=== PATIENT | male | born 1975 | race Caucasian/White ===

== ENCOUNTER → 2016-04-07 | Outpatient (CLI) | payer OTHER ==
[~2016-04-07] MED LIST: ABIL5TAB5 PO; ADDE20CA PO; ATOM40CA PO; BACITAB3 PO; CLIN1AER TOP; FLON1SPR; GABA300C3 PO; HYDR25T PO; LAMI25TA PO; MINI1CAP PO; SING10TA32 PO; TIZA4CAP3 PO; TRAZ150T14 PO; XANA0.5T PO; ZANTTAB PO; ZYRT10CA PO
[2016-04-07 13:47] LABS: BASO # 0.2 K/mm3 (0.0-0.2); BASO % 1.6 % (0.0-1.0); EOS # 0.2 K/mm3 (0.0-0.50); EOS % 1.8 % (0.0-3.0); LARGE UNSTAINED CELL # 0.2 K/mm3 (0.0-0.4); LARGE UNSTAINED CELL % 1.7 % (0.0-4.0); LYMPH # 3.7 K/mm3 (1.5-4.5); LYMPH % 31.4 % (24.0-44.0); MEAN CORPUSCULAR HEMOGLOBIN 31.8 pg (27.0-33.0); MEAN CORPUSCULAR VOLUME 93.5 fl (80.0-96.0); MONO # 0.6 K/mm3 (0.0-0.8); MONO % 5.2 % (0.0-5.0); NEUTROPHILS # 6.5 K/mm3 (1.8-7.7); NEUTROPHILS % 58.3 % (36.0-66.0); PLATELET COUNT, AUTOMATED 246 k/mm3 (150-450); RED CELL DISTRIBUTION WIDTH 13.8 % (11.5-14.5); WHITE BLOOD COUNT 11.1 K/mm3 (4.0-10.0)
[2016-04-07 14:15] LABS: URIC ACID 5.8 MG/DL (3.5-7.2)
[2016-04-07 14:37] LABS: ERYTHROCYTE SEDIMENTATION RATE 8 mm/hr (0-15)
== END ==
LOC: M LAB 12:18
PROVIDERS: ATTEND Physician Assistant
DX: M25.562 Pain in left knee (principal)

== ENCOUNTER 2016-07-06 16:46 | Emergency (ER) | payer OTHER ==
[~2016-07-06] VITALS: Ht 190.5 cm; Wt 122.9 kg
[~2016-07-06 16:46] MED LIST changes: +GABA-282 PO; -GABA300C3 PO
[2016-07-06 16:55] VITALS: BP 132/89
[2016-07-06] MEDS ORDERED: ADDE5TAB5 PO (17:12)
[2016-07-06] MEDS ORDERED: LAMI1TAB8 PO (17:12)
[2016-07-06] MEDS ORDERED: BUPR75TA5 PO (17:12)
[2016-07-06] MEDS ORDERED: XANA0.5T PO (17:12)
[2016-07-06] MEDS ORDERED: PRAZ1CAP PO (17:12)
[2016-07-06] MEDS ORDERED: RANI150C PO (17:12)
[2016-07-06] MEDS ORDERED: AMBI10TA PO (17:12)
[2016-07-06] MEDS ORDERED: LORazepam 2 MG/ML VIAL (J2060) IV STA (17:27)
[2016-07-06 17:51] LABS: BASO % 0.8 % (0.0-1.0); EOS # 0.1 K/mm3 (0.0-0.50); EOS % 1.8 % (0.0-3.0); LARGE UNSTAINED CELL # 0.2 K/mm3 (0.0-0.4); LARGE UNSTAINED CELL % 2.2 % (0.0-4.0); LYMPH % 43.6 % (24.0-44.0); MEAN CORPUSCULAR HGB CONC 35.7 g/dl (32.0-36.5); MEAN CORPUSCULAR VOLUME 92.6 fl (80.0-96.0); MONO # 0.4 K/mm3 (0.0-0.8); MONO % 6.3 % (0.0-5.0); NEUTROPHILS # 3.1 K/mm3 (1.8-7.7); NEUTROPHILS % 45.3 % (36.0-66.0); PLATELET COUNT, AUTOMATED 234 k/mm3 (150-450); RED CELL DISTRIBUTION WIDTH 12.3 % (11.5-14.5); WHITE BLOOD COUNT 6.8 K/mm3 (4.0-10.0)
[2016-07-06 18:04] LABS: ALBUMIN 3.7 GM/DL (3.2-5.2); ALBUMIN/GLOBULIN RATIO 1.03 (1.00-1.93); ALKALINE PHOSPHATASE 84 U/L (45-117); ALT/SGPT 35 U/L (12-78); ANION GAP 5 MEQ/L (8-16); AST/SGOT 16 U/L (15-37); BILIRUBIN,DIRECT 0.1 MG/DL (0.0-0.2); BILIRUBIN,TOTAL 0.7 MG/DL (0.2-1.0); BLOOD UREA NITROGEN 12 MG/DL (7-18); CALCIUM LEVEL 8.6 MG/DL (8.5-10.1); CARBON DIOXIDE LEVEL 27 MEQ/L (21-32); CHLORIDE LEVEL 104 MEQ/L (98-107); CREATININE FOR GFR 1.03 MG/DL (0.70-1.30); GLOMERULAR FILTRATION RATE > 60.0 (>60); GLUCOSE, FASTING 96 MG/DL (70-105); POTASSIUM SERUM 3.8 MEQ/L (3.5-5.1); SODIUM LEVEL 136 MEQ/L (136-145); TOTAL PROTEIN 7.3 GM/DL (6.4-8.2)
--- NOTE | 2016-07-06 18:29 | REP ---
Chest x-ray: Two views: History: Chest pain. Findings: There is linear density at the left base consistent with plate-like atelectasis or fibrosis. Lung hoff are otherwise clear. Pleural angles are sharp. Heart size is normal. EKG monitoring electrodes overlie the chest. Impression: Linear density left base consistent with plate-like atelectasis or linear scarring. Otherwise no acute disease. Signed by Abhay Reid MD 07/06/2016 07:56 P
--- NOTE | 2016-07-07 20:20 | ECGEPIP ---
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
--- NOTE | 2016-07-08 11:00 | ECGEPIP ---
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
== END 2016-07-06 18:50 | disposition home or self-care (01) ==
LOC: M ED 17:42
DX: F41.9 Anxiety disorder, unspecified (principal); R07.89 Other chest pain; K21.9 Gastro-esophageal reflux disease without esophagitis; J98.4 Other disorders of lung; Z79.899 Other long term (current) drug therapy; Z88.6 Allergy status to analgesic agent

== ENCOUNTER → 2016-07-12 | Outpatient (REF) | payer OTHER ==
[~2016-07-12] MED LIST changes: +ADDE5TAB5 PO; +AMBI10TA PO; +BUPR75TA5 PO; +LAMI1TAB8 PO; +PRAZ1CAP PO; +RANI150C PO
[2016-07-12 18:40] LABS: PROLACTIN 6.8 NG/ML (2.1-17.7)
[2016-07-12 18:41] LABS: FOLATE 5.3 NG/ML
== END ==
LOC: M LABDRAW1 15:34
PROVIDERS: ATTEND Family Medicine
DX: N52.9 Male erectile dysfunction, unspecified (principal)

== ENCOUNTER → 2016-09-02 | Outpatient (CLI) | payer OTHER ==
--- NOTE | 2016-09-03 09:35 | REP ---
Sinus series: Four views. History: Sinus pressure. Findings: The maxillary and frontal sinuses appear to be clear. Ethmoid and sphenoid aeration is normal. Mastoid aeration is normal and symmetric. Bony sinus margins are intact. Impression: Negative paranasal sinus views. Signed by Abhay Reid MD 09/03/2016 11:31 A
== END ==
LOC: M LRY 18:14
PROVIDERS: ATTEND Nurse Practitioner Family
DX: J34.89 Other specified disorders of nose and nasal sinuses (principal)

== ENCOUNTER 2017-08-08 07:03 | Outpatient (RCR) | payer BC | END 2017-08-16 | LOC: M PT 07:03 | DX: Z47.89 Encounter for other orthopedic aftercare (principal); S46.011A Strain of muscle(s) and tendon(s) of the rotator cuff of right shoulder, initial encounter | CPT/HCPCS: 97010 ==

== ENCOUNTER 2017-08-17 07:16 | Outpatient (RCR) | payer BC | END 2017-09-15 | LOC: M PT 08-22 07:30 | DX: Z51.89 Encounter for other specified aftercare (principal); S46.011A Strain of muscle(s) and tendon(s) of the rotator cuff of right shoulder, initial encounter | CPT/HCPCS: 97010 ==

== ENCOUNTER → 2017-09-26 | Outpatient (CLI) | payer BC | LOC: M RAD 06:40 | DX: S46.011D Strain of muscle(s) and tendon(s) of the rotator cuff of right shoulder, subsequent encounter (principal); M75.31 Calcific tendinitis of right shoulder; X58.XXXD Exposure to other specified factors, subsequent encounter; Y92.9 Unspecified place or not applicable | CPT/HCPCS: 73221 ==

== ENCOUNTER → 2017-10-18 | Outpatient (CLI) | payer BC | LOC: M LRY 11:17 | DX: K52.9 Noninfective gastroenteritis and colitis, unspecified (principal) | CPT/HCPCS: 81002 ==

== ENCOUNTER → 2017-10-18 | Outpatient (REF) | payer BC | LOC: M SFHCLERA 11:18 | DX: R19.7 Diarrhea, unspecified (principal) | CPT/HCPCS: 87507 ==

== ENCOUNTER → 2018-04-02 | Outpatient (REF) ==
[~2018-04-02] MED LIST changes: +ABIL1TAB11 PO; -ABIL5TAB5 PO; +ADDE1TAB14 PO; -ADDE20CA PO; +ADDE20CA3 PO; -ADDE5TAB5 PO; +BACITAB PO; -BACITAB3 PO; -GABA-282 PO; +GABA-843 PO; +HYDR-3363 PO; -HYDR25T PO; +TIZA4CAP PO; -TIZA4CAP3 PO; -TRAZ150T14 PO; +TRAZ1TAB14 PO
== END ==
LOC: M LAB 09:33
PROVIDERS: ATTEND Nurse Practitioner Adult Health
DX: Z00.00 Encounter for general adult medical examination without abnormal findings (principal)

== ENCOUNTER 2018-07-15 12:36 | Day surgery (SDC) | payer BC ==
[~2018-07-15] VITALS: Ht 170.2 cm; Wt 102.1 kg
[~2018-07-15 12:36] MED LIST changes: +MAPA500C PO; +NS 1,000 ML IV ONE; +OMEP40CA2 PO
[2018-07-15] MEDS ORDERED: PROPOFOL 500 MG/50 ML VIAL As Ordered ONE (14:03)
[2018-07-15] MEDS ORDERED: LIDOCAINE 2% INJ 100 MG/5 ML SDV (FOR ANES.) As Ordered ONE ×2 (14:15→14:53)
[2018-07-15] MEDS ORDERED: PROPOFOL 200 MG/20 ML VIAL As Ordered ONE ×2 (15:52→16:21)
[2018-07-15] MEDS ORDERED: fentaNYL 100 MCG/2 ML INJECTION (J3010) As Ordered ONE (15:56)
[2018-07-15] MEDS ORDERED: PHENYLephrine HCL 500 MCG/5 ML (100MCG/ML) SYRINGE (J2370) As Ordered ONE (16:09)
--- NOTE | 2018-07-15 16:32 | ROOR ---
Patient Name: Donovan Cheema Procedure Date: 07/15/2018 3:52 PM Date of : 1975 Age: 43 Room: [facility] Gender: Male Note Status: Finalized Procedure: Upper GI endoscopy Indications: Epigastric abdominal pain, Heartburn Providers: Hermilo Galdamez MD Referring MD: Mike KENYON MD Requesting Provider: Medicines: Monitored Anesthesia Care Complications: No immediate complications. Procedure: Pre-Anesthesia Assessment: - Prior to the procedure, a History and Physical was performed, and patient medications and allergies were reviewed. The patient is competent. The risks and benefits of the procedure and the sedation options and risks were discussed with the patient. All questions were answered and informed consent was obtained. Patient identification and proposed procedure were verified by the physician, the nurse and the anesthesiologist in the procedure room. Mental Status Examination: alert and oriented. Airway Examination: normal oropharyngeal airway and neck mobility. Respiratory Examination: clear to auscultation. CV Examination: normal. Prophylactic Antibiotics: The patient does not require prophylactic antibiotics. Prior Anticoagulants: The patient has taken no previous anticoagulant or antiplatelet agents. ASA Grade Assessment: II - A patient with mild systemic disease. After reviewing the risks and benefits, the patient was deemed in satisfactory condition to undergo the procedure. The anesthesia plan was to use monitored anesthesia care (MAC). Immediately prior to administration of medications, the patient was re-assessed for adequacy to receive sedatives. The heart rate, respiratory rate, oxygen saturations, blood pressure, adequacy of pulmonary ventilation, and response to care were monitored throughout the procedure. The physical status of the patient was re-assessed after the procedure. The Endoscope was introduced through the mouth, and advanced to the second part of duodenum. The upper GI endoscopy was accomplished without difficulty. The patient tolerated the procedure well. Findings: LA Grade A (one or more mucosal breaks less than 5 mm, not extending between tops of 2 mucosal folds) esophagitis with no bleeding was found in the distal esophagus. Biopsies were taken with a cold forceps for histology. Verification of patient identification for the specimen was done by the physician and nurse using the patient's name, date and medical record number. Estimated blood loss was minimal. The Z-line was irregular and was found 41 cm from the incisors. Patchy moderate inflammation characterized by erosions, erythema and granularity was found in the gastric body and in the gastric antrum. Biopsies were taken with a cold forceps for Helicobacter pylori testing. The duodenal bulb, second portion of the duodenum and third portion of the duodenum were normal. Biopsies for histology were taken with a cold forceps for evaluation of celiac disease. Impression: - LA Grade A reflux esophagitis. Biopsied. - Z-line irregular, 41 cm from the incisors. - Gastritis. Biopsied. - Normal duodenal bulb, second portion of the duodenum and third portion of the duodenum. Biopsied. Recommendation: - Patient has a contact number available for emergencies. The signs and symptoms of potential delayed complications were discussed with the patient. Return to normal activities tomorrow. Written discharge instructions were provided to the patient. - Resume previous diet. - Continue present medications. - Follow an antireflux regimen. 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 - Await pathology results. - Return to GI clinic in [facility] (address [address], [address], [place] [address]) in 4 -- 6 weeks. Please call GI clinic @ [phone] for apppointment date and time. - Return to primary care physician. Hermilo Galdamez MD Hermilo Galdamez MD 07/15/2018 4:32:30 PM Electronically signed by Hermilo Galdamez MD Number of Addenda: 0 Note Initiated On: 07/15/2018 3:52 PM Estimated Blood Loss: Estimated blood loss was minimal.
--- NOTE | 2018-07-15 16:38 | ROOR ---
Patient Name: Donovan Cheema Procedure Date: 07/15/2018 3:53 PM Date of : 1975 Age: 43 Room: [facility] Gender: Male Note Status: Finalized Procedure: Colonoscopy Indications: Chronic diarrhea Providers: Hermilo Galdamez MD Referring MD: Mike KENYON MD Requesting Provider: Medicines: Monitored Anesthesia Care Complications: No immediate complications. Procedure: Pre-Anesthesia Assessment: - Prior to the procedure, a History and Physical was performed, and patient medications and allergies were reviewed. The patient is competent. The risks and benefits of the procedure and the sedation options and risks were discussed with the patient. All questions were answered and informed consent was obtained. Patient identification and proposed procedure were verified by the physician, the nurse and the anesthesiologist in the procedure room. Mental Status Examination: alert and oriented. Airway Examination: normal oropharyngeal airway and neck mobility. Respiratory Examination: clear to auscultation. CV Examination: normal. Prophylactic Antibiotics: The patient does not require prophylactic antibiotics. Prior Anticoagulants: The patient has taken no previous anticoagulant or antiplatelet agents. ASA Grade Assessment: II - A patient with mild systemic disease. After reviewing the risks and benefits, the patient was deemed in satisfactory condition to undergo the procedure. The anesthesia plan was to use monitored anesthesia care (MAC). Immediately prior to administration of medications, the patient was re-assessed for adequacy to receive sedatives. The heart rate, respiratory rate, oxygen saturations, blood pressure, adequacy of pulmonary ventilation, and response to care were monitored throughout the procedure. The physical status of the patient was re-assessed after the procedure. The Colonoscope was introduced through the anus and advanced to the terminal ileum, with identification of the appendiceal orifice and IC valve. The colonoscopy was performed without difficulty. The patient tolerated the procedure well. The quality of the bowel preparation was good. The terminal ileum, ileocecal valve, appendiceal orifice, and rectum were photographed. Scope insertion time was 3 minutes. Scope withdrawal time was 9 minutes. The total duration of the procedure was 15 minutes. Findings: The perianal and digital rectal examinations were normal. The terminal ileum appeared normal. Two sessile polyps were found in the cecum. The polyps were 3 to 4 mm in size. These polyps were removed with a cold biopsy forceps. Resection and retrieval were complete. Verification of patient identification for the specimen was done by the physician and nurse using the patient's name, date and medical record number. Estimated blood loss was minimal. Six sessile polyps were found in the transverse colon. The polyps were 8 to 15 mm in size. These polyps were removed with a hot snare. Resection and retrieval were complete. Normal mucosa was found in the entire colon. Biopsies for histology were taken with a cold forceps from the right colon, left colon and rectosigmoid colon for evaluation of microscopic colitis. Non-bleeding external and internal hemorrhoids were found during retroflexion. The hemorrhoids were medium-sized. Impression: - The examined portion of the ileum was normal. - Two 3 to 4 mm polyps in the cecum, removed with a cold biopsy forceps. Resected and retrieved. - Six 8 to 15 mm polyps in the transverse colon, removed with a hot snare. Resected and retrieved. - Normal mucosa in the entire examined colon. Biopsied. - Non-bleeding external and internal hemorrhoids. Recommendation: - Patient has a contact number available for emergencies. The signs and symptoms of potential delayed complications were discussed with the patient. Return to normal activities tomorrow. Written discharge instructions were provided to the patient. - Resume previous diet. - Continue present medications. - Await pathology results. - Repeat colonoscopy in 1 year for surveillance based on pathology results and for surveillance of multiple polyps. - Return to GI clinic in [facility] (address [address], [address], [place], [address]) in 4 -- 6 weeks. Please call GI clinic @ [phone] for apppointment date and time. - Return to primary care physician. Hermilo Galdamez MD Hermilo Galdamez MD 07/15/2018 4:38:01 PM Electronically signed by Hermilo Galdamez MD Number of Addenda: 0 Note Initiated On: 07/15/2018 3:53 PM Estimated Blood Loss: Estimated blood loss was minimal.
[2018-07-15 16:55] VITALS: BP 129/78
== END 2018-07-15 17:11 | disposition home or self-care (01) ==
LOC: M OPP 12:36
PROVIDERS: ATTEND Internal Medicine Gastroenterology
DX: D12.2 Benign neoplasm of ascending colon (principal); D12.3 Benign neoplasm of transverse colon; K52.9 Noninfective gastroenteritis and colitis, unspecified; K64.8 Other hemorrhoids; R19.7 Diarrhea, unspecified; K21.0 Gastro-esophageal reflux disease with esophagitis; K22.8 Other specified diseases of esophagus; K29.70 Gastritis, unspecified, without bleeding; R10.13 Epigastric pain; R12 Heartburn
CPT/HCPCS: 43239; 45380; 45385; 88305; J2370; J3010

== ENCOUNTER → 2018-07-31 | Outpatient (CLI) | payer BC ==
[~2018-07-31] MED LIST changes: -NS 1,000 ML IV ONE
[2018-07-31 11:08] LABS: BASO # 0.1 10^3/uL (0.0-0.2); BASO % 0.4 % (0.0-1.0); EOS # 0.1 10^3/uL (0.0-0.50); EOS % 0.7 % (0.0-3.0); HEMATOCRIT 44.6 % (42.0-52.0); HEMOGLOBIN 15.2 g/dl (13.5-17.5); LYMPH # 3.8 10^3/uL (1.5-4.5); LYMPH % 32.4 % (24.0-44.0); MEAN CORPUSCULAR HEMOGLOBIN 30.8 pg (27.0-33.0); MEAN CORPUSCULAR HGB CONC 34.1 g/dl (32.0-36.5); MEAN CORPUSCULAR VOLUME 90.5 fl (80.0-96.0); MONO # 0.7 10^3/uL (0.0-0.8); MONO % 5.8 % (0.0-5.0); NEUTROPHILS # 7.1 10^3/uL (1.8-7.7); NEUTROPHILS % 60.3 % (36.0-66.0); PLATELET COUNT, AUTOMATED 249 10^3/uL (150-450); RED BLOOD COUNT 4.93 10^6/uL (4.30-6.10); WHITE BLOOD COUNT 11.7 10^3/uL (4.0-10.0)
[2018-07-31 12:30] LABS: ALBUMIN 3.7 GM/DL (3.2-5.2); ALT/SGPT 27 U/L (12-78); AMYLASE 30 U/L (25-115); BILIRUBIN,DIRECT 0.2 MG/DL (0.0-0.2); BILIRUBIN,TOTAL 0.9 MG/DL (0.2-1.0); BLOOD UREA NITROGEN 12 MG/DL (7-18); CREATININE FOR GFR 0.72 MG/DL (0.70-1.30); GLOMERULAR FILTRATION RATE > 60.0 (>60); LIPASE 48 U/L (73-393); TOTAL PROTEIN 7.2 GM/DL (6.4-8.2)
== END ==
LOC: M LAB 10:18
PROVIDERS: ATTEND Internal Medicine Gastroenterology
DX: R63.4 Abnormal weight loss (principal)

== ENCOUNTER → 2018-08-13 | Outpatient (CLI) | payer BC ==
[~2018-08-13] MED LIST changes: +GASTROGRAFIN SOLUTION 30ML (Q9963) As Ordered ONE; +ISOVUE-370 76% 100ML VIAL (Q9967) As Ordered ONE
--- NOTE | 2018-08-13 18:26 | REP ---
Clinical: Abnormal weight loss. Technique: Axial contrast enhanced images from the lung bases to the pubic symphysis using oral (per protocol) and 100 ml Isovue 370 intravenous contrast material with delayed images of the abdomen as well as coronal and sagittal re-formations. Comparison: None. Findings: Lung bases are clear. Visualized heart and pericardium normal. Liver, spleen, pancreas, bilateral adrenal glands and kidneys are normal. Cholelithiasis noted without acute cholecystitis. The enteric system is without obstruction or acute inflammatory process. Normal terminal ileum and appendix identified in the right lower quadrant. Pelvis demonstrates normal bladder and age appropriate prostate/seminal vesicles. No pelvic fluid. No ascites. No free air. No adenopathy. Abdominal aorta and vasculature without aneurysm or dissection. Musculoskeletal structures without focal osseous abnormality. Impression: 1. Cholelithiasis. 2. No acute abdominopelvic pathology appreciated. Electronically Signed by Tacos Isaacs MD 08/13/2018 06:18 P
== END ==
LOC: M RAD 16:04
PROVIDERS: ATTEND Internal Medicine Gastroenterology
DX: R63.4 Abnormal weight loss (principal); R19.7 Diarrhea, unspecified; K80.00 Calculus of gallbladder with acute cholecystitis without obstruction
CPT/HCPCS: 74177; Q9963; Q9967

== ENCOUNTER → 2018-08-27 | Outpatient (REF) | payer BC ==
[~2018-08-27] MED LIST changes: -GASTROGRAFIN SOLUTION 30ML (Q9963) As Ordered ONE; -ISOVUE-370 76% 100ML VIAL (Q9967) As Ordered ONE
== END ==
LOC: M LAB REF 09:03
PROVIDERS: ATTEND Internal Medicine Gastroenterology
DX: R63.4 Abnormal weight loss (principal); R19.7 Diarrhea, unspecified; R10.13 Epigastric pain

== ENCOUNTER → 2018-10-07 | Outpatient (REF) | payer BC ==
[~2018-10-07] MED LIST changes: +ZANT150T40 PO; -ZANTTAB PO
== END ==
LOC: M SFHCLERA 11:09
PROVIDERS: ATTEND Family Medicine
DX: R22.31 Localized swelling, mass and lump, right upper limb (principal)

== ENCOUNTER → 2018-10-13 | Outpatient (CLI) | payer BC ==
[~2018-10-13] MED LIST changes: +ALBU83IN INH; +DOXY-350 PO; +ZYRTTAB8 PO
[2018-10-13 14:38] LABS: BASO # 0.1 10^3/uL (0.0-0.2); BASO % 0.4 % (0.0-1.0); EOS # 0.2 10^3/uL (0.0-0.50); EOS % 1.4 % (0.0-3.0); HEMATOCRIT 44.8 % (42.0-52.0); HEMOGLOBIN 15.5 g/dl (13.5-17.5); LYMPH % 28.5 % (24.0-44.0); MEAN CORPUSCULAR HGB CONC 34.6 g/dl (32.0-36.5); MEAN CORPUSCULAR VOLUME 92.6 fl (80.0-96.0); MONO # 0.8 10^3/uL (0.0-0.8); MONO % 5.5 % (0.0-5.0); NEUTROPHILS # 8.9 10^3/uL (1.8-7.7); NEUTROPHILS % 63.7 % (36.0-66.0); PLATELET COUNT, AUTOMATED 231 10^3/uL (150-450); RED BLOOD COUNT 4.84 10^6/uL (4.30-6.10)
--- NOTE | 2018-10-14 07:53 | REP ---
PA and lateral chest: Comparison is 07/06/2016. The lung hoff are clear. Cardiac size is normal. There is soft tissue fullness in the left hilus as an interval change. The right hilus is unremarkable. The mediastinum is unchanged. Bony thorax is unremarkable. Impression: Soft tissue fullness in the left hilus as an interval change. Electronically Signed by Mike Warner MD 10/13/2018 02:39 P
== END ==
LOC: M LAB 14:05
PROVIDERS: ATTEND Family Medicine
DX: R22.31 Localized swelling, mass and lump, right upper limb (principal)

== ENCOUNTER 2018-10-29 07:32 | Day surgery (SDC) | payer BC ==
[~2018-10-29] VITALS: Ht 190.5 cm; Wt 106.2 kg
[~2018-10-29 07:32] MED LIST changes: +LR 1,000 ML IV ONE; -OMEP40CA2 PO; +OMEP40CA97 PO
[2018-10-29] MEDS ORDERED: propofoL 200 MG/20 ML VIAL As Ordered ONE (07:40)
[2018-10-29] MEDS ORDERED: LIDOCAINE 2% INJ 100 MG/5 ML SDV (FOR ANES.) As Ordered ONE (07:40)
[2018-10-29] MEDS ORDERED: dexameTHASONE 4 MG/ML 1ML VIAL (J1100) As Ordered ONE (07:40)
[2018-10-29] MEDS ORDERED: ONDANSETRON 4MG/2ML VIAL (J2405) As Ordered ONE (07:40)
[2018-10-29] MEDS ORDERED: ACETAMINOPHEN 1000MG 100ML IV BTL (OFIRMEV) (J0131 PER 10MG) As Ordered ONE (07:40)
[2018-10-29] MEDS ORDERED: ROCURONIUM BROMIDE 50 MG/5 ML VIAL As Ordered ONE ×2 (07:40→10:36)
[2018-10-29] MEDS ORDERED: BUPIVACAINE HCL 0.25% 30 ML VIAL As Ordered ONE (09:20)
[2018-10-29] MEDS ORDERED: fentaNYL 250 MCG/5 ML INJECTION (J3010) As Ordered ONE (10:02)
[2018-10-29] MEDS ORDERED: MIDAZOLAM INJ 2 MG/2 ML VIAL (J2250) As Ordered ONE (10:02)
[2018-10-29] MEDS ORDERED: NORC1TAB7 PO (10:10)
[2018-10-29] MEDS ORDERED: SUCCINYLCHOLINE 100 MG/5 ML SYRINGE (J0330) As Ordered ONE (10:16)
[2018-10-29] MEDS ORDERED: HYDROmorphone HCL 2 MG/ML 1ML VIAL (J1170) As Ordered ONE (11:40)
[2018-10-29] MEDS ORDERED: KETOROLAC 60 MG/2 ML VIAL (J1885) As Ordered ONE (11:43)
[2018-10-29] MEDS ORDERED: fentaNYL 100 MCG/2 ML INJECTION (J3010) As Ordered ONE (11:49)
[2018-10-29] MEDS: fentaNYL 100 MCG/2 ML INJECTION (J3010) IV PRN ×4 (11:55→12:10)
[2018-10-29] MEDS ORDERED: HYDROMORPHONE HCL 0.5 MG/ 0.5 ML SYRINGE (J1170 PER 1) As Ordered ONE (12:13)
[2018-10-29] MEDS ORDERED: ONDANSETRON 4MG/2ML VIAL (J2405) IV PRN (12:15)
[2018-10-29] MEDS ORDERED: LR 1,000 ML IV SCH (12:15)
[2018-10-29] MEDS ORDERED: HYDROMORPHONE HCL 0.5 MG/ 0.5 ML SYRINGE (J1170 PER 1) IV PRN (12:30)
[2018-10-29] MEDS ORDERED: ACETAMINOPHEN 500 MG TAB PO PRN (13:16)
[2018-10-29] MEDS ORDERED: NORCO, ANEXSIA 5/325MG TABLET (HYDROcodone/ACETAMINOPHEN) PO PRN (13:16)
[2018-10-29 13:25] VITALS: BP 133/86
--- NOTE | 2018-11-01 08:59 | RO ---
DATE OF PROCEDURE: 10/29/2018 PREOPERATIVE DIAGNOSIS: Gallstones. POSTOPERATIVE DIAGNOSIS: Gallstones. PROCEDURE PERFORMED: Robotic-assisted laparoscopic cholecystectomy. SURGEON: Dr. Davis DRY WALL FINISHER: YAMILE Flores ANESTHESIA: General. INDICATIONS FOR PROCEDURE: The patient is a 43-year-old man who was seen for some upper abdominal pain and found to have gallstones. He is now for a laparoscopic cholecystectomy with a robotic-assisted. OPERATIVE PROCEDURE: The patient was placed on the table in supine position. He was placed under general endotracheal anesthesia. The patient's abdomen was prepped and draped in a sterile fashion. Local anesthesia was achieved at the trocar sites with 0.25% Marcaine as needed. A short incision was made in the left upper quadrant and a Veress needle was inserted. After positive hanging drop test, the abdomen was insufflated with carbon dioxide gas. An 8 mm robotic port was placed over the scope and advanced through the abdominal wall without difficulty. Initial examination showed a normal-appearing liver. The gallbladder was partially seen. Visualized portions of the small and large bowel appeared normal. Three additional robotic ports were placed extending in a diagonal line from the left upper quadrant to the right lower quadrant. The da Vilma XI robot was brought into position and docked to the camera port. Targeting took place in the right upper quadrant and the additional arms were docked to the existing ports. A hook cautery was placed in the left upper quadrant, a bipolar in the medial right lower quadrant and a grasper in the lateral right lower quadrant. I then moved to the control console. The patient was tilted subsequently to a reverse Trendelenburg position and rolled slightly to the left. The gallbladder was grasped and elevated. Some adhesions to the surrounding omentum were divided using the hook cautery. As the gallbladder was freed, it was retracted further superiorly. Dissection proceeded along the body of the gallbladder and the neck was then identified. With dissection of the gallbladder neck, the cystic duct and cholecystic artery were both clearly identified and freed. Both structures were then doubly clipped with hemoclips and divided with scissors. The gallbladder was then dissected free from the gallbladder bed using cautery dissection. The gallbladder was not perforated. The gallbladder was placed in an Endopouch. Inspection revealed no evidence of any bleeding. The robot was undocked, and the abdomen was deflated and the patient was returned to a flat position. The robotic ports were removed. The string of the Endopouch had been brought through the medial right lower quadrant port. Retractors were used and the incision was extended slightly and the anterior and posterior fascia were opened to allow passage of the gallbladder, which contained some small palpable stones. The fascia was then closed with 0 Vicryl. The skin incisions were all closed with buried Vicryl sutures and Steri-Strips. Light dressings were applied. The patient tolerated the procedure well. Mireille Morris had been essential for assisting in placement of the ports, change of instruments and closure of the incisions. He was awakened in the operating room, extubated, moved to the recovery room in stable condition.
[2019-02-10] MEDS ORDERED: ONDA-83 PO (10:08)
[2019-02-17] MEDS ORDERED: TRAZ1TAB12 PO (08:51)
== END 2018-10-29 13:47 | disposition home or self-care (01) ==
LOC: M SDC 07:32
PROVIDERS: ATTEND Surgery
DX: K80.10 Calculus of gallbladder with chronic cholecystitis without obstruction (principal); K21.9 Gastro-esophageal reflux disease without esophagitis; F43.10 Post-traumatic stress disorder, unspecified; F31.9 Bipolar disorder, unspecified; F41.9 Anxiety disorder, unspecified; K44.9 Diaphragmatic hernia without obstruction or gangrene; J45.909 Unspecified asthma, uncomplicated; Z79.51 Long term (current) use of inhaled steroids; Z79.899 Other long term (current) drug therapy; F12.90 Cannabis use, unspecified, uncomplicated; F17.210 Nicotine dependence, cigarettes, uncomplicated
CPT/HCPCS: 47562; 88304; J0131; J0330; J1100; J1170; J1885; J2250; J2405; J3010

== ENCOUNTER → 2018-11-06 | Outpatient (REF) | payer BC ==
[~2018-11-06] MED LIST changes: -LR 1,000 ML IV ONE; +NORC1TAB7 PO; +OMEP40CA2 PO; -OMEP40CA97 PO
[2018-11-06 18:02] LABS: BASO # 0.1 10^3/uL (0.0-0.2); BASO % 0.5 % (0.0-1.0); EOS # 0.2 10^3/uL (0.0-0.50); EOS % 0.9 % (0.0-3.0); HEMOGLOBIN 17.5 g/dl (13.5-17.5); LYMPH # 4.3 10^3/uL (1.5-4.5); LYMPH % 24.7 % (24.0-44.0); MEAN CORPUSCULAR HEMOGLOBIN 31.8 pg (27.0-33.0); MEAN CORPUSCULAR HGB CONC 33.7 g/dl (32.0-36.5); MEAN CORPUSCULAR VOLUME 94.4 fl (80.0-96.0); MONO # 1.1 10^3/uL (0.0-0.8); MONO % 6.5 % (0.0-5.0); NEUTROPHILS # 11.5 10^3/uL (1.8-7.7); NEUTROPHILS % 66.8 % (36.0-66.0); PLATELET COUNT, AUTOMATED 282 10^3/uL (150-450); RED BLOOD COUNT 5.51 10^6/uL (4.30-6.10); WHITE BLOOD COUNT 17.3 10^3/uL (4.0-10.0)
== END ==
LOC: M SFHCLERA 12:12
PROVIDERS: ATTEND Family Medicine
DX: D72.829 Elevated white blood cell count, unspecified (principal)

== ENCOUNTER → 2018-11-11 | Outpatient (REF) | payer BC ==
[2018-11-11 11:39] LABS: BASO # 0.1 10^3/uL (0.0-0.2); BASO % 0.6 % (0.0-1.0); EOS # 0.2 10^3/uL (0.0-0.50); EOS % 1.4 % (0.0-3.0); HEMATOCRIT 48.4 % (42.0-52.0); HEMOGLOBIN 16.5 g/dl (13.5-17.5); LYMPH # 3.7 10^3/uL (1.5-4.5); LYMPH % 24.7 % (24.0-44.0); MEAN CORPUSCULAR HEMOGLOBIN 32.1 pg (27.0-33.0); MEAN CORPUSCULAR HGB CONC 34.1 g/dl (32.0-36.5); MEAN CORPUSCULAR VOLUME 94.2 fl (80.0-96.0); MONO # 0.8 10^3/uL (0.0-0.8); MONO % 5.4 % (0.0-5.0); NEUTROPHILS % 67.4 % (36.0-66.0); PLATELET COUNT, AUTOMATED 252 10^3/uL (150-450); RED BLOOD COUNT 5.14 10^6/uL (4.30-6.10); WHITE BLOOD COUNT 14.9 10^3/uL (4.0-10.0)
== END ==
LOC: M SFHCLERA 08:15
PROVIDERS: ATTEND Family Medicine
DX: D72.829 Elevated white blood cell count, unspecified (principal)

== ENCOUNTER → 2018-11-26 | Outpatient (CLI) | payer BC ==
[~2018-11-26] MED LIST changes: +REGL10TA6 PO
--- NOTE | 2018-11-26 14:21 | REP ---
Chest x-ray: Two views. History: Abnormal weight loss. Comparison chest x-ray October 13, 2018. Findings: The lungs are well inflated and free of infiltrate. There is mild linear fibrosis in the left base. This is somewhat more conspicuous but not new when compared with the October 13, 2018 study. Lung hoff are otherwise clear. Heart size is normal. Pulmonary vasculature is not increased. No bony abnormality is appreciated. Impression: Linear fibrosis left base. No active cardiopulmonary disease. Electronically Signed by Abhay Reid MD 11/26/2018 02:13 P
== END ==
LOC: M LRY 13:56
PROVIDERS: ATTEND Physician Assistant
DX: R63.4 Abnormal weight loss (principal); J84.10 Pulmonary fibrosis, unspecified

== ENCOUNTER → 2018-11-26 | Outpatient (REF) | payer BC ==
[~2018-11-26] MED LIST changes: -REGL10TA6 PO
[2018-11-26 17:26] LABS: BASO # 0.1 10^3/uL (0.0-0.2); BASO % 0.8 % (0.0-1.0); EOS # 0.2 10^3/uL (0.0-0.5); EOS % 1.8 % (0.0-3.0); HEMATOCRIT 46.2 % (42.0-52.0); HEMOGLOBIN 15.7 g/dl (13.5-17.5); LYMPH % 34.6 % (24.0-44.0); MEAN CORPUSCULAR HEMOGLOBIN 32.1 pg (27.0-33.0); MEAN CORPUSCULAR VOLUME 94.5 fl (80.0-96.0); MONO # 0.5 10^3/uL (0.0-0.8); NEUTROPHILS # 4.9 10^3/uL (1.5-8.5); NEUTROPHILS % 56.5 % (36.0-66.0); PLATELET COUNT, AUTOMATED 246 10^3/uL (150-450); RED BLOOD COUNT 4.89 10^6/uL (4.30-6.10); WHITE BLOOD COUNT 8.7 10^3/uL (4.0-10.0)
[2018-11-26 17:29] LABS: ALBUMIN 3.8 GM/DL (3.2-5.2); ALT/SGPT 24 U/L (12-78); BILIRUBIN,TOTAL 0.2 MG/DL (0.2-1.0); BLOOD UREA NITROGEN 9 MG/DL (7-18); C REACTIVE PROTEIN QUANTITATIV < 0.30 MG/DL (0.00-0.30); CALCIUM LEVEL 9.1 MG/DL (8.5-10.1); CARBON DIOXIDE LEVEL 24 MEQ/L (21-32); CHLORIDE LEVEL 109 MEQ/L (98-107); CREATININE FOR GFR 0.81 MG/DL (0.70-1.30); GLOMERULAR FILTRATION RATE > 60.0 (>60); GLUCOSE, FASTING 104 MG/DL (70-100); POTASSIUM SERUM 3.8 MEQ/L (3.5-5.1); SODIUM LEVEL 141 MEQ/L (136-145); TOTAL PROTEIN 6.7 GM/DL (6.4-8.2)
[2018-11-26 18:08] LABS: ERYTHROCYTE SEDIMENTATION RATE 5 mm/hr (0-15)
[2018-11-26 20:32] LABS: APPEARANCE, URINE CLEAR (CLEAR); BACTERIA, URINE AUTO NEGATIVE (NEGATIVE); BILIRUBIN, URINE AUTO NEGATIVE (NEGATIVE); BLOOD, URINE BLOOD NEGATIVE (NEGATIVE); COLOR, URINE AMBER (YELLOW); GLUCOSE, URINE (UA) AUTO NEGATIVE (NEGATIVE); KETONE, URINE AUTO TRACE mg/dL (NEGATIVE); LEUKOCYTE ESTERASE, URINE AUTO NEGATIVE (NEGATIVE); MUCUS, URINE SMALL (NEGATIVE); NITRITE, URINE AUTO NEGATIVE (NEGATIVE); PROTEIN, URINE AUTO NEGATIVE (NEGATIVE); RBC, URINE AUTO 1 /HPF (0-3); SPECIFIC GRAVITY URINE AUTO 1.023 (1.002-1.035); SQUAMOUS EPITHELIAL CELL UR AU 0 /HPF (0-6); WBC, URINE AUTO 1 /HPF (0-3)
[2018-11-29 00:06] LABS: ANTINUCLEAR ANTIBODIES DIRECT Negative (Negative); LEAD BLOOD ADULT 2 ug/dL (0-4); Lyme Disease IgG/IgM Antibodie <0.91 ISR (0.00-0.90); Lyme Disease IgM Ab Quantitati <0.80 index (0.00-0.79)
== END ==
LOC: M SFHCLERA 14:04
PROVIDERS: ATTEND Physician Assistant
DX: R63.4 Abnormal weight loss (principal); D72.829 Elevated white blood cell count, unspecified; M25.50 Pain in unspecified joint; Z77.011 Contact with and (suspected) exposure to lead

== ENCOUNTER 2018-12-06 17:12 | Emergency (ER) | payer BC ==
[~2018-12-06] VITALS: Ht 190.5 cm; Wt 105.4 kg
[2018-12-06 18:20] LABS: BASO # 0.1 10^3/uL (0.0-0.2); BASO % 0.7 % (0.0-1.0); EOS # 0.1 10^3/uL (0.0-0.5); HEMATOCRIT 48.7 % (42.0-52.0); HEMOGLOBIN 16.7 g/dl (13.5-17.5); LYMPH # 3.9 10^3/uL (1.5-5.0); LYMPH % 30.7 % (24.0-44.0); MEAN CORPUSCULAR HEMOGLOBIN 31.4 pg (27.0-33.0); MEAN CORPUSCULAR HGB CONC 34.3 g/dl (32.0-36.5); MEAN CORPUSCULAR VOLUME 91.5 fl (80.0-96.0); MONO # 0.9 10^3/uL (0.0-0.8); MONO % 7.2 % (0.0-5.0); NEUTROPHILS # 7.5 10^3/uL (1.5-8.5); NEUTROPHILS % 59.8 % (36.0-66.0); PLATELET COUNT, AUTOMATED 255 10^3/uL (150-450); RED BLOOD COUNT 5.32 10^6/uL (4.30-6.10); WHITE BLOOD COUNT 12.5 10^3/uL (4.0-10.0)
[2018-12-06 18:43] LABS: ALBUMIN 4.1 GM/DL (3.2-5.2); BILIRUBIN,DIRECT 0.2 MG/DL (0.0-0.2); BILIRUBIN,TOTAL 0.8 MG/DL (0.2-1.0); TOTAL PROTEIN 7.4 GM/DL (6.4-8.2)
[2018-12-06] MEDS ORDERED: ISOVUE-370 76% 100ML VIAL (Q9967) As Ordered ONE (20:43)
[2018-12-06] MEDS ORDERED: METOCLOPRAMIDE INJ 10MG/2ML VIAL (J2765) IV ONE (20:45)
[2018-12-06] MEDS ORDERED: MORPHINE 4 MG/ML 1ML VIAL/SYRINGE (J2270) IV PRN (20:45)
--- NOTE | 2018-12-06 21:31 | REPVR ---
PROCEDURE INFORMATION: Exam: CT Abdomen and Pelvis With Contrast Exam date and time: 12/06/2018 8:56 PM Clinical history: 43 years old, male; Abdominal pain; Generalized; Additional info: Generalized abd pain TECHNIQUE: Imaging protocol: Computed tomography of the abdomen and pelvis with intravenous contrast. Radiation optimization: All CT scans at this facility use at least one of these dose optimization techniques: automated exposure control; mA and/or kV adjustment per patient size (includes targeted exams where dose is matched to clinical indication); or iterative reconstruction. Contrast material: ISOVUE 370; Contrast volume: 100 ml; Contrast route: IV; COMPARISON: CT ABD PELVIS WITH CONTRAST 08/13/2018 5:49 PM FINDINGS: Lungs: Minimal bilateral lower lobe dependent atelectasis. Liver: Normal. No mass. Gallbladder and bile ducts: Absent gallbladder. Pancreas: Normal. No ductal dilation. Spleen: Normal. No splenomegaly. Adrenals: Normal. No mass. Kidneys and ureters: Normal. No hydronephrosis. Stomach and bowel: Mild distention of a short segment of small bowel in the right abdomen which may be transient. There is suggestion of an adjacent segment of small bowel which may have some wall thickening and enteritis is not excluded. Appendix: A normal retrocecal appendix is seen. Intraperitoneal space: Unremarkable. No free air. No significant fluid collection. Vasculature: Unremarkable. No abdominal aortic aneurysm. Lymph nodes: Unremarkable. No enlarged lymph nodes. Bladder: Unremarkable as visualized. Reproductive: Unremarkable as visualized. Bones/joints: Lower lumbar facet arthropathy with posterior protrusion and osteophytes L5-S1. Soft tissues: Slight focal subcutaneous induration with focal thickening of the right rectus abdominis muscle in the right mid abdomen suggesting previous incision site. IMPRESSION: 1. Interval cholecystectomy since 08/13/2018 with residua of a small right mid abdominal incision suggesting the procedure may have been laparoscopic. 2. Mild distention of a short segment of right abdominal small bowel with adjacent segments of small bowel which suggest some wall thickening. Enteritis is not excluded. Electronically signed by: Juan David Sherman On 12/06/2018 21:31:30 PM
[2018-12-06 23:30] VITALS: BP 127/80
[2018-12-06] MEDS ORDERED: REGL10TA6 PO (23:51)
== END 2018-12-07 00:10 | disposition home or self-care (01) ==
LOC: M ED 17:12
DX: K52.9 Noninfective gastroenteritis and colitis, unspecified (principal); Z79.899 Other long term (current) drug therapy; Z88.8 Allergy status to other drugs, medicaments and biological substances; F17.210 Nicotine dependence, cigarettes, uncomplicated
CPT/HCPCS: 74177; 80047; 80076; 81001; 82150; 83690; 85025; 93041; 96374; 96375; 99285; J2270; J2765; Q9967

== ENCOUNTER → 2018-12-31 | Outpatient (REF) | payer BC ==
[~2018-12-31] MED LIST changes: +REGL10TA6 PO
== END ==
LOC: M SFHCPLAZ 17:22
PROVIDERS: ATTEND Dermatology
DX: D49.2 Neoplasm of unspecified behavior of bone, soft tissue, and skin (principal)

== ENCOUNTER 2019-02-10 10:02 | Inpatient (IN) | payer BC ==
[~2019-02-10] VITALS: Ht 190.5 cm; Wt 106.6 kg
[~2019-02-10 10:02] MED LIST changes: -OMEP40CA2 PO; +OMEP40CA97 PO
[2019-02-10] MEDS ORDERED: ONDA4TAB5 PO (10:08)
[2019-02-10] MEDS ORDERED: NICOTINE 21MG/24HR 1 EA TRANSDERMAL TD ONE (10:30)
[2019-02-10 11:03] LABS: HEMATOCRIT 47.8 % (42.0-52.0); HEMOGLOBIN 16.2 g/dl (13.5-17.5); MEAN CORPUSCULAR HEMOGLOBIN 32.1 pg (27.0-33.0); MEAN CORPUSCULAR HGB CONC 33.9 g/dl (32.0-36.5); MEAN CORPUSCULAR VOLUME 94.7 fl (80.0-96.0); PLATELET COUNT, AUTOMATED 237 10^3/uL (150-450); RED BLOOD COUNT 5.05 10^6/uL (4.30-6.10); WHITE BLOOD COUNT 15.9 10^3/uL (4.0-10.0)
[2019-02-10 11:24] LABS: AMPHETAMINES LEVEL URINE NEGATIVE (NEGATIVE); BARBITURATES URINE NEGATIVE (NEGATIVE); BENZODIAZEPINES URINE NEGATIVE (NEGATIVE); CANNABINOIDS URINE POSITIVE (NEGATIVE); COCAINE METABOLITE URINE NEGATIVE (NEGATIVE); METHADONE URINE NEGATIVE (NEGATIVE); OPIATES URINE NEGATIVE (NEGATIVE); PHENCYCLIDINE URINE NEGATIVE (NEGATIVE)
[2019-02-10 11:41] LABS: ACETAMINOPHEN LEVEL < 2.0 UG/ML (10.0-30.0); ALBUMIN 3.9 GM/DL (3.2-5.2); ALT/SGPT 26 U/L (12-78); BILIRUBIN,DIRECT 0.2 MG/DL (0.0-0.2); BILIRUBIN,TOTAL 0.7 MG/DL (0.2-1.0); BLOOD UREA NITROGEN 11 MG/DL (7-18); CALCIUM LEVEL 9.4 MG/DL (8.5-10.1); CARBON DIOXIDE LEVEL 28 MEQ/L (21-32); CHLORIDE LEVEL 106 MEQ/L (98-107); CREATININE FOR GFR 0.84 MG/DL (0.70-1.30); ETHYL ALCOHOL (ETHANOL) < 0.003 % (0.000-0.010); GLOMERULAR FILTRATION RATE > 60.0 (>60); GLUCOSE, FASTING 104 MG/DL (70-100); POTASSIUM SERUM 4.5 MEQ/L (3.5-5.1); SALICYLATE LEVEL 4.4 MG/DL (5.0-30.0); SODIUM LEVEL 138 MEQ/L (136-145); TOTAL PROTEIN 7.1 GM/DL (6.4-8.2)
[2019-02-10] MEDS ORDERED: METR1GEL4 TOP (14:10)
[2019-02-10] MEDS ORDERED: ALL10TAB29 PO (14:10)
[2019-02-10] MEDS ORDERED: traZODone 50 MG TAB PO PRN (14:30)
[2019-02-10] MEDS ORDERED: MAALOX 30 ML SUSP *UDC PO PRN (14:30)
[2019-02-10] MEDS ORDERED: MOM 30ML SUSPENSION UDC PO PRN (14:30)
[2019-02-10] MEDS ORDERED: NICOTINE 21MG/24HR 1 EA TRANSDERMAL TD SCH (15:00)
[2019-02-10 17:33] VITALS: BP 120/73
[2019-02-10 18:00] VITALS: BP_SYST 120; BP_SYST 124; BP_DIAS 71; BP_DIAS 73
[2019-02-11 06:25] VITALS: BP 142/79
[2019-02-11] MEDS: NICOTINE 21MG/24HR 1 EA TRANSDERMAL TD SCH (08:54)
[2019-02-11] MEDS ORDERED: BREXPIPRAZOLE 0.5MG TABLET (REXULTI) PO ONE (10:00)
[2019-02-11] MEDS ORDERED: FLUoxetine 20 MG CAP PO ONE (10:00)
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
--- NOTE | 2019-02-11 16:03 | HPEPDOC ---
[facility] Medical History & Physical Date of Admission Feb 11, 2019 Date of Service: Feb 11, 2019 History and Physical CHIEF COMPLAINT: Depression HISTORY OF PRESENT ILLNESS: 44-year-old male with past medical history of severe depression is admitted to inpatient mental health unit for severe depression. Patient reports that he has been off of all medication since April of this year due to lack of insurance. He reports he had to come in cervical, vomiting and medicated, has had difficulty obtaining medication in the outpatient setting. His only medical issue is chronic diarrhea for the past year, has been evaluated by multiple specialists including yesterday. Nephrology, underwent E GD, colonoscopy, has had an extensive workup and no working diagnosis at this time. He currently reports loose stool, without any of those symptoms at this time. He denies any shortness of breath, chest pain, vomiting, abdominal pain or headache. PAST MEDICAL HISTORY: 1. Chronic diarrhea. 2. Depression. PAST SURGICAL HISTORY: 1. Cholecystectomy. SOCIAL HISTORY: Current smoker. Social calm Marijuana use FAMILY HISTORY: Noncontributory ALLERGIES: Please see below. HOME MEDICATIONS: Please see below. PHYSICAL EXAMINATION: VITAL SIGNS: Please see below. GENERAL: No distress HEENT: Normocephalic, atraumatic, moist mucous membranes NECK: Supple CARDIOVASCULAR EXAMINATION: S1, S2, no murmurs RESPIRATORY EXAMINATION: Clear to auscultation, no wheezing ABDOMINAL EXAMINATION: Soft, nontender, nondistended, positive bowel sounds EXTREMITIES: Range of motion intact SKIN: No rash NEUROLOGICAL EXAMINATION: Alert and oriented 3, no focal deficits PSYCHIATRIC EXAMINATION: Calm and cooperative LABORATORY DATA: See below. MICROBIOLOGY: Please see below. ASSESSMENT: 44-year-old male with past medical history depression is admitted to inpatient mental health unit for worsening depression. PLAN: 1. Depression. Management as per primary team 2. Diarrhea. Has had extensive outpatient workup, recommend outpatient follow-up for further management. Currently stable Please reconsult if needed, hospitalist service signing off. Vital Signs Vital Signs Date Time Temp Pulse Resp B/P (MAP) Pulse Ox O2 Delivery O2 Flow Rate FiO2 02/11/19 10:55 Room Air 02/11/19 06:25 98.2 73 14 142/79 (100) 02/10/19 14:51 99 Home Medications Scheduled Cetirizine HCl (Cetirizine HCl) 10 Mg Tablet, 10 MG PO DAILY Metronidazole (Metrogel) 55 Gm Gel.w.pump, 1 DOSE TOP DAILY APPLY TO NOSE Scheduled PRN Acetaminophen (Mapap) 500 Mg Capsule, 1,000 MG PO TID PRN for PAIN Albuterol Sulf (Albuterol Sulfate) 2.5 Mg/3 Ml Vial.neb, 2.5 MG INH QID PRN for SHORTNESS OF BREATH Fluticasone Propionate (Flonase Allergy Relief) 9.9 Ml [place].susp, 2 SPRAY NA DAILY PRN for ALLERGIES Ondansetron HCl (Ondansetron HCl) 4 Mg Tablet, 4 MG PO Q8H PRN for NAUSEA OR VOMITING Allergies Coded Allergies: aspirin (Verified Allergy, Intermediate, hives, 10/29/18) ibuprofen (Verified Allergy, Intermediate, hives, 10/29/18) A-FIB/CHADSVASC A-FIB History Current/History of A-Fib/PAF?: No FABIAN PEARSON MD Feb 11, 2019 16:03
[2019-02-11 16:17] VITALS: BP 125/77
[2019-02-11] MEDS: ACETAMINOPHEN TAB 650MG DOSE (2X325MG) PO PRN (16:46)
[2019-02-12 07:00] VITALS: BP 138/82
[2019-02-12] MEDS: FLUoxetine 20 MG CAP PO SCH (08:16)
[2019-02-12] MEDS: BREXPIPRAZOLE 0.5MG TABLET (REXULTI) PO SCH (08:16)
[2019-02-12] MEDS: NICOTINE 21MG/24HR 1 EA TRANSDERMAL TD SCH (08:18)
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
[2019-02-12 17:07] VITALS: BP 150/75
[2019-02-12] MEDS: ACETAMINOPHEN TAB 650MG DOSE (2X325MG) PO PRN (17:43)
--- NOTE | 2019-02-12 19:44 | IPNPDOC ---
Text Note Date of Service The patient was seen on 02/12/19. NOTE 44-year-old man with a history of what appears to be likely IBS with alternating constipation/diarrheal patterns with extensive prior diarrhea work up that includes negative GI panels in 07/02 and 11/03, negative stool lactoferrin, calprotectin, SARA and ova and parasite studies, scopes (per patient) who alternates between needing Imodium and needing laxatives for constipation, who [facility] for severe depression for whom internal medicine is being reconsulted for persistent diarrhea without abdominal pain, nausea, vomiting, fever, chills or clinical orthostasis. Of note, he has milk of magnesia ordered PRN for constipation without having taken any doses. PAST MEDICAL HISTORY: 1. Chronic diarrhea. 2. Depression. PAST SURGICAL HISTORY: 1. Cholecystectomy. SOCIAL HISTORY: Current smoker. Social calm Marijuana use FAMILY HISTORY: Noncontributory ALLERGIES: Please see below. HOME MEDICATIONS: Please see below. PHYSICAL EXAMINATION: VITAL SIGNS: Please see below. GENERAL: No distress HEENT: Normocephalic, atraumatic, moist mucous membranes NECK: Supple CARDIOVASCULAR EXAMINATION: S1, S2, no murmurs RESPIRATORY EXAMINATION: Clear to auscultation, no wheezing ABDOMINAL EXAMINATION: Soft, nontender, nondistended, positive bowel sounds EXTREMITIES: Range of motion intact SKIN: No rash NEUROLOGICAL EXAMINATION: Alert and oriented 3, no focal deficits PSYCHIATRIC EXAMINATION: Calm and cooperative LABORATORY DATA: no new interim investigations. ASSESSMENT: 44-year-old man with a history of what appears to be likely IBS with alternating constipation/diarrheal patterns with prior diarrhea work up who is [facility] for depression for whom medicine is being reconsulted for ongoing diarrhea. Given benign examination, patient's alternating history of constipation and diarrhea will order him some immodium PRN PLAN: 1. Depression. Management as per primary team 2. Diarrhea. Has had extensive outpatient workup, will order Imodium PRN, stop milk of mag PRN and recommend PCP follow up for this chronic problem. He told me that he actually has an upcoming appointment with a GI doctor in [place]. Please reconsult if needed, hospitalist service signing off. VS,Fishbone, I+O VS, Fishbone, I+O Vital Signs Date Time Temp Pulse Resp B/P (MAP) Pulse Ox O2 Delivery O2 Flow Rate FiO2 02/12/19 17:07 98.2 91 16 150/75 (100) 97 Room Air HENRIETTA MENJIVAR MD Feb 12, 2019 18:16
[2019-02-12] MEDS: LOPERAMIDE 2 MG CAPLET PO PRN (20:08)
[2019-02-12] MEDS: traZODone 100 MG TAB PO PRN (22:45)
[2019-02-13 05:55] VITALS: BP 136/63
[2019-02-13] MEDS: NICOTINE 21MG/24HR 1 EA TRANSDERMAL TD SCH (08:18)
[2019-02-13] MEDS: BREXPIPRAZOLE 0.5MG TABLET (REXULTI) PO SCH (08:18)
[2019-02-13] MEDS: FLUoxetine 20 MG CAP PO SCH (08:18)
--- NOTE | 2019-02-13 09:51 | MHIPNPDOC ---
[facility] Progress Note Progress Note Inpatient Progress Note Donovan Askew MRN: N/A Date of : N/A Date of Service: 02/13/2019 History of Present Illness 44-year-old man with a history of depression and PTSD, presents to the ER initially complaining of increased suicidal thoughts and depression symptoms. Interval History The patient was met with today. He reports he is feeling somewhat better, that he has been doing improved since getting Imodium with less loose stools. He additionally reports that he has been engaged in more treatment and has become less depressed, less worried about situations, and has been making some small progress. He has been attending groups, had no major behavioral problems overnight. Review Of Systems General: Denies fever or appetite changes Cardiovascular: Denies Chest pain or palpitations GI: Denies Nausea, vomiting, or bowel changes Respiratory: Denies shortness of breath or cough Neuro: Denies dizziness, tremors Derm: Denies any rashes or pruritus : Denies any dysuria or urinary problems MSK: Denies any muscle tightness or stiffness HEENT: Denies any vision changes or headaches Heme/Lymph: denies any bruising or bleeding Endo: denies any cold/heat intolerance or water intake changes Psychotherapy None on this visit. Vital Signs Reviewed. Mental Status Examination General: Well dressed with good hygiene Speech: Spontaneous and fluid Thought processes: Linear and logical MSK: Smooth and coordinated gait, no signs of tremors or involuntary orofacial movements Thought content: Future orientated Abstract reasoning, and computation: Intact Description of associations: Intact Description of abnormal or psychotic thoughts: Denies any suicidal or homicidal ideation. Denies any auditory or visual hallucinations. Does not appear to be responding to internal stimuli. Does not appear to be endorsing any bizarre or paranoid ideation. Judgment: fair Insight: fair Orientation: Alert and orientated 3 Cognition: Grossly normal Recent and remote memory: Intact Attention span and concentration: Intact Fund of knowledge: Adequate Mood: "okay" Affect: Euthymic with a full range Diagnoses MDD, severe, without psychosis. PTSD, chronic. Cannabis use disorder. Assessment and Plan PTSD/MDD: Continue medications as current. Disposition The patient will need a further inpatient admission to stabilize his medications and plan for a safe discharge. Time Spent 15 minutes. Vital Signs Vital Signs Date Time Temp Pulse Resp B/P (MAP) Pulse Ox O2 Delivery O2 Flow Rate FiO2 11/28/19 05:55 97.6 59 18 136/63 (87) 02/12/19 17:07 97 Room Air Current Medications Current Medications Medications (Trade) Dose Ordered Sig/Collin Route PRN Reason Start Time Stop Time Status Last Admin Dose Admin Acetaminophen (Tylenol Tab) 650 mg Q6HP PRN PO HEADACHE or DISCOMFORT 02/10/19 14:30 02/12/19 17:43 Al Hydrox/Mg Hydrox/Simethicone (Mylanta) 30 ml Q4HP PRN PO HEARTBURN/INDIGESTION 02/10/19 14:30 Brexpiprazole (Rexulti) 0.5 mg DAILY PO 02/12/19 09:00 02/13/19 08:18 Fluoxetine HCl (PROzac) 20 mg DAILY PO 02/12/19 09:00 02/13/19 08:18 Home Med (Med Rec Complete!) ASDIRECTED XX 02/10/19 14:15 02/10/19 14:24 DC Loperamide HCl (Imodium) 2 mg ASDIRECTED PRN PO DIARRHEA 02/12/19 19:45 02/12/19 20:08 Magnesium Hydroxide (Milk Of Magnesia) 30 ml DAILYPRN PRN PO CONSTIPATION 02/10/19 14:30 02/12/19 19:43 DC Nicotine (Nicoderm Cq 21mg) 1 patch DAILY TD 02/10/19 15:00 02/10/19 16:55 DC Nicotine (Nicoderm Cq 21mg) 1 patch DAILY TD 02/11/19 09:00 02/13/19 08:18 Trazodone HCl (Desyrel) 50 mg QHSP PRN PO INSOMNIA 02/10/19 14:30 02/12/19 10:52 DC 02/11/19 20:23 Trazodone HCl (Desyrel) 100 mg QHSP PRN PO INSOMNIA 02/12/19 11:00 02/12/19 22:45 Allergies Coded Allergies: aspirin (Verified Allergy, Intermediate, hives, 10/29/18) ibuprofen (Verified Allergy, Intermediate, hives, 10/29/18) XI FRYE DO Feb 13, 2019 09:51
[2019-02-13] MEDS: FAMOTIDINE 20 MG TAB PO SCH (14:27)
[2019-02-13] MEDS: LOPERAMIDE 2 MG CAPLET PO PRN (16:04)
[2019-02-13 16:13] VITALS: BP 118/77
[2019-02-13] MEDS: traZODone 100 MG TAB PO PRN (23:35)
[2019-02-14 06:34] VITALS: BP 135/66
[2019-02-14] MEDS: BREXPIPRAZOLE 0.5MG TABLET (REXULTI) PO SCH (08:13)
[2019-02-14] MEDS: FAMOTIDINE 20 MG TAB PO SCH (08:13)
[2019-02-14] MEDS: NICOTINE 21MG/24HR 1 EA TRANSDERMAL TD SCH (08:13)
[2019-02-14] MEDS: FLUoxetine 20 MG CAP PO SCH (08:13)
[2019-02-14] MEDS ORDERED: BREXPIPRAZOLE 0.5MG TABLET (REXULTI) PO ONE (08:45)
--- NOTE | 2019-02-14 08:48 | MHIPNPDOC ---
[facility] Progress Note Progress Note DATE OF SERVICE: 02/14/19 HISTORY: Patient is a 44 -year-old , male, with a history of depression and PTSD who self presented to the ED endorsing worsening depression, anxiety, and SI with plan to cut himself for the past 2wks. Per ED, pt was tearful, hopeless, helpless in ED and told his "I'd rather be with the 2 dogs that recently ... I don't want to live anymore... I feel alone... I get into the car and have thoughts of driving into a try... I don't feel safe to go home." He currently has no outpatient follow-up since March 2018 and has been trying unsuccessfully to get into to see some one. IN Ed he endorsed poor appetite, insomnia, "bad dreams." He denied hallucinations and delusions. Pt seen and states he's here as he's having really bad depression and has been trying unsuccessfully to get back on meds since Apr 2018 to help. Stated "I can't even talk w/o crying anymore." States he took prozac as his first antidepressant he tried but was never really on for long enough for it to be affective b/c changed them frequently. Willing to start prozac again with antidepressant augmentor Abigail as endorses a lot of worry associated with his depression. Risks/benefits discussed. States his biggest reason for coming is to get help and back on meds so he can start outpatient therapy and be able to tolerate it due to a history of severe child trauma. He is depressed and very tearful when seen. Finds trazodone beneficial for insomnia. Denies SI/HI, hallucinations, delusions. Feels safe here. VITAL SIGNS: See below. NEW TEST RESULTS: See below. CURRENT MEDICATIONS: See below. MENTAL STATUS EXAMINATION: General Appearance: well groomed, appears stated age, hospital scrubs/clothing, other (tatoos on arms) Build: average Demeanor: cooperative Eye Contact: good Activity: average Behavior: cooperative Speech: clear, spontaneous, reg/rate,rhythm,volume Mood: less depressed, less anxious Mood "getting better" Affect: more full, congruent, less anxious Thought Process: logical/linear, less depressed, intact, improving (negative cognitive associations, worrisome thoughts) Thought Content (Delusions): denies SI, HI, AVH Thought Content (Other): none reported Thought Content (Aggressive): none reported Perception (Hallucinations): none reported Perception (Other): none reported Cognition (Impairment of): none reported Cognition(Intelligence Est.): average Oriented: Awake, Alert, Oriented times three Insight: fair Judgment: Fair Psychosis: Denies DIAGNOSES: Major Depressive D/O recurrent, severe, w/o psychosis PTSD cannabis use d/o ASSESSMENT:Pt seen and states that his mood is getting better. States he found a journal page that he filled out about tracking his mood that he found very beneficial. Continues to endorse worry and irritability and agreeable to increa sing reexulti to 1mg daily for improvement. States he's tolerating it well and feels it's been beneficial. Continues to endorse back pain awaiting pain consult and agreeable to taking gabapentin which he's taken previously and found helpful. Less depressed, no longer tearful all the time. More future oriented. States he's tolerating his meds and feel beneficial thus far. Slept thru the night for 6hrs. He is attending groups and finding them helpful. He denies SI/HI, hallucinations, delusions. Pt feels safe here. MANAGEMENT PLAN: continue plan, increase rexulti, start gabapentin for back pain Medications: prozac 20mg daily rexulti 1mg daily gabapentin 300mg tid trazodone 100mg qhs prn insomnia TIME SPENT: 30 minutes. Vital Signs Vital Signs Date Time Temp Pulse Resp B/P (MAP) Pulse Ox O2 Delivery O2 Flow Rate FiO2 02/14/19 06:34 96.8 62 16 135/66 (89) 02/12/19 17:07 97 Room Air Current Medications Current Medications Medications (Trade) Dose Ordered Sig/Collin Route PRN Reason Start Time Stop Time Status Last Admin Dose Admin Acetaminophen (Tylenol Tab) 650 mg Q6HP PRN PO HEADACHE or DISCOMFORT 02/10/19 14:30 02/12/19 17:43 Al Hydrox/Mg Hydrox/Simethicone (Mylanta) 30 ml Q4HP PRN PO HEARTBURN/INDIGESTION 02/10/19 14:30 02/13/19 11:59 Brexpiprazole (Rexulti) 0.5 mg DAILY PO 02/12/19 09:00 02/14/19 08:13 Famotidine (Pepcid) 40 mg DAILY PO 02/13/19 09:00 02/14/19 08:13 Fluoxetine HCl (PROzac) 20 mg DAILY PO 02/12/19 09:00 02/14/19 08:13 Home Med (Med Rec Complete!) ASDIRECTED XX 02/10/19 14:15 02/10/19 14:24 DC Loperamide HCl (Imodium) 2 mg ASDIRECTED PRN PO DIARRHEA 02/12/19 19:45 02/13/19 16:04 Magnesium Hydroxide (Milk Of Magnesia) 30 ml DAILYPRN PRN PO CONSTIPATION 02/10/19 14:30 02/12/19 19:43 DC Nicotine (Nicoderm Cq 21mg) 1 patch DAILY TD 02/10/19 15:00 02/10/19 16:55 DC Nicotine (Nicoderm Cq 21mg) 1 patch DAILY TD 02/11/19 09:00 02/14/19 08:13 Trazodone HCl (Desyrel) 50 mg QHSP PRN PO INSOMNIA 02/10/19 14:30 02/12/19 10:52 DC 02/11/19 20:23 Trazodone HCl (Desyrel) 100 mg QHSP PRN PO INSOMNIA 02/12/19 11:00 02/13/19 23:35 Allergies Coded Allergies: aspirin (Verified Allergy, Intermediate, hives, 10/29/18) ibuprofen (Verified Allergy, Intermediate, hives, 10/29/18) LENORA GILLIAM DO Feb 14, 2019 8:48 am
[2019-02-14] MEDS ORDERED: GABAPENTIN 100 MG CAP PO ONE (09:00)
[2019-02-14] MEDS: GABAPENTIN 100 MG CAP PO SCH ×2 (15:20→20:25)
[2019-02-14 16:42] VITALS: BP 132/65
[2019-02-14] MEDS: traZODone 100 MG TAB PO PRN (23:24)
[2019-02-15 05:49] VITALS: BP 119/67
[2019-02-15] MEDS: BREXPIPRAZOLE 0.5MG TABLET (REXULTI) PO SCH (08:06)
[2019-02-15] MEDS: FAMOTIDINE 20 MG TAB PO SCH (08:06)
[2019-02-15] MEDS: FLUoxetine 20 MG CAP PO SCH (08:06)
[2019-02-15] MEDS: GABAPENTIN 100 MG CAP PO SCH ×3 (08:06→20:01)
[2019-02-15] MEDS: NICOTINE 21MG/24HR 1 EA TRANSDERMAL TD SCH (08:07)
[2019-02-15] MEDS ORDERED: DOCUSATE SODIUM 100 MG CAP PO ONE (12:00)
[2019-02-15] MEDS: hydrOXYzine 25 MG TAB PO PRN ×2 (12:32→20:01)
[2019-02-15 16:19] VITALS: BP 130/79
[2019-02-15] MEDS: traZODone 100 MG TAB PO PRN (21:54)
[2019-02-15] MEDS ORDERED: OXAZEPAM 10 MG CAP PO ONE (22:00)
[2019-02-16 06:03] VITALS: BP 112/70
[2019-02-16] MEDS: FAMOTIDINE 20 MG TAB PO SCH (08:13)
[2019-02-16] MEDS: FLUoxetine 20 MG CAP PO SCH (08:13)
[2019-02-16] MEDS: GABAPENTIN 100 MG CAP PO SCH ×3 (08:14→21:23)
[2019-02-16] MEDS: NICOTINE 21MG/24HR 1 EA TRANSDERMAL TD SCH (08:14)
[2019-02-16] MEDS: BREXPIPRAZOLE 0.5MG TABLET (REXULTI) PO SCH (08:14)
[2019-02-16] MEDS: hydrOXYzine 25 MG TAB PO PRN ×2 (08:42→17:20)
[2019-02-16 15:39] VITALS: BP 112/54
[2019-02-16] MEDS ORDERED: MIRALAX *UNIT DOSE* 17GM PACKET PO PRN (18:00)
[2019-02-16] MEDS ORDERED: SENNA 8.6 MG TAB (SENOKOT) PO PRN (22:00)
[2019-02-16] MEDS: traZODone 100 MG TAB PO PRN (22:23)
[2019-02-17 06:25] VITALS: BP 128/86
[2019-02-17] MEDS: BREXPIPRAZOLE 0.5MG TABLET (REXULTI) PO SCH (08:05)
[2019-02-17] MEDS: GABAPENTIN 100 MG CAP PO SCH (08:05)
[2019-02-17] MEDS: FLUoxetine 20 MG CAP PO SCH (08:05)
[2019-02-17] MEDS: hydrOXYzine 25 MG TAB PO PRN (08:05)
[2019-02-17] MEDS: NICOTINE 21MG/24HR 1 EA TRANSDERMAL TD SCH (08:05)
[2019-02-17] MEDS: FAMOTIDINE 20 MG TAB PO SCH (08:06)
[2019-02-17] MEDS ORDERED: REXU1TAB3 PO (08:51)
[2019-02-17] MEDS ORDERED: TRAZ10TA PO (08:51)
[2019-02-17] MEDS ORDERED: GABA-1171 PO (08:51)
[2019-02-17] MEDS ORDERED: FLUO20CA19 PO (08:51)
[2019-02-17] MEDS ORDERED: HYDR-3363 PO (08:51)
--- NOTE | 2019-02-17 08:52 | MHDSPDOC ---
[facility] Discharge Summary Discharge Summary DATE OF ADMISSION: Feb 10, 2019 at 2:30 pm DATE OF DISCHARGE: Feb 17, 2019 DISCHARGE DIAGNOSES: Major Depressive D/O recurrent, severe, w/o psychosis PTSD cannabis use d/o REASON FOR ADMISSION: Patient is a 44 -year-old , male, with a history of depression and PTSD who self presented to the ED endorsing worsening depression, anxiety, and SI with plan to cut himself for the past 2wks. Per ED, pt was tearful, hopeless, helpless in ED and told his "I'd rather be with the 2 dogs that recently ... I don't want to live anymore... I feel alone... I get into the car and have thoughts of driving into a try... I don't feel safe to go home." He currently has no outpatient follow-up since March 2018 and has been trying unsuccessfully to get into to see some one. IN Ed he endorsed poor appetite, insomnia, "bad dreams." He denied hallucinations and delusions. Pt seen and states he's here as he's having really bad depression and has been trying unsuccessfully to get back on meds since Apr 2018 to help. Stated "I can't even talk w/o crying anymore." States he took prozac as his first antidepressant he tried but was never really on for long enough for it to be affective b/c changed them frequently. Willing to start prozac again with antidepressant augmentor Rexulti as endorses a lot of worry associated with his depression. Risks/benefits discussed. States his biggest reason for coming is to get help and back on meds so he can start outpatient therapy and be able to tolerate it due to a history of severe child trauma. He is depressed and very tearful when seen. Finds trazodone beneficial for insomnia. Denies SI/HI, hallucinations, delusions. Feels safe here. CONSULTANTS INVOLVED: none TREATMENT AND PROGRESS ON THE UNIT : Pt was admitted to [facility], seen for psychiatric assessment and started on rexulti increased to 1mg daily for antidepressant augmentation, prozac 20mg daily for mood, and gabapentin 100mg tid for back pain. He was provided vistaril 25mg q6hr prn anxiety and trazodone 100mg qhs prn insomnia. Pt found his medications beneficial and tolerated them well. He attended groups daily during his stay. His symptoms improved with treatment. On day of discharge he denied depression, anxiety, insomnia, SI/HI, hallucinations, delusions. He was discharged home with follow-up at [facility]. He felt safe for discharge. DISCHARGE ASSESSMENT: Pt seen and states that his mood is "good" and that he's looking forward to going home today and working on his relationship with his now that he's feeling better. States his is supportive of him. States he's find the increase in rexulti beneficial for his mood in combination with prozac and is tolerating both well. States his back pain is better with gabapentin. States he's tolerating all his medications well and feels they're been beneficial. His is euthymic and full. He is future oriented toward returning to work soon. Slept thru the night for well. He is attending groups and finding them helpful. He denies depression, anxiety, insomnia, SI/HI, hallucinations, delusions. Pt feels safe to d/c home today. MENTAL STATUS EXAMINATION ON DISCHARGE: General Appearance: well groomed, appears stated age, hospital scrubs/clothing, other (tatoos on arms) Build: average Demeanor: cooperative Eye Contact: good Activity: average Behavior: cooperative Speech: clear, spontaneous, reg/rate,rhythm,volume Mood: euthymic, full range Mood "good" Affect: full, congruent Thought Process: logical/linear, intact Thought Content (Delusions): denies SI, HI, AVH Thought Content (Other): none reported Thought Content (Aggressive): none reported Perception (Hallucinations): none reported Perception (Other): none reported Cognition (Impairment of): none reported Cognition(Intelligence Est.): average Oriented: Awake, Alert, Oriented times three Insight: good Judgment: good Psychosis: Denies MEDICATIONS ON DISCHARGE: prozac 20mg daily rexulti 1mg daily gabapentin 100mg tid trazodone 100mg qhs prn insomnia vistaril 25mg q6hr prn anxiety PLAN/FOLLOWUP ARRANGEMENTS: D/c home with follow-up at [facility]. The amount of time spent in the coordination of care for this patient was approximately 30 minutes. Vital Signs/I&Os Vital Signs Date Time Temp Pulse Resp B/P (MAP) Pulse Ox O2 Delivery O2 Flow Rate FiO2 12/2/19 06:25 97.4 66 16 128/86 (100) Room Air 02/12/19 17:07 97 Medications Scheduled Cetirizine HCl (Cetirizine HCl) 10 Mg Tablet, 10 MG PO DAILY, (Reported) Metronidazole (Metrogel) 55 Gm Gel.w.pump, 1 DOSE TOP DAILY, (Reported) APPLY TO NOSE Scheduled PRN Acetaminophen (Mapap) 500 Mg Capsule, 1,000 MG PO TID PRN for PAIN, (Reported) Albuterol Sulf (Albuterol Sulfate) 2.5 Mg/3 Ml Vial.neb, 2.5 MG INH QID PRN for SHORTNESS OF BREATH, (Reported) Fluticasone Propionate (Flonase Allergy Relief) 9.9 Ml [place].susp, 2 SPRAY NA DAILY PRN for ALLERGIES, (Reported) Ondansetron HCl (Ondansetron HCl) 4 Mg Tablet, 4 MG PO Q8H PRN for NAUSEA OR VOMITING, (Reported) Allergies Coded Allergies: aspirin (Verified Allergy, Intermediate, hives, 10/29/18) ibuprofen (Verified Allergy, Intermediate, hives, 10/29/18) LENORA GILLIAM DO Feb 17, 2019 8:52 am
== END 2019-02-17 13:30 | disposition home or self-care (01) | DRG 751 ==
LOC: M ED 10:02 → M ED INP 14:30 → M PSY 15:40
PROVIDERS: ADMIT Psychiatry & Neurology Psychiatry; ATTEND Psychiatry & Neurology Psychiatry
DX: F33.2 Major depressive disorder, recurrent severe without psychotic features (principal); F43.12 Post-traumatic stress disorder, chronic; F12.10 Cannabis abuse, uncomplicated; Z81.8 Family history of other mental and behavioral disorders; Z81.1 Family history of alcohol abuse and dependence; M51.26 Other intervertebral disc displacement, lumbar region; K21.9 Gastro-esophageal reflux disease without esophagitis; J45.909 Unspecified asthma, uncomplicated; Z90.49 Acquired absence of other specified parts of digestive tract; Z79.899 Other long term (current) drug therapy; Z88.6 Allergy status to analgesic agent; K58.2 Mixed irritable bowel syndrome; F17.200 Nicotine dependence, unspecified, uncomplicated; Z62.810 Personal history of physical and sexual abuse in childhood

== ENCOUNTER 2019-05-22 02:57 | Inpatient (IN) | payer BC, OTHER, SELFPAY ==
[~2019-05-22] VITALS: Ht 190.5 cm; Wt 115.1 kg
[~2019-05-22 02:57] MED LIST changes: +ALL10TAB29 PO; +FLUO20CA22 PO; +GABA-1171 PO; +METR1GEL4 TOP; +ONDA-83 PO; +REXU1TAB3 PO; +TRAZ1TAB12 PO
[2019-05-22 03:20] LABS: BASO # 0.1 10^3/uL (0.0-0.2); BASO % 0.7 % (0.0-1.0); EOS # 0.2 10^3/uL (0.0-0.5); EOS % 1.7 % (0.0-3.0); HEMATOCRIT 44.8 % (42.0-52.0); HEMOGLOBIN 15.2 g/dl (13.5-17.5); LYMPH # 4.3 10^3/uL (1.5-5.0); MEAN CORPUSCULAR HEMOGLOBIN 31.8 pg (27.0-33.0); MEAN CORPUSCULAR HGB CONC 33.9 g/dl (32.0-36.5); MEAN CORPUSCULAR VOLUME 93.7 fl (80.0-96.0); MONO # 1.1 10^3/uL (0.0-0.8); MONO % 7.5 % (0.0-5.0); NEUTROPHILS # 8.6 10^3/uL (1.5-8.5); NEUTROPHILS % 59.5 % (36.0-66.0); PLATELET COUNT, AUTOMATED 253 10^3/uL (150-450); RED BLOOD COUNT 4.78 10^6/uL (4.30-6.10); WHITE BLOOD COUNT 14.4 10^3/uL (4.0-10.0)
[2019-05-22] MEDS ORDERED: CHARCOAL ACTIVATED LIQUID 25 GM/120 ML BTL PO ONE (03:30)
[2019-05-22] MEDS: NS 1,000 ML IV SCH ×2 (03:35→10:02)
[2019-05-22 03:57] LABS: AMPHETAMINES LEVEL URINE NEGATIVE (NEGATIVE); BARBITURATES URINE NEGATIVE (NEGATIVE); BENZODIAZEPINES URINE NEGATIVE (NEGATIVE); CANNABINOIDS URINE POSITIVE (NEGATIVE); COCAINE METABOLITE URINE NEGATIVE (NEGATIVE); METHADONE URINE NEGATIVE (NEGATIVE); OPIATES URINE POSITIVE (NEGATIVE); PHENCYCLIDINE URINE NEGATIVE (NEGATIVE)
[2019-05-22 04:05] LABS: ACETAMINOPHEN LEVEL < 2.0 UG/ML (10.0-30.0); ALBUMIN 3.4 GM/DL (3.2-5.2); ALT/SGPT 31 U/L (12-78); BILIRUBIN,DIRECT 0.1 MG/DL (0.0-0.2); BILIRUBIN,TOTAL 0.3 MG/DL (0.2-1.0); BLOOD UREA NITROGEN 13 MG/DL (7-18); CALCIUM LEVEL 8.5 MG/DL (8.5-10.1); CARBON DIOXIDE LEVEL 26 MEQ/L (21-32); CHLORIDE LEVEL 106 MEQ/L (98-107); CPK CREATINE PHOSPHOKINASE 202 U/L (39-308); CREATININE FOR GFR 0.81 MG/DL (0.70-1.30); ETHYL ALCOHOL (ETHANOL) < 0.003 % (0.000-0.010); GLOMERULAR FILTRATION RATE > 60.0 (>60); GLUCOSE, FASTING 103 MG/DL (70-100); POTASSIUM SERUM 4.6 MEQ/L (3.5-5.1); SALICYLATE LEVEL 5.4 MG/DL (5.0-30.0); SODIUM LEVEL 139 MEQ/L (136-145); TOTAL PROTEIN 6.6 GM/DL (6.4-8.2)
[2019-05-22] MEDS: NS 1,000 ML IV ONE ×2 (05:35→06:25)
--- NOTE | 2019-05-22 07:16 | ECGEPIP ---
[facility] - ED Test Date: 2019-05-22 Pat Name: HUE DEL ANGEL Department: Room: - Gender: Male Shift Manager: : [id number] Requested By: TORO Adams Order Number: [id number] Reading MD: Roshan Tapia Measurements Intervals [place] Rate: 77 P: 16 MT: 126 QRS: -50 QRSD: 119 T: 48 QT: 391 QTc: 445 Interpretive Statements SINUS RHYTHM INCOMPLETE RIGHT BUNDLE BRANCH BLOCK POSSIBLE PRIOR INFERIOR INFARCT Electronically Signed on 05-22-2019 7:16:07 EST by Roshan Tapia
[2019-05-22] MEDS ORDERED: ACETAMINOPHEN TAB 650MG DOSE (2X325MG) PO PRN (13:15)
[2019-05-22] MEDS ORDERED: traZODone 50 MG TAB PO PRN (13:15)
[2019-05-22] MEDS ORDERED: MOM 30ML SUSPENSION UDC PO PRN (13:15)
[2019-05-22] MEDS ORDERED: CLON1TAB17 PO (13:34)
[2019-05-22] MEDS ORDERED: SERO1TAB PO (13:34)
[2019-05-22] MEDS ORDERED: FLUO20CA20 PO (13:34)
[2019-05-22] MEDS ORDERED: GABA-843 PO (13:34)
[2019-05-22] MEDS ORDERED: VITMTA PO (13:34)
[2019-05-22] MEDS ORDERED: REXU1TAB4 PO (13:34)
[2019-05-22 13:51] VITALS: BP 121/73
[2019-05-22] MEDS ORDERED: ACETAMINOPHEN 500 MG TAB PO PRN (14:00)
[2019-05-22] MEDS ORDERED: CETIRIZINE (ZyrTEC) 10 MG TAB PO PRN (14:00)
[2019-05-22] MEDS ORDERED: FLUTICASONE PROP 0.05% NASAL SPRAY 16 GM (FLONASE) PRN (14:00)
[2019-05-22] MEDS ORDERED: ALBUTEROL SULFATE 2.5 MG/0.5 ML INH NEB SOLN INH PRN (14:00)
[2019-05-22] MEDS ORDERED: ONDANSETRON 4 MG TAB (S0181) PO PRN (14:00)
[2019-05-22] MEDS: GABAPENTIN 300 MG CAP PO SCH ×2 (16:14→20:43)
[2019-05-22] MEDS: QUEtiapine FUMARATE 100 MG TAB PO SCH (20:43)
[2019-05-22] MEDS: BREXPIPRAZOLE 2MG TABLET (REXULTI) PO SCH (20:43)
[2019-05-22] MEDS: FLUoxetine 20 MG CAP PO SCH (20:43)
[2019-05-23 06:50] VITALS: BP 118/67
[2019-05-23] MEDS ORDERED: MULTIVITAMINS/MINERALS THERAP 1 TAB PO SCH (09:00)
[2019-05-23] MEDS: GABAPENTIN 300 MG CAP PO SCH ×3 (09:13→21:23)
--- NOTE | 2019-05-23 10:07 | HPEPDOC ---
General Date of Admission May 22, 2019 at 13:01 Date of Service: May 23, 2019 Chief Complaint The patient is a 44-year-old male admitted with a reason for visit of Unspecified Depression. Source: Patient, EMS notes reviewed Exam Limitations: No limitations Severity: Mild Associated Symptoms: Denies Symptoms History of Present Illness Patient is a 44-year-old male who was brought to the [facility] ED following a suicide attempt at home. Per the medical record, patient had taken 6-8 Klonopin and 1 Oxycodone saying that "things had been going downhill for a week." He had reportedly been texting with a crisis hotline and the person telephoned . Patient is seen in the behavioral health unit this morning. He stated that his suicide attempt "was out of stupidity." He had suffered job loss in the prior week, and was also having problems at home. Patient has denied any previous suicide attempts, and has denied any current SI/HI. He reported he has been taking doxycycline a 14 day course for an abscess over the groin, and sinusitis. He was previously on day 4 of 14 of this medication. No further issues at this time. Home Medications Scheduled Brexpiprazole (Rexulti) 2 Mg Tablet, 2 MG PO QPM, (Reported) Clonazepam (Clonazepam) 1 Mg Tab.rapdis, 1 MG PO QHS, (Reported) Fluoxetine Hcl (Fluoxetine HCl) 20 Mg Capsule, 60 MG PO QPM, (Reported) Gabapentin (Gabapentin) 300 Mg Capsule, 300 MG PO TID, (Reported) Metronidazole (Metrogel) 55 Gm Gel.w.pump, 1 DOSE TOP DAILY, (Reported) APPLY TO NOSE AFTER SHOWER Multivitamins (Thera M Plus Tablet) 1 Each Tablet, 1 TAB PO DAILY, (Reported) Quetiapine Fumarate (Seroquel) 100 Mg Tablet, 100 MG PO QHS, (Reported) Scheduled PRN Acetaminophen (Mapap) 500 Mg Capsule, 1,000 MG PO TID PRN for PAIN, (Reported) Albuterol Sulf (Albuterol Sulfate) 2.5 Mg/3 Ml Vial.neb, 2.5 MG INH QID PRN for SHORTNESS OF BREATH, (Reported) Cetirizine HCl (Cetirizine HCl) 10 Mg Tablet, 10 MG PO DAILY PRN for ALLERGIES, (Reported) Fluticasone Propionate (Flonase Allergy Relief) 9.9 Ml [place].susp, 2 SPRAY NA DAILY PRN for ALLERGIES, (Reported) Ondansetron HCl (Ondansetron HCl) 4 Mg Tablet, 4 MG PO Q8H PRN for NAUSEA OR VOMITING, (Reported) Allergies Coded Allergies: aspirin (Verified Allergy, Intermediate, hives, 10/29/18) ibuprofen (Verified Allergy, Intermediate, hives, 10/29/18) Past Medical History Medical History Asthma Anxiety Suicidal ideation Enteritis, chronic diarrhea Surgical History Cholecystectomy October 2018 Family History Significant Family History: COPD (mother), Heart disease (mother, deceasedMI), Other (motherCVD) Social History * Smoker: current smoker, cigarettes (half a pack per day, smoker since 15 years old) Alcohol: Denies Drugs: marijuana A-FIB/CHADSVASC A-FIB History Current/History of A-Fib/PAF?: No Current PO Anticoag Therapy: No Review of Systems Constitutional: Denies: Chills, Fever, Night Sweats Eyes: Denies: Pain, Vision change ENT: Denies: Head Aches Skin: Reports: Lesions; Denies: Rash Pulmonary: Denies: Dyspnea, Cough Cardiovascular: Denies: Chest Pain, Palpitations, Edema, Lt Headedness Gastrointestinal: Reports: Diarrhea; Denies: Nausea, Vomiting, Abdominal Pain, Constipation Genitourinary: Denies: Dysuria, Retention Hematologic: Denies: Bruising Musculoskeletal: Denies: Neck Pain, Back Pain, Joint Pain, Muscle Pain, Spasms Neurological: Denies: Weakness, Numbness, Change in speech, Confusion Psych: Reports: Anxiety, Depression; Denies: Thoughts of Self Harm, Thoughts of Harming Other Physical Examination General Exam: Positive: Alert, Cooperative, No Acute Distress Eye Exam: Positive: PERRLA, Conjunctiva & lids normal, EOMI; Negative: Sclera icteric ENT Exam: Positive: Atraumatic, Mucous membr. moist/pink, Pharynx Normal Neck Exam: Positive: Supple; Negative: thyromegaly Chest Exam: Positive: Clear to auscultation, Normal air movement Heart Exam: Positive: Rate Normal, Regular Rhythm, Normal S1, Normal S2; Negative: Murmurs, Rubs Telemetry: Positive: No significant arrhythmia Abdomen Exam: Positive: Normal bowel sounds, Soft; Negative: Tenderness Extremity Exam: Positive: Normal pulses; Negative: Clubbing, Cyanosis, Edema, Swelling Skin Exam: Positive: Nl turgor and temperature Neuro Exam: Positive: Normal Gait, Normal Speech, Strength at 5/5 X4 ext, Cranial Nerves 3-12 NL Psych Exam: Positive: Mood NL, Oriented x 3 Vital Signs Vital Signs Date Time Temp Pulse Resp B/P (MAP) Pulse Ox O2 Delivery O2 Flow Rate FiO2 05/23/19 06:50 97.4 80 14 118/67 (84) 05/22/19 13:12 97 Room Air Assessment/Plan Patient is a 44-year-old male who was brought to the [facility] ED following a suicide attempt at home. Per the medical record, patient had taken 6-8 Klonopin and 1 Oxycodone saying that "things had been going downhill for a week." He had reportedly been texting with a crisis hotline and the person telephoned . Patient is seen in the behavioral health unit this morning. He stated that his suicide attempt "was out of stupidity." He had suffered job loss in the prior week, and was also having problems at home. Patient has denied any previous suicide attempts, and has denied any current SI/HI. He reported he has been taking doxycycline a 14 day course for an abscess over the groin, and sinusitis. He was previously on day 4 of 14 of this medication. No further issues at this time. #1. Anxiety/depression with suicidal ideation. Management per psychiatrist #2 Abscess in the groin area. Assessed and treated at urgent care May 19, per the medical record. Continue doxycycline #4. Asthma. Continue at-home inhalers Medicine will sign off at this time. Please feel free to reconsult as needed. Plan / VTE VTE Prophylaxis Ordered?: No ADA DOWNEY PA-C May 23, 2019 10:07
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
[2019-05-23] MEDS ORDERED: hydrOXYzine 50 MG TAB PO PRN (10:45)
[2019-05-23] MEDS: DOXYCYCLINE HYCLATE 100 MG TAB PO SCH ×2 (13:38→21:23)
[2019-05-23] MEDS: MAALOX 30 ML SUSP *UDC PO PRN (15:11)
[2019-05-23 16:12] VITALS: BP 118/69
[2019-05-23] MEDS: BREXPIPRAZOLE 0.5MG TABLET (REXULTI) PO SCH (21:23)
[2019-05-23] MEDS: BREXPIPRAZOLE 2MG TABLET (REXULTI) PO SCH (21:23)
[2019-05-23] MEDS: FLUoxetine 20 MG CAP PO SCH (21:23)
[2019-05-23] MEDS: QUEtiapine FUMARATE 100 MG TAB PO SCH (21:23)
[2019-05-24 05:52] VITALS: BP 116/64
[2019-05-24] MEDS: GABAPENTIN 300 MG CAP PO SCH ×3 (09:07→20:32)
[2019-05-24] MEDS: DOXYCYCLINE HYCLATE 100 MG TAB PO SCH ×2 (09:07→20:32)
[2019-05-24] MEDS: MULTIVITAMINS/MINERALS THERAP 1 TAB PO SCH (12:07)
[2019-05-24 16:12] VITALS: BP 110/62
[2019-05-24] MEDS: FLUoxetine 20 MG CAP PO SCH (20:32)
[2019-05-24] MEDS: BREXPIPRAZOLE 0.5MG TABLET (REXULTI) PO SCH (20:32)
[2019-05-24] MEDS: BREXPIPRAZOLE 2MG TABLET (REXULTI) PO SCH (20:32)
[2019-05-24] MEDS: QUEtiapine FUMARATE 100 MG TAB PO SCH (21:06)
[2019-05-25 06:20] VITALS: BP 125/60
[2019-05-25] MEDS: DOXYCYCLINE HYCLATE 100 MG TAB PO SCH ×2 (08:24→20:43)
[2019-05-25] MEDS: GABAPENTIN 300 MG CAP PO SCH ×3 (08:24→20:43)
--- NOTE | 2019-05-25 09:23 | MHIPN ---
DATE OF SERVICE: 05/24/2019 The patient today says "I'm feeling pretty good." He says he is not as groggy today as he had been. He says that his visited him last night and he wants to work on their relationship and he feels that this is why he is feeling so much better. MENTAL STATUS EXAM: The patient is alert and oriented times three. Eye contact is fairly good. Psychomotor is normal. There is no formal thought disorder noted. His mood is "pretty good." Affect is full range and appropriate. He is not psychotic. He is denying suicidal, homicidal ideations. Concentration is fair. Memory intact. Insight and judgment is good. DIAGNOSIS: Major depressive disorder, recurrent, severe, without psychotic symptoms. Posttraumatic stress disorder (PTSD). Klonopin/opiate/cannabis use disorder. TREATMENT PLAN: We will continue to monitor the patient for further resolution of suicidal ideations and continued motivation of stabilization of his mood.
[2019-05-25] MEDS: MULTIVITAMINS/MINERALS THERAP 1 TAB PO SCH (12:01)
[2019-05-25 16:21] VITALS: BP 121/62
[2019-05-25] MEDS: BREXPIPRAZOLE 0.5MG TABLET (REXULTI) PO SCH (20:43)
[2019-05-25] MEDS: FLUoxetine 20 MG CAP PO SCH (20:43)
[2019-05-25] MEDS: BREXPIPRAZOLE 2MG TABLET (REXULTI) PO SCH (20:43)
[2019-05-25] MEDS: QUEtiapine FUMARATE 100 MG TAB PO SCH (21:03)
[2019-05-26] MEDS: MAALOX 30 ML SUSP *UDC PO PRN (06:07)
[2019-05-26 06:17] VITALS: BP 125/76
[2019-05-26] MEDS: GABAPENTIN 300 MG CAP PO SCH (08:33)
[2019-05-26] MEDS: DOXYCYCLINE HYCLATE 100 MG TAB PO SCH (08:34)
[2019-05-26] MEDS ORDERED: GABA-843 PO (10:49)
[2019-05-26] MEDS ORDERED: REXU1TAB2 PO (10:49)
[2019-05-26] MEDS ORDERED: REXU1TAB4 PO (10:49)
[2019-05-26] MEDS ORDERED: SERO1TAB PO (10:49)
[2019-05-26] MEDS ORDERED: FLUO20CA20 PO (10:49)
--- NOTE | 2019-05-26 10:51 | MHDSPDOC ---
[facility] Discharge Summary Discharge Summary DATE OF ADMISSION: May 22, 2019 at 1:01 pm DATE OF DISCHARGE: May 26, 2019 DISCHARGE DIAGNOSES: Major Depressive D/O recurrent, severe, w/o psychosis PTSD Klonopin/opiate/cannabis use d/o REASON FOR ADMISSION: Patient is a 44 -year-old , male, with a history of depression and [facility] admission with last 02/11/19 for SI who after texting with the crisis line that called 911 and pt was brought to the hospital after he intensionally took an OD of 6-8 1mg klonopin and 1 oxycontin as a suicide attempt. . Pt stated in the ED "things have been going down hill for a while." Pt endorsed significant stressors in his life over the last couple of seeks such as loss of his employment at [employer], loss of health insurance that ended his outpatient mental health treatment, and relationship problems with the belief his marriage is ending per ED. Per ED pt was very tearful describing his recent OD, the arrival of the police to his home, and him awakening to his spouse reporting to him why the police were there. Per ED, pt's spouse has not cont acted or come to the hospital to see the pt since the pat left the home with the police. Per ED, the pt appeared depressed and hopeless when seen. Pt seen and states "a lot of things pilled up on top of me... loss my job a few weeks ago, financial stress, relationship stress and I took a handful of pills." Pt states he feels better, less depressed today. States he regrets his OD. States his meds are beneficial but that the "depression is still there." States mentally feels better since loosing his job due to him feel anxious and nauseous when he was working. Endorses significant amounts of anxiety as to why he was recently started on klonopin outpatient. States his anxiety is what causes his depression and that his outpatient provider isn't really helping him with his anxiety. States he had been going to therapy to help his anxiety but is still struggling with. States he feels a bit more hopeful about his outpatient treatment with getting health insurance with admission here. States he's been working in therapy but the format is mostly talking about his day which he doesn't find very helpful and ultimately makes him feel worse. Recommended to the pt to ask his therapist the next time he goes to therapy if they can work on a more structurized program such as CBT to aid pt with his anxious and depressive thoughts in which the pt agrees would be best for him. States his meds are beneficial and is agreeable to increasing his rexulti to 2.5mg qhs for improvement in antidepressant augmentation of prozac. Will d/c klonopin s/p OD and provide the pt with vistaril 50mg q4hr prn anxiety. Pt denies SI/HI, hallucinations, delusions. He feels safe here. CONSULTANTS INVOLVED: none TREATMENT AND PROGRESS ON THE UNIT :Pt was admitted to [facility], seen for psychiatr ic assessment and restarted on rexulti increased to 2.5mg daily for antidepressant augmentation, prozac 60mg daily for mood, and gabapentin 300mg tid for back pain. He was provided vistaril 50mg q6hr prn anxiety and seroquel 1000mg qhs forinsomnia. Pt found his medications beneficial and tolerated them well. He attended groups daily during his stay. His symptoms improved with t reatment. On day of discharge he denied depression, anxiety, insomnia, SI/HI, hallucinations, delusions. He was discharged home with follow-up at [facility]. He felt safe for discharge. DISCHARGE ASSESSMENT: Pt seen and states that his mood is "good" and that he's looking forward to going home today and working on his relationship with his now that he's feeling better. States his is supportive of him. States he's looking forward to a new job interview tomorrow at 1pm. States he's finding the increase in rexulti beneficial for his mood in combination with prozac and is tolerating both well. States his back pain is better with gabapentin. States he's tolerating all his medications well and feels they're been beneficial. His mood is euthymic and full range. Slept thru the night for well. He is attending groups and finding them helpful. He denies depression, anxiety, insomnia, SI/HI, hallucinations, delusions. Pt feels safe to d/c home today. MENTAL STATUS EXAMINATION ON DISCHARGE: General Appearance: well groomed, appears stated age, hospital scrubs/clothing Build: average Demeanor: average Eye Contact: average Activity: average Behavior: cooperative Speech: clear, reg/rate,rhythm,volume Mood: euthymic, full range Mood "good" Affect: euthymic, congruent Thought Process: logical/linear, future oriented intact Thought Content (Delusions): none reported, denies SI, HI, AVH Thought Content (Other): none reported, appropriate Thought Content (Aggressive): none reported Perception (Hallucinations): none reported Perception (Other): none reported Cognition (Impairment of): none reported Cognition(Intelligence Est.): average Oriented: Awake, Alert, Oriented times three Insight: good Judgment: good Psychosis: Denies MEDICATIONS ON DISCHARGE: rexulti to 2.5mg qhs prozac 60mg daily vistaril 50mg q4hr prn anxiety seroquel 100mg qhs gabapentin 300mg tid PLAN/FOLLOWUP ARRANGEMENTS: D/c home with follow-up at [facility]. The amount of time spent in the coordination of care for this patient was approximately 30 minutes. Vital Signs/I&Os Vital Signs Date Time Temp Pulse Resp B/P (MAP) Pulse Ox O2 Delivery O2 Flow Rate FiO2 05/26/19 06:17 98.8 77 12 125/76 (92) 05/22/19 13:12 97 Room Air Medications Scheduled Brexpiprazole (Rexulti) 2 Mg Tablet, 2 MG PO QPM, (Reported) Clonazepam (Clonazepam) 1 Mg Tab.rapdis, 1 MG PO QHS, (Reported) Fluoxetine Hcl (Fluoxetine HCl) 20 Mg Capsule, 60 MG PO QPM, (Reported) Gabapentin (Gabapentin) 300 Mg Capsule, 300 MG PO TID, (Reported) Metronidazole (Metrogel) 55 Gm Gel.w.pump, 1 DOSE TOP DAILY, (Reported) APPLY TO NOSE AFTER SHOWER Multivitamins (Thera M Plus Tablet) 1 Each Tablet, 1 TAB PO DAILY, (Reported) Quetiapine Fumarate (Seroquel) 100 Mg Tablet, 100 MG PO QHS, (Reported) Scheduled PRN Acetaminophen (Mapap) 500 Mg Capsule, 1,000 MG PO TID PRN for PAIN, (Reported) Albuterol Sulf (Albuterol Sulfate) 2.5 Mg/3 Ml Vial.neb, 2.5 MG INH QID PRN for SHORTNESS OF BREATH, (Reported) Cetirizine HCl (Cetirizine HCl) 10 Mg Tablet, 10 MG PO DAILY PRN for ALLERGIES, (Reported) Fluticasone Propionate (Flonase Allergy Relief) 9.9 Ml [place].susp, 2 SPRAY NA DAILY PRN for ALLERGIES, (Reported) Ondansetron HCl (Ondansetron HCl) 4 Mg Tablet, 4 MG PO Q8H PRN for NAUSEA OR VO MITING, (Reported) Allergies Coded Allergies: aspirin (Verified Allergy, Intermediate, hives, 10/29/18) ibuprofen (Verified Allergy, Intermediate, hives, 10/29/18) LENORA GILLIAM DO May 26, 2019 10:51 am
[2019-05-26] MEDS: MULTIVITAMINS/MINERALS THERAP 1 TAB PO SCH (12:08)
--- NOTE | 2019-05-26 19:06 | MHIPN ---
DATE: 05/25/2019 The patient today states that he is doing "good." He said he is going to the groups and he is not having any suicidal thoughts. He says his sleep was restless last night, but that is unusual because his sleep is usually very good with his Seroquel. MENTAL STATUS EXAMINATION: He is alert and oriented times three. Eye contact is fairly good. He is verbally spontaneous. There is no formal thought disorder noted. Mood is good. Affect is full rage and appropriate. He is not psychotic, suicidal or homicidal. Concentration and memory is good. Insight and judgment good. DIAGNOSES: 1. Major depressive disorder, recurrent, severe, without psychotic symptoms. 2. Posttraumatic stress disorder. 3. Klonopin/opiate/cannabis use disorder. TREATMENT PLAN: At this point, we will continue to monitor the patient for continued elevation and stabilization of his mood and continued resolution of suicidal ideation and to continue to titrate medications as indicated.
== END 2019-05-26 13:29 | disposition home or self-care (01) | DRG 751 ==
LOC: M ED 02:57 → EDBD 02:57 → M ED INP 13:01 → M PSY 13:42
PROVIDERS: ADMIT Psychiatry & Neurology Psychiatry; ATTEND Psychiatry & Neurology Psychiatry
DX: F33.2 Major depressive disorder, recurrent severe without psychotic features (principal); F43.10 Post-traumatic stress disorder, unspecified; T42.4X2A Poisoning by benzodiazepines, intentional self-harm, initial encounter; T40.2X5A Adverse effect of other opioids, initial encounter; F12.10 Cannabis abuse, uncomplicated; M51.26 Other intervertebral disc displacement, lumbar region; F11.10 Opioid abuse, uncomplicated; K21.9 Gastro-esophageal reflux disease without esophagitis; J45.909 Unspecified asthma, uncomplicated; Z90.49 Acquired absence of other specified parts of digestive tract; Z81.1 Family history of alcohol abuse and dependence; Z81.8 Family history of other mental and behavioral disorders; Z62.810 Personal history of physical and sexual abuse in childhood; Z56.0 Unemployment, unspecified; Z79.899 Other long term (current) drug therapy; Z88.6 Allergy status to analgesic agent; Z63.0 Problems in relationship with spouse or partner; Z59.9 Problem related to housing and economic circumstances, unspecified

== ENCOUNTER 2019-09-05 09:35 | Emergency (ER) | payer MEDICAID, OTHER, SELFPAY ==
[~2019-09-05] VITALS: Ht 190.5 cm; Wt 123.2 kg
[~2019-09-05 09:35] MED LIST changes: -ATOM40CA PO; +ATOM40CA16 PO; +CLON1TAB17 PO; +FLUO20CA20 PO; +REXU1TAB2 PO; +REXU1TAB4 PO; +SERO1TAB PO; +VITMTA PO
[2019-09-05 09:36] VITALS: BP 129/80
[2019-09-05] MEDS ORDERED: REXU1TAB5 (09:48)
[2019-09-05] MEDS ORDERED: QUET200T2 (09:48)
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
== END 2019-09-05 10:58 | disposition home or self-care (01) ==
LOC: M ED 09:35
DX: S00.33XA Contusion of nose, initial encounter (principal); W54.1XXA Struck by dog, initial encounter; Y92.009 Unspecified place in unspecified non-institutional (private) residence as the place of occurrence of the external cause; F41.9 Anxiety disorder, unspecified; F32.9 Major depressive disorder, single episode, unspecified; F43.10 Post-traumatic stress disorder, unspecified; Z79.899 Other long term (current) drug therapy; Z88.6 Allergy status to analgesic agent; Y99.8 Other external cause status; Y93.89 Activity, other specified

== ENCOUNTER → 2019-09-29 | Outpatient (CLI) | payer OTHER ==
[~2019-09-29] MED LIST changes: -ALL10TAB29 PO; +CETI-24 PO; +PRAZ2CAP PO; +QUET200T2; +REXU1TAB5
== END ==
LOC: M LABSMTC 12:15
PROVIDERS: ATTEND Pediatrics
DX: Z11.59 Encounter for screening for other viral diseases (principal)
CPT/HCPCS: C9803; U0003

== ENCOUNTER 2019-10-17 07:00 | Day surgery (SDC) | payer OTHER ==
[~2019-10-17 07:00] MED LIST changes: -PRAZ2CAP PO
[2019-10-17] MEDS ORDERED: LIDOCAINE 2% 100MG/5ML SDV (FOR ANES.) ONE (07:11)
[2019-10-17] MEDS ORDERED: propofoL 200 MG/20 ML VIAL ONE (07:11)
--- NOTE | 2019-11-26 11:32 | ROOR ---
Patient Name: Donovan Gallagher Procedure Date: 10/17/2019 7:39 AM Date of : 1975 Age: 44 Room: [facility] Gender: Male Note Status: Finalized Procedure: Colonoscopy Indications: Surveillance: History of numerous (> 10) adenomas on last colonoscopy (< 3 yrs) Providers: Hermilo Galdamez MD Referring MD: Deya Ricardo Md Requesting Provider: Medicines: Monitored Anesthesia Care Complications: No immediate complications. Procedure: Pre-Anesthesia Assessment: - Prior to the procedure, a History and Physical was performed, and patient medications and allergies were reviewed. The patient is competent. The risks and benefits of the procedure and the sedation options and risks were discussed with the patient. All questions were answered and informed consent was obtained. Patient identification and proposed procedure were verified by the physician, the nurse and the anesthesiologist in the procedure room. Airway Examination: normal oropharyngeal airway and neck mobility. Respiratory Examination: clear to auscultation. CV Examination: normal. Prophylactic Antibiotics: The patient does not require prophylactic antibiotics. Prior Anticoagulants: The patient has taken no previous anticoagulant or antiplatelet agents. ASA Grade Assessment: II - A patient with mild systemic disease. After reviewing the risks and benefits, the patient was deemed in satisfactory condition to undergo the procedure. The anesthesia plan was to use monitored anesthesia care (MAC). Immediately prior to administration of medications, the patient was re-assessed for adequacy to receive sedatives. The heart rate, respiratory rate, oxygen saturations, blood pressure, adequacy of pulmonary ventilation, and response to care were monitored throughout the procedure. The physical status of the patient was re-assessed after the procedure. The Colonoscope was introduced through the anus and advanced to the terminal ileum, with identification of the appendiceal orifice and IC valve. The colonoscopy was performed without difficulty. The patient tolerated the procedure well. The quality of the bowel preparation was good. The terminal ileum, ileocecal valve, appendiceal orifice, and rectum were photographed. Scope insertion time was 4 minutes. Scope withdrawal time was 11 minutes. The total duration of the procedure was 15 minutes. Findings: The perianal and digital rectal examinations were normal. The terminal ileum appeared normal. Six sessile polyps were found in the rectum, descending colon, transverse colon and ascending colon. The polyps were 4 to 10 mm in size. These polyps were removed with a cold snare. Resection and retrieval were complete. Verification of patient identification for the specimen was done by the physician and nurse using the patient's name, date and medical record number. Estimated blood loss was minimal. A few small-mouthed diverticula were found in the sigmoid colon. There was no evidence of diverticular bleeding. Non-bleeding external and internal hemorrhoids were found during retroflexion. The hemorrhoids were medium-sized. Impression: - The examined portion of the ileum was normal. - Six 4 to 10 mm polyps in the rectum, in the descending colon, in the transverse colon and in the ascending colon, removed with a cold snare. Resected and retrieved. - Mild diverticulosis in the sigmoid colon. There was no evidence of diverticular bleeding. - Non-bleeding external and internal hemorrhoids. Recommendation: - Patient has a contact number available for emergencies. The signs and symptoms of potential delayed complications were discussed with the patient. Return to normal activities tomorrow. Written discharge instructions were provided to the patient. - High fiber diet. - Continue present medications. - Use fiber, for example Citrucel, Fibercon, Konsyl or Metamucil. - Await pathology results. - Repeat colonoscopy in 3 years for surveillance based on pathology results. - Telephone GI clinic for pathology results in 2 weeks. - Return to primary care physician. Hermilo Galdamez MD Hermilo Galdamez MD 10/17/2019 9:11:23 AM Electronically signed by Hermilo Galdamez MD Number of Addenda: 0 Note Initiated On: 10/17/2019 7:39 AM Estimated Blood Loss: Estimated blood loss was minimal.
== END 2019-10-17 08:45 | disposition home or self-care (01) ==
LOC: M OPP 07:00
PROVIDERS: ATTEND Internal Medicine Gastroenterology
DX: K62.1 Rectal polyp (principal); K63.5 Polyp of colon; K64.8 Other hemorrhoids; K57.30 Diverticulosis of large intestine without perforation or abscess without bleeding; Z86.010 Personal history of colon polyps; K21.9 Gastro-esophageal reflux disease without esophagitis; Z09 Encounter for follow-up examination after completed treatment for conditions other than malignant neoplasm; F17.210 Nicotine dependence, cigarettes, uncomplicated; Z79.899 Other long term (current) drug therapy; Z88.6 Allergy status to analgesic agent

== ENCOUNTER 2019-11-27 01:15 | Emergency (ER) | payer OTHER ==
[~2019-11-27] VITALS: Ht 190.5 cm; Wt 122.7 kg
[2019-11-27] MEDS ORDERED: PRAZ2CAP PO (01:28)
[2019-11-27 01:49] LABS: HEMATOCRIT 45.4 % (42.0-52.0); HEMOGLOBIN 15.4 g/dl (13.5-17.5); MEAN CORPUSCULAR HEMOGLOBIN 31.2 pg (27.0-33.0); MEAN CORPUSCULAR HGB CONC 33.9 g/dl (32.0-36.5); MEAN CORPUSCULAR VOLUME 92.1 fl (80.0-96.0); PLATELET COUNT, AUTOMATED 234 10^3/uL (150-450); RED BLOOD COUNT 4.93 10^6/uL (4.30-6.10)
[2019-11-27 01:54] LABS: WHITE BLOOD COUNT 14.3 10^3/uL (4.0-10.0)
[2019-11-27 01:59] LABS: INR 0.9; PROTHROMBIN TIME 12.4 SECONDS (11.8-14.0)
[2019-11-27 02:11] LABS: ATYPICAL LYMPH 10 % (0-5); BASOPHILS 1 % (0-1); EOSINOPHILS 1 % (0-3); LYMPHOCYTES 27 % (16-44); MONOCYTES 7 % (0-5); NEUTROPHILS 54 % (28-66)
[2019-11-27 02:12] LABS: PLATELET ESTIMATE NORMAL (NORMAL)
[2019-11-27 02:13] LABS: PLATELET CLUMPS SMALL AMT
--- NOTE | 2019-11-27 02:16 | REPVR ---
PROCEDURE INFORMATION: Exam: XR Chest, 1 View Exam date and time: 11/27/2019 1:35 AM Age: 44 years old Clinical indication: Other: Cp; Additional info: Chest pain TECHNIQUE: Imaging protocol: XR of the chest Views: 1 view. COMPARISON: CR ABDOMEN FLAT/UPRIGHT, PA CHEST 10/18/2017 11:23 AM FINDINGS: Limitations: Multiple overlying electrocardiograph leads. Lungs: Unremarkable. No consolidation. Pleural space: Unremarkable. No pleural effusion. No pneumothorax. Heart/Mediastinum: Unremarkable. No cardiomegaly. Bones/joints: Unremarkable. IMPRESSION: No acute infiltrate. Electronically signed by: Leatha Escobar On 11/27/2019 02:15:44 AM
[2019-11-27 02:21] LABS: ALBUMIN 3.4 GM/DL (3.2-5.2); ALT/SGPT 30 U/L (12-78); BILIRUBIN,DIRECT 0.1 MG/DL (0.0-0.2); BILIRUBIN,TOTAL 0.4 MG/DL (0.2-1.0); BLOOD UREA NITROGEN 14 MG/DL (7-18); CALCIUM LEVEL 9.1 MG/DL (8.5-10.1); CARBON DIOXIDE LEVEL 27 MEQ/L (21-32); CHLORIDE LEVEL 103 MEQ/L (98-107); CK-MB VALUE MASS < 1.0 NG/ML (<3.6); CPK CREATINE PHOSPHOKINASE 131 U/L (39-308); CREATININE FOR GFR 1.01 MG/DL (0.70-1.30); GLOMERULAR FILTRATION RATE > 60.0 (>60); GLUCOSE, FASTING 150 MG/DL (70-100); LIPASE 34 U/L (73-393); MB/CK RELATIVE INDEX 0.76 (< OR =4); SODIUM LEVEL 137 MEQ/L (136-145); TROPONIN I < 0.02 NG/ML (< 0.10)
[2019-11-27] MEDS ORDERED: NS 1,000 ML IV ONE (02:45)
[2019-11-27 02:51] LABS: D-DIMER QUANT 301.77 ng/ml (<500)
[2019-11-27 05:15] VITALS: BP 117/66
--- NOTE | 2019-12-11 13:32 | ECGEPIP ---
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
== END 2019-11-27 05:42 | disposition home or self-care (01) ==
LOC: M ED 01:15
DX: R00.2 Palpitations (principal); J45.909 Unspecified asthma, uncomplicated; E78.5 Hyperlipidemia, unspecified; F33.9 Major depressive disorder, recurrent, unspecified; Z79.899 Other long term (current) drug therapy; Z88.8 Allergy status to other drugs, medicaments and biological substances; F17.210 Nicotine dependence, cigarettes, uncomplicated

== ENCOUNTER → 2020-06-17 | Outpatient (REF) | payer OTHER ==
[~2020-06-17] MED LIST changes: +GABA-282 PO; -GABA-843 PO; +PRAZ2CAP PO
== END ==
LOC: M SFHCLERA 13:22
PROVIDERS: ATTEND Nurse Practitioner Family
DX: R10.13 Epigastric pain (principal)

== ENCOUNTER → 2020-06-18 | Outpatient (CLI) | payer OTHER ==
[2020-06-18 08:27] LABS: HEMATOCRIT 49.3 % (42.0-52.0); HEMOGLOBIN 16.4 g/dl (13.5-17.5); MEAN CORPUSCULAR HEMOGLOBIN 31.1 pg (27.0-33.0); MEAN CORPUSCULAR HGB CONC 33.3 g/dl (32.0-36.5); MEAN CORPUSCULAR VOLUME 93.5 fl (80.0-96.0); PLATELET COUNT, AUTOMATED 315 10^3/uL (150-450); RED BLOOD COUNT 5.27 10^6/uL (4.30-6.10); WHITE BLOOD COUNT 11.3 10^3/uL (4.0-10.0)
[2020-06-18 08:50] LABS: ALBUMIN 3.7 GM/DL (3.2-5.2); ALT/SGPT 31 U/L (12-78); AMYLASE 53 U/L (25-115); BILIRUBIN,TOTAL 0.4 MG/DL (0.2-1.0); BLOOD UREA NITROGEN 10 MG/DL (7-18); CALCIUM LEVEL 9.1 MG/DL (8.5-10.1); CARBON DIOXIDE LEVEL 24 MEQ/L (21-32); CHLORIDE LEVEL 108 MEQ/L (98-107); CREATININE FOR GFR 0.75 MG/DL (0.70-1.30); GLOMERULAR FILTRATION RATE > 60.0 (>60); GLUCOSE, FASTING 120 MG/DL (70-100); LIPASE 217 U/L (73-393); POTASSIUM SERUM 3.9 MEQ/L (3.5-5.1); SODIUM LEVEL 138 MEQ/L (136-145); TOTAL PROTEIN 6.9 GM/DL (6.4-8.2)
[2020-06-18 09:04] LABS: ATYPICAL LYMPH 16 % (0-5); LYMPHOCYTES 20 % (16-44); MONOCYTES 5 % (0-5); NEUTROPHILS 59 % (28-66); PLATELET ESTIMATE NORMAL (NORMAL)
--- NOTE | 2020-06-18 09:24 | REP ---
INDICATION: R10.13- EPIGASTRIC PAIN, HX OF HERNIA- LABS FIRST. COMPARISON: CT 12/06/2018 TECHNIQUE: Abdominal sonography in both upper quadrants performed in this patient with epigastric pain FINDINGS: Liver is a homogeneous slightly hyperechoic cyst with fatty infiltration. Is not enlarged with a vertical diameter 17.4 cm in right hepatic lobe at the midclavicular line. No focal hepatic mass, intrahepatic biliary dilatation or adjacent ascites. Gallbladder is surgically absent. Common duct 5 mm and without a filling defect. Pancreas is limited in its evaluation due to gas shadowing. Slightly hyperechoic appearance to that portion of pancreas seen loading and in body. Right kidney is 11.3 x 6.3 x 5.3 cm in the left kidney is 12 x 5.5 x 6.1 cm. Neither kidney show solid or cystic mass, hydronephrosis, stone or perinephric fluid. Cortical echogenicity, contour and thickness were normal bilaterally. Some mild sinus lipomatosis noted. The spleen is 11.3 x 7.3 x 3.9 cm skips a calculated splenic index of 322 (normal <480). No focal hepatic mass. No left upper quadrant ascites. IMPRESSION: Liver with some fatty infiltration but no hepatomegaly, intrahepatic biliary dilatation or focal lesion. Common duct 5 mm and unremarkable. Spleen, kidneys and common bile duct appear normal. Pancreas partially obscured by gas shadowing without focal lesion in those segments identified. <Electronically signed by Angus Foster > 06/18/20 0937
== END ==
LOC: M RAD 07:54
PROVIDERS: ATTEND Nurse Practitioner Family
DX: R10.13 Epigastric pain (principal)

== ENCOUNTER → 2020-08-26 | Outpatient (CLI) | payer OTHER ==
--- NOTE | 2020-08-26 13:22 | REP ---
INDICATION: NAUSEA WITH VOMITING, UNSPECIFIED. COMPARISON: 10/18/2017. TECHNIQUE: Two AP views abdomen and pelvis. FINDINGS: There are no dilated bowel loops. There is no evidence of bowel obstruction. A phlebolith is again seen on each side of the pelvis. There are very mild degenerative changes of the lumbar spine. IMPRESSION: No acute abnormalities identified. <Electronically signed by Mike Leon > 08/26/20 1298
== END ==
LOC: M RAD 12:26
PROVIDERS: ATTEND Nurse Practitioner Family
DX: R11.2 Nausea with vomiting, unspecified (principal); R19.5 Other fecal abnormalities

== ENCOUNTER → 2020-09-21 | Outpatient (REF) | payer OTHER ==
[~2020-09-21] MED LIST changes: +OMEP40CA4 PO; -OMEP40CA97 PO
== END ==
LOC: M LAB REF 16:34
PROVIDERS: ATTEND Nurse Practitioner Family
DX: R63.8 Other symptoms and signs concerning food and fluid intake (principal); Z53.8 Procedure and treatment not carried out for other reasons

== ENCOUNTER → 2020-09-23 | Outpatient (REF) | payer OTHER ==
[2020-09-23 19:39] LABS: HEMOGLOBIN A1c 5.8 %
== END ==
LOC: M SFHCLERA 17:33
PROVIDERS: ATTEND Nurse Practitioner Family
DX: Z13.29 Encounter for screening for other suspected endocrine disorder (principal); R63.8 Other symptoms and signs concerning food and fluid intake; Z79.899 Other long term (current) drug therapy

== ENCOUNTER → 2020-12-17 | Outpatient (REF) | payer OTHER ==
[~2020-12-17] MED LIST changes: +ABIL1INJ2; +ARNU1INH; +MIRTAZAPINE; +OMEP-218; +TRAZ-189
[2020-12-21 20:08] LABS: TESTOSTERONE FREE (DIRECT) 7.5 pg/mL (6.8-21.5)
== END ==
LOC: M LAB REF 12:15
PROVIDERS: ATTEND Nurse Practitioner Family
DX: R68.82 Decreased libido (principal)

== ENCOUNTER 2021-02-02 09:21 | Emergency (ER) | payer OTHER ==
[~2021-02-02] VITALS: Ht 190.5 cm; Wt 114.2 kg
[~2021-02-02 09:21] MED LIST changes: -ABIL1INJ2; -ARNU1INH; -MIRTAZAPINE; -OMEP-218; -TRAZ-189
[2021-02-02] MEDS ORDERED: ABIL1INJ2 (09:28)
[2021-02-02] MEDS ORDERED: OMEP-218 (09:28)
[2021-02-02] MEDS ORDERED: TRAZ-189 (09:28)
[2021-02-02] MEDS ORDERED: MIRTAZAPINE (09:28)
[2021-02-02] MEDS ORDERED: ARNU1INH (09:28)
--- OUTSIDE RECORDS SUMMARY | 2021-02-02 09:31 | CCD | Continuity of Care Document ---
Author Author Donovan Abad Organization Unknown Address [address] [address] Phone [phone] Care Team Providers Care Marine Erector Name Role Phone Evaristo Morrison DO AUTM [phone] Problems Description No Information Available Social History Type Date Description Comments Sex Unknown Allergies and adverse reactions Description No Information Available Medications Description No Information Available Medications Administered in Office Medication SIG Qnty Indications Ordering Provider Date Immunization Adminstration,1 Vaccine/Tox oid Injection Hank Morrsion MD 2020 Immunizations CPT Code Status Date Vaccine Lot # [id number] Given 12/27/2020 Influenza Vaccin e Quadrivalent Preser/Antibiotic Free Im Use [id number] [id number] Given 12/23/2020 Covid-19 J&J Vaccine Vital Signs Description No Information Available Results Description No Information Available Procedures Description No Information Available Medical Devices Description No Information Available Encounters Description No Information Available Assessments Date Code Description Provider 12/27/2020 Z23 Encounter for immunization Juliai jenny Morrison MD 12/27/2020 Z23 Encounter for immunization Nurse Schedule Plan of Treatment No Information Available Functional Status Description No Information Available Mental Status Description No Information Available Referrals Description No Information Available
--- OUTSIDE RECORDS SUMMARY | 2021-02-02 09:32 | CCD | Continuity of Care Document ---
Author Author Donovan Abad Organization Unknown Address [address] [address] Phone [phone] Care Team Providers Care Mixer Operator Helper Hot Metal Name Role Phone Evaristo Morrison DO AUTM [phone] Problems Description No Information Available Social History Type Date Description Comments Sex Unknown Allergies and adverse reactions Description No Information Available Medications Description No Information Available Immunizations CPT Code Status Date Vaccine Lot # [id number] Given 12/27/2020 Influenza Vaccin e Quadrivalent Preser/Antibiotic Free Im Use [id number] [id number] Given 12/23/2020 Covid-19 J&J Vaccine Vital Signs Description No Information Available Results Description No Information Available Procedures Description No Information Available Medical Devices Description No Information Available Encounters Description No Information Available Assessments Description No Information Available Plan of Treatment No Information Available Functional Status Description No Information Available Mental Status Description No Information Available Referrals Description No Information Available
--- OUTSIDE RECORDS SUMMARY | 2021-02-02 09:32 | CCD ---
Author Author [facility] Organization [facility] Address Unknown Phone Unavailable Care Team Providers Care Water Project Manager Name Role Phone Ruby Roman Unavailable PROBLEMS Type Condition ICD9-CM Code OBB32-QN Code Onset Dates Condition S tatus W/U Status Risk SNOMED Code Notes Problem Anxiety and depression F41.9 Active confirmed 448556248 Problem Chronic pain of left knee M25.562 Active confirmed 72401664 Problem Other chronic pain G89.29 Active confirmed 8 8140531 Problem Erectile dysfunction, unspecified erectile dysfunction typ e N52.9 Active confirmed 553822489 Problem Rosacea L71.9 Active confirmed 942729425 Problem Decreased libido R68.82 Active confirmed 835 7008 Problem Hiatal hernia K44.9 Active confirmed 937155 09 Problem MARLENE (generalized anxiety disorder) F41.1 Activ e confirmed 62233406 Problem Bilateral low back pain with left-sided sciatica M 54.42 Active confirmed 998369855 Problem Bipolar II disorder F31.81 Active confirmed 97496837 Problem Bilateral low back pain with sciatica, s ciatica laterality unspecified M54.40 Active confirmed 856492076 Problem Other seasonal allergic rhinitis J30.2 Active conf irmed 479998959 Problem Skin lesion L98.9 Active confirmed 77105204 Problem Mild intermittent asthma, unspecified whether complicated J45.20 Active confirmed 642033052 Problem Cannabis abuse, daily use F12.10 Active confirmed 176504367 Problem 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 Active confirmed 64060 01 Problem Leukocytosis, unspecified type D72.829 Active confi rmed 106010511 Problem Melanocytic nevi of trunk D22.5 Active confirmed 115853762 Problem Tobacco abuse Z72.0 Active confirmed 186868 05 Problem Telangiectasia I78.1 Active confirmed 98962 1009 Problem Orthostatic hypotension I95.1 Active confirmed 78606511 Problem Melanocytic nevi of other parts of face D22.39 Active confirmed 290949151 Problem Anxiety associated with depression F41.8 Activ e confirmed 745976634 Problem Melanocytic nevi of scalp and neck D22.4 Activ e confirmed 100620786 Problem H/O paroxysmal supraventricular tachycardia Z86.79 Active confirmed 446048444843744 Problem Symptoms consistent with irritable bowel syndrome K58.9 Active confirmed 28239522 Problem Severe episode of recurrent major depressive disorder, without psychotic features F33.2 Active confirmed 02353979 Problem Arthritis M19.90 Active confirmed 2001785 Problem Post-traumatic stress disorder, unspecified F43.10 Active confirmed 21446190 Problem B12 deficiency E53.8 Active confirmed 28444 4004 Problem Uncontrolled persistent asthma J45.998 Active confi rmed 012364885 Problem Gastroesophageal reflux disease, esophagitis pre sence not specified K21.9 Active confirmed 960294038 Problem Vitamin D insufficiency E55.9 Active confirmed 581143250 Problem Primary osteoarthritis, 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 Active confirmed 669729687977253 Problem Primary osteoarthritis, right hand M19.041 Activ e confirmed 877588900249745 Problem Acute bilateral low back pain with right-sided sciatica M54.41 Active confirmed 789002541 Problem Marijuana use F12.90 Active confirmed 792467 004 ALLERGIES Allergen (clinical drug ingredient) Drug/Non Drug Allergy do cumented on EMR Reaction Allergy Type Onset Date Status ibuprofen Ibuprofen(NDC Code:[address]-79) Hives Drug Allergy Active aspirin Aspirin(NDC Code:[address]-96) Hives Drug Allergy Active ENCOUNTERS from 1975 to 2020-12-24 Encounter Location Date Provider Diagnosis [place] [id number] [facility] [phone] [place] [address] Dec, Ruby Roman IMMUNIZATIONS Vaccine Route Administration Date Status Vitamin B-12 1000mcg/1mL Cyanocobalamin SC Subcutaneous September 12, 2016 Administered Vitamin B-12 1000mcg/1mL Cyanocobalamin IM Intramuscular July 18, 2016 Administered Influenza 6mo & up Fluzone Unknown Jan 17, 2016 Admin istered Influenza 6mo & up Fluzone Unknown May 14, 2014 Admin istered SOCIAL HISTORY Tobacco Use: Social History Observation Description Date Details (start date - stop date) Current Smoker Sex Assigned At : Social History Observation Description Sex Assigned At Unknown Education: Question Answer Notes Level of Education: College Audit Question Answer Notes Total Score: 1 Interpretation: Alcohol Education Language: Question Answer Notes Languages spoken: Icelandic Advent: Question Answer Notes Advent 33 None Domestic Violence: Question Answer Notes Status: Sexual Hx: Question Answer Notes Had sex in the last 12 months (vaginal, oral, or anal)? No Have you ever had an STD? Yes Herpes? Yes Drug and Alcohol Question Answer Notes Total Score: 1 Interpretation: Low level Alcohol Screening: Question Answer Notes Did you have a drink containing alcohol in the past year? No Points 0 Interpretation Negative BMI Care Goal Follow-Up Question Answer Notes Above Normal BMI Follow-Up Dietary management educatio n, guidance, and counseling Tobacco Use: Question Answer Notes Are you a: current smoker Smoking Cessation Information Given 09/16/2020 Patient counseled on the dangers of tobacco use and urged to quit: 09/16/2020 How many cigarettes a day do you smoke? 6-10 Are you interested in quitting? Not ready to quit Counseled the patient on smoking effects, education provided 09/16/2020 REASON FOR REFERRAL No Information VITAL SIGNS No information MEDICATIONS Medication SIG (Take, Route, Frequency, Duration) Notes Start Da te End Date Status Sucralfate 1 GM 1 tablet on an empty stomach Orally Twice a day for 10 day(s) Jun, Active Multivitamin Adult - 1 tablet Orally Once a day Not-Taking Omeprazole 20 MG 1 capsule 30 minutes before morning meal Orally Once a day for 90 day(s) Jun, Active Acetaminophen 500 MG 1 capsule as needed Orally every 6 hrs PRN Not-Taking Doxycycline Monohydrate 100 MG 1 tablet Orally bid for 7 days July, Not-Taking traZODone HCl 150 MG 1-2 tablets at bedtime Orally Once a day Active Albuterol Sulfate HFA 108 MCG/ACT 2 puffs as needed In halation every 6 hrs for 30 days PRN Sep, Active Abilify Maintena 400 MG as directed Intramuscular Aug, Active Carafate 1 GM/10ML 10 ml on an empty stomach Orally Twice a day for 10 day(s) Jun, Not-Taking Fluoxetine HCl 60 MG 1 capsule Orally Once a day Not-Taking Pen [place] 32G X 6 MM as directed subcutaneously D aily w/ victoza for 90 day(s) R73.03 Sep, Active Atorvastatin Calcium 20 MG 1 tablet Oral Once a day Not-Taking Gabapentin 300 MG 1 capsule Orally Three times a day Not-Taking Rexulti 0.5 MG 1 tablet Orally Once a day for 30 day(s) Not-Taking metFORMIN HCl ER 750 MG 1 tablet with evening meal O rally Once a day for 30 day(s) Sep, Active Alcohol Prep 70 % as directed topically Daily prior to yajaira toza for 90 day(s) R705.19Sep, Active QUEtiapine Fumarate 200 MG 1 tablet at bedtime Orally Once a day Not-Taking Montelukast Sodium 10 MG 1 tablet Orally Once a day i n the evening for 90 day(s) Sep, Active Rexulti 3 MG 1 tablet Orally Once a day Not-Taking traMADol HCl 50 MG 1 tablet as needed for back pain Orally Once a day (MDD=1) for 7 day(s) Jan, Not-Taking Metrogel 1 % 1 application to affected area of nose Externall y Once a day Oct, Not-Taking Arnuity Ellipta 100 MCG/ACT 1 puff Inhalation Once a day for 30 Days Aug, Active Flonase 50 MCG/DOSE 1 spray in each nostril Nasally Once a day f or 30 day(s) Sep, Not-Taking Cetirizine HCl 10 MG 1 tablet Orally Once a day for 90 day(s) PRN Sep, Not-Taking DULoxetine HCl 30 MG TK 1 C PO QAM Oral for 30 Not-Taking Latuda 20 MG TK 1 T PO QPM WITH A MEAL Oral for 30 Not-Taking PROCEDURES No Information RESULTS No Results REASON FOR VISIT back pain MEDICAL (GENERAL) HISTORY Type Description Date Medical History Asthma Medical History Hx of supraventricular tachycardia Medical History GERD (gastroesophageal reflux disease) Medical History Hiatal hernia Medical History Bilateral knee pain Medical History Tenosynovitis of thumb Medical History Allergic rhinitis Medical History Anxiety associated with depression Medical History Marijuana use Surgical History Pilonidal cyst removed 13 yrs ago Surgical History Right knee arthroscopy 1993 Surgical History Tonsilectomy child Surgical History Gallbladder Removed - [facility] Dr. Davis Surgical History excision on the right side of neck - Dr Arce Hospitalization History [facility] mental health 07/2015 Hospitalization History [facility] Mental Health 02/10/19- 9 Hospitalization History [facility] Mental health 05/22/2019- 0 Goals Section No Information Health Concerns No Information MEDICAL EQUIPMENT No Information MENTAL STATUS No Information FUNCTIONAL STATUS No Information ASSESSMENTS No Information PLAN OF TREATMENT Medication Medication Name Sig Start Date Stop Date metFORMIN HCl ER 750 MG 1 tablet with evening meal O rally Once a day for 30 day(s) Sep, Arnuity Ellipta 100 MCG/ACT 1 puff Inhalation Once a day for 30 Days Aug, Alcohol Prep 70 % as directed topically Daily prior to yajaira toza for 90 day(s) Sep, Pen [place] 32G X 6 MM as directed subcutaneously D aily w/ victoza for 90 day(s) Sep, Montelukast Sodium 10 MG 1 tablet Orally Once a day i n the evening for 90 day(s) Sep, Omeprazole 20 MG 1 capsule 30 minutes before morning meal Orally Once a day for 90 day(s) Jun, Insurance Providers Payer Name Payer Address Payer Phone Insured Name Patient Relati onship to Insured Coverage Start Date Coverage End Date [facility] CORPORATE CLAIMS DEPT [address] [place] [phone] [employer] [place] [employer] self
--- OUTSIDE RECORDS SUMMARY | 2021-02-02 09:32 | CCD ---
Author Author [facility] Organization [facility] Address Unknown Phone Unavailable Care Team Providers Care Pc Maintenance Technician Name Role Phone Ruby Roman Unavailable PROBLEMS Type Condition ICD9-CM Code CNB17-DG Code Onset Dates Condition S tatus W/U Status Risk SNOMED Code Notes Problem Anxiety and depression F41.9 Active confirmed 997403314 Problem Chronic pain of left knee M25.562 Active confirmed 68592430 Problem Other chronic pain G89.29 Active confirmed 8 7152087 Problem Erectile dysfunction, unspecified erectile dysfunction typ e N52.9 Active confirmed 823966454 Problem Rosacea L71.9 Active confirmed 697923816 Problem Decreased libido R68.82 Active confirmed 835 7008 Problem Hiatal hernia K44.9 Active confirmed 723156 09 Problem MARLENE (generalized anxiety disorder) F41.1 Activ e confirmed 58426587 Problem Bilateral low back pain with left-sided sciatica M 54.42 Active confirmed 785805519 Problem Bipolar II disorder F31.81 Active confirmed 22369883 Problem Bilateral low back pain with sciatica, s ciatica laterality unspecified M54.40 Active confirmed 719539554 Problem Other seasonal allergic rhinitis J30.2 Active conf irmed 834310369 Problem Skin lesion L98.9 Active confirmed 86532112 Problem Mild intermittent asthma, unspecified whether complicated J45.20 Active confirmed 126194654 Problem Cannabis abuse, daily use F12.10 Active confirmed 257737285 Problem 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 Active confirmed 39416 01 Problem Leukocytosis, unspecified type D72.829 Active confi rmed 470815493 Problem Melanocytic nevi of trunk D22.5 Active confirmed 032967080 Problem Tobacco abuse Z72.0 Active confirmed 436705 05 Problem Telangiectasia I78.1 Active confirmed 79471 1009 Problem Orthostatic hypotension I95.1 Active confirmed 66209170 Problem Melanocytic nevi of other parts of face D22.39 Active confirmed 610314992 Problem Anxiety associated with depression F41.8 Activ e confirmed 443323788 Problem Melanocytic nevi of scalp and neck D22.4 Activ e confirmed 643025475 Problem H/O paroxysmal supraventricular tachycardia Z86.79 Active confirmed 417667995451190 Problem Symptoms consistent with irritable bowel syndrome K58.9 Active confirmed 48496669 Problem Severe episode of recurrent major depressive disorder, without psychotic features F33.2 Active confirmed 03216799 Problem Arthritis M19.90 Active confirmed 0369232 Problem Post-traumatic stress disorder, unspecified F43.10 Active confirmed 29113830 Problem B12 deficiency E53.8 Active confirmed 61840 4004 Problem Uncontrolled persistent asthma J45.998 Active confi rmed 956347135 Problem Gastroesophageal reflux disease, esophagitis pre sence not specified K21.9 Active confirmed 044934435 Problem Vitamin D insufficiency E55.9 Active confirmed 573142016 Problem Primary osteoarthritis, 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 Active confirmed 666964551612261 Problem Primary osteoarthritis, right hand M19.041 Activ e confirmed 815761845036056 Problem Acute bilateral low back pain with right-sided sciatica M54.41 Active confirmed 402186800 Problem Marijuana use F12.90 Active confirmed 255370 004 ALLERGIES Allergen (clinical drug ingredient) Drug/Non Drug Allergy do cumented on EMR Reaction Allergy Type Onset Date Status ibuprofen Ibuprofen(NDC Code:[address]-94) Hives Drug Allergy Active aspirin Aspirin(NDC Code:[address]-16) Hives Drug Allergy Active ENCOUNTERS from 1975 to 2020-12-16 Encounter Location Date Provider Diagnosis [address] [phone] [place] [address] Nov, Ruby Roman Low libido R68.82 IMMUNIZATIONS Vaccine Route Administration Date Status Vitamin [...] Education Language: Question Answer Notes Languages spoken: South African Rastafarian: Question Answer Notes Rastafarian 33 None Domestic Violence: Question Answer Notes [...] capsule Orally Once a day Not-Taking Pen [place] 32G X 6 MM as directed subcutaneously [...] Information RESULTS No Results REASON FOR VISIT testosterone MEDICAL (GENERAL) HISTORY Type Description Date Medical [...] Tonsilectomy child Surgical History Gallbladder Removed - [facility] Dr. Davis Surgical History excision on the right side of neck - Dr Arce Hospitalization History [facility] mental health 07/2015 Hospitalization History [facility] Mental Health 02/10/19- 9 Hospitalization History [facility] Mental health 05/22/2019- 0 Goals Section No Information Health Concerns No Information MEDICAL EQUIPMENT No Information MENTAL STATUS No Information FUNCTIONAL STATUS No Information ASSESSMENTS Encounter Date Diagnosis Assessment Notes Treatment Notes Treatm ent Clinical Notes Nov, Low libido (ICD-10 - R68.82) PLAN OF TREATMENT Medication Medication Name Sig Start Date Stop Date metFORMIN HCl ER 750 MG 1 tablet with evening meal O rally Once a day for 30 day(s) Sep, Arnuity Ellipta 100 MCG/ACT 1 puff Inhalation Once a day for 30 Days Aug, Alcohol Prep 70 % as directed topically Daily prior to yajaira toza for 90 day(s) Sep, Pen [place] 32G X 6 MM as directed subcutaneously D aily w/ victoza for 90 day(s) Sep, Montelukast Sodium 10 MG 1 tablet Orally Once a day i n the evening for 90 day(s) Sep, Omeprazole 20 MG 1 capsule 30 minutes before morning meal Orally Once a day for 90 day(s) Jun, Future Test Test Name Order Date TESTOSTERONE FREE & TOTAL [id number] Insurance Providers Payer Name Payer Address Payer Phone Insured Name Patient Relati onship to Insured Coverage Start Date Coverage End Date [facility] [employer]POR[employer] CLAIMS DEPT [address] [place] [phone] [employer] [place] [employer] self
--- OUTSIDE RECORDS SUMMARY | 2021-02-02 09:32 | CCD ---
Author Author [facility] Organization [facility] Address Unknown Phone Unavailable Care Team Providers Care Real Estate Site Analyst Name Role Phone Ruby Roman Unavailable PROBLEMS Type Condition ICD9-CM Code [id number] Code Onset Dates Condition S tatus W/U Status Risk SNOMED Code Notes Problem Anxiety and depression F41.9 Active confirmed 469130522 Problem Chronic pain of left knee M25.562 Active confirmed 93297998 Problem Other chronic pain G89.29 Active confirmed 8 6352508 Problem Erectile dysfunction, unspecified erectile dysfunction typ e N52.9 Active confirmed 254794929 Problem Rosacea L71.9 Active confirmed 784477384 Problem Decreased libido R68.82 Active confirmed 835 7008 Problem Hiatal hernia K44.9 Active confirmed 091296 09 Problem MARLENE (generalized anxiety disorder) F41.1 Activ e confirmed 08467230 Problem Bilateral low back pain with left-sided sciatica M 54.42 Active confirmed 203326609 Problem Bipolar II disorder F31.81 Active confirmed 48975462 Problem Bilateral low back pain with sciatica, s ciatica laterality unspecified M54.40 Active confirmed 042864725 Problem Other seasonal allergic rhinitis J30.2 Active conf irmed 692158403 Problem Skin lesion L98.9 Active confirmed 87180906 Problem Mild intermittent asthma, unspecified whether complicated J45.20 Active confirmed 756261519 Problem Cannabis abuse, daily use F12.10 Active confirmed 151090645 Problem 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 Active confirmed 41887 01 Problem Leukocytosis, unspecified type D72.829 Active confi rmed 535204728 Problem Melanocytic nevi of trunk D22.5 Active confirmed 581483886 Problem Tobacco abuse Z72.0 Active confirmed 947597 05 Problem Telangiectasia I78.1 Active confirmed 38969 1009 Problem Orthostatic hypotension I95.1 Active confirmed 98420846 Problem Melanocytic nevi of other parts of face D22.39 Active confirmed 280030424 Problem Anxiety associated with depression F41.8 Activ e confirmed 250876779 Problem Melanocytic nevi of scalp and neck D22.4 Activ e confirmed 249070623 Problem H/O paroxysmal supraventricular tachycardia Z86.79 Active confirmed 890384126371026 Problem Symptoms consistent with irritable bowel syndrome K58.9 Active confirmed 37572640 Problem Severe episode of recurrent major depressive disorder, without psychotic features F33.2 Active confirmed 48120325 Problem Arthritis M19.90 Active confirmed 2530682 Problem Post-traumatic stress disorder, unspecified F43.10 Active confirmed 92470856 Problem B12 deficiency E53.8 Active confirmed 84097 4004 Problem Uncontrolled persistent asthma J45.998 Active confi rmed 875445819 Problem Gastroesophageal reflux disease, esophagitis pre sence not specified K21.9 Active confirmed 891593713 Problem Vitamin D insufficiency E55.9 Active confirmed 544923341 Problem Primary osteoarthritis, 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 Active confirmed 805817773865947 Problem Primary osteoarthritis, right hand M19.041 Activ e confirmed 504545452455667 Problem Acute bilateral low back pain with right-sided sciatica M54.41 Active confirmed 650174070 Problem Marijuana use F12.90 Active confirmed 345655 004 ALLERGIES Allergen (clinical drug ingredient) Drug/Non Drug Allergy do cumented on EMR Reaction Allergy Type Onset Date Status ibuprofen Ibuprofen(NDC Code:[address]-40) Hives Drug Allergy Active aspirin Aspirin(NDC Code:[address]-35) Hives Drug Allergy Active ENCOUNTERS from 1975 to 2020-11-25 Encounter Location Date Provider Diagnosis [address] [phone] [place] [address] Nov, Ruby Roman IMMUNIZATIONS Vaccine Route Administration Date [...] Education Language: Question Answer Notes Languages spoken: Kenyan Synagogue: Question Answer Notes Synagogue 33 None Domestic Violence: Question Answer Notes [...] capsule Orally Once a day Not-Taking Pen [place] 32G X 6 MM as directed subcutaneously D aily w/ victoza for 90 day(s) R7.03 Sep, Active Atorvastatin Calcium 20 MG 1 [...] Information RESULTS No Results REASON FOR VISIT right foot MEDICAL (GENERAL) HISTORY Type Description Date Medical [...] Tonsilectomy child Surgical History Gallbladder Removed - [facility] Dr. Davis Surgical History excision on the right side of neck - Dr Arce Hospitalization History [facility] mental health 07/2015 Hospitalization History [facility] Mental Health 02/10/19- 9 Hospitalization History [facility] 05/22/2019- 0 Goals Section No [...] yajaira toza for 90 day(s) Sep, Pen Menan 32G X 6 MM as directed subcutaneously [...] Insured Coverage Start Date Coverage End Date [facility] CORPORATE CLAIMS DEPT [address] [facility] [phone] [place] [place] [employer] self
--- OUTSIDE RECORDS SUMMARY | 2021-02-02 09:32 | CCD ---
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 Role Phone Ruby Roman Unavailable PROBLEMS Type Condition ICD9-CM Code [id number] Code Onset Dates Condition S tatus W/U Status Risk SNOMED Code Notes Problem Anxiety and depression F41.9 Active confirmed 701825121 Problem Chronic pain of left knee M25.562 Active confirmed 44523164 Problem Other chronic pain G89.29 Active confirmed 8 4646715 Problem Erectile dysfunction, unspecified erectile dysfunction typ e N52.9 Active confirmed 000587435 Problem Rosacea L71.9 Active confirmed 025331137 Problem Decreased libido R68.82 Active confirmed 835 7008 Problem Hiatal hernia K44.9 Active confirmed 939490 09 Problem MARLENE (generalized anxiety disorder) F41.1 Activ e confirmed 41253805 Problem Bilateral low back pain with left-sided sciatica M 54.42 Active confirmed 619402686 Problem Bipolar II disorder F31.81 Active confirmed 65006339 Problem Bilateral low back pain with sciatica, s ciatica laterality unspecified M54.40 Active confirmed 380397559 Problem Other seasonal allergic rhinitis J30.2 Active conf irmed 325344891 Problem Skin lesion L98.9 Active confirmed 21631466 Problem Mild intermittent asthma, unspecified whether complicated J45.20 Active confirmed 950913973 Problem Cannabis abuse, daily use F12.10 Active confirmed 918926237 Problem 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 Active confirmed 15892 01 Problem Leukocytosis, unspecified type D72.829 Active confi rmed 994872543 Problem Melanocytic nevi of trunk D22.5 Active confirmed 254183643 Problem Tobacco abuse Z72.0 Active confirmed 063757 05 Problem Telangiectasia I78.1 Active confirmed 46348 1009 Problem Orthostatic hypotension I95.1 Active confirmed 13424900 Problem Melanocytic nevi of other parts of face D22.39 Active confirmed 713856254 Problem Anxiety associated with depression F41.8 Activ e confirmed 837613076 Problem Melanocytic nevi of scalp and neck D22.4 Activ e confirmed 327951774 Problem H/O paroxysmal supraventricular tachycardia Z86.79 Active confirmed 419694701660517 Problem Symptoms consistent with irritable bowel syndrome K58.9 Active confirmed 33305177 Problem Severe episode of recurrent major depressive disorder, without psychotic features F33.2 Active confirmed 95188469 Problem Arthritis M19.90 Active confirmed 0408078 Problem Post-traumatic stress disorder, unspecified F43.10 Active confirmed 98192935 Problem B12 deficiency E53.8 Active confirmed 86975 4004 Problem Uncontrolled persistent asthma J45.998 Active confi rmed 020374070 Problem Gastroesophageal reflux disease, esophagitis pre sence not specified K21.9 Active confirmed 591266111 Problem Vitamin D insufficiency E55.9 Active confirmed 044522676 Problem Primary osteoarthritis, 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 Active confirmed 177130859198814 Problem Primary osteoarthritis, right hand M19.041 Activ e confirmed 791895010976880 Problem Acute bilateral low back pain with right-sided sciatica M54.41 Active confirmed 766947541 Problem Marijuana use F12.90 Active confirmed 788998 004 ALLERGIES Allergen (clinical drug ingredient) Drug/Non Drug Allergy do cumented on EMR Reaction Allergy Type Onset Date Status ibuprofen Ibuprofen(NDC Code:[address]-98) Hives Drug Allergy Active aspirin Aspirin(NDC Code:[address]-26) Hives Drug Allergy Active ENCOUNTERS from 1975 to 2020-11-25 Encounter Location Date Provider Diagnosis [address] [phone] [place] [address] Nov, Ruby Roman Right foot pain M79.671 IMMUNIZATIONS Vaccine Route Administration Date Status Vitamin [...] Education Language: Question Answer Notes Languages spoken: Guyanese Gnosticism: Question Answer Notes Gnosticism 33 None Domestic Violence: Question Answer Notes [...] capsule Orally Once a day Not-Taking Pen [place] 32G X 6 MM as directed subcutaneously [...] Information RESULTS No Results REASON FOR VISIT re Xray MEDICAL (GENERAL) HISTORY Type Description Date Medical [...] Tonsilectomy child Surgical History Gallbladder Removed - [facility] Dr. Davis Surgical History excision on the right side of neck - Dr Arce Hospitalization History [facility] mental health 07/2015 Hospitalization History [facility] Mental Health 02/10/19- 9 Hospitalization History [facility] Mental health 05/22/2019- 0 Goals Section No Information Health Concerns No Information MEDICAL EQUIPMENT No Information MENTAL STATUS No Information FUNCTIONAL STATUS No Information ASSESSMENTS Encounter Date Diagnosis Assessment Notes Treatment Notes Treatm ent Clinical Notes Nov, Right foot pain (ICD-10 - M79.671) PLAN OF TREATMENT Medication Medication Name Sig Start Date Stop Date metFORMIN HCl ER 750 MG 1 tablet with evening meal O rally Once a day for 30 day(s) Sep, Arnuity Ellipta 100 MCG/ACT 1 puff Inhalation Once a day for 30 Days Aug, Alcohol Prep 70 % as directed topically Daily prior to yajaira toza for 90 day(s) Sep, Pen [place] 32G X 6 MM as directed subcutaneously D aily w/ victoza for 90 day(s) Sep, Montelukast Sodium 10 MG 1 tablet Orally Once a day i n the evening for 90 day(s) Sep, Omeprazole 20 MG 1 capsule 30 minutes before morning meal Orally Once a day for 90 day(s) Jun, Future Test Test Name Order Date [facility] Foot, complete [id number] Insurance Providers Payer Name Payer Address Payer Phone Insured Name Patient Relati onship to Insured Coverage Start Date Coverage End Date [facility] CORPORATE CLAIMS DEPT [address] [place] [phone] [employer] self
--- OUTSIDE RECORDS SUMMARY | 2021-02-02 09:32 | CCD ---
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 Name Role Phone Zena Herrera Unavailable PROBLEMS Type Condition ICD9-CM Code QUD71-FS Code Onset Dates Condition S tatus W/U Status Risk SNOMED Code Notes Problem Anxiety and depression F41.9 Active confirmed 582012950 Problem Chronic pain of left knee M25.562 Active confirmed 72305850 Problem Other chronic pain G89.29 Active confirmed 8 5334159 Problem Erectile dysfunction, unspecified erectile dysfunction typ e N52.9 Active confirmed 932365736 Problem Rosacea L71.9 Active confirmed 994002192 Problem Decreased libido R68.82 Active confirmed 835 7008 Problem Hiatal hernia K44.9 Active confirmed 750129 09 Problem MARLENE (generalized anxiety disorder) F41.1 Activ e confirmed 10803758 Problem Bilateral low back pain with left-sided sciatica M 54.42 Active confirmed 899738564 Problem Bipolar II disorder F31.81 Active confirmed 42683885 Problem Bilateral low back pain with sciatica, s ciatica laterality unspecified M54.40 Active confirmed 177632509 Problem Other seasonal allergic rhinitis J30.2 Active conf irmed 197551673 Problem Skin lesion L98.9 Active confirmed 34239178 Problem Mild intermittent asthma, unspecified whether complicated J45.20 Active confirmed 017325782 Problem Cannabis abuse, daily use F12.10 Active confirmed 000695137 Problem 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 Active confirmed 95511 01 Problem Leukocytosis, unspecified type D72.829 Active confi rmed 334060181 Problem Melanocytic nevi of trunk D22.5 Active confirmed 844551544 Problem Tobacco abuse Z72.0 Active confirmed 721979 05 Problem Telangiectasia I78.1 Active confirmed 74268 1009 Problem Orthostatic hypotension I95.1 Active confirmed 85604830 Problem Melanocytic nevi of other parts of face D22.39 Active confirmed 224014854 Problem Anxiety associated with depression F41.8 Activ e confirmed 320244194 Problem Melanocytic nevi of scalp and neck D22.4 Activ e confirmed 105584536 Problem H/O paroxysmal supraventricular tachycardia Z86.79 Active confirmed 248880971572708 Problem Symptoms consistent with irritable bowel syndrome K58.9 Active confirmed 15033156 Problem Severe episode of recurrent major depressive disorder, without psychotic features F33.2 Active confirmed 70253704 Problem Arthritis M19.90 Active confirmed 8901770 Problem Post-traumatic stress disorder, unspecified F43.10 Active confirmed 29021800 Problem B12 deficiency E53.8 Active confirmed 43217 4004 Problem Uncontrolled persistent asthma J45.998 Active confi rmed 392716733 Problem Gastroesophageal reflux disease, esophagitis pre sence not specified K21.9 Active confirmed 703764419 Problem Vitamin D insufficiency E55.9 Active confirmed 735161691 Problem Primary osteoarthritis, 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 Active confirmed 310087056966032 Problem Primary osteoarthritis, right hand M19.041 Activ e confirmed 240057419605457 Problem Acute bilateral low back pain with right-sided sciatica M54.41 Active confirmed 992739770 Problem Marijuana use F12.90 Active confirmed 497141 004 ALLERGIES Allergen (clinical drug ingredient) Drug/Non Drug Allergy do cumented on EMR Reaction Allergy Type Onset Date Status ibuprofen Ibuprofen(NDC Code:[address]-50) Hives Drug Allergy Active aspirin Aspirin(NDC Code:[address]-79) Hives Drug Allergy Active ENCOUNTERS from 1975 to 2020-11-11 Encounter Location Date Provider Diagnosis [address] [phone] [place] [address] Aug, Zena Herrera IMMUNIZATIONS Vaccine Route Administration Date Status Vitamin [...] Education Language: Question Answer Notes Languages spoken: Czech Cheondoism: Question Answer Notes Cheondoism 33 None Domestic Violence: Question Answer Notes [...] capsule Orally Once a day Not-Taking Pen [place] 32G X 6 MM as directed subcutaneously D aily w/ victoza for 90 day(s) R705.19Sep, Active Atorvastatin Calcium 20 MG 1 tablet [...] Information RESULTS No Results REASON FOR VISIT Sunday MEDICAL (GENERAL) HISTORY Type Description Date Medical [...] Tonsilectomy child Surgical History Gallbladder Removed - [facility] Dr. Davis Surgical History excision on the right side of neck - Dr Arce Hospitalization History [facility] mental health 07/2015 Hospitalization History [facility] Mental Health 02/10/19- 9 Hospitalization History [facility] Mental health 05/22/2019- 0 Goals Section [...] yajaira toza for 90 day(s) Sep, Pen [place] 32G X 6 MM as directed subcutaneously [...] Insured Coverage Start Date Coverage End Date [facility] CORPORATE CLAIMS DEPT [address] [place] [phone] [place] [place] [employer] self
--- OUTSIDE RECORDS SUMMARY | 2021-02-02 09:33 | CCD ---
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 Automatic Name Role Phone Maring, Daniel PA Unavailable Unavailable Maring, Daniel PA Unavailable Unavailable Maring, Daniel PA Unavailable Unavailable Maring, Daniel PA Unavailable Unavailable Maring, Daniel PA Unavailable Unavailable Maring, Daniel PA Unavailable Unavailable Maring, Daniel PA Unavailable Unavailable Maring, Daniel PA Unavailable Unavailable Maring, Daniel PA Unavailable Unavailable Maring, Daniel PA Unavailable Unavailable Maring, Daniel PA Unavailable Unavailable Maring, Daniel PA Unavailable Unavailable Maring, Daniel PA Unavailable Unavailable Maring, Daniel PA Unavailable Unavailable Maring, Daniel PA Unavailable Unavailable Maring, Daniel PA Unavailable Unavailable SleHanny mckeon MD Unavailable Unavailable SleHanny mckeon MD Unavailable Unavailable SleKeaton mckeonjtech Unavailable Unavailable SleAlexa mckeontech Unavailable Unavailable SleKeaton mckeonjtech Unavailable Unavailable SleHanny mckeon MD Unavailable Unavailable SleKeaton mckeonjtech Unavailable Unavailable SleAlexa mckeontech Unavailable Unavailable SleKeaton mckeonjtech Unavailable Unavailable SleHanny mckeon MD Unavailable Unavailable Hanny Davis MD Unavailable Unavailable Hanny Davis MD Unavailable Unavailable Hanny Davis MD Unavailable Unavailable Hanny Davis MD Unavailable Unavailable Hanny Davis MD Unavailable Unavailable Hanny Davis MD Unavailable Unavailable Hanny Davis MD Unavailable Unavailable Hanny Davis MD Unavailable Unavailable Hanny Davis MD Unavailable Unavailable Hanny Davis MD Unavailable Unavailable Hanny Davis MD Unavailable Unavailable Hanny Davis MD Unavailable Unavailable Hanny Davis MD Unavailable Unavailable Hanny Davis MD Unavailable Unavailable Hanny Davis MD Unavailable Unavailable Hanny Davis MD Unavailable Unavailable Keaton Davisjnick SEO Unavailable Unavailable Hanny Davis MD Unavailable Unavailable Hanny Davis MD Unavailable Unavailable Hanny Davis MD Unavailable Unavailable Hanny Davis MD Unavailable Unavailable Keaton Davisjtech Unavailable Unavailable Keaton Davisjtech Unavailable Unavailable Keaton Davisjtech Unavailable Unavailable Hanny Davis MD Unavailable Unavailable Hanny Davis MD Unavailable Unavailable Hanny Davis MD Unavailable Unavailable SleHanny mckeon MD Unavailable Unavailable SleKeaton mckeonjtech Unavailable Unavailable SleKeaton mckeonjtech Unavailable Unavailable SleKeaton mckeonjtech Unavailable Unavailable Alexa Davistech Unavailable Unavailable Hanny Davis MD Unavailable Unavailable Slezka, Vojtech MD Unavailable Unavailable Slezka, Vojtech MD Unavailable Unavailable Slezka, Vojtech MD Unavailable Unavailable Slezka, Vojtech MD Unavailable Unavailable Slezka, Vojtech MD Unavailable Unavailable Slezka, Vojtech MD Unavailable Unavailable Slezka, Vojtech MD Unavailable Unavailable Slezka, Vojtech MD Unavailable Unavailable Slezka, Vojtech MD Unavailable Unavailable Slezka, Vojtech MD Unavailable Unavailable Slezka, Vojtech MD Unavailable Unavailable Slezka, Vojtech MD Unavailable Unavailable Slezka, Vojtech MD Unavailable Unavailable Slezka, Vojtech MD Unavailable Unavailable Slezka, Vojtech MD Unavailable Unavailable Slezka, Vojtech MD Unavailable Unavailable CALVIN, H MARY KATE BACK STAYER Unavailable Unavailable CALVIN, H MARY KATE BACK STAYER Unavailable Unavailable CALVIN, H MARY KATE BACK STAYER Unavailable Unavailable CALVIN, H MARY KATE BACK STAYER Unavailable Unavailable CALVIN, H MARY KATE BACK STAYER Unavailable Unavailable CALVIN, H MARY KATE BACK STAYER Unavailable Unavailable CALVIN, H MARY KATE BACK STAYER Unavailable Unavailable CALVIN, H MARY KATE BACK STAYER Unavailable Unavailable CALVIN, H MARY KATE BACK STAYER Unavailable Unavailable Goutremout, Zeina Unavailable Re-disclosure Warning The records that you are about to access may contain information from federally-assisted alcohol or drug abuse programs. If such information is present, then the following federally mandated warning applies: This information has been disclosed to you from records protected by federal confidentiality rules (42 CFR part 2). The federal rules prohibit you from making any further disclosure of this information unless further disclosure is expressly permitted by the written consent of the person to whom it pertains or as otherwise permitted by 42 CFR part 2. A general authorization for the release of medical or other information is NOT sufficient for this purpose. The Federal rules restrict any use of the information to criminally investigate or prosecute any alcohol or drug abuse patient.The records that you are about to access may contain highly sensitive health information, the redisclosure of which is protected by Article 27-F of the [facility] Public Health law. If you continue you may have access to information: Regarding HIV / AIDS; Provided by facilities licensed or operated by the [facility] Office of Mental Health; or Provided by the [facility] Office for People With Developmental Disabilities. If such information is present, then the following [facility] mandated warning applies: This information has been disclosed to you from confidential records which are protected by state law. State law prohibits you from making any further disclosure of this information without the specific written consent of the person to whom it pertains, or as otherwise permitted by law. Any unauthorized further disclosure in violation of state law may result in a fine or skilled nursing sentence or both. A general authorization for the release of medical or other information is NOT sufficient authorization for further disc losure. Allergies and Adverse Reactions Type Description Substance Reaction Status Data Source(s ) Propensity to adverse reactions to substance aspirin Asp irin 325 MG Oral Tablet Hives unspecified Active [facility] ([facility]) Propensity to adverse reactions to substance ibuprofen Ibuprofen 200 MG Oral Capsule Hives unspecified Active [facility] ([facility]) Propensity to adverse reactions to substance Abilify (aripip razole) aripiprazole 5 MG Oral Tablet [Abilify] Active [facility] ( [facility]) Family History Family Member Name Family Member Gender Family Member Status Date o f Status Description Data Source(s) Unknown Unknown Problem [facility] ([facility]) Encounters Encounter Providers Location Date Indications Data Source(s ) Unknown [address] [facility] [id number] 12/24/2020 12:00:00 AM EDT eCW1 ([facility]) Unknown [address] [facility] [place] [address] 12/15/2020 12:00:00 AM EDT eCW1 ([facility]) Unknown [address] [facility] [place] [address] 11/23/2020 12:00:00 AM EDT eCW1 ([facility]) Unknown [address] [facility] [place] [address] 11/17/2020 12:00:00 AM EDT eCW1 ([facility]) Unknown [address] [facility] [place] [address] 10/22/2020 12:00:00 AM EDT eCW1 ([facility]) Unknown [address] [facility] [place] [address] 10/18/2020 12:00:00 AM EDT eCW1 ([facility]) [place] [address] [facility] [place] [address] 10/14/2020 12:00:00 AM EDT eCW1 ([facility]) [place] [address] [facility] [place] [address] 10/12/2020 12:00:00 AM EDT eCW1 ([facility]) Unknown [address] [facility] [place] [address] 10/12/2020 12:00:00 AM EDT eCW1 ([facility]) [place] [address] [facility] [place] [address] 10/11/2020 12:00:00 AM EDT eCW1 ([facility]) [place] [address] [facility] [place] [address] 10/11/2020 12:00:00 AM EDT eCW1 ([facility]) Unknown [address] [facility] [place] [address] 10/11/2020 12:00:00 AM EDT eCW1 ([facility]) Unknown [address] [facility] [place] [address] 10/08/2020 12:00:00 AM EDT eCW1 ([facility]) [place] [address] [facility] [place] [address] 10/07/2020 12:00:00 AM EDT eCW1 ([facility]) Unknown [address] [facility] [place] [address] 09/30/2020 12:00:00 AM EDT eCW1 ([facility]) Unknown [address] [facility] [place] [address] 09/29/2020 12:00:00 AM EDT eCW1 ([facility]) Unknown [address] [facility] [place] [address] 09/27/2020 12:00:00 AM EDT eCW1 ([facility]) TeleMedicine Phone E/M by Ruth 11-20 Min [address] [place] [address] 09/16/2020 12:00:00 AM EDT eCW1 ([facility]) Unknown [address] [facility] [place] [address] 09/15/2020 12:00:00 AM EDT eCW1 ([facility]) Unknown [address] [facility] [place] [address] 09/09/2020 12:00:00 AM EDT eCW1 ([facility]) Unknown [address] [facility] [place] [address] 08/26/2020 12:00:00 AM EDT eCW1 ([facility]) Outpatient [address] [facility] [place] [address] 08/26/2020 12:00:00 AM EDT eCW1 ([facility]) Unknown [address] [facility] [place] [address] 08/24/2020 12:00:00 AM EDT eCW1 ([facility]) ([facility]) [facility] Scheduled Visit [address] [place] [address] 08/23/2020 12:00:00 AM EDT eCW1 ([facility]) Unknown [address] [facility] [place] [address] 08/12/2020 12:00:00 AM EDT eCW1 ([facility]) Unknown [address] [facility] [place] [address] 08/03/2020 12:00:00 AM EDT eCW1 ([facility]) Unknown [address] [facility] [place] [address] 08/01/2020 12:00:00 AM EDT eCW1 ([facility]) Unknown [address] [facility] [place] [address] 07/25/2020 12:00:00 AM EDT eCW1 ([facility]) Unknown [address] [facility] [place] [address] 06/18/2020 12:00:00 AM EDT eCW1 ([facility]) Unknown [address] [facility] [place] [address] 06/18/2020 12:00:00 AM EDT eCW1 ([facility]) Outpatient [address] [facility] [place] [address] 06/17/2020 12:00:00 AM EDT eCW1 ([facility]) Unknown [address] [facility] [place] [address] 06/16/2020 12:00:00 AM EDT eCW1 ([facility]) Outpatient Attender: Daniel ISNGH 04/21/19 02:49:14 PM EST - 04/21/2020 03:43:22 PM EST [facility] ([facility] ) Unknown [address] [facility] [place] [address] 04/20/2020 12:00:00 AM EST eCW1 ([facility]) Unknown [address] [facility] [place] [address] 03/30/2020 12:00:00 AM EST eCW1 ([facility]) Outpatient Attender: MARY KATE WHITTEN NP [facility] 03/08/2020 10:00:00 AM EST - 03/08/2020 10:00:00 AM EST [facility] [place] [address] [facility] [place] [address] 03/08/2020 12:00:00 AM EST eCW1 ([facility]) Attender: MARY KATE WHITTEN NP 03/08/2020 12:00:00 AM EST [facility] ([facility]) Unknown [address] [facility] [place] [address] 02/24/2020 12:00:00 AM EST eCW1 ([facility]) Extended Individual Psychotherapy - 45 min Attender: Dai Lee [facility] 02/20/2020 08:00:00 AM EST - 02/20/2020 08:00:00 AM EST [facility] ([facility]) Attender: Zeina Lee 02/20/2020 12:00:0 0 AM EST [facility] ([facility]) Unknown [address] [facility] [place] [address] 02/05/2020 12:00:00 AM EST eCW1 ([facility]) Outpatient [address] [facility] [place] [address] 02/05/2020 12:00:00 AM EST eCW1 ([facility]) Unknown [address] [facility] [place] [address] 02/02/2020 12:00:00 AM EST eCW1 ([facility]) Outpatient Attender: MARY KATE WHITTEN NP [facility] Johnny rodriguez 01/28/2020 02:00:00 AM EST - 01/28/2020 02:00:00 AM EST [facility] ([facility]) Attender: MARY KATE WHITTEN NP 01/28/2020 12:00:00 AM EST [facility] ([facility]) Extended Individual Psychotherapy - 45 min Attender: Dai Lee [facility] 2020 12:15:00 PM EST - 2020 12:15:00 PM EST [facility] ([facility]) Attender: Zeina Lee 2020 12:00:0 0 AM EST [facility] ([facility]) Unknown [address] [facility] [place] [address] 01/05/2020 12:00:00 AM EDT eCW1 ([facility]) Unknown [address] [facility] [place] [address] 01/01/2020 12:00:00 AM EDT eCW1 ([facility]) Outpatient Attender: MARY KATE WHITTEN NP [facility] jennifer 12/31/2019 01:30:00 AM EDT - 12/31/2019 01:30:00 AM EDT [facility] ([facility]) Attender: MARY KATE WHITTEN NP 12/31/2019 12:00:00 AM EDT [facility] ([facility] [place] [address] [facility] [place] [address] 12/30/2019 12:00:00 AM EDT eCW1 ([facility]) Outpatient Attender: Hanny [email or web address] 03/2019 12:00:00 AM EDT - 12/18/2019 01:57:24 PM EDT [facility] Unknown [address] [facility] [place] [address] 12/09/2019 12:00:00 AM EDT eCW1 ([facility]) Functional Status Immunizations Vaccine Date Status Description Data Source(s) Influenza, injectable, MDCK, preservative free, vivienne valent 12/27/2020 01:16:00 PM EDT completed [facility] ([facility]) Covid-19 J&J Vaccine 12/23/2020 01:17:00 PM EDT completed [facility] ([facility]) COVID-19 VACC, MRNA(PFIZER)/PF 12/18/2020 12:00:00 AM EDT completed [facility] COVID-19 VACCINE Pfizer 12/18/2020 12:00:00 AM EDT completed [facility] Vaccine Series Complete: YESThis Data wa s Submitted to [facility]. COVID-19 VACCINE Pfizer 06/18/2020 12:00:00 AM EDT completed [facility] Vaccine Series Complete: YESThis Data wa s Submitted to [facility]. COVID-19 VACCINE Pfizer 05/28/2020 12:00:00 AM EST completed [facility] Vaccine Series Complete: NOThis Data was Submitted to [facility]. Medications Medication Brand Name Start Date Product Form Dose Route Admi nistrative Instructions Pharmacy Instructions Status Indications Reaction Description Data Source(s) Trazodone Hydrochloride 100 MG Oral Tablet TRAZODONE HCL 01/31/2021 12:00:00 AM EST tablet 90 TAKE THREE TABLETS BY MOUTH EVERY DAY AT BEDTIME NEEDED TAKE THREE TABLETS BY MOUTH EVERY DAY AT BEDTIME NEEDED SOLD: 01/31/2021 [facility] Trazodone Hydrochloride 100 MG Oral Tablet TRAZODONE HCL 12/28/2020 12:00:00 AM EDT tablet 75 TAKE 2 & 1/2 TAB LETS BY MOUTH AT BEDTIME NEEDED FOR SLEEP MAY INCREASE TO 3 TABLETS IF NEEDED TAKE 2 & 1/2 TABLETS BY MOUTH AT BEDTIME NEEDED FOR SLEEP MAY INCREASE TO 3 TABLETS IF NEEDED SOLD: 12/28/2020 [facility] 10 mg 12/28/2020 12:00:00 AM EDT tablet 10 TAKE ONE TABLET BY MOUTH EVERY DAY TAKE ONE TABLET BY MOUTH EVERY DAY SOLD: 12/28/2020 [facility] Immunization Adminstration,1 Vaccine/Toxoid 12/27/2020 12:00 :00 AM EDT completed [facility] ([facility]) Medication administered onsite Trazodone Hydrochloride 100 MG Oral Tablet TRAZODONE HCL 11/26/2020 12:00:00 AM EDT tablet 45 TAKE 1 & 1/2 TABLETS BY MOUT H AT BEDTIME NEEDED FOR SLEEP TAKE 1 & 1/2 TABLETS BY MOUTH AT BEDTIME NEEDED FOR SLEEP SOLD: 11/28/2020 [facility] 400 mg 10/30/2020 12:00:00 AM EDT suspension,extended rel syring 1 INJECT ONE SYRINGE INTRAMUSCULARLY EVERY 4 WEEKS INJECT ONE SYRINGE INTRAMUSCULARLY EVERY 4 WEEKS SOLD: 11/09/2020 [facility] 400 mg 10/30/2020 12:00:00 AM EDT suspension,extended rel syring 1 INJECT ONE SYRINGE INTRAMUSCULARLY EVERY 4 WEEKS INJECT ONE SYRINGE INTRAMUSCULARLY EVERY 4 WEEKS SOLD: 01/25/2021 [facility] 400 mg 10/30/2020 12:00:00 AM EDT suspension,extended rel syring 1 INJECT ONE SYRINGE INTRAMUSCULARLY EVERY 4 WEEKS INJECT ONE SYRINGE INTRAMUSCULARLY EVERY 4 WEEKS SOLD: 12/28/2020 [facility] 20 mg 10/18/2020 12:00:00 AM EDT capsule,delayed release (DR/EC) 30 TAKE ONE CAPSULE BY MOUTH EVERY DAY - 30 MINUTES BEFORE MORNING MEAL TAKE ONE CAPSULE BY MOUTH EVERY DAY - 30 MINUTES BEFORE MORNING MEAL SOLD: 12/24/2020 [facility] 20 mg 10/18/2020 12:00:00 AM EDT capsule,delayed release (DR/EC) 30 TAKE ONE CAPSULE BY MOUTH EVERY DAY - 30 MINUTES BEFORE MORNING MEAL TAKE ONE CAPSULE BY MOUTH EVERY DAY - 30 MINUTES BEFORE MORNING MEAL SOLD: 10/18/2020 [facility] 20 mg 10/18/2020 12:00:00 AM EDT capsule,delayed release (DR/EC) 30 TAKE ONE CAPSULE BY MOUTH EVERY DAY - 30 MINUTES BEFORE MORNING MEAL TAKE ONE CAPSULE BY MOUTH EVERY DAY - 30 MINUTES BEFORE MORNING MEAL SOLD: 11/19/2020 [facility] 24 HR Metformin hydrochloride 750 MG Extended Release Oral T ablet METFORMIN HCL 10/12/2020 12:00:00 AM EDT tablet extended release 24 hr 30 TAKE ONE TABLET BY MOUTH EVERY DAY WITH EVENING MEAL TAKE ONE TABLET BY MOUTH EVERY DAY WITH EVENING MEAL SOLD: 11/09/2020 [facility] 24 HR Metformin hydrochloride 750 MG Ext ended Release Oral Tablet metFORMIN HCl ER 750 MG metFORMIN HCl ER 750 MG 10/12/2020 12:00:00 AM EDT 1.0 {tablet_with_evening_meal} active metFO RMIN HCl ER 750 MG eCW1 ([facility]) 24 HR Metformin hydrochloride 750 MG Ext ended Release Oral Tablet metFORMIN HCl ER 750 MG metFORMIN HCl ER 750 MG 10/12/2020 12:00:00 AM EDT 1.0 {tablet_with_evening_meal} active metFO RMIN HCl ER 750 MG eCW1 ([facility]) 24 HR Metformin hydrochloride 750 MG Extended Release Oral T ablet METFORMIN HCL 10/12/2020 12:00:00 AM EDT tablet extended release 24 hr 30 TAKE ONE TABLET BY MOUTH EVERY DAY WITH EVENING MEAL TAKE ONE TABLET BY MOUTH EVERY DAY WITH EVENING MEAL SOLD: 10/12/2020 [facility] 24 HR Metformin hydrochloride 750 MG Ext ended Release Oral Tablet metFORMIN HCl ER 750 MG metFORMIN HCl ER 750 MG 10/12/2020 12:00:00 AM EDT 1.0 {tablet_with_evening_meal} active metFO RMIN HCl ER 750 MG eCW1 ([facility]) 24 HR Metformin hydrochloride 750 MG Ext ended Release Oral Tablet metFORMIN HCl ER 750 MG metFORMIN HCl ER 750 MG 10/12/2020 12:00:00 AM EDT 1.0 {tablet_with_evening_meal} active metFO RMIN HCl ER 750 MG eCW1 ([facility]) 24 HR Metformin hydrochloride 750 MG Ext ended Release Oral Tablet metFORMIN HCl ER 750 MG metFORMIN HCl ER 750 MG 10/12/2020 12:00:00 AM EDT 1.0 {tablet_with_evening_meal} active metFO RMIN HCl ER 750 MG eCW1 ([facility]) 24 HR Metformin hydrochloride 750 MG Ext ended Release Oral Tablet metFORMIN HCl ER 750 MG metFORMIN HCl ER 750 MG 10/12/2020 12:00:00 AM EDT 1.0 {tablet_with_evening_meal} active metFO RMIN HCl ER 750 MG eCW1 ([facility]) 24 HR Metformin hydrochloride 750 MG Ext ended Release Oral Tablet metFORMIN HCl ER 750 MG metFORMIN HCl ER 750 MG 10/12/2020 12:00:00 AM EDT 1.0 {tablet_with_evening_meal} active metFO RMIN HCl ER 750 MG eCW1 ([facility]) 24 HR Metformin hydrochloride 750 MG Ext ended Release Oral Tablet metFORMIN HCl ER 750 MG metFORMIN HCl ER 750 MG 10/12/2020 12:00:00 AM EDT 1.0 {tablet_with_evening_meal} active metFO RMIN HCl ER 750 MG eCW1 ([facility]) 24 HR Metformin hydrochloride 750 MG Ext ended Release Oral Tablet metFORMIN HCl ER 750 MG metFORMIN HCl ER 750 MG 10/12/2020 12:00:00 AM EDT 1.0 {tablet_with_evening_meal} active metFO RMIN HCl ER 750 MG eCW1 ([facility]) 24 HR Metformin hydrochloride 750 MG Ext ended Release Oral Tablet metFORMIN HCl ER 750 MG metFORMIN HCl ER 750 MG 10/12/2020 12:00:00 AM EDT 1.0 {tablet_with_evening_meal} active metFO RMIN HCl ER 750 MG eCW1 ([facility]) 24 HR Metformin hydrochloride 750 MG Ext ended Release Oral Tablet metFORMIN HCl ER 750 MG metFORMIN HCl ER 750 MG 10/12/2020 12:00:00 AM EDT 1.0 {tablet_with_evening_meal} active metFO RMIN HCl ER 750 MG eCW1 ([facility]) 24 HR Metformin hydrochloride 750 MG Ext ended Release Oral Tablet metFORMIN HCl ER 750 MG metFORMIN HCl ER 750 MG 10/12/2020 12:00:00 AM EDT 1.0 {tablet_with_evening_meal} active metFO RMIN HCl ER 750 MG eCW1 ([facility]) Bydureon BCise 2 MG/0.85ML Bydureon BCise 2 MG/0.85ML 2020 12:00:00 AM EDT active Bydureon BCise 2 MG/0.85ML eCW1 ([facility]) Bydureon BCise 2 MG/0.85ML Bydureon BCise 2 MG/0.85ML 2020 12:00:00 AM EDT active Bydureon BCise 2 MG/0.85ML eCW1 ([facility]) Ozempic (0.25 or 0.5 MG/DOSE) 2 MG/1.5ML Ozempic (0.25 or 0.5 MG/DOSE) 2 MG/1.5ML 10/04/2020 12:00:00 AM EDT active Ozempic (0.25 or 0.5 MG/DOSE) 2 MG/1.5ML eCW1 ([facility]) Ozempic (0.25 or 0.5 MG/DOSE) 2 MG/1.5ML Ozempic (0.25 or 0.5 MG/DOSE) 2 MG/1.5ML 10/04/2020 12:00:00 AM EDT active Ozempic (0.25 or 0.5 MG/DOSE) 2 MG/1.5ML eCW1 ([facility]) Ozempic (0.25 or 0.5 MG/DOSE) 2 MG/1.5ML Ozempic (0.25 or 0.5 MG/DOSE) 2 MG/1.5ML 10/04/2020 12:00:00 AM EDT active Ozempic (0.25 or 0.5 MG/DOSE) 2 MG/1.5ML eCW1 ([facility]) 100 mcg/actuation 10/04/2020 12:00:00 AM EDT blister with de vice 30 INHALE 1 PUFF BY MOUTH ONCE DAILY INHALE 1 PUFF BY MOUTH ONCE DAILY SOLD: 10/04/2020 [facility] 100 mcg/actuation 10/04/2020 12:00:00 AM EDT blister with de vice 30 INHALE 1 PUFF BY MOUTH ONCE DAILY INHALE 1 PUFF BY MOUTH ONCE DAILY SOLD: 01/25/2021 [facility] 100 mcg/actuation 10/04/2020 12:00:00 AM EDT blister with de vice 30 INHALE 1 PUFF BY MOUTH ONCE DAILY INHALE 1 PUFF BY MOUTH ONCE DAILY SOLD: 12/24/2020 [facility] 100 mcg/actuation 10/04/2020 12:00:00 AM EDT blister with de vice 30 INHALE 1 PUFF BY MOUTH ONCE DAILY INHALE 1 PUFF BY MOUTH ONCE DAILY SOLD: 11/09/2020 [facility] Trazodone Hydrochloride 100 MG Oral Tablet TRAZODONE HCL 10/02/2020 12:00:00 AM EDT tablet 45 TAKE 1 & 1/2 TABLETS BY MOUT H AT BEDTIME NEEDED FOR SLEEP TAKE 1 & 1/2 TABLETS BY MOUTH AT BEDTIME NEEDED FOR SLEEP SOLD: 10/04/2020 [facility] 3 ML liraglutide 6 MG/ML Pen Injector [Victoza] Victoz a 18 MG/3ML Victoza 18 MG/3ML 09/28/2020 12:00:00 AM EDT active Victoza 18 MG/3ML eCW1 ([facility]) Pen [place] 32G X 6 MM Pen [place] 32G X 6 MM 09/28/2020 12:00:00 AM E DT active Pen [place] 32G X 6 MM eC W1 ([facility]) Isopropyl Alcohol 0.7 ML/ML Medicated Pad Alcohol Prep 70 % Alcohol Prep 70 % 09/28/2020 12:00:00 AM EDT active Alcohol Prep 70 % eCW1 ([facility]) Pen [place] 32G X 6 MM Pen [place] 32G X 6 MM 09/28/2020 12:00:00 AM E DT active Pen [place] 32G X 6 MM eC W1 ([facility]) Isopropyl Alcohol 0.7 ML/ML Medicated Pad Alcohol Prep 70 % Alcohol Prep 70 % 09/28/2020 12:00:00 AM EDT active Alcohol Prep 70 % eCW1 ([facility]) Pen [place] 32G X 6 MM Pen [place] 32G X 6 MM 09/28/2020 12:00:00 AM E DT active Pen [place] 32G X 6 MM eC W1 ([facility]) Isopropyl Alcohol 0.7 ML/ML Medicated Pad Alcohol Prep 70 % Alcohol Prep 70 % 09/28/2020 12:00:00 AM EDT active Alcohol Prep 70 % eCW1 ([facility]) Isopropyl Alcohol 0.7 ML/ML Medicated Pad Alcohol Prep 70 % Alcohol Prep 70 % 09/28/2020 12:00:00 AM EDT active Alcohol Prep 70 % eCW1 ([facility]) Isopropyl Alcohol 0.7 ML/ML Medicated Pad Alcohol Prep 70 % Alcohol Prep 70 % 09/28/2020 12:00:00 AM EDT active Alcohol Prep 70 % eCW1 ([facility]) Isopropyl Alcohol 0.7 ML/ML Medicated Pad Alcohol Prep 70 % Alcohol Prep 70 % 09/28/2020 12:00:00 AM EDT active Alcohol Prep 70 % eCW1 ([facility]) [place] 32G X 6 MM [place] 32G X 6 MM 09/28/2020 12:00:00 AM E DT active [place] 32G X 6 MM eC W1 ([facility]) [place] 32G X 6 MM [place] 32G X 6 MM 09/28/2020 12:00:00 AM E DT active [place] 32G X 6 MM eC W1 ([facility]) Isopropyl Alcohol 0.7 ML/ML Medicated Pad Alcohol Prep 70 % Alcohol Prep 70 % 09/28/2020 12:00:00 AM EDT active Alcohol Prep 70 % eCW1 ([facility]) Isopropyl Alcohol 0.7 ML/ML Medicated Pad Alcohol Prep 70 % Alcohol Prep 70 % 09/28/2020 12:00:00 AM EDT active Alcohol Prep 70 % eCW1 ([facility]) Isopropyl Alcohol 0.7 ML/ML Medicated Pad Alcohol Prep 70 % Alcohol Prep 70 % 09/28/2020 12:00:00 AM EDT active Alcohol Prep 70 % eCW1 ([facility]) [place] 32G X 6 MM [place] 32G X 6 MM 09/28/2020 12:00:00 AM E DT active [place] 32G X 6 MM eC W1 ([facility]) [place] 32G X 6 MM [place] 32G X 6 MM 09/28/2020 12:00:00 AM E DT active [place] 32G X 6 MM eC W1 ([facility]) [place] 32G X 6 MM [place] 32G X 6 MM 09/28/2020 12:00:00 AM E DT active [place] 32G X 6 MM eC W1 ([facility]) Isopropyl Alcohol 0.7 ML/ML Medicated Pad Alcohol Prep 70 % Alcohol Prep 70 % 09/28/2020 12:00:00 AM EDT active Alcohol Prep 70 % eCW1 ([facility]) Isopropyl Alcohol 0.7 ML/ML Medicated Pad Alcohol Prep 70 % Alcohol Prep 70 % 09/28/2020 12:00:00 AM EDT active Alcohol Prep 70 % eCW1 ([facility]) Isopropyl Alcohol 0.7 ML/ML Medicated Pad Alcohol Prep 70 % Alcohol Prep 70 % 09/28/2020 12:00:00 AM EDT active Alcohol Prep 70 % eCW1 ([facility]) Isopropyl Alcohol 0.7 ML/ML Medicated Pad Alcohol Prep 70 % Alcohol Prep 70 % 09/28/2020 12:00:00 AM EDT active Alcohol Prep 70 % eCW1 ([facility]) [place] 32G X 6 MM [place] 32G X 6 MM 09/28/2020 12:00:00 AM E DT active [place] 32G X 6 MM eC W1 ([facility]) Isopropyl Alcohol 0.7 ML/ML Medicated Pad Alcohol Prep 70 % Alcohol Prep 70 % 09/28/2020 12:00:00 AM EDT active Alcohol Prep 70 % eCW1 ([facility]) [place] 32G X 6 MM [place] 32G X 6 MM 09/28/2020 12:00:00 AM E DT active [place] 32G X 6 MM eC W1 ([facility]) [place] 32G X 6 MM [place] 32G X 6 MM 09/28/2020 12:00:00 AM E DT active [place] 32G X 6 MM eC W1 ([facility]) [place] 32G X 6 MM [place] 32G X 6 MM 09/28/2020 12:00:00 AM E DT active [place] 32G X 6 MM eC W1 ([facility]) Isopropyl Alcohol 0.7 ML/ML Medicated Pad Alcohol Prep 70 % Alcohol Prep 70 % 09/28/2020 12:00:00 AM EDT active Alcohol Prep 70 % eCW1 ([facility]) Isopropyl Alcohol 0.7 ML/ML Medicated Pad Alcohol Prep 70 % Alcohol Prep 70 % 09/28/2020 12:00:00 AM EDT active Alcohol Prep 70 % eCW1 ([facility]) [place] 32G X 6 MM [place] 32G X 6 MM 09/28/2020 12:00:00 AM E DT active [place] 32G X 6 MM eC W1 ([facility]) [place] 32G X 6 MM [place] 32G X 6 MM 09/28/2020 12:00:00 AM E DT active [place] 32G X 6 MM eC W1 ([facility]) Isopropyl Alcohol 0.7 ML/ML Medicated Pad Alcohol Prep 70 % Alcohol Prep 70 % 09/28/2020 12:00:00 AM EDT active Alcohol Prep 70 % eCW1 ([facility]) [place] 32G X 6 MM [place] 32G X 6 MM 09/28/2020 12:00:00 AM E DT active [place] 32G X 6 MM eC W1 ([facility]) Isopropyl Alcohol 0.7 ML/ML Medicated Pad Alcohol Prep 70 % Alcohol Prep 70 % 09/28/2020 12:00:00 AM EDT active Alcohol Prep 70 % eCW1 ([facility]) [place] 32G X 6 MM [place] 32G X 6 MM 09/28/2020 12:00:00 AM E DT active [place] 32G X 6 MM eC W1 ([facility]) [place] 32G X 6 MM [place] 32G X 6 MM 09/28/2020 12:00:00 AM E DT active [place] 32G X 6 MM eC W1 ([facility]) [place] 32G X 6 MM [place] 32G X 6 MM 09/28/2020 12:00:00 AM E DT active [place] 32G X 6 MM eC W1 ([facility]) montelukast 10 MG Oral Tablet Montelukast Sodium 10 MG [place] lukast Sodium 10 MG 09/16/2020 12:00:00 AM EDT 1.0 {tablet} active Montelukast Sodium 10 MG eCW1 ([facility]) montelukast 10 MG Oral Tablet Montelukast Sodium 10 MG [place] lukast Sodium 10 MG 09/16/2020 12:00:00 AM EDT 1.0 {tablet} active Montelukast Sodium 10 MG eCW1 ([facility]) montelukast 10 MG Oral Tablet Montelukast Sodium 10 MG [place] lukast Sodium 10 MG 09/16/2020 12:00:00 AM EDT 1.0 {tablet} active Montelukast Sodium 10 MG eCW1 ([facility]) montelukast 10 MG Oral Tablet Montelukast Sodium 10 MG [place] lukast Sodium 10 MG 09/16/2020 12:00:00 AM EDT 1.0 {tablet} active Montelukast Sodium 10 MG eCW1 ([facility]) montelukast 10 MG Oral Tablet Montelukast Sodium 10 MG [place] lukast Sodium 10 MG 09/16/2020 12:00:00 AM EDT 1.0 {tablet} active Montelukast Sodium 10 MG eCW1 ([facility]) montelukast 10 MG Oral Tablet Montelukast Sodium 10 MG [place] lukast Sodium 10 MG 09/16/2020 12:00:00 AM EDT 1.0 {tablet} active Montelukast Sodium 10 MG eCW1 ([facility]) montelukast 10 MG Oral Tablet Montelukast Sodium 10 MG [place] lukast Sodium 10 MG 09/16/2020 12:00:00 AM EDT 1.0 {tablet} active Montelukast Sodium 10 MG eCW1 ([facility]) montelukast 10 MG Oral Tablet Montelukast Sodium 10 MG [place] lukast Sodium 10 MG 09/16/2020 12:00:00 AM EDT 1.0 {tablet} active Montelukast Sodium 10 MG eCW1 ([facility]) montelukast 10 MG Oral Tablet Montelukast Sodium 10 MG [place] lukast Sodium 10 MG 09/16/2020 12:00:00 AM EDT 1.0 {tablet} active Montelukast Sodium 10 MG eCW1 ([facility]) montelukast 10 MG Oral Tablet Montelukast Sodium 10 MG [place] lukast Sodium 10 MG 09/16/2020 12:00:00 AM EDT 1.0 {tablet} active Montelukast Sodium 10 MG eCW1 ([facility]) montelukast 10 MG Oral Tablet MONTELUKAST SODIUM 09/16/2020 12:0 0:00 AM EDT tablet 90 TAKE ONE TABLET BY MOUTH EVERY E VENING TAKE ONE TABLET BY MOUTH EVERY EVENING SOLD: 09/16/2020 Tammie ba montelukast 10 MG Oral Tablet Montelukast Sodium 10 MG [place] lukast Sodium 10 MG 09/16/2020 12:00:00 AM EDT 1.0 {tablet} active Montelukast Sodium 10 MG eCW1 ([facility]) montelukast 10 MG Oral Tablet Montelukast Sodium 10 MG [place] lukast Sodium 10 MG 09/16/2020 12:00:00 AM EDT 1.0 {tablet} active Montelukast Sodium 10 MG eCW1 ([facility]) montelukast 10 MG Oral Tablet Montelukast Sodium 10 MG [place] lukast Sodium 10 MG 09/16/2020 12:00:00 AM EDT 1.0 {tablet} active Montelukast Sodium 10 MG eCW1 ([facility]) montelukast 10 MG Oral Tablet Montelukast Sodium 10 MG [place] lukast Sodium 10 MG 09/16/2020 12:00:00 AM EDT 1.0 {tablet} active Montelukast Sodium 10 MG eCW1 ([facility]) montelukast 10 MG Oral Tablet Montelukast Sodium 10 MG [place] lukast Sodium 10 MG 09/16/2020 12:00:00 AM EDT 1.0 {tablet} active Montelukast Sodium 10 MG eCW1 ([facility]) montelukast 10 MG Oral Tablet Montelukast Sodium 10 MG [place] lukast Sodium 10 MG 09/16/2020 12:00:00 AM EDT 1.0 {tablet} active Montelukast Sodium 10 MG eCW1 ([facility]) montelukast 10 MG Oral Tablet MONTELUKAST SODIUM 09/16/2020 12:0 0:00 AM EDT tablet 90 TAKE ONE TABLET BY MOUTH EVERY E VENING TAKE ONE TABLET BY MOUTH EVERY EVENING SOLD: 12/24/2020 Tammie Martino gs montelukast 10 MG Oral Tablet Montelukast Sodium 10 MG [place] lukast Sodium 10 MG 09/16/2020 12:00:00 AM EDT 1.0 {tablet} active Montelukast Sodium 10 MG eCW1 ([facility]) montelukast 10 MG Oral Tablet Montelukast Sodium 10 MG [place] lukast Sodium 10 MG 09/16/2020 12:00:00 AM EDT 1.0 {tablet} active Montelukast Sodium 10 MG eCW1 ([facility]) montelukast 10 MG Oral Tablet Montelukast Sodium 10 MG [place] lukast Sodium 10 MG 09/16/2020 12:00:00 AM EDT 1.0 {tablet} active Montelukast Sodium 10 MG eCW1 ([facility]) montelukast 10 MG Oral Tablet Montelukast Sodium 10 MG [place] lukast Sodium 10 MG 09/16/2020 12:00:00 AM EDT 1.0 {tablet} active Montelukast Sodium 10 MG eCW1 ([facility]) 30 ACTUAT fluticasone furoate 0.1 MG/ACT UAT Dry Powder Inhaler [Arnuity] Arnuity Ellipta 100 MCG/ACT Arnuity Ellipta 100 MCG/ACT 08/26/2020 12:00:00 AM EDT 1.0 {puff} active Arnuity Ellipta 100 M CG/ACT eCW1 ([facility]) 30 ACTUAT fluticasone furoate 0.1 MG/ACT UAT Dry Powder Inhaler [Arnuity] Arnuity Ellipta 100 MCG/ACT Arnuity Ellipta 100 MCG/ACT 08/26/2020 12:00:00 AM EDT 1.0 {puff} active Arnuity Ellipta 100 M CG/ACT eCW1 ([facility]) 100 mcg/actuation 08/26/2020 12:00:00 AM EDT blister with de vice 30 INHALE ONE PUFF BY MOUTH EVERY DAY INHALE ONE PUFF BY MOUTH EVERY DAY SOLD: 08/26/2020 [facility] Abilify Maintena 400 MG UNK 08/26/2020 12:00:00 AM EDT active Abilify Maintena 400 MG eCW1 ([facility]) Abilify Maintena 400 MG UNK 08/26/2020 12:00:00 AM EDT active Abilify Maintena 400 MG eCW1 ([facility]) Abilify Maintena 400 MG UNK 08/26/2020 12:00:00 AM EDT active Abilify Maintena 400 MG eCW1 ([facility]) 30 ACTUAT fluticasone furoate 0.1 MG/ACT UAT Dry Powder Inhaler [Arnuity] Arnuity Ellipta 100 MCG/ACT Arnuity Ellipta 100 MCG/ACT 08/26/2020 12:00:00 AM EDT 1.0 {puff} active Arnuity Ellipta 100 M CG/ACT eCW1 ([facility]) 30 ACTUAT fluticasone furoate 0.1 MG/ACT UAT Dry Powder Inhaler [Arnuity] Arnuity Ellipta 100 MCG/ACT Arnuity Ellipta 100 MCG/ACT 08/26/2020 12:00:00 AM EDT 1.0 {puff} active Arnuity Ellipta 100 M CG/ACT eCW1 ([facility]) Abilify Maintena 400 MG UNK 08/26/2020 12:00:00 AM EDT active Abilify Maintena 400 MG eCW1 ([facility]) 30 ACTUAT fluticasone furoate 0.1 MG/ACT UAT Dry Powder Inhaler [Arnuity] Arnuity Ellipta 100 MCG/ACT Arnuity Ellipta 100 MCG/ACT 08/26/2020 12:00:00 AM EDT 1.0 {puff} active Arnuity Ellipta 100 M CG/ACT eCW1 ([facility]) 30 ACTUAT fluticasone furoate 0.1 MG/ACT UAT Dry Powder Inhaler [Arnuity] Arnuity Ellipta 100 MCG/ACT Arnuity Ellipta 100 MCG/ACT 08/26/2020 12:00:00 AM EDT 1.0 {puff} active Arnuity Ellipta 100 M CG/ACT eCW1 ([facility]) 30 ACTUAT fluticasone furoate 0.1 MG/ACT UAT Dry Powder Inhaler [Arnuity] Arnuity Ellipta 100 MCG/ACT Arnuity Ellipta 100 MCG/ACT 08/26/2020 12:00:00 AM EDT 1.0 {puff} active Arnuity Ellipta 100 M CG/ACT eCW1 ([facility]) Abilify Maintena 400 MG UNK 08/26/2020 12:00:00 AM EDT active Abilify Maintena 400 MG eCW1 ([facility]) Abilify Maintena 400 MG UNK 08/26/2020 12:00:00 AM EDT active Abilify Maintena 400 MG eCW1 ([facility]) 30 ACTUAT fluticasone furoate 0.1 MG/ACT UAT Dry Powder Inhaler [Arnuity] Arnuity Ellipta 100 MCG/ACT Arnuity Ellipta 100 MCG/ACT 08/26/2020 12:00:00 AM EDT 1.0 {puff} active Arnuity Ellipta 100 M CG/ACT eCW1 ([facility]) 30 ACTUAT fluticasone furoate 0.1 MG/ACT UAT Dry Powder Inhaler [Arnuity] Arnuity Ellipta 100 MCG/ACT Arnuity Ellipta 100 MCG/ACT 08/26/2020 12:00:00 AM EDT 1.0 {puff} active Arnuity Ellipta 100 M CG/ACT eCW1 ([facility]) 30 ACTUAT fluticasone furoate 0.1 MG/ACT UAT Dry Powder Inhaler [Arnuity] Arnuity Ellipta 100 MCG/ACT Arnuity Ellipta 100 MCG/ACT 08/26/2020 12:00:00 AM EDT 1.0 {puff} active Arnuity Ellipta 100 M CG/ACT eCW1 ([facility]) Abilify Maintena 400 MG UNK 08/26/2020 12:00:00 AM EDT active Abilify Maintena 400 MG eCW1 ([facility]) Abilify Maintena 400 MG UNK 08/26/2020 12:00:00 AM EDT active Abilify Maintena 400 MG eCW1 ([facility]) 30 ACTUAT fluticasone furoate 0.1 MG/ACT UAT Dry Powder Inhaler [Arnuity] Arnuity Ellipta 100 MCG/ACT Arnuity Ellipta 100 MCG/ACT 08/26/2020 12:00:00 AM EDT 1.0 {puff} active Arnuity Ellipta 100 M CG/ACT eCW1 ([facility]) 30 ACTUAT fluticasone furoate 0.1 MG/ACT UAT Dry Powder Inhaler [Arnuity] Arnuity Ellipta 100 MCG/ACT Arnuity Ellipta 100 MCG/ACT 08/26/2020 12:00:00 AM EDT 1.0 {puff} active Arnuity Ellipta 100 M CG/ACT eCW1 ([facility]) Abilify Maintena 400 MG UNK 08/26/2020 12:00:00 AM EDT active Abilify Maintena 400 MG eCW1 ([facility]) 30 ACTUAT fluticasone furoate 0.1 MG/ACT UAT Dry Powder Inhaler [Arnuity] Arnuity Ellipta 100 MCG/ACT Arnuity Ellipta 100 MCG/ACT 08/26/2020 12:00:00 AM EDT 1.0 {puff} active Arnuity Ellipta 100 M CG/ACT eCW1 ([facility]) Abilify Maintena 400 MG UNK 08/26/2020 12:00:00 AM EDT active Abilify Maintena 400 MG eCW1 ([facility]) 30 ACTUAT fluticasone furoate 0.1 MG/ACT UAT Dry Powder Inhaler [Arnuity] Arnuity Ellipta 100 MCG/ACT Arnuity Ellipta 100 MCG/ACT 08/26/2020 12:00:00 AM EDT 1.0 {puff} active Arnuity Ellipta 100 M CG/ACT eCW1 ([facility]) 30 ACTUAT fluticasone furoate 0.1 MG/ACT UAT Dry Powder Inhaler [Arnuity] Arnuity Ellipta 100 MCG/ACT Arnuity Ellipta 100 MCG/ACT 08/26/2020 12:00:00 AM EDT 1.0 {puff} active Arnuity Ellipta 100 M CG/ACT eCW1 ([facility]) Abilify Maintena 400 MG UNK 08/26/2020 12:00:00 AM EDT active Abilify Maintena 400 MG eCW1 ([facility]) Abilify Maintena 400 MG UNK 08/26/2020 12:00:00 AM EDT active Abilify Maintena 400 MG eCW1 ([facility]) 30 ACTUAT fluticasone furoate 0.1 MG/ACT UAT Dry Powder Inhaler [Arnuity] Arnuity Ellipta 100 MCG/ACT Arnuity Ellipta 100 MCG/ACT 08/26/2020 12:00:00 AM EDT 1.0 {puff} active Arnuity Ellipta 100 M CG/ACT eCW1 ([facility]) Abilify Maintena 400 MG UNK 08/26/2020 12:00:00 AM EDT active Abilify Maintena 400 MG eCW1 ([facility]) Abilify Maintena 400 MG UNK 08/26/2020 12:00:00 AM EDT active Abilify Maintena 400 MG eCW1 ([facility]) Abilify Maintena 400 MG UNK 08/26/2020 12:00:00 AM EDT active Abilify Maintena 400 MG eCW1 ([facility]) Abilify Maintena 400 MG UNK 08/26/2020 12:00:00 AM EDT active Abilify Maintena 400 MG eCW1 ([facility]) 30 ACTUAT fluticasone furoate 0.1 MG/ACT UAT Dry Powder Inhaler [Arnuity] Arnuity Ellipta 100 MCG/ACT Arnuity Ellipta 100 MCG/ACT 08/26/2020 12:00:00 AM EDT 1.0 {puff} active Arnuity Ellipta 100 M CG/ACT eCW1 ([facility]) Abilify Maintena 400 MG UNK 08/26/2020 12:00:00 AM EDT active Abilify Maintena 400 MG eCW1 ([facility]) 30 ACTUAT fluticasone furoate 0.1 MG/ACT UAT Dry Powder Inhaler [Arnuity] Arnuity Ellipta 100 MCG/ACT Arnuity Ellipta 100 MCG/ACT 08/26/2020 12:00:00 AM EDT 1.0 {puff} active Arnuity Ellipta 100 M CG/ACT eCW1 ([facility]) 30 ACTUAT fluticasone furoate 0.1 MG/ACT UAT Dry Powder Inhaler [Arnuity] Arnuity Ellipta 100 MCG/ACT Arnuity Ellipta 100 MCG/ACT 08/26/2020 12:00:00 AM EDT 1.0 {puff} active Arnuity Ellipta 100 M CG/ACT eCW1 ([facility]) Abilify Maintena 400 MG UNK 08/26/2020 12:00:00 AM EDT active Abilify Maintena 400 MG eCW1 ([facility]) 30 ACTUAT fluticasone furoate 0.1 MG/ACT UAT Dry Powder Inhaler [Arnuity] Arnuity Ellipta 100 MCG/ACT Arnuity Ellipta 100 MCG/ACT 08/26/2020 12:00:00 AM EDT 1.0 {puff} active Arnuity Ellipta 100 M CG/ACT eCW1 ([facility]) Abilify Maintena 400 MG UNK 08/26/2020 12:00:00 AM EDT active Abilify Maintena 400 MG eCW1 ([facility]) Abilify Maintena 400 MG UNK 08/26/2020 12:00:00 AM EDT active Abilify Maintena 400 MG eCW1 ([facility]) Abilify Maintena 400 MG UNK 08/26/2020 12:00:00 AM EDT active Abilify Maintena 400 MG eCW1 ([facility]) 30 ACTUAT fluticasone furoate 0.1 MG/ACT UAT Dry Powder Inhaler [Arnuity] Arnuity Ellipta 100 MCG/ACT Arnuity Ellipta 100 MCG/ACT 08/26/2020 12:00:00 AM EDT 1.0 {puff} active Arnuity Ellipta 100 M CG/ACT eCW1 ([facility]) Abilify Maintena 400 MG UNK 08/26/2020 12:00:00 AM EDT active Abilify Maintena 400 MG eCW1 ([facility]) 30 ACTUAT fluticasone furoate 0.1 MG/ACT UAT Dry Powder Inhaler [Arnuity] Arnuity Ellipta 100 MCG/ACT Arnuity Ellipta 100 MCG/ACT 08/26/2020 12:00:00 AM EDT 1.0 {puff} active Arnuity Ellipta 100 M CG/ACT eCW1 ([facility]) 30 ACTUAT fluticasone furoate 0.1 MG/ACT UAT Dry Powder Inhaler [Arnuity] Arnuity Ellipta 100 MCG/ACT Arnuity Ellipta 100 MCG/ACT 08/26/2020 12:00:00 AM EDT 1.0 {puff} active Arnuity Ellipta 100 M CG/ACT eCW1 ([facility]) Abilify Maintena 400 MG UNK 08/26/2020 12:00:00 AM EDT active Abilify Maintena 400 MG eCW1 ([facility]) Trazodone Hydrochloride 100 MG Oral Tablet TRAZODONE HCL 08/21/2020 12:00:00 AM EDT tablet 45 TAKE ONE AND ONE -HALF TABLETS BY MOUTH EVERY DAY AT BEDTIME NEEDED FOR SLEEP TAKE ONE AND ONE-HALF TABLETS BY MOUTH E VERY DAY AT BEDTIME NEEDED FOR SLEEP SOLD: 08/22/2020 [facility] 20 mg 08/13/2020 12:00:00 AM EDT capsule,delayed release (DR/EC) 30 TAKE 1 CAPSULE BY MOUTH 30 MINUTES BEFORE MORNING MEAL TAKE 1 CAPSULE BY MOUTH 30 MINUTES BEFORE MORNING MEAL SOLD: 08/13/2020 [facility] 20 mg 08/13/2020 12:00:00 AM EDT capsule,delayed release (DR/EC) 30 TAKE 1 CAPSULE BY MOUTH 30 MINUTES BEFORE MORNING MEAL TAKE 1 CAPSULE BY MOUTH 30 MINUTES BEFORE MORNING MEAL SOLD: 01/25/2021 [facility] 90 mcg/actuation 08/13/2020 12:00:00 AM EDT HFA aerosol inha ler 18 INHALE TWO PUFFS BY MOUTH EVERY 6 HOURS INHALE TWO PUFFS BY MOUTH EVERY 6 HOURS SOLD: 08/13/2020 [facility] 400 mg 08/07/2020 12:00:00 AM EDT suspension,extended rel syring 1 INJECT 400MG INTRAMUSCULARLY ONCE EVERY 4 WEEKS INJECT 400MG INTRAMUSCULARLY ONCE EVERY 4 WEEKS SOLD: 08/07/2020 [facility] 400 mg 08/07/2020 12:00:00 AM EDT suspension,extended rel syring 1 INJECT 400MG INTRAMUSCULARLY ONCE EVERY 4 WEEKS INJECT 400MG INTRAMUSCULARLY ONCE EVERY 4 WEEKS SOLD: 09/02/2020 [facility] 400 mg 08/07/2020 12:00:00 AM EDT suspension,extended rel syring 1 INJECT 400MG INTRAMUSCULARLY ONCE EVERY 4 WEEKS INJECT 400MG INTRAMUSCULARLY ONCE EVERY 4 WEEKS SOLD: 10/04/2020 [facility] 50 mg 08/05/2020 12:00:00 AM EDT tablet 30 TAKE 1-2 TABLETS BY MOUTH DIRECTED EVERY NIGHT NEEDED FOR SLEEP TAKE 1-2 TABLETS BY MOUTH DIRECTED EVERY NIGHT NEEDED FOR SLEEP SOLD: 08/05/2020 [facility] 1 gram 06/24/2020 12:00:00 AM EDT tablet 90 TAKE ONE TABLET BY MOUTH 2-3 TIMES A DAY BEFORE MEALS TAKE ONE TABLET BY MOUTH 2-3 TIMES A DAY BEFORE MEALS SOLD: 06/24/2020 [facility] 2 mg 06/24/2020 12:00:00 AM EDT capsule 30 TAKE ONE CAPSULE BY MOUTH 1-2 TIMES A DAY FOR SEVERE DIARRHEA (ONLY TAKE WHEN HAVING DIARRHEA) TAKE ONE CAPSULE BY MOUTH 1-2 TIMES A DAY FOR SEVERE DIARRHEA (ONLY TAKE WHEN HAVING DIARRHEA) SOLD: 06/24/2020 [facility] Omeprazole 40 MG Delayed Release Oral Capsule Omeprazole 06/24/2020 12:00:00 AM EDT active [facility] ([facility], ) Loperamide Hydrochloride 2 MG Oral Capsule Loperamide HCL 06/24/2020 12:00:00 AM EDT active [facility] ([facility], ) 40 mg 06/24/2020 12:00:00 AM EDT capsule,delayed release (DR/EC) 30 TAKE ONE CAPSULE BY MOUTH IN THE [place] ON AN EMPTY STOMACH, AT LEAST 30 MINUTES BEFORE BREAKFAST. TAPER OFF AFTER 6 WEEKS TAKE ONE CAPSULE BY MOUTH IN THE [place] ON AN EMPTY STOMACH, AT LEAST 30 MINUTES BEFORE BREAKFAST. TAPER OFF AFTER 6 WEEKS SOLD: 06/24/2020 [facility] Sucralfate 1000 MG Oral Tablet Sucralfate 06/24/2020 12:00:00 AM EDT ORAL active [facility] ([facility], ) Sucralfate 1000 MG Oral Tablet Sucralfate 1 GM Sucralfate 1 GM 06/18/2020 12:00:00 AM EDT 1.0 {tablet_on_an_empty_stomach} active Sucralfate 1 GM W1 ([facility]) Sucralfate 1000 MG Oral Tablet Sucralfate 1 GM Sucralfate 1 GM 06/18/2020 12:00:00 AM EDT 1.0 {tablet_on_an_empty_stomach} active Sucralfate 1 GM W1 ([facility]) Sucralfate 1000 MG Oral Tablet Sucralfate 1 GM Sucralfate 1 GM 06/18/2020 12:00:00 AM EDT 1.0 {tablet_on_an_empty_stomach} active Sucralfate 1 GM eCW1 ([facility]) Sucralfate 1000 MG Oral Tablet Sucralfate 1 GM Sucralfate 1 GM 06/18/2020 12:00:00 AM EDT 1.0 {tablet_on_an_empty_stomach} active Sucralfate 1 GM eCW1 ([facility]) Sucralfate 1000 MG Oral Tablet Sucralfate 1 GM Sucralfate 1 GM 06/18/2020 12:00:00 AM EDT 1.0 {tablet_on_an_empty_stomach} active Sucralfate 1 GM eCW1 ([facility]) Sucralfate 1000 MG Oral Tablet Sucralfate 1 GM Sucralfate 1 GM 06/18/2020 12:00:00 AM EDT 1.0 {tablet_on_an_empty_stomach} active Sucralfate 1 GM eCW1 ([facility]) Sucralfate 1000 MG Oral Tablet Sucralfate 1 GM Sucralfate 1 GM 06/18/2020 12:00:00 AM EDT 1.0 {tablet_on_an_empty_stomach} active Sucralfate 1 GM W1 ([facility]) Sucralfate 1000 MG Oral Tablet Sucralfate 1 GM Sucralfate 1 06/18/2020 12:00:00 AM EDT 1.0 {tablet_on_an_empty_stomach} active Sucralfate 1 GM W1 ([facility]) Sucralfate 1000 MG Oral Tablet Sucralfate 1 GM Sucralfate 1 06/18/2020 12:00:00 AM EDT 1.0 {tablet_on_an_empty_stomach} active Sucralfate 1 GM W1 ([facility]) Sucralfate 1000 MG Oral Tablet Sucralfate 1 GM Sucralfate 1 GM 06/18/2020 12:00:00 AM EDT 1.0 {tablet_on_an_empty_stomach} active Sucralfate 1 GM eCW1 ([facility]) Sucralfate 1000 MG Oral Tablet Sucralfate 1 GM Sucralfate 1 GM 06/18/2020 12:00:00 AM EDT 1.0 {tablet_on_an_empty_stomach} active Sucralfate 1 GM eCW1 ([facility]) Sucralfate 1000 MG Oral Tablet Sucralfate 1 GM Sucralfate 1 GM 06/18/2020 12:00:00 AM EDT 1.0 {tablet_on_an_empty_stomach} active Sucralfate 1 GM eCW1 ([facility]) Sucralfate 1000 MG Oral Tablet Sucralfate 1 GM Sucralfate 1 GM 06/18/2020 12:00:00 AM EDT 1.0 {tablet_on_an_empty_stomach} active Sucralfate 1 GM W1 ([facility]) Sucralfate 1000 MG Oral Tablet Sucralfate 1 GM Sucralfate 1 GM 06/18/2020 12:00:00 AM EDT 1.0 {tablet_on_an_empty_stomach} active Sucralfate 1 GM W1 ([facility]) Sucralfate 1000 MG Oral Tablet Sucralfate 1 GM Sucralfate 1 06/18/2020 12:00:00 AM EDT 1.0 {tablet_on_an_empty_stomach} active Sucralfate 1 GM [facility] ([facility]) Sucralfate 1000 MG Oral Tablet Sucralfate 1 GM Sucralfate 1 06/18/2020 12:00:00 AM EDT 1.0 {tablet_on_an_empty_stomach} active Sucralfate 1 GM W1 ([facility]) Sucralfate 1000 MG Oral Tablet Sucralfate 1 GM Sucralfate 1 06/18/2020 12:00:00 AM EDT 1.0 {tablet_on_an_empty_stomach} active Sucralfate 1 GM W1 ([facility]) Sucralfate 1000 MG Oral Tablet Sucralfate 1 GM Sucralfate 1 06/18/2020 12:00:00 AM EDT 1.0 {tablet_on_an_empty_stomach} active Sucralfate 1 GM eCW1 ([facility]) Sucralfate 1000 MG Oral Tablet Sucralfate 1 GM Sucralfate 1 GM 06/18/2020 12:00:00 AM EDT 1.0 {tablet_on_an_empty_stomach} active Sucralfate 1 GM W1 ([facility]) Sucralfate 1000 MG Oral Tablet Sucralfate 1 GM Sucralfate 1 GM 06/18/2020 12:00:00 AM EDT 1.0 {tablet_on_an_empty_stomach} active Sucralfate 1 GM eCW1 ([facility]) Sucralfate 1000 MG Oral Tablet Sucralfate 1 GM Sucralfate 1 GM 06/18/2020 12:00:00 AM EDT 1.0 {tablet_on_an_empty_stomach} active Sucralfate 1 GM eCW1 ([facility]) Sucralfate 1000 MG Oral Tablet Sucralfate 1 GM Sucralfate 1 GM 06/18/2020 12:00:00 AM EDT 1.0 {tablet_on_an_empty_stomach} active Sucralfate 1 GM eCW1 ([facility]) Sucralfate 1000 MG Oral Tablet Sucralfate 1 GM Sucralfate 1 GM 06/18/2020 12:00:00 AM EDT 1.0 {tablet_on_an_empty_stomach} active Sucralfate 1 GM eCW1 ([facility]) Sucralfate 1000 MG Oral Tablet Sucralfate 1 GM Sucralfate 1 GM 06/18/2020 12:00:00 AM EDT 1.0 {tablet_on_an_empty_stomach} active Sucralfate 1 GM eCW1 ([facility]) Sucralfate 1000 MG Oral Tablet Sucralfate 1 GM Sucralfate 1 GM 06/18/2020 12:00:00 AM EDT 1.0 {tablet_on_an_empty_stomach} active Sucralfate 1 GM eCW1 ([facility]) Sucralfate 1000 MG Oral Tablet Sucralfate 1 GM Sucralfate 1 GM 06/18/2020 12:00:00 AM EDT 1.0 {tablet_on_an_empty_stomach} active Sucralfate 1 GM eCW1 ([facility]) Sucralfate 1000 MG Oral Tablet Sucralfate 1 GM Sucralfate 1 GM 06/18/2020 12:00:00 AM EDT 1.0 {tablet_on_an_empty_stomach} active Sucralfate 1 GM eCW1 ([facility]) 1 gram 06/18/2020 12:00:00 AM EDT tablet 20 TAKE ONE TABLET BY MOUTH TWICE A DAY ON AN EMPTY STOMACH TAKE ONE TABLET BY MOUTH TWICE A DAY ON AN EMPTY STOMACH SOLD: 06/18/2020 [facility] Sucralfate 1000 MG Oral Tablet Sucralfate 1 GM Sucralfate 1 GM 06/18/2020 12:00:00 AM EDT 1.0 {tablet_on_an_empty_stomach} active Sucralfate 1 GM eCW1 ([facility]) Sucralfate 1000 MG Oral Tablet Sucralfate 1 GM Sucralfate 1 GM 06/18/2020 12:00:00 AM EDT 1.0 {tablet_on_an_empty_stomach} active Sucralfate 1 GM eCW1 ([facility]) Sucralfate 1000 MG Oral Tablet Sucralfate 1 GM Sucralfate 1 GM 06/18/2020 12:00:00 AM EDT 1.0 {tablet_on_an_empty_stomach} active Sucralfate 1 GM eCW1 ([facility]) Sucralfate 1000 MG Oral Tablet Sucralfate 1 GM Sucralfate 1 GM 06/18/2020 12:00:00 AM EDT 1.0 {tablet_on_an_empty_stomach} active Sucralfate 1 GM eCW1 ([facility]) 20 mg 06/18/2020 12:00:00 AM EDT capsule,delayed release (DR/EC) 30 TAKE ONE CAPSULE BY MOUTH 30 MINUTES BEFORE MORNING MEAL ONCE A DAY TAKE ONE CAPSULE BY MOUTH 30 MINUTES BEFORE MORNING MEAL ONCE A DAY SOLD: 06/18/2020 [facility] Sucralfate 100 MG/ML Oral Suspension [Carafate] Carafa te 1 GM/10ML Carafate 1 GM/10ML 06/17/2020 12:00:00 AM EDT 10.0 {ml_on_an_empty_stomach} suspended Carafate 1 GM/10ML eCW1 ([facility]) Omeprazole 20 MG Delayed Release Oral Capsule Omeprazole 20 MG 06/17/2020 12:00:00 AM EDT active Omeprazo le 20 MG eCW1 ([facility]) Sucralfate 100 MG/ML Oral Suspension [Carafate] Carafa te 1 GM/10ML Carafate 1 GM/10ML 06/17/2020 12:00:00 AM EDT 10.0 {ml_on_an_empty_stomach} active Carafate 1 GM/10ML eCW1 ([facility]) Omeprazole 20 MG Delayed Release Oral Capsule Omeprazole 20 MG 06/17/2020 12:00:00 AM EDT active Omeprazo le 20 MG eCW1 ([facility]) Omeprazole 20 MG Delayed Release Oral Capsule Omeprazole 20 MG 06/17/2020 12:00:00 AM EDT active Omeprazo le 20 MG eCW1 ([facility]) Sucralfate 100 MG/ML Oral Suspension [Carafate] Carafa te 1 GM/10ML Carafate 1 GM/10ML 06/17/2020 12:00:00 AM EDT 10.0 {ml_on_an_empty_stomach} suspended Carafate 1 GM/10ML eCW1 ([facility]) Omeprazole 20 MG Delayed Release Oral Capsule Omeprazole 20 MG 06/17/2020 12:00:00 AM EDT active Omeprazo le 20 MG eCW1 ([facility]) Sucralfate 100 MG/ML Oral Suspension [Carafate] Carafa te 1 GM/10ML Carafate 1 GM/10ML 06/17/2020 12:00:00 AM EDT 10.0 {ml_on_an_empty_stomach} suspended Carafate 1 GM/10ML eCW1 ([facility]) Sucralfate 100 MG/ML Oral Suspension [Carafate] Carafa te 1 GM/10ML Carafate 1 GM/10ML 06/17/2020 12:00:00 AM EDT 10.0 {ml_on_an_empty_stomach} suspended Carafate 1 GM/10ML eCW1 ([facility]) Sucralfate 100 MG/ML Oral Suspension [Carafate] Carafa te 1 GM/10ML Carafate 1 GM/10ML 06/17/2020 12:00:00 AM EDT 10.0 {ml_on_an_empty_stomach} suspended Carafate 1 GM/10ML eCW1 ([facility]) Omeprazole 20 MG Delayed Release Oral Capsule Omeprazole 20 MG 06/17/2020 12:00:00 AM EDT active Omeprazo le 20 MG eCW1 ([facility]) Sucralfate 100 MG/ML Oral Suspension [Carafate] Carafa te 1 GM/10ML Carafate 1 GM/10ML 06/17/2020 12:00:00 AM EDT 10.0 {ml_on_an_empty_stomach} suspended Carafate 1 GM/10ML eCW1 ([facility]) Sucralfate 100 MG/ML Oral Suspension [Carafate] Carafa te 1 GM/10ML Carafate 1 GM/10ML 06/17/2020 12:00:00 AM EDT 10.0 {ml_on_an_empty_stomach} suspended Carafate 1 GM/10ML eCW1 ([facility]) Omeprazole 20 MG Delayed Release Oral Capsule Omeprazole 20 MG 06/17/2020 12:00:00 AM EDT active Omeprazo le 20 MG eCW1 ([facility]) Omeprazole 20 MG Delayed Release Oral Capsule Omeprazole 20 MG 06/17/2020 12:00:00 AM EDT active Omeprazo le 20 MG eCW1 ([facility]) Omeprazole 20 MG Delayed Release Oral Capsule Omeprazole 20 MG 06/17/2020 12:00:00 AM EDT active Omeprazo le 20 MG eCW1 ([facility]) Omeprazole 20 MG Delayed Release Oral Capsule Omeprazole 20 MG 06/17/2020 12:00:00 AM EDT active Omeprazo le 20 MG eCW1 ([facility]) Omeprazole 20 MG Delayed Release Oral Capsule Omeprazole 20 MG 06/17/2020 12:00:00 AM EDT active Omeprazo le 20 MG eCW1 ([facility]) Omeprazole 20 MG Delayed Release Oral Capsule Omeprazole 20 MG 06/17/2020 12:00:00 AM EDT active Omeprazo le 20 MG eCW1 ([facility]) Omeprazole 20 MG Delayed Release Oral Capsule Omeprazole 20 MG 06/17/2020 12:00:00 AM EDT active Omeprazo le 20 MG eCW1 ([facility]) Sucralfate 100 MG/ML Oral Suspension [Carafate] Carafa te 1 GM/10ML Carafate 1 GM/10ML 06/17/2020 12:00:00 AM EDT 10.0 {ml_on_an_empty_stomach} suspended Carafate 1 GM/10ML eCW1 ([facility]) Sucralfate 100 MG/ML Oral Suspension [Carafate] Carafa te 1 GM/10ML Carafate 1 GM/10ML 06/17/2020 12:00:00 AM EDT 10.0 {ml_on_an_empty_stomach} suspended Carafate 1 GM/10ML eCW1 ([facility]) Sucralfate 100 MG/ML Oral Suspension [Carafate] Carafa te 1 GM/10ML Carafate 1 GM/10ML 06/17/2020 12:00:00 AM EDT 10.0 {ml_on_an_empty_stomach} suspended Carafate 1 GM/10ML eCW1 ([facility]) Omeprazole 20 MG Delayed Release Oral Capsule Omeprazole 20 MG 06/17/2020 12:00:00 AM EDT active Omeprazo le 20 MG eCW1 ([facility]) Sucralfate 100 MG/ML Oral Suspension [Carafate] Carafa te 1 GM/10ML Carafate 1 GM/10ML 06/17/2020 12:00:00 AM EDT 10.0 {ml_on_an_empty_stomach} suspended Carafate 1 GM/10ML eCW1 ([facility]) Sucralfate 100 MG/ML Oral Suspension [Carafate] Carafa te 1 GM/10ML Carafate 1 GM/10ML 06/17/2020 12:00:00 AM EDT 10.0 {ml_on_an_empty_stomach} active Carafate 1 GM/10ML eCW1 ([facility]) Omeprazole 20 MG Delayed Release Oral Capsule Omeprazole 20 MG 06/17/2020 12:00:00 AM EDT active Omeprazo le 20 MG eCW1 ([facility]) Sucralfate 100 MG/ML Oral Suspension [Carafate] Carafa te 1 GM/10ML Carafate 1 GM/10ML 06/17/2020 12:00:00 AM EDT 10.0 {ml_on_an_empty_stomach} suspended Carafate 1 GM/10ML eCW1 ([facility]) Omeprazole 20 MG Delayed Release Oral Capsule Omeprazole 20 MG 06/17/2020 12:00:00 AM EDT active Omeprazo le 20 MG eCW1 ([facility]) Sucralfate 100 MG/ML Oral Suspension [Carafate] Carafa te 1 GM/10ML Carafate 1 GM/10ML 06/17/2020 12:00:00 AM EDT 10.0 {ml_on_an_empty_stomach} suspended Carafate 1 GM/10ML eCW1 ([facility]) Sucralfate 100 MG/ML Oral Suspension [Carafate] Carafa te 1 GM/10ML Carafate 1 GM/10ML 06/17/2020 12:00:00 AM EDT 10.0 {ml_on_an_empty_stomach} suspended Carafate 1 GM/10ML eCW1 ([facility]) Omeprazole 20 MG Delayed Release Oral Capsule Omeprazole 20 MG 06/17/2020 12:00:00 AM EDT active Omeprazo le 20 MG eCW1 ([facility]) Sucralfate 100 MG/ML Oral Suspension [Carafate] Carafa te 1 GM/10ML Carafate 1 GM/10ML 06/17/2020 12:00:00 AM EDT 10.0 {ml_on_an_empty_stomach} suspended Carafate 1 GM/10ML eCW1 ([facility]) Omeprazole 20 MG Delayed Release Oral Capsule Omeprazole 20 MG 06/17/2020 12:00:00 AM EDT active Omeprazo le 20 MG eCW1 ([facility]) Omeprazole 20 MG Delayed Release Oral Capsule Omeprazole 20 MG 06/17/2020 12:00:00 AM EDT active Omeprazo le 20 MG eCW1 ([facility]) Omeprazole 20 MG Delayed Release Oral Capsule Omeprazole 20 MG 06/17/2020 12:00:00 AM EDT active Omeprazo le 20 MG eCW1 ([facility]) Sucralfate 100 MG/ML Oral Suspension [Carafate] Carafa te 1 GM/10ML Carafate 1 GM/10ML 06/17/2020 12:00:00 AM EDT 10.0 {ml_on_an_empty_stomach} suspended Carafate 1 GM/10ML eCW1 ([facility]) Omeprazole 20 MG Delayed Release Oral Capsule Omeprazole 20 MG 06/17/2020 12:00:00 AM EDT active Omeprazo le 20 MG eCW1 ([facility]) Sucralfate 100 MG/ML Oral Suspension [Carafate] Carafa te 1 GM/10ML Carafate 1 GM/10ML 06/17/2020 12:00:00 AM EDT 10.0 {ml_on_an_empty_stomach} suspended Carafate 1 GM/10ML eCW1 ([facility]) Omeprazole 20 MG Delayed Release Oral Capsule Omeprazole 20 MG 06/17/2020 12:00:00 AM EDT active Omeprazo le 20 MG eCW1 ([facility]) Sucralfate 100 MG/ML Oral Suspension [Carafate] Carafa te 1 GM/10ML Carafate 1 GM/10ML 06/17/2020 12:00:00 AM EDT 10.0 {ml_on_an_empty_stomach} suspended Carafate 1 GM/10ML eCW1 ([facility]) Sucralfate 100 MG/ML Oral Suspension [Carafate] Carafa te 1 GM/10ML Carafate 1 GM/10ML 06/17/2020 12:00:00 AM EDT 10.0 {ml_on_an_empty_stomach} suspended Carafate 1 GM/10ML eCW1 ([facility]) Sucralfate 100 MG/ML Oral Suspension [Carafate] Carafa te 1 GM/10ML Carafate 1 GM/10ML 06/17/2020 12:00:00 AM EDT 10.0 {ml_on_an_empty_stomach} suspended Carafate 1 GM/10ML eCW1 ([facility]) Omeprazole 20 MG Delayed Release Oral Capsule Omeprazole 20 MG 06/17/2020 12:00:00 AM EDT active Omeprazo le 20 MG eCW1 ([facility]) Sucralfate 100 MG/ML Oral Suspension [Carafate] Carafa te 1 GM/10ML Carafate 1 GM/10ML 06/17/2020 12:00:00 AM EDT 10.0 {ml_on_an_empty_stomach} active Carafate 1 GM/10ML eCW1 ([facility]) Sucralfate 100 MG/ML Oral Suspension [Carafate] Carafa te 1 GM/10ML Carafate 1 GM/10ML 06/17/2020 12:00:00 AM EDT 10.0 {ml_on_an_empty_stomach} active Carafate 1 GM/10ML eCW1 ([facility]) Omeprazole 20 MG Delayed Release Oral Capsule Omeprazole 20 MG 06/17/2020 12:00:00 AM EDT active Omeprazo le 20 MG eCW1 ([facility]) Sucralfate 100 MG/ML Oral Suspension [Carafate] Carafa te 1 GM/10ML Carafate 1 GM/10ML 06/17/2020 12:00:00 AM EDT 10.0 {ml_on_an_empty_stomach} active Carafate 1 GM/10ML eCW1 ([facility]) Sucralfate 100 MG/ML Oral Suspension [Carafate] Carafa te 1 GM/10ML Carafate 1 GM/10ML 06/17/2020 12:00:00 AM EDT 10.0 {ml_on_an_empty_stomach} active Carafate 1 GM/10ML eCW1 ([facility]) Omeprazole 20 MG Delayed Release Oral Capsule Omeprazole 20 MG 06/17/2020 12:00:00 AM EDT active Omeprazo le 20 MG eCW1 ([facility]) Sucralfate 100 MG/ML Oral Suspension [Carafate] Carafa te 1 GM/10ML Carafate 1 GM/10ML 06/17/2020 12:00:00 AM EDT 10.0 {ml_on_an_empty_stomach} active Carafate 1 GM/10ML eCW1 ([facility]) Sucralfate 100 MG/ML Oral Suspension [Carafate] Carafa te 1 GM/10ML Carafate 1 GM/10ML 06/17/2020 12:00:00 AM EDT 10.0 {ml_on_an_empty_stomach} suspended Carafate 1 GM/10ML eCW1 ([facility]) Sucralfate 100 MG/ML Oral Suspension [Carafate] Carafa te 1 GM/10ML Carafate 1 GM/10ML 06/17/2020 12:00:00 AM EDT 10.0 {ml_on_an_empty_stomach} suspended Carafate 1 GM/10ML eCW1 ([facility]) Omeprazole 20 MG Delayed Release Oral Capsule Omeprazole 20 MG 06/17/2020 12:00:00 AM EDT active Omeprazo le 20 MG eCW1 ([facility]) Sucralfate 100 MG/ML Oral Suspension [Carafate] Carafa te 1 GM/10ML Carafate 1 GM/10ML 06/17/2020 12:00:00 AM EDT 10.0 {ml_on_an_empty_stomach} active Carafate 1 GM/10ML eCW1 ([facility]) Omeprazole 20 MG Delayed Release Oral Capsule Omeprazole 20 MG 06/17/2020 12:00:00 AM EDT active Omeprazo le 20 MG eCW1 ([facility]) Sucralfate 100 MG/ML Oral Suspension [Carafate] Carafa te 1 GM/10ML Carafate 1 GM/10ML 06/17/2020 12:00:00 AM EDT 10.0 {ml_on_an_empty_stomach} active Carafate 1 GM/10ML eCW1 ([facility]) Sucralfate 100 MG/ML Oral Suspension [Carafate] Carafa te 1 GM/10ML Carafate 1 GM/10ML 06/17/2020 12:00:00 AM EDT 10.0 {ml_on_an_empty_stomach} suspended Carafate 1 GM/10ML eCW1 ([facility]) Omeprazole 20 MG Delayed Release Oral Capsule Omeprazole 20 MG 06/17/2020 12:00:00 AM EDT active Omeprazo le 20 MG eCW1 ([facility]) Omeprazole 20 MG Delayed Release Oral Capsule Omeprazole 20 MG 06/17/2020 12:00:00 AM EDT active Omeprazo le 20 MG eCW1 ([facility]) Omeprazole 20 MG Delayed Release Oral Capsule Omeprazole 20 MG 06/17/2020 12:00:00 AM EDT active Omeprazo le 20 MG eCW1 ([facility]) Omeprazole 20 MG Delayed Release Oral Capsule Omeprazole 20 MG 06/17/2020 12:00:00 AM EDT active Omeprazo le 20 MG eCW1 ([facility]) Omeprazole 20 MG Delayed Release Oral Capsule Omeprazole 20 MG 06/17/2020 12:00:00 AM EDT active Omeprazo le 20 MG eCW1 ([facility]) Omeprazole 20 MG Delayed Release Oral Capsule Omeprazole 20 MG 06/17/2020 12:00:00 AM EDT active Omeprazo le 20 MG eCW1 ([facility]) 90 mcg/actuation 04/21/2020 12:00:00 AM EST HFA aerosol inha ler 18 INHALE 1 TO 2 PUFFS BY MOUTH EVERY 4 HOURS NEEDED FOR WHEEZING INHALE 1 TO 2 PUFFS BY MOUTH EVERY 4 HOURS NEEDED FOR WHEEZING SOLD: 04/21/2020 [facility] 250 mg 04/21/2020 12:00:00 AM EST tablet 6 TAKE TWO TABLETS BY MOUTH AT ONCE ON THE FIRST DAY THEN TAKE ONE DAILY THEREAFTER TAKE TWO TABLETS BY MOUTH AT ONCE ON THE FIRST DAY THEN TAKE ONE DAILY THEREAFTER SOLD: 04/21/2020 [facility] tramadol hydrochloride 50 MG Oral Tablet traMADol HCl 50 MG traMADol HCl 50 MG 02/05/2020 12:00:00 AM EST suspended traMADol HCl 50 MG eCW1 ([facility]) tramadol hydrochloride 50 MG Oral Tablet traMADol HCl 50 MG traMADol HCl 50 MG 02/05/2020 12:00:00 AM EST suspended traMADol HCl 50 MG eCW1 ([facility]) tramadol hydrochloride 50 MG Oral Tablet Tramadol HCl 50 MG Tramadol HCl 50 MG 02/05/2020 12:00:00 AM EST active Tramadol HCl 50 MG eCW1 ([facility]) tramadol hydrochloride 50 MG Oral Tablet Tramadol HCl 50 MG Tramadol HCl 50 MG 02/05/2020 12:00:00 AM EST active Tramadol HCl 50 MG eCW1 ([facility]) tramadol hydrochloride 50 MG Oral Tablet traMADol HCl 50 MG traMADol HCl 50 MG 02/05/2020 12:00:00 AM EST suspended traMADol HCl 50 MG eCW1 ([facility]) tramadol hydrochloride 50 MG Oral Tablet traMADol HCl 50 MG traMADol HCl 50 MG 02/05/2020 12:00:00 AM EST suspended traMADol HCl 50 MG eCW1 ([facility]) tramadol hydrochloride 50 MG Oral Tablet traMADol HCl 50 MG traMADol HCl 50 MG 02/05/2020 12:00:00 AM EST suspended traMADol HCl 50 MG eCW1 ([facility]) tramadol hydrochloride 50 MG Oral Tablet traMADol HCl 50 MG traMADol HCl 50 MG 02/05/2020 12:00:00 AM EST suspended traMADol HCl 50 MG eCW1 ([facility]) tramadol hydrochloride 50 MG Oral Tablet traMADol HCl 50 MG traMADol HCl 50 MG 02/05/2020 12:00:00 AM EST suspended traMADol HCl 50 MG eCW1 ([facility]) tramadol hydrochloride 50 MG Oral Tablet Tramadol HCl 50 MG Tramadol HCl 50 MG 02/05/2020 12:00:00 AM EST active Tramadol HCl 50 MG eCW1 ([facility]) tramadol hydrochloride 50 MG Oral Tablet traMADol HCl 50 MG traMADol HCl 50 MG 02/05/2020 12:00:00 AM EST suspended traMADol HCl 50 MG eCW1 ([facility]) tramadol hydrochloride 50 MG Oral Tablet Tramadol HCl 50 MG Tramadol HCl 50 MG 02/05/2020 12:00:00 AM EST suspended Tramadol HCl 50 MG eCW1 ([facility]) tramadol hydrochloride 50 MG Oral Tablet Tramadol HCl 50 MG Tramadol HCl 50 MG 02/05/2020 12:00:00 AM EST active Tramadol HCl 50 MG eCW1 ([facility]) tramadol hydrochloride 50 MG Oral Tablet Tramadol HCl 50 MG Tramadol HCl 50 MG 02/05/2020 12:00:00 AM EST suspended Tramadol HCl 50 MG eCW1 ([facility]) tramadol hydrochloride 50 MG Oral Tablet Tramadol HCl 50 MG Tramadol HCl 50 MG 02/05/2020 12:00:00 AM EST suspended Tramadol HCl 50 MG eCW1 ([facility]) tramadol hydrochloride 50 MG Oral Tablet traMADol HCl 50 MG traMADol HCl 50 MG 02/05/2020 12:00:00 AM EST suspended traMADol HCl 50 MG eCW1 ([facility]) tramadol hydrochloride 50 MG Oral Tablet traMADol HCl 50 MG traMADol HCl 50 MG 02/05/2020 12:00:00 AM EST suspended traMADol HCl 50 MG eCW1 ([facility]) tramadol hydrochloride 50 MG Oral Tablet traMADol HCl 50 MG traMADol HCl 50 MG 02/05/2020 12:00:00 AM EST suspended traMADol HCl 50 MG eCW1 ([facility]) tramadol hydrochloride 50 MG Oral Tablet Tramadol HCl 50 MG Tramadol HCl 50 MG 02/05/2020 12:00:00 AM EST suspended Tramadol HCl 50 MG eCW1 ([facility]) tramadol hydrochloride 50 MG Oral Tablet Tramadol HCl 50 MG Tramadol HCl 50 MG 02/05/2020 12:00:00 AM EST suspended Tramadol HCl 50 MG eCW1 ([facility]) tramadol hydrochloride 50 MG Oral Tablet traMADol HCl 50 MG traMADol HCl 50 MG 02/05/2020 12:00:00 AM EST suspended traMADol HCl 50 MG eCW1 ([facility]) tramadol hydrochloride 50 MG Oral Tablet Tramadol HCl 50 MG Tramadol HCl 50 MG 02/05/2020 12:00:00 AM EST active Tramadol HCl 50 MG eCW1 ([facility]) tramadol hydrochloride 50 MG Oral Tablet Tramadol HCl 50 MG Tramadol HCl 50 MG 02/05/2020 12:00:00 AM EST active Tramadol HCl 50 MG eCW1 ([facility]) tramadol hydrochloride 50 MG Oral Tablet traMADol HCl 50 MG traMADol HCl 50 MG 02/05/2020 12:00:00 AM EST suspended traMADol HCl 50 MG eCW1 ([facility]) tramadol hydrochloride 50 MG Oral Tablet Tramadol HCl 50 MG Tramadol HCl 50 MG 02/05/2020 12:00:00 AM EST suspended Tramadol HCl 50 MG eCW1 ([facility]) tramadol hydrochloride 50 MG Oral Tablet Tramadol HCl 50 MG Tramadol HCl 50 MG 02/05/2020 12:00:00 AM EST suspended Tramadol HCl 50 MG eCW1 ([facility]) tramadol hydrochloride 50 MG Oral Tablet traMADol HCl 50 MG traMADol HCl 50 MG 02/05/2020 12:00:00 AM EST suspended traMADol HCl 50 MG eCW1 ([facility]) tramadol hydrochloride 50 MG Oral Tablet Tramadol HCl 50 MG Tramadol HCl 50 MG 02/05/2020 12:00:00 AM EST suspended Tramadol HCl 50 MG eCW1 ([facility]) tramadol hydrochloride 50 MG Oral Tablet traMADol HCl 50 MG traMADol HCl 50 MG 02/05/2020 12:00:00 AM EST suspended traMADol HCl 50 MG eCW1 ([facility]) tramadol hydrochloride 50 MG Oral Tablet traMADol HCl 50 MG traMADol HCl 50 MG 02/05/2020 12:00:00 AM EST suspended traMADol HCl 50 MG eCW1 ([facility]) tramadol hydrochloride 50 MG Oral Tablet Tramadol HCl 50 MG Tramadol HCl 50 MG 02/05/2020 12:00:00 AM EST active Tramadol HCl 50 MG eCW1 ([facility]) tramadol hydrochloride 50 MG Oral Tablet traMADol HCl 50 MG traMADol HCl 50 MG 02/05/2020 12:00:00 AM EST suspended traMADol HCl 50 MG eCW1 ([facility]) tramadol hydrochloride 50 MG Oral Tablet traMADol HCl 50 MG traMADol HCl 50 MG 02/05/2020 12:00:00 AM EST suspended traMADol HCl 50 MG eCW1 ([facility]) tramadol hydrochloride 50 MG Oral Tablet traMADol HCl 50 MG traMADol HCl 50 MG 02/05/2020 12:00:00 AM EST suspended traMADol HCl 50 MG eCW1 ([facility]) tramadol hydrochloride 50 MG Oral Tablet traMADol HCl 50 MG traMADol HCl 50 MG 02/05/2020 12:00:00 AM EST suspended traMADol HCl 50 MG eCW1 ([facility]) tramadol hydrochloride 50 MG Oral Tablet traMADol HCl 50 MG traMADol HCl 50 MG 02/05/2020 12:00:00 AM EST suspended traMADol HCl 50 MG eCW1 ([facility]) tramadol hydrochloride 50 MG Oral Tablet traMADol HCl 50 MG traMADol HCl 50 MG 02/05/2020 12:00:00 AM EST suspended traMADol HCl 50 MG eCW1 ([facility]) tramadol hydrochloride 50 MG Oral Tablet Tramadol HCl 50 MG Tramadol HCl 50 MG 02/05/2020 12:00:00 AM EST suspended Tramadol HCl 50 MG eCW1 ([facility]) tramadol hydrochloride 50 MG Oral Tablet traMADol HCl 50 MG traMADol HCl 50 MG 02/05/2020 12:00:00 AM EST suspended traMADol HCl 50 MG eCW1 ([facility]) duloxetine 30 MG Delayed Release Oral Capsule [Cymbalta] Cym jose 01/28/2020 12:00:00 AM EST 30 mg by mouth completed <td ID="MedicationRxNorm_2">033413</td><td ID="MedicationMedication_2">Cymbalta</td><td ID="MedicationRoute_2">by mouth</td><td ID="MedicationRouteConcept_2">[id number]</td><td ID="MedicationStartDate_2">01/28/2020</td><td ID="MedicationStopDate_2">02/27/2020</td><td ID="MedicationDosageFrequency_2">every morning</td><td ID="MedicationDuration_2">30</td><td ID="MedicationFormulaStrength_2">30 mg</td><td ID="MedicationDosageForm_2">capsule,delayed release(DR/EC)</td><td ID="MedicationDosageFormCode_2"></td><td ID="MedicationDosageDescription_2"></td><td ID="MedicationMedicationId_2">[id number]</td><td ID="MedicationAccount_2">[id number]</td><td ID="MedicationNpid_2">[id number]</td><td ID="MedicationAuthorFirstName_2">Mary Kate</td><td ID="MedicationAuthorLastName_2">Calvin</td><td ID="MedicationTaxonomyCode_2">[id number]</td><td ID="MedicationTaxonomyDesc_2"> Nurse Practitioner</td><td ID="MedicationPhoneNumber_2">[phone]</td> [facility] ([facility]) Lurasidone Hydrochloride 20 MG Oral Tablet [Latuda] Latuda 01/28/2020 12:00:00 AM EST 20 mg by mouth completed <td ID="MedicationRxNorm_1">1932614</td><td ID="MedicationMedication_1">Latuda</td><td ID="MedicationRoute_1">by mouth</td><td ID="MedicationRouteConcept_1">R17643</td><td ID="MedicationStartDate_1">01/28/2020</td><td ID="MedicationStopDate_1"></td><td ID="MedicationDosageFrequency_1">every evening</td><td ID="MedicationDuration_1">30</td><td ID="MedicationFormulaStrength_1">20 mg</td><td ID="MedicationDosageForm_1">tablet</td><td ID="MedicationDosageFormCode_1"></td><td ID="MedicationDosageDescription_1">with meals</td><td ID="MedicationMedicationId_1">[id number]</td><td ID="MedicationAccount_1">[id number]</td><td ID="MedicationNpid_1">[id number]</td><td ID="MedicationAuthorFirstName_1">Mary Kate</td><td ID="MedicationAuthorLastName_1">Calvin</td><td ID="MedicationTaxonomyCode_1">[id number]</td><td ID="MedicationTaxonomyDesc_1">Nurse Practitioner</td><td ID="MedicationPhoneNumber_1">[phone]</td> [facility] ([facility]) duloxetine 30 MG Delayed Release Oral Capsule [Cymbalta] Cym jose 01/28/2020 12:00:00 AM EST 30 mg by mouth completed <td ID="MedicationRxNorm_3">097776</td><td ID="MedicationMedication_3">Cymbalta</td><td ID="MedicationRoute_3">by mouth</td><td ID="MedicationRouteConcept_3">C11448</td><td ID="MedicationStartDate_3">01/28/2020</td><td ID="MedicationStopDate_3">02/27/2020</td><td ID="MedicationDosageFrequency_3">every morning</td><td ID="MedicationDuration_3">30</td><td ID="MedicationFormulaStrength_3">30 mg</td><td ID="MedicationDosageForm_3">capsule,delayed release(DR/EC)</td><td ID="MedicationDosageFormCode_3"></td><td ID="MedicationDosageDescription_3"></td><td ID="MedicationMedicationId_3">[id number]</td><td ID="MedicationAccount_3">[id number]</td><td ID="MedicationNpid_3">[id number]</td><td ID="MedicationAuthorFirstName_3">Mary Kate</td><td ID="MedicationAuthorLastName_3">Calvin</td><td ID="MedicationTaxonomyCode_3">[id number]</td><td ID="MedicationTaxonomyDesc_3"> Nurse Practitioner</td><td ID="MedicationPhoneNumber_3">[phone]</td> [facility] ([facility]) duloxetine 20 MG Delayed Release Oral Capsule [Cymbalta] Cym jose 12/31/2019 12:00:00 AM EDT 20 mg by mouth completed <td ID="MedicationRxNorm_1">438740</td><td ID="MedicationMedication_1">Cymbalta</td><td ID="MedicationRoute_1">by mouth</td><td ID="MedicationRouteConcept_1">M29175</td><td ID="MedicationStartDate_1">12/31/2019</td><td ID="MedicationStopDate_1"></td><td ID="MedicationDosageFrequency_1">every morning</td><td ID="MedicationDuration_1">30</td><td ID="MedicationFormulaStrength_1">20 mg</td><td ID="MedicationDosageForm_1">capsule,delayed release(DR/EC)</td><td ID="MedicationDosageFormCode_1"></td><td ID="MedicationDosageDescription_1"></td><td ID="MedicationMedicationId_1">[id number]</td><td ID="MedicationAccount_1">[id number]</td><td ID="MedicationNpid_1">[id number]</td><td ID="MedicationAuthorFirstName_1">Mary Kate</td><td ID="MedicationAuthorLastName_1">Calvin</td><td ID="MedicationTaxonomyCode_1">[id number]</td><td ID="MedicationTaxonomyDesc_1"> Nurse Practitioner</td><td ID="MedicationPhoneNumber_1">[phone]</td> [facility] ([facility]) Fluoxetine 20 MG Oral Capsule [Prozac] Prozac 09/18/2019 12:0 0:00 AM EDT 20 mg by mouth completed <td ID="Me dicationRxNorm_7">254813</td><td ID="MedicationMedication_7">Prozac</td><td ID="MedicationRoute_7">by mouth</td><td ID="MedicationRouteConcept_7">O38268</td><td ID="MedicationStartDate_7">09/18/2019</td><td ID="MedicationStopDate_7">12/17/2019</td><td ID="MedicationDosageFrequency_7">every morning</td><td ID="MedicationDuration_7">90</td><td ID="MedicationFormulaStrength_7">20 mg</td><td ID="MedicationDosageForm_7">capsule</td><td ID="MedicationDosageFormCode_7"></td><td ID="MedicationDosageDescription_7"> </td><td ID="MedicationMedicationId_7">15670</td><td ID="MedicationAccount_7">[id number]</td><td ID="MedicationNpid_7">[id number]</td><td ID="MedicationAuthorFirstName_7">Mary Kate</td><td ID="MedicationAuthorLastName_7">Calvin</td><td ID="MedicationTaxonomyCode_7">[id number]</td><td ID="MedicationTaxonomyDesc_7">Nurse Practitioner</td><td ID="MedicationPhoneNumber_7">[phone]</td> [facility] ([facility]) Fluoxetine 20 MG Oral Capsule [Prozac] Prozac 09/18/2019 12:0 0:00 AM EDT 20 mg by mouth completed <td ID="Me dicationRxNorm_1">950768</td><td ID="MedicationMedication_1">Prozac</td><td ID="MedicationRoute_1">by mouth</td><td ID="MedicationRouteConcept_1">B12016</td><td ID="MedicationStartDate_1">09/18/2019</td><td ID="MedicationStopDate_1">01/20/2020</td><td ID="MedicationDosageFrequency_1">every morning</td><td ID="MedicationDuration_1">90</td><td ID="MedicationFormulaStrength_1">20 mg</td><td ID="MedicationDosageForm_1">capsule</td><td ID="MedicationDosageFormCode_1"></td><td ID="MedicationDosageDescription_1"> </td><td ID="MedicationMedicationId_1">[id number]</td><td ID="MedicationAccount_1">[id number]</td><td ID="MedicationNpid_1">[id number]</td><td ID="MedicationAuthorFirstName_1">Mary Kate</td><td ID="MedicationAuthorLastName_1">Calvin</td><td ID="MedicationTaxonomyCode_1">[id number]</td><td ID="MedicationTaxonomyDesc_1">Nurse Practitioner</td><td ID="MedicationPhoneNumber_1">[phone]</td> [facility] ([facility]) Insurance Providers Payer name Policy type / Coverage type Policy ID Covered alliance party ID Covered alliance party's relationship to ruth Policy Ruth Plan Information [facility] COMMUNITY PLAN [facility] [id number] SP [id number] [place]/CHP/FHP Commercial [id number] Self [facility] [id number] SELF [id number] MEDICAID M [id number] Self [id number] RODY [id number] SP [id number] RODY [id number] SP [id number] [place] 305/805 [id number] SP [id number] [place] PPO 302/307 [id number] SP [id number] [employer] Blue Cross and Blue Shield - [place] Blue Cross/B lue Shield [id number] Self [id number] MEDICAID [id number] Tanja [id number] [id number] [id number] Self [id number] [facility] [id number] SP [id number] ANSI-Commercial [id number] [facility] Health Maintenance Organization (HMO) [id number] Self [id number] [facility] Health Maintenance Organization (HMO) [id number] 22 [id number] Self [id number] ANSI-Not a Secondary Insurance [id number] ANSI-Commercial [id number] ANSI-Commercial [id number] ANSI-Not a Secondary Insurance [id number] ANSI-Not a Secondary Insurance [id number] ANSI-Commercial [id number] ANSI-Not a Secondary Insurance [id number] ANSI-Commercial [id number] [facility] Health Maintenance Organization ([facility]) [id number] 22 [id number] Self [id number] [facility] Health Maintenance Organization ([facility]) [id number] Self [id number] [place] 306/806 [id number] SP [id number] ANSI-Not a Secondary Insurance [id number] ANSI-Commercial [id number] ANSI-Not a Secondary Insurance [id number] ANSI-Commercial [id number] ANSI-Commercial [id number] [employer] BCBS B [id number] S [id number] ANSI-Commercial [id number] BCBS OF [place] [facility] 306/806 [id number] SP [id number] ANSI-Commercial [id number] ANSI-Commercial [id number] ANSI-Commercial [id number] [facility] [id number] [facility] Commercial [id number] Self [id number] [facility] Commercial [id number] Self Y [id number] [facility] BCBS B [id number] S [id number] RODY [id number] SP [id number] [place] [id number] S [id number] [facility] [id number] SP [id number] [facility] [id number] SP [id number] [facility] [id number] SP [id number] SELF PAY UNAVAILABLE SP UNAVAILA BLE [facility] UNAVAILABLE SP UNAVAILABLE [facility] O [id number] S [id number] [facility](MCAID) O [id number] S [id number] RODY [id number] SP [id number] [place] [id number] SP [id number] [place] [id number] S [id number] SELF PAY ONLY [id number] SP [id number] MEDICAID [id number] SP [id number] [employer]URANCE [id number] SP [id number] [place] 306/806 [id number] SP [id number] BCBS [place] PPO 302/307 [id number] SP [id number] BCBS [place] PPO 302/307 [id number] SP [id number] 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 Diagno sis 12/18/2019 01:20:32 PM EDT [facility] R07.2 Precordial pain Precordial pain Diagnosis 12/18/2019 01:2 0:32 PM EDT [facility] J45.998 [id number] Uncontrolled persistent asthma Problem 08/26/2020 12:00:00 AM EDT eCW1 ([facility]) F43.10 [id number] Post-traumatic stress disorder, unspecifi ed Problem 07/12/2020 12:00:00 AM EDT eCW1 ([facility]) F12.90 [id number] Marijuana use Problem 06/17/2020 12:00:00 AM EDT eCW1 ([facility]) F60.3 Borderline personality disorder Borderline Personality Disorder Condition 03/08/2020 12:00:00 AM EST [facility] ([facility]) F12.20 Cannabis dependence, uncomplicated Cannabis Use Disorder, Moderate Condition 03/08/2020 12:00:00 AM EST [facility] ([facility]) F43.12 Post-traumatic stress disorder, chronic Post-traumatic stress disorder, chronic Condition 03/08/2020 12:00:00 AM EST [facility] ([facility]) F33.1 Major depressive disorder, recurrent, mo derate Major Depressive Disorder, Recurrent episode, Moderate Condition 03/08/2020 12:00:00 AM EST [facility] ([facility]) M54.41 [id number] Acute bilateral low back pain wi th right-sided sciatica Problem 02/05/2020 12:00:00 AM EST eCW1 ([facility]) M19.041 [id number] Primary osteoarthritis, right hand Pro blem 12/30/2019 12:00:00 AM EDT eCW1 ([facility]) M19.042 [id number] Primary osteoarthritis, left hand Prob robel 12/30/2019 12:00:00 AM EDT eCW1 ([facility]) M19.90 [id number] Arthritis Problem 12/30/2019 12:00:00 AM ED T eCW1 ([facility]) Surgeries/Procedures Procedure Description Date Indications Data Source(s) OFFICE OUTPATIENT VISIT 15 MINUTES 03/08 12:00:00 AM EST - 03/08/2020 12:00:00 AM EST [facility] ([facility]) OFFICE OUTPATIENT VISIT 15 MINUTES 03/08/2020 12:00:00 AM EST [facility] ([facility]) Extended Individual Psychotherapy - 45 min 02/20/2020 12:00:00 AM EST - 02/20/2020 12:00:00 AM EST [facility] ([facility]) Extended Individual Psychotherapy - 45 min 0 12:00:00 AM EST [facility] ([facility]) INJECTION 1 TENDON SHEATH/LIGAMENT APONEUROSIS 020 12:00:00 AM EST [facility] ([facility]) RADEX HAND MINIMUM 3 VIEWS 01/30/2020 12:00:00 AM EST [facility] ([facility]) RADEX HAND MINIMUM 3 VIEWS 01/30/2020 12:00:00 AM EST [facility] ([facility]) OFFICE OUTPATIENT VISIT 15 MINUTES 01/27 12:00:00 AM EST - 01/28/2020 12:00:00 AM EST [facility] ([facility]) OFFICE OUTPATIENT VISIT 15 MINUTES 01/28/2020 12:00:00 AM EST [facility] ([facility]) Extended Individual Psychotherapy - 45 min 2020 12:00:00 AM EST - 2020 12:00:00 AM EST [facility] ([facility]) Extended Individual Psychotherapy - 45 min 0 12:00:00 AM EST [facility] ([facility]) OFFICE OUTPATIENT VISIT 15 MINUTES 12/30 12:00:00 AM EDT - 12/31/2019 12:00:00 AM EDT [facility] ([facility]) OFFICE OUTPATIENT VISIT 15 MINUTES 12/31/2019 12:00:00 AM EDT [facility] ([facility]) Results ID Date Data Source [id number] 08/31/2020 12:00:00 AM EDT [facility] Name Value Range Interpretation Code Description Data Yaquelin rce(s) Supporting Document(s) SARS-CoV2 Rapid Antigen Negative [facility] This lab [facility] by [facility] and reported by [facility]. ID Date Data Source PLATELET ESTIMATE 06/18/2020 12:00:00 AM EDT eCW1 ([facility]) Name Value Range Interpretation Code Description Data Yaquelin rce(s) Supporting Document(s) NORMAL NORMAL PLATELET ESTIMATE eCW1 (On license of [facility]) ID Date Data Source DIFFERENTIAL 06/18/2020 12:00:00 AM EDT eCW1 ([facility]) Name Value Range Interpretation Code Description Data Yaquelin rce(s) Supporting Document(s) 59 28-66 NEUTROPHILS eCW1 ([facility]) 20 16-44 LYMPHOCYTES eCW1 ([facility]) 16 0-5 ATYPICAL LYMPH eCW1 ([facility]) 5 0-5 MONOCYTES eCW1 ([facility]) ID Date Data Source LIPASE 06/18/2020 12:00:00 AM EDT eCW1 ([facility]) Name Value Range Interpretation Code Description Data Yaquelin rce(s) Supporting Document(s) 217 73-393 LIPASE eCW1 ([facility]) ID Date Data Source Comprehensive Metabolic Profile (CMP) 06/18/2020 12:00:00 AM EDT eCW1 ([facility]) Name Value Range Interpretation Code Description Data Yaquelin rce(s) Supporting Document(s) 120 70-100 GLUCOSE, FASTING eCW1 ([facility]) 0.75 0.70-1.30 CREATININE FOR GFR eCW1 ([facility]) 10 7-18 BLOOD UREA NITROGEN eCW1 ([facility]) 138 136-145 SODIUM LEVEL eCW1 ([facility]) 3.9 3.5-5.1 POTASSIUM SERUM eCW1 ([facility]) > 60.0 >60 GLOMERULAR FILTRATION RATE eCW 1 ([facility]) 9.1 8.5-10.1 CALCIUM LEVEL eCW1 ([facility]) 24 21-32 CARBON DIOXIDE LEVEL eCW1 ([facility]) 108 98-107 CHLORIDE LEVEL eCW1 ([facility]) 31 12-78 ALT/SGPT eCW1 ([facility]) 13 7-37 AST/SGOT eCW1 ([facility]) 110 45-117 ALKALINE PHOSPHATASE eCW1 ([facility]) 6.9 6.4-8.2 TOTAL PROTEIN eCW1 ([facility]) 0.4 0.2-1.0 BILIRUBIN,TOTAL eCW1 ([facility]) 1.2 ALBUMIN/GLOBULIN RATIO eCW1 ([facility]) 3.7 3.2-5.2 ALBUMIN eCW1 ([facility]) ID Date Data Source CBC with Differential 06/18/2020 12:00:00 AM EDT eCW1 ([facility]) Name Value Range Interpretation Code Description Data Yaquelin rce(s) Supporting Document(s) 56.5 36.0-66.0 NEUTROPHILS % eCW1 ([facility]) 6.0 0.0-5.0 MONO % eCW1 ([facility]) 34.6 24.0-44.0 LYMPH % eCW1 ([facility]) 1.8 0.0-3.0 EOS % eCW1 ([facility]) 4.9 1.5-8.5 NEUTROPHILS # eCW1 ([facility]) 0.8 0.0-1.0 BASO % eCW1 ([facility]) 3.0 1.5-5.0 LYMPH # eCW1 ([facility]) 0.2 0.0-0.5 EOS # eCW1 ([facility]) 0.1 0.0-0.2 BASO # eCW1 ([facility]) 0.5 0.0-0.8 MONO # eCW1 ([facility]) 11.3 4.0-10.0 WHITE BLOOD COUNT eCW1 (On license of [facility]) 5.27 4.30-6.10 RED BLOOD COUNT eCW1 ([facility]) 16.4 13.5-17.5 HEMOGLOBIN eCW1 ([facility]) 49.3 42.0-52.0 HEMATOCRIT eCW1 ([facility]) 33.3 32.0-36.5 MEAN CORPUSCULAR HGB CONC eCW1 ([facility]) 31.1 27.0-33.0 MEAN CORPUSCULAR HEMOGLOB IN eCW1 ([facility]) 93.5 80.0-96.0 MEAN CORPUSCULAR VOLUME e CW1 ([facility]) 315 150-450 PLATELET COUNT, AUTOMATED eCW1 ([facility]) 13.9 11.5-14.5 RED CELL DISTRIBUTION WID TH eCW1 ([facility]) ID Date Data Source AMYLASE 06/18/2020 12:00:00 AM EDT eCW1 ([facility]) Name Value Range Interpretation Code Description Data Yaquelin rce(s) Supporting Document(s) 53 25-115 AMYLASE eCW1 ([facility]) ID Date Data Source [id number] 04/21/2020 12:00:00 AM EST [facility] Name Value Range Interpretation Code Description Data Yaquelin rce(s) Supporting Document(s) SARS coronavirus 2 RNA [Presence] in Res piratory specimen by JONAH with probe detection NEGATIVE [facility] This lab was ordered by [facility] Pryor and reported by [facility]. ID Date Data Source [id number] 04/21/2020 12:00:00 AM EST [facility] Name Value Range Interpretation Code Description Data Yaquelin rce(s) Supporting Document(s) Carestart Rapid COVID Antigen Test Negative [facility] This lab was reported by Sheila epstein. Procedure Social History Code Duration Value Status Description Data Source(s ) Smoking 09/16/2020 12:00:00 AM EDT Current Smoker completed Curre nt Smoker eCW1 ([facility]) Smoking 09/16/2020 12:00:00 AM EDT Current Smoker completed Curre nt Smoker eCW1 ([facility]) Smoking 09/16/2020 12:00:00 AM EDT Current Smoker completed Curre nt Smoker eCW1 ([facility]) Smoking 09/16/2020 12:00:00 AM EDT Current Smoker completed Curre nt Smoker eCW1 ([facility]) Smoking 09/16/2020 12:00:00 AM EDT Current Smoker completed Curre nt Smoker eCW1 ([facility]) Smoking 09/16/2020 12:00:00 AM EDT Current Smoker completed Curre nt Smoker eCW1 ([facility]) Smoking 09/16/2020 12:00:00 AM EDT Current Smoker completed Curre nt Smoker eCW1 ([facility]) Smoking 09/16/2020 12:00:00 AM EDT Current Smoker completed Curre nt Smoker eCW1 ([facility]) Smoking 09/16/2020 12:00:00 AM EDT Current Smoker completed Curre nt Smoker eCW1 ([facility]) Smoking 09/16/2020 12:00:00 AM EDT Current Smoker completed Curre nt Smoker eCW1 ([facility]) Smoking 09/16/2020 12:00:00 AM EDT Current Smoker completed Curre nt Smoker eCW1 ([facility]) Smoking 09/16/2020 12:00:00 AM EDT Current Smoker completed Curre nt Smoker eCW1 ([facility]) Smoking 09/16/2020 12:00:00 AM EDT Current Smoker completed Curre nt Smoker eCW1 ([facility]) Smoking 09/16/2020 12:00:00 AM EDT Current Smoker completed Curre nt Smoker eCW1 ([facility]) Smoking 09/16/2020 12:00:00 AM EDT Current Smoker completed Curre nt Smoker eCW1 ([facility]) Smoking 09/16/2020 12:00:00 AM EDT Current Smoker completed Curre nt Smoker eCW1 ([facility]) Smoking 09/16/2020 12:00:00 AM EDT Current Smoker completed Curre nt Smoker eCW1 ([facility]) Smoking 09/16/2020 12:00:00 AM EDT Current Smoker completed Curre nt Smoker eCW1 ([facility]) Smoking 09/16/2020 12:00:00 AM EDT Current Smoker completed Curre nt Smoker eCW1 ([facility]) Smoking 09/16/2020 12:00:00 AM EDT Current Smoker completed Curre nt Smoker eCW1 ([facility]) Smoking 08/26/2020 12:00:00 AM EDT Current Smoker completed Curre nt Smoker eCW1 ([facility]) Smoking 08/26/2020 12:00:00 AM EDT Current Smoker completed Curre nt Smoker eCW1 ([facility]) Smoking 08/26/2020 12:00:00 AM EDT Current Smoker completed Curre nt Smoker eCW1 ([facility]) Smoking 06/17/2020 12:00:00 AM EDT Current Smoker completed Curre nt Smoker eCW1 ([facility]) Smoking 06/17/2020 12:00:00 AM EDT Current Smoker completed Curre nt Smoker eCW1 ([facility]) Smoking 06/17/2020 12:00:00 AM EDT Current Smoker completed Curre nt Smoker eCW1 ([facility]) Smoking 06/17/2020 12:00:00 AM EDT Current Smoker completed Curre nt Smoker eCW1 ([facility]) Smoking 06/17/2020 12:00:00 AM EDT Current Smoker completed Curre nt Smoker eCW1 ([facility]) Smoking 06/17/2020 12:00:00 AM EDT Current Smoker completed Curre nt Smoker eCW1 ([facility]) Smoking 06/17/2020 12:00:00 AM EDT Current Smoker completed Curre nt Smoker eCW1 ([facility]) Smoking 06/17/2020 12:00:00 AM EDT Current Smoker completed Curre nt Smoker eCW1 ([facility]) Smoking 06/17/2020 12:00:00 AM EDT Current Smoker completed Curre nt Smoker eCW1 ([facility]) Smoking 03/08/2020 12:00:00 AM EST Unknown if ever smoked comp leted Unknown if ever smoked [facility] ([facility]) Smoking 02/20/2020 12:00:00 AM EST Unknown if ever smoked comp leted Unknown if ever smoked [facility] ([facility]) Smoking 02/05/2020 12:00:00 AM EST Current Smoker completed Curre nt Smoker eCW1 ([facility]) Smoking 02/05/2020 12:00:00 AM EST Current Smoker completed Curre nt Smoker eCW1 ([facility]) Smoking 02/05/2020 12:00:00 AM EST Current Smoker completed Curre nt Smoker eCW1 ([facility]) Smoking 02/05/2020 12:00:00 AM EST Current Smoker completed Curre nt Smoker eCW1 ([facility]) Smoking 02/05/2020 12:00:00 AM EST Current Smoker completed Curre nt Smoker eCW1 ([facility]) Smoking 02/05/2020 12:00:00 AM EST Current Smoker completed Curre nt Smoker eCW1 ([facility]) Smoking 02/05/2020 12:00:00 AM EST Current Smoker completed [facility] [facility] Smoking 01/28/2020 12:00:00 AM EST Unknown if ever smoked comp leted Unknown if ever smoked [facility] ([facility]) Smoking 2020 12:00:00 AM EST Unknown if ever smoked comp leted Unknown if ever smoked [facility] ([facility]) Smoking 12/31/2019 12:00:00 AM EDT Unknown if ever smoked comp leted Unknown if ever smoked [facility] ([facility]) Smoking 12/30/2019 12:00:00 AM EDT Current Smoker completed Curre nt Smoker eCW1 ([facility]) Smoking 12/30/2019 12:00:00 AM EDT Current Smoker completed Curre nt Smoker eCW1 ([facility]) Smoking 12/30/2019 12:00:00 AM EDT Current Smoker completed Curre nt Smoker eCW1 ([facility]) Vital Signs ID Date Data Source UNK Name Value Range Interpretation Code Description Data Source(s) Body weight 259.4 [lb_av] 259.4 [lb_av] eCW1 ([facility]) Body height 73 [in_i] 73 [in_i] eCW1 ([facility]) Body mass index (BMI) [Ratio] 34.22 kg/m2 34.22 kg/m2 eCW1 ([facility]) Heart rate 95 /min 95 /min eCW1 ([facility]) Respiratory rate 18 /min 18 /min eCW1 ([facility]) Body temperature 98.1 [degF] 98.1 [degF] eCW1 ( [facility]) Systolic blood pressure 112 mm[Hg] 112 mm[Hg] e CW1 ([facility]) Diastolic blood pressure 77 mm[Hg] 77 mm[Hg] eCW1 ([facility]) Systolic blood pressure 146 mm[Hg] 146 mm[Hg] M EDENT ([facility]) Diastolic blood pressure 88 mm[Hg] 88 mm[Hg] [facility] Body height 75 [in_i] 75 [in_i] [facility] 6'3" Body weight 263.00 [lb_av] 263.00 [lb_av] MEDEN T ([facility]) Body mass index (BMI) [Ratio] 32.9 kg/m2 32.9 k g/m2 [facility]) Kiron body weight 196 [lb_av] 196 [lb_av] MEDEN T ([facility]) Body weight 119.297 kg 119.297 kg [facility]) Body surface area Derived from formula 2.47 m2 2.47 m2 [facility] ([facility]) Body weight 265.2 [lb_av] 265.2 [lb_av] eCW1 ([facility]) Body height 73 [in_i] 73 [in_i] eCW1 ([facility]) Body mass index (BMI) [Ratio] 34.99 kg/m2 34.99 kg/m2 eCW1 ([facility]) Heart rate 105 /min 105 /min eCW1 ([facility]) Respiratory rate 17 /min 17 /min eCW1 ([facility]) Body temperature 98.2 [degF] 98.2 [degF] eCW1 ( [facility]) Systolic blood pressure 110 mm[Hg] 110 mm[Hg] e CW1 ([facility]) Diastolic blood pressure 80 mm[Hg] 80 mm[Hg] eCW1 ([facility]) Body weight 279.4 [lb_av] 279.4 [lb_av] eCW1 ([facility]) Body height 73 [in_i] 73 [in_i] eCW1 ([facility]) Body mass index (BMI) [Ratio] 36.86 kg/m2 36.86 kg/m2 eCW1 ([facility]) Heart rate 107 /min 107 /min eCW1 ([facility]) Respiratory rate 17 /min 17 /min eCW1 ([facility]) Body temperature 98.4 [degF] 98.4 [degF] eCW1 ( [facility]) Systolic blood pressure 133 mm[Hg] 133 mm[Hg] e CW1 ([facility]) Diastolic blood pressure 89 mm[Hg] 89 mm[Hg] eCW1 ([facility]) Body temperature 97.0 [degF] 97.0 [degF] MEDENT ([facility] ) Body height 75 [in_i] 75 [in_i] MED[facility] ([facility] ) 6'3" Body weight 280.00 [lb_av] 280.00 [lb_av] MEDEN T ([facility] ) Body mass index (BMI) [Ratio] 35.0 kg/m2 35.0 k g/m2 [facility] ([facility]) Body height 0.00 in Normal (applies to non-numeric resu lts) 0.00 in [facility] ([facility]) Body weight Measured 0.00 lbs Normal (applies to n on-numeric results) 0.00 lbs [facility] ([facility]) Body mass index (BMI) [Ratio] 0.00 kg/m2 No rmal (applies to non-numeric results) 0.00 kg/m2 [facility] ([facility]) Systolic blood pressure 0 mm[Hg] Normal (applies t o non-numeric results) 0 mm[Hg] [facility] ([facility]) Diastolic blood pressure 0 mm[Hg] Normal (applies to non-numeric results) 0 mm[Hg] [facility] Body height 0.00 in Normal (applies to non-numeric resu lts) 0.00 in [facility] ([facility]) Body weight Measured 0.00 lbs Normal (applies to n on-numeric results) 0.00 lbs [facility] ([facility]) Body mass index (BMI) [Ratio] 0.00 kg/m2 No rmal (applies to non-numeric results) 0.00 kg/m2 [facility] ([facility]) Systolic blood pressure 0 mm[Hg] Normal (applies t o non-numeric results) 0 mm[Hg] [facility] ([facility]) Diastolic blood pressure 0 mm[Hg] Normal (applies to non-numeric results) 0 mm[Hg] [facility] Body weight 284 [lb_av] 284 [lb_av] eCW1 ([facility]) Body height 73 [in_i] 73 [in_i] eCW1 ([facility]) Body mass index (BMI) [Ratio] 37.47 kg/m2 37.47 kg/m2 eCW1 ([facility]) Heart rate 110 /min 110 /min eCW1 ([facility]) Respiratory rate 17 /min 17 /min eCW1 ([facility]) Body temperature 98.4 [degF] 98.4 [degF] eCW1 ( [facility]) Systolic blood pressure 124 mm[Hg] 124 mm[Hg] e CW1 ([facility]) Diastolic blood pressure 84 mm[Hg] 84 mm[Hg] eCW1 ([facility]) Patient Treatment Plan of Care Planned Activity Planned Date Details Description Data Source (s) 24 HR Metformin hydrochloride 750 MG Extended Release Oral Tablet 10/12/2020 12:00:00 AM EDT eCW1 ([facility]) 24 HR Metformin hydrochloride 750 MG Extended Release Oral Tablet 10/12/2020 12:00:00 AM EDT eCW1 ([facility]) 24 HR Metformin hydrochloride 750 MG Extended Release Oral Tablet 10/12/2020 12:00:00 AM EDT eCW1 ([facility]) 24 HR Metformin hydrochloride 750 MG Extended Release Oral Tablet 10/12/2020 12:00:00 AM EDT eCW1 ([facility]) 24 HR Metformin hydrochloride 750 MG Extended Release Oral Tablet 10/12/2020 12:00:00 AM EDT eCW1 ([facility]) 24 HR Metformin hydrochloride 750 MG Extended Release Oral Tablet 10/12/2020 12:00:00 AM EDT eCW1 ([facility]) 24 HR Metformin hydrochloride 750 MG Extended Release Oral Tablet 10/12/2020 12:00:00 AM EDT eCW1 ([facility]) 24 HR Metformin hydrochloride 750 MG Extended Release Oral Tablet 10/12/2020 12:00:00 AM EDT eCW1 ([facility]) 24 HR Metformin hydrochloride 750 MG Extended Release Oral Tablet 10/12/2020 12:00:00 AM EDT eCW1 ([facility]) 24 HR Metformin hydrochloride 750 MG Extended Release Oral Tablet 10/12/2020 12:00:00 AM EDT eCW1 ([facility]) 24 HR Metformin hydrochloride 750 MG Extended Release Oral Tablet 10/12/2020 12:00:00 AM EDT eCW1 ([facility]) 24 HR Metformin hydrochloride 750 MG Extended Release Oral Tablet 10/12/2020 12:00:00 AM EDT eCW1 ([facility]) Bydureon BCise 2 MG/0.85ML 10/11/2020 12:00:00 AM EDT eCW1 ([facility]) Bydureon BCise 2 MG/0.85ML 10/11/2020 12:00:00 AM EDT eCW1 ([facility]) Ozempic (0.25 or 0.5 MG/DOSE) 2 MG/1.5ML 10/04/2020 12:00:00 AM EDT eCW1 ([facility]) Ozempic (0.25 or 0.5 MG/DOSE) 2 MG/1.5ML 10/04/2020 12:00:00 AM EDT eCW1 ([facility]) Ozempic (0.25 or 0.5 MG/DOSE) 2 MG/1.5ML 10/04/2020 12:00:00 AM EDT eCW1 ([facility]) Pen [place] 32G X 6 MM 09/28/2020 12:00:00 AM EDT eCW1 ([facility]) Isopropyl Alcohol 0.7 ML/ML Medicated Pad 09/28/2020 12:00:00 AM ED T eCW1 ([facility]) Pen [place] 32G X 6 MM 09/28/2020 12:00:00 AM EDT eCW1 ([facility]) Isopropyl Alcohol 0.7 ML/ML Medicated Pad 09/28/2020 12:00:00 AM ED T eCW1 ([facility]) Pen [place] 32G X 6 MM 09/28/2020 12:00:00 AM EDT eCW1 ([facility]) Isopropyl Alcohol 0.7 ML/ML Medicated Pad 09/28/2020 12:00:00 AM ED T eCW1 ([facility]) Pen [place] 32G X 6 MM 09/28/2020 12:00:00 AM EDT eCW1 ([facility]) Isopropyl Alcohol 0.7 ML/ML Medicated Pad 09/28/2020 12:00:00 AM ED T eCW1 ([facility]) Pen [place] 32G X 6 MM 09/28/2020 12:00:00 AM EDT eCW1 ([facility]) Isopropyl Alcohol 0.7 ML/ML Medicated Pad 09/28/2020 12:00:00 AM ED T eCW1 ([facility]) Pen [place] 32G X 6 MM 09/28/2020 12:00:00 AM EDT eCW1 ([facility]) Isopropyl Alcohol 0.7 ML/ML Medicated Pad 09/28/2020 12:00:00 AM ED T eCW1 ([facility]) Pen [place] 32G X 6 MM 09/28/2020 12:00:00 AM EDT eCW1 ([facility]) Isopropyl Alcohol 0.7 ML/ML Medicated Pad 09/28/2020 12:00:00 AM ED T eCW1 ([facility]) Pen [place] 32G X 6 MM 09/28/2020 12:00:00 AM EDT eCW1 ([facility]) Isopropyl Alcohol 0.7 ML/ML Medicated Pad 09/28/2020 12:00:00 AM ED T eCW1 ([facility]) Pen [place] 32G X 6 MM 09/28/2020 12:00:00 AM EDT eCW1 ([facility]) Isopropyl Alcohol 0.7 ML/ML Medicated Pad 09/28/2020 12:00:00 AM ED T eCW1 ([facility]) Pen [place] 32G X 6 MM 09/28/2020 12:00:00 AM EDT eCW1 ([facility]) Pen [place] 32G X 6 MM 09/28/2020 12:00:00 AM EDT eCW1 ([facility]) Isopropyl Alcohol 0.7 ML/ML Medicated Pad 09/28/2020 12:00:00 AM ED T eCW1 ([facility]) Isopropyl Alcohol 0.7 ML/ML Medicated Pad 09/28/2020 12:00:00 AM ED T eCW1 ([facility]) Pen [place] 32G X 6 MM 09/28/2020 12:00:00 AM EDT eCW1 ([facility]) Isopropyl Alcohol 0.7 ML/ML Medicated Pad 09/28/2020 12:00:00 AM ED T eCW1 ([facility]) Pen [place] 32G X 6 MM 09/28/2020 12:00:00 AM EDT eCW1 ([facility]) Isopropyl Alcohol 0.7 ML/ML Medicated Pad 09/28/2020 12:00:00 AM ED T eCW1 ([facility]) Pen [place] 32G X 6 MM 09/28/2020 12:00:00 AM EDT eCW1 ([facility]) Isopropyl Alcohol 0.7 ML/ML Medicated Pad 09/28/2020 12:00:00 AM ED T eCW1 ([facility]) Isopropyl Alcohol 0.7 ML/ML Medicated Pad 09/28/2020 12:00:00 AM ED T eCW1 ([facility]) Pen [place] 32G X 6 MM 09/28/2020 12:00:00 AM EDT eCW1 ([facility]) Isopropyl Alcohol 0.7 ML/ML Medicated Pad 09/28/2020 12:00:00 AM ED T eCW1 ([facility]) Pen [place] 32G X 6 MM 09/28/2020 12:00:00 AM EDT eCW1 ([facility]) Isopropyl Alcohol 0.7 ML/ML Medicated Pad 09/28/2020 12:00:00 AM ED T eCW1 ([facility]) Pen [place] 32G X 6 MM 09/28/2020 12:00:00 AM EDT eCW1 ([facility]) Pen [place] 32G X 6 MM 09/28/2020 12:00:00 AM EDT eCW1 ([facility]) 3 ML liraglutide 6 MG/ML Pen Injector [Victoza] 09/28/2020 12:00:00 AM EDT eCW1 ([facility]) Isopropyl Alcohol 0.7 ML/ML Medicated Pad 09/28/2020 12:00:00 AM ED T eCW1 ([facility]) montelukast 10 MG Oral Tablet 09/16/2020 12:00:00 AM EDT eCW1 ([facility]) montelukast 10 MG Oral Tablet 09/16/2020 12:00:00 AM EDT eCW1 ([facility]) montelukast 10 MG Oral Tablet 09/16/2020 12:00:00 AM EDT eCW1 ([facility]) montelukast 10 MG Oral Tablet 09/16/2020 12:00:00 AM EDT eCW1 ([facility]) montelukast 10 MG Oral Tablet 09/16/2020 12:00:00 AM EDT eCW1 ([facility]) montelukast 10 MG Oral Tablet 09/16/2020 12:00:00 AM EDT eCW1 ([facility]) montelukast 10 MG Oral Tablet 09/16/2020 12:00:00 AM EDT eCW1 ([facility]) montelukast 10 MG Oral Tablet 09/16/2020 12:00:00 AM EDT eCW1 ([facility]) montelukast 10 MG Oral Tablet 09/16/2020 12:00:00 AM EDT eCW1 ([facility]) montelukast 10 MG Oral Tablet 09/16/2020 12:00:00 AM EDT eCW1 ([facility]) montelukast 10 MG Oral Tablet 09/16/2020 12:00:00 AM EDT eCW1 ([facility]) montelukast 10 MG Oral Tablet 09/16/2020 12:00:00 AM EDT eCW1 ([facility]) montelukast 10 MG Oral Tablet 09/16/2020 12:00:00 AM EDT eCW1 ([facility]) montelukast 10 MG Oral Tablet 09/16/2020 12:00:00 AM EDT eCW1 ([facility]) montelukast 10 MG Oral Tablet 09/16/2020 12:00:00 AM EDT eCW1 ([facility]) montelukast 10 MG Oral Tablet 09/16/2020 12:00:00 AM EDT eCW1 ([facility]) montelukast 10 MG Oral Tablet 09/16/2020 12:00:00 AM EDT eCW1 ([facility]) montelukast 10 MG Oral Tablet 09/16/2020 12:00:00 AM EDT eCW1 ([facility]) montelukast 10 MG Oral Tablet 09/16/2020 12:00:00 AM EDT eCW1 ([facility]) montelukast 10 MG Oral Tablet 09/16/2020 12:00:00 AM EDT eCW1 ([facility]) 30 ACTUAT fluticasone furoate 0.1 MG/ACTUAT Dry Powder Inhaler [Arnuity] 08/26/2020 12:00:00 AM EDT eCW1 ([facility]) 30 ACTUAT fluticasone furoate 0.1 MG/ACTUAT Dry Powder Inhaler [Arnuity] 08/26/2020 12:00:00 AM EDT eCW1 ([facility]) 30 ACTUAT fluticasone furoate 0.1 MG/ACTUAT Dry Powder Inhaler [Arnuity] 08/26/2020 12:00:00 AM EDT eCW1 ([facility]) 30 ACTUAT fluticasone furoate 0.1 MG/ACTUAT Dry Powder Inhaler [Arnuity] 08/26/2020 12:00:00 AM EDT eCW1 ([facility]) 30 ACTUAT fluticasone furoate 0.1 MG/ACTUAT Dry Powder Inhaler [Arnuity] 08/26/2020 12:00:00 AM EDT eCW1 ([facility]) 30 ACTUAT fluticasone furoate 0.1 MG/ACTUAT Dry Powder Inhaler [Arnuity] 08/26/2020 12:00:00 AM EDT eCW1 ([facility]) 30 ACTUAT fluticasone furoate 0.1 MG/ACTUAT Dry Powder Inhaler [Arnuity] 08/26/2020 12:00:00 AM EDT eCW1 ([facility]) 30 ACTUAT fluticasone furoate 0.1 MG/ACTUAT Dry Powder Inhaler [Arnuity] 08/26/2020 12:00:00 AM EDT eCW1 ([facility]) 30 ACTUAT fluticasone furoate 0.1 MG/ACTUAT Dry Powder Inhaler [Arnuity] 08/26/2020 12:00:00 AM EDT eCW1 ([facility]) 30 ACTUAT fluticasone furoate 0.1 MG/ACTUAT Dry Powder Inhaler [Arnuity] 08/26/2020 12:00:00 AM EDT eCW1 ([facility]) 30 ACTUAT fluticasone furoate 0.1 MG/ACTUAT Dry Powder Inhaler [Arnuity] 08/26/2020 12:00:00 AM EDT eCW1 ([facility]) 30 ACTUAT fluticasone furoate 0.1 MG/ACTUAT Dry Powder Inhaler [Arnuity] 08/26/2020 12:00:00 AM EDT eCW1 ([facility]) 30 ACTUAT fluticasone furoate 0.1 MG/ACTUAT Dry Powder Inhaler [Arnuity] 08/26/2020 12:00:00 AM EDT eCW1 ([facility]) 30 ACTUAT fluticasone furoate 0.1 MG/ACTUAT Dry Powder Inhaler [Arnuity] 08/26/2020 12:00:00 AM EDT eCW1 ([facility]) 30 ACTUAT fluticasone furoate 0.1 MG/ACTUAT Dry Powder Inhaler [Arnuity] 08/26/2020 12:00:00 AM EDT eCW1 ([facility]) 30 ACTUAT fluticasone furoate 0.1 MG/ACTUAT Dry Powder Inhaler [Arnuity] 08/26/2020 12:00:00 AM EDT eCW1 ([facility]) 30 ACTUAT fluticasone furoate 0.1 MG/ACTUAT Dry Powder Inhaler [Arnuity] 08/26/2020 12:00:00 AM EDT eCW1 ([facility]) 30 ACTUAT fluticasone furoate 0.1 MG/ACTUAT Dry Powder Inhaler [Arnuity] 08/26/2020 12:00:00 AM EDT eCW1 ([facility]) 30 ACTUAT fluticasone furoate 0.1 MG/ACTUAT Dry Powder Inhaler [Arnuity] 08/26/2020 12:00:00 AM EDT eCW1 ([facility]) 30 ACTUAT fluticasone furoate 0.1 MG/ACTUAT Dry Powder Inhaler [Arnuity] 08/26/2020 12:00:00 AM EDT eCW1 ([facility]) Sucralfate 1000 MG Oral Tablet 06/18/2020 12:00:00 AM EDT eCW1 ([facility]) Sucralfate 1000 MG Oral Tablet 06/18/2020 12:00:00 AM EDT eCW1 ([facility]) Sucralfate 1000 MG Oral Tablet 06/18/2020 12:00:00 AM EDT eCW1 ([facility]) Sucralfate 1000 MG Oral Tablet 06/18/2020 12:00:00 AM EDT eCW1 ([facility]) Sucralfate 1000 MG Oral Tablet 06/18/2020 12:00:00 AM EDT eCW1 ([facility]) Sucralfate 1000 MG Oral Tablet 06/18/2020 12:00:00 AM EDT eCW1 ([facility]) Sucralfate 1000 MG Oral Tablet 06/18/2020 12:00:00 AM EDT eCW1 ([facility]) Sucralfate 1000 MG Oral Tablet 06/18/2020 12:00:00 AM EDT eCW1 ([facility]) Omeprazole 20 MG Delayed Release Oral Capsule 06/17/2020 12:00:00 A M EDT eCW1 ([facility]) Omeprazole 20 MG Delayed Release Oral Capsule 06/17/2020 12:00:00 A M EDT eCW1 ([facility]) Omeprazole 20 MG Delayed Release Oral Capsule 06/17/2020 12:00:00 A M EDT eCW1 ([facility]) Omeprazole 20 MG Delayed Release Oral Capsule 06/17/2020 12:00:00 A M EDT eCW1 ([facility]) Omeprazole 20 MG Delayed Release Oral Capsule 06/17/2020 12:00:00 A M EDT eCW1 ([facility]) Omeprazole 20 MG Delayed Release Oral Capsule 06/17/2020 12:00:00 A M EDT eCW1 ([facility]) Omeprazole 20 MG Delayed Release Oral Capsule 06/17/2020 12:00:00 A M EDT eCW1 ([facility]) Sucralfate 100 MG/ML Oral Suspension [Carafate] 06/17/2020 12:00:00 AM EDT eCW1 ([facility]) Omeprazole 20 MG Delayed Release Oral Capsule 06/17/2020 12:00:00 A M EDT eCW1 ([facility]) Omeprazole 20 MG Delayed Release Oral Capsule 06/17/2020 12:00:00 A M EDT eCW1 ([facility]) Omeprazole 20 MG Delayed Release Oral Capsule 06/17/2020 12:00:00 A M EDT eCW1 ([facility]) Sucralfate 100 MG/ML Oral Suspension [Carafate] 06/17/2020 12:00:00 AM EDT eCW1 ([facility]) Sucralfate 100 MG/ML Oral Suspension [Carafate] 06/17/2020 12:00:00 AM EDT eCW1 ([facility]) Omeprazole 20 MG Delayed Release Oral Capsule 06/17/2020 12:00:00 A M EDT eCW1 ([facility]) Sucralfate 100 MG/ML Oral Suspension [Carafate] 06/17/2020 12:00:00 AM EDT eCW1 ([facility]) Omeprazole 20 MG Delayed Release Oral Capsule 06/17/2020 12:00:00 A M EDT eCW1 ([facility]) Sucralfate 100 MG/ML Oral Suspension [Carafate] 06/17/2020 12:00:00 AM EDT eCW1 ([facility]) Omeprazole 20 MG Delayed Release Oral Capsule 06/17/2020 12:00:00 A M EDT eCW1 ([facility]) Sucralfate 100 MG/ML Oral Suspension [Carafate] 06/17/2020 12:00:00 AM EDT eCW1 ([facility]) Omeprazole 20 MG Delayed Release Oral Capsule 06/17/2020 12:00:00 A M EDT eCW1 ([facility]) Sucralfate 100 MG/ML Oral Suspension [Carafate] 06/17/2020 12:00:00 AM EDT eCW1 ([facility]) Omeprazole 20 MG Delayed Release Oral Capsule 06/17/2020 12:00:00 A M EDT eCW1 ([facility]) Sucralfate 100 MG/ML Oral Suspension [Carafate] 06/17/2020 12:00:00 AM EDT eCW1 ([facility]) Omeprazole 20 MG Delayed Release Oral Capsule 06/17/2020 12:00:00 A M EDT eCW1 ([facility]) Sucralfate 100 MG/ML Oral Suspension [Carafate] 06/17/2020 12:00:00 AM EDT eCW1 ([facility]) Omeprazole 20 MG Delayed Release Oral Capsule 06/17/2020 12:00:00 A M EDT eCW1 ([facility]) tramadol hydrochloride 50 MG Oral Tablet 02/05/2020 12:00:00 AM EST eCW1 ([facility]) tramadol hydrochloride 50 MG Oral Tablet 02/05/2020 12:00:00 AM EST eCW1 ([facility]) tramadol hydrochloride 50 MG Oral Tablet 02/05/2020 12:00:00 AM EST eCW1 ([facility]) tramadol hydrochloride 50 MG Oral Tablet 02/05/2020 12:00:00 AM EST eCW1 ([facility]) tramadol hydrochloride 50 MG Oral Tablet 02/05/2020 12:00:00 AM EST eCW1 ([facility]) tramadol hydrochloride 50 MG Oral Tablet 02/05/2020 12:00:00 AM EST eCW1 ([facility]) tramadol hydrochloride 50 MG Oral Tablet 02/05/2020 12:00:00 AM EST eCW1 ([facility])
--- OUTSIDE RECORDS SUMMARY | 2021-02-02 11:41 | CCD ---
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 Name Role Phone Maring, Daniel PA Unavailable [...] MD Unavailable Unavailable CALVIN, H MARY KATE PORT PATROL OFFICER Unavailable Unavailable CALVIN, H MARY KATE PORT PATROL OFFICER Unavailable Unavailable CALVIN, H MARY KATE PORT PATROL OFFICER Unavailable Unavailable CALVIN, H MARY KATE PORT PATROL OFFICER Unavailable Unavailable CALVIN, H MARY KATE PORT PATROL OFFICER Unavailable Unavailable CALVIN, H MARY KATE PORT PATROL OFFICER Unavailable Unavailable CALVIN, H MARY KATE PORT PATROL OFFICER Unavailable Unavailable CALVIN, H MARY KATE PORT PATROL OFFICER Unavailable Unavailable CALVIN, H MARY KATE PORT PATROL OFFICER Unavailable Unavailable Goutremout, Zeina Unavailable Re-disclosure Warning [...] is protected by Article 27-F of the [facility] Public Health law. If you continue you may have access to information: Regarding HIV / AIDS; Provided by facilities licensed or operated by the [facility] Office of Mental Health; or Provided by the [facility] Office for People With Developmental Disabilities. If such information is present, then the following [facility] mandated warning applies: This information has [...] law may result in a fine or senior care sentence or both. A general authorization for the release of medical or other information is NOT sufficient authorization for further disc losure. Allergies and Adverse Reactions Type Description Substance Reaction Status Data Source(s ) Propensity to adverse reactions to substance aspirin Asp irin 325 MG Oral Tablet Hives unspecified Active [facility] ([facility]) Propensity to adverse reactions to substance ibuprofen Ibuprofen 200 MG Oral Capsule Hives unspecified Active [facility] ([facility]) Propensity to adverse reactions to substance Abilify (aripip razole) aripiprazole 5 MG Oral Tablet [Abilify] Active [facility] ( [facility]) Family History Family Member Name Family Member Gender Family Member Status Date o f Status Description Data Source(s) Unknown Unknown Problem [facility] ([facility]) Encounters Encounter Providers Location Date Indications Data Source(s ) Unknown [address] [facility] [address] 12/24/2020 12:00:00 AM EDT eCW1 ([facility]) Unknown [address] [facility] [place] [address] 12/15/2020 12:00:00 AM EDT eCW1 ([facility]) Unknown [address] [facility] [place] [address] 11/23/2020 12:00:00 AM EDT eCW1 ([facility]) Unknown [address] [facility] [place] [address] 11/17/2020 12:00:00 AM EDT eCW1 ([facility]) Unknown [address] [facility] [place] [address] 10/22/2020 12:00:00 AM EDT eCW1 ([facility]) Unknown [address] [facility] [place] [address] 10/18/2020 12:00:00 AM EDT eCW1 ([facility]) [place] [address] [facility] [place] [address] 10/14/2020 12:00:00 AM EDT eCW1 ([facility]) [place] [address] [facility] [place] [address] 10/12/2020 12:00:00 AM EDT eCW1 ([facility]) Unknown [address] [facility] [place] [address] 10/12/2020 12:00:00 AM EDT eCW1 ([facility]) Unknown [address] [facility] [place] [address] 10/11/2020 12:00:00 AM EDT eCW1 ([facility]) Unknown [address] [facility] [place] [address] 10/11/2020 12:00:00 AM EDT eCW1 ([facility]) Unknown [address] [facility] [place] [address] 10/11/2020 12:00:00 AM EDT eCW1 ([facility]) Unknown [address] [facility] [place] [address] 10/08/2020 12:00:00 AM EDT eCW1 ([facility]) Unknown [address] [facility] [place] [address] 10/07/2020 12:00:00 AM EDT eCW1 ([facility]) Unknown [address] [facility] [place] [address] 09/30/2020 12:00:00 AM EDT eCW1 ([facility]) Unknown [address] [facility] [place] [address] 09/29/2020 12:00:00 AM EDT eCW1 ([facility]) Unknown [address] [facility] [place] [address] 09/27/2020 12:00:00 AM EDT eCW1 ([facility]) TeleMedicine Phone E/M by Ruth 11-20 Min [address] [place] [address] 09/16/2020 12:00:00 AM EDT eCW1 ([facility]) Unknown [address] [facility] [place] [address] 09/15/2020 12:00:00 AM EDT eCW1 ([facility]) Unknown [address] [facility] [place] [address] 09/09/2020 12:00:00 AM EDT eCW1 ([facility]) Unknown [address] [facility] [place] [address] 08/26/2020 12:00:00 AM EDT eCW1 ([facility]) Outpatient [address] [facility] [place] [address] 08/26/2020 12:00:00 AM EDT eCW1 ([facility]) Unknown [address] [facility] [place] [address] 08/24/2020 12:00:00 AM EDT eCW1 ([facility]) [facility] Scheduled Visit [address] [place] [address] 08/23/2020 12:00:00 AM EDT eCW1 ([facility]) Unknown [address] [facility] [place] [address] 08/12/2020 12:00:00 AM EDT eCW1 ([facility]) Unknown [address] [facility] [place] [address] 08/03/2020 12:00:00 AM EDT eCW1 ([facility]) Unknown [address] [facility] [address] [place] [address] 08/01/2020 12:00:00 AM EDT eCW1 ([facility]) Unknown [address] [facility] [place] [address] 07/25/2020 12:00:00 AM EDT eCW1 ([facility]) Unknown [address] [facility] [place] [address] 06/18/2020 12:00:00 AM EDT eCW1 ([facility]) Unknown [address] [facility] [place] [address] 06/18/2020 12:00:00 AM EDT eCW1 ([facility]) Outpatient [address] [facility] [place] [address] 06/17/2020 12:00:00 AM EDT eCW1 ([facility]) Unknown [address] [facility] [place] [address] 06/16/2020 12:00:00 AM EDT eCW1 ([facility]) Outpatient Attender: Daniel SINGH 04/21/19 02:49:14 PM EST - 04/21/2020 03:43:22 PM EST [facility] ([facility] ) [place] [address] [facility] [place] [address] 04/20/2020 12:00:00 AM EST eCW1 ([facility]) Unknown [address] [facility] [place] [address] 03/30/2020 12:00:00 AM EST eCW1 ([facility]) Outpatient Attender: MARY KATE WHITTEN NP [facility] 03/08/2020 10:00:00 AM EST - 03/08/2020 10:00:00 AM EST [facility] ([facility]) Unknown [address] [facility] [place] [address] 03/08/2020 12:00:00 AM EST eCW1 ([facility]) Attender: MARY KATE WHITTEN NP 03/08/2020 12:00:00 AM EST [facility] ([facility]) Unknown [address] [facility] [place] [address] 02/24/2020 12:00:00 AM EST eCW1 ([facility]) Extended Individual Psychotherapy - 45 min Attender: Dai Lee [facility] 02/20/2020 08:00:00 AM EST - 02/20/2020 08:00:00 AM EST [facility] ([facility]) Attender: Zeina Lee 02/20/2020 12:00:0 0 AM EST [facility] ([facility]) Unknown [address] [facility] [place] [address] 02/05/2020 12:00:00 AM EST eCW1 ([facility]) Outpatient [address] [facility] [place] [address] 02/05/2020 12:00:00 AM EST eCW1 ([facility]) Unknown [address] [facility] [place] [address] 02/02/2020 12:00:00 AM EST eCW1 ([facility]) Outpatient Attender: MARY KATE WHITTEN NP [facility] Johnny rodriguez 01/28/2020 02:00:00 AM EST - 01/28/2020 02:00:00 AM EST [facility] ([facility]) Attender: MARY KATE WHITTEN NP 01/28/2020 12:00:00 AM EST [facility] ([facility]) Extended Individual Psychotherapy - 45 min Attender: Dai Lee [facility] 2020 12:15:00 PM EST - 2020 12:15:00 PM EST [facility] ([facility]) Attender: Zeina Lee 2020 12:00:0 0 AM EST [facility] ([facility]) Unknown [address] [facility] [place] [address] 01/05/2020 12:00:00 AM EDT eCW1 ([facility]) Unknown [address] [facility] [place] [address] 01/01/2020 12:00:00 AM EDT eCW1 ([facility]) Outpatient Attender: MARY KATE WHITTEN NP [facility] jennifer 12/31/2019 01:30:00 AM EDT - 12/31/2019 01:30:00 AM EDT [facility] ([facility]) Attender: MARY KATE WHITTEN NP 12/31/2019 12:00:00 AM EDT [facility] [address] [facility] [place] [address] 12/30/2019 12:00:00 AM EDT eCW1 ([facility]) Outpatient Attender: Hanny [email or web address] 03/2019 12:00:00 AM EDT - 12/18/2019 01:57:24 PM EDT [facility] Unknown [address] [facility] [place] [address] 12/09/2019 12:00:00 AM EDT eCW1 ([facility]) Functional Status Immunizations Vaccine Date Status Description Data Source(s) Influenza, injectable, MDCK, preservative free, vivienne valent 12/27/2020 01:16:00 PM EDT completed [facility] Covid-19 J&J Vaccine 12/23/2020 01:17:00 PM EDT completed [facility] ([facility]) COVID-19 VACC, MRNA(PFIZER)/PF 12/18/2020 12:00:00 AM EDT completed [facility] COVID-19 VACCINE Pfizer 12/18/2020 12:00:00 AM EDT completed [facility] Vaccine Series Complete: YESThis Data wa s Submitted to [facility]. COVID-19 VACCINE Pfizer 06/18/2020 12:00:00 AM EDT completed [facility] Vaccine Series Complete: YESThis Data wa s Submitted to [facility]. COVID-19 VACCINE Pfizer 05/28/2020 12:00:00 AM EST completed [facility] Vaccine Series Complete: NOThis Data was Submitted to [facility]. Medications Medication Brand Name Start Date Product [...] metFO RMIN HCl ER 750 MG eCW1 ([facility]) 24 HR Metformin hydrochloride 750 MG Ext ended Release Oral Tablet metFORMIN HCl ER 750 MG metFORMIN HCl ER 750 MG 10/12/2020 12:00:00 AM EDT 1.0 {tablet_with_evening_meal} active metFO RMIN HCl ER 750 MG eCW1 ([facility]) 24 HR Metformin hydrochloride 750 MG Extended [...] metFO RMIN HCl ER 750 MG eCW1 ([facility]) 24 HR Metformin hydrochloride 750 MG Ext ended Release Oral Tablet metFORMIN HCl ER 750 MG metFORMIN HCl ER 750 MG 10/12/2020 12:00:00 AM EDT 1.0 {tablet_with_evening_meal} active metFO RMIN HCl ER 750 MG eCW1 ([facility]) 24 HR Metformin hydrochloride 750 MG Ext ended Release Oral Tablet metFORMIN HCl ER 750 MG metFORMIN HCl ER 750 MG 10/12/2020 12:00:00 AM EDT 1.0 {tablet_with_evening_meal} active metFO RMIN HCl ER 750 MG eCW1 ([facility]) 24 HR Metformin hydrochloride 750 MG Ext ended Release Oral Tablet metFORMIN HCl ER 750 MG metFORMIN HCl ER 750 MG 10/12/2020 12:00:00 AM EDT 1.0 {tablet_with_evening_meal} active metFO RMIN HCl ER 750 MG eCW1 ([facility]) 24 HR Metformin hydrochloride 750 MG Ext ended Release Oral Tablet metFORMIN HCl ER 750 MG metFORMIN HCl ER 750 MG 10/12/2020 12:00:00 AM EDT 1.0 {tablet_with_evening_meal} active metFO RMIN HCl ER 750 MG eCW1 ([facility]) 24 HR Metformin hydrochloride 750 MG Ext ended Release Oral Tablet metFORMIN HCl ER 750 MG metFORMIN HCl ER 750 MG 10/12/2020 12:00:00 AM EDT 1.0 {tablet_with_evening_meal} active metFO RMIN HCl ER 750 MG eCW1 ([facility]) 24 HR Metformin hydrochloride 750 MG Ext ended Release Oral Tablet metFORMIN HCl ER 750 MG metFORMIN HCl ER 750 MG 10/12/2020 12:00:00 AM EDT 1.0 {tablet_with_evening_meal} active metFO RMIN HCl ER 750 MG eCW1 ([facility]) 24 HR Metformin hydrochloride 750 MG Ext ended Release Oral Tablet metFORMIN HCl ER 750 MG metFORMIN HCl ER 750 MG 10/12/2020 12:00:00 AM EDT 1.0 {tablet_with_evening_meal} active metFO RMIN HCl ER 750 MG eCW1 ([facility]) 24 HR Metformin hydrochloride 750 MG Ext ended Release Oral Tablet metFORMIN HCl ER 750 MG metFORMIN HCl ER 750 MG 10/12/2020 12:00:00 AM EDT 1.0 {tablet_with_evening_meal} active metFO RMIN HCl ER 750 MG eCW1 ([facility]) 24 HR Metformin hydrochloride 750 MG Ext ended Release Oral Tablet metFORMIN HCl ER 750 MG metFORMIN HCl ER 750 MG 10/12/2020 12:00:00 AM EDT 1.0 {tablet_with_evening_meal} active metFO RMIN HCl ER 750 MG eCW1 ([facility]) Bydureon BCise 2 MG/0.85ML Bydureon BCise 2 MG/0.85ML 2020 12:00:00 AM EDT active Bydureon BCise 2 MG/0.85ML eCW1 ([facility]) Bydureon BCise 2 MG/0.85ML Bydureon BCise 2 MG/0.85ML 2020 12:00:00 AM EDT active Bydureon BCise 2 MG/0.85ML eCW1 ([facility]) Ozempic (0.25 or 0.5 MG/DOSE) 2 MG/1.5ML Ozempic (0.25 or 0.5 MG/DOSE) 2 MG/1.5ML 10/04/2020 12:00:00 AM EDT active Ozempic (0.25 or 0.5 MG/DOSE) 2 MG/1.5ML eCW1 ([facility]) Ozempic (0.25 or 0.5 MG/DOSE) 2 MG/1.5ML Ozempic (0.25 or 0.5 MG/DOSE) 2 MG/1.5ML 10/04/2020 12:00:00 AM EDT active Ozempic (0.25 or 0.5 MG/DOSE) 2 MG/1.5ML eCW1 ([facility]) Ozempic (0.25 or 0.5 MG/DOSE) 2 MG/1.5ML Ozempic (0.25 or 0.5 MG/DOSE) 2 MG/1.5ML 10/04/2020 12:00:00 AM EDT active Ozempic (0.25 or 0.5 MG/DOSE) 2 MG/1.5ML eCW1 ([facility]) 100 mcg/actuation 10/04/2020 12:00:00 AM EDT blister [...] AM EDT active Victoza 18 MG/3ML eCW1 ([facility]) Pen Raymond 32G X 6 MM Pen Raymond 32G X 6 MM 09/28/2020 12:00:00 AM E DT active Pen Raymond 32G X 6 MM eC W1 ([facility]) Isopropyl Alcohol 0.7 ML/ML Medicated Pad Alcohol Prep 70 % Alcohol Prep 70 % 09/28/2020 12:00:00 AM EDT active Alcohol Prep 70 % eCW1 ([facility]) Pen Raymond 32G X 6 MM Pen Raymond 32G X 6 MM 09/28/2020 12:00:00 AM E DT active Pen Raymond 32G X 6 MM eC W1 ([facility]) Isopropyl Alcohol 0.7 ML/ML Medicated Pad Alcohol Prep 70 % Alcohol Prep 70 % 09/28/2020 12:00:00 AM EDT active Alcohol Prep 70 % eCW1 ([facility]) Pen Raymond 32G X 6 MM Pen Raymond 32G X 6 MM 09/28/2020 12:00:00 AM E DT active Pen Raymond 32G X 6 MM eC W1 ([facility]) Isopropyl Alcohol 0.7 ML/ML Medicated Pad Alcohol Prep 70 % Alcohol Prep 70 % 09/28/2020 12:00:00 AM EDT active Alcohol Prep 70 % eCW1 ([facility]) Isopropyl Alcohol 0.7 ML/ML Medicated Pad Alcohol Prep 70 % Alcohol Prep 70 % 09/28/2020 12:00:00 AM EDT active Alcohol Prep 70 % eCW1 ([facility]) Isopropyl Alcohol 0.7 ML/ML Medicated Pad Alcohol Prep 70 % Alcohol Prep 70 % 09/28/2020 12:00:00 AM EDT active Alcohol Prep 70 % eCW1 ([facility]) Isopropyl Alcohol 0.7 ML/ML Medicated Pad Alcohol Prep 70 % Alcohol Prep 70 % 09/28/2020 12:00:00 AM EDT active Alcohol Prep 70 % eCW1 ([facility]) Pen Raymond 32G X 6 MM Pen Raymond 32G X 6 MM 09/28/2020 12:00:00 AM E DT active Pen Raymond 32G X 6 MM eC W1 ([facility]) Pen Raymond 32G X 6 MM Pen Raymond 32G X 6 MM 09/28/2020 12:00:00 AM E DT active Pen Raymond 32G X 6 MM eC W1 ([facility]) Isopropyl Alcohol 0.7 ML/ML Medicated Pad Alcohol Prep 70 % Alcohol Prep 70 % 09/28/2020 12:00:00 AM EDT active Alcohol Prep 70 % eCW1 ([facility]) Isopropyl Alcohol 0.7 ML/ML Medicated Pad Alcohol Prep 70 % Alcohol Prep 70 % 09/28/2020 12:00:00 AM EDT active Alcohol Prep 70 % eCW1 ([facility]) Isopropyl Alcohol 0.7 ML/ML Medicated Pad Alcohol Prep 70 % Alcohol Prep 70 % 09/28/2020 12:00:00 AM EDT active Alcohol Prep 70 % eCW1 ([facility]) Pen Raymond 32G X 6 MM Pen Raymond 32G X 6 MM 09/28/2020 12:00:00 AM E DT active Pen Raymond 32G X 6 MM eC W1 ([facility]) Pen Raymond 32G X 6 MM Pen Raymond 32G X 6 MM 09/28/2020 12:00:00 AM E DT active Pen Raymond 32G X 6 MM eC W1 ([facility]) Pen Raymond 32G X 6 MM Pen Raymond 32G X 6 MM 09/28/2020 12:00:00 AM E DT active Pen Raymond 32G X 6 MM eC W1 ([facility]) Isopropyl Alcohol 0.7 ML/ML Medicated Pad Alcohol Prep 70 % Alcohol Prep 70 % 09/28/2020 12:00:00 AM EDT active Alcohol Prep 70 % eCW1 ([facility]) Isopropyl Alcohol 0.7 ML/ML Medicated Pad Alcohol Prep 70 % Alcohol Prep 70 % 09/28/2020 12:00:00 AM EDT active Alcohol Prep 70 % eCW1 ([facility]) Isopropyl Alcohol 0.7 ML/ML Medicated Pad Alcohol Prep 70 % Alcohol Prep 70 % 09/28/2020 12:00:00 AM EDT active Alcohol Prep 70 % eCW1 ([facility]) Isopropyl Alcohol 0.7 ML/ML Medicated Pad Alcohol Prep 70 % Alcohol Prep 70 % 09/28/2020 12:00:00 AM EDT active Alcohol Prep 70 % eCW1 ([facility]) Pen Raymond 32G X 6 MM Pen Raymond 32G X 6 MM 09/28/2020 12:00:00 AM E DT active Pen Raymond 32G X 6 MM eC W1 ([facility]) Isopropyl Alcohol 0.7 ML/ML Medicated Pad Alcohol Prep 70 % Alcohol Prep 70 % 09/28/2020 12:00:00 AM EDT active Alcohol Prep 70 % eCW1 ([facility]) Pen Raymond 32G X 6 MM Pen Raymond 32G X 6 MM 09/28/2020 12:00:00 AM E DT active Pen Raymond 32G X 6 MM eC W1 ([facility]) Pen Raymond 32G X 6 MM Pen Raymond 32G X 6 MM 09/28/2020 12:00:00 AM E DT active Pen Raymond 32G X 6 MM eC W1 ([facility]) Pen Raymond 32G X 6 MM Pen Raymond 32G X 6 MM 09/28/2020 12:00:00 AM E DT active Pen Raymond 32G X 6 MM eC W1 ([facility]) Isopropyl Alcohol 0.7 ML/ML Medicated Pad Alcohol Prep 70 % Alcohol Prep 70 % 09/28/2020 12:00:00 AM EDT active Alcohol Prep 70 % eCW1 ([facility]) Isopropyl Alcohol 0.7 ML/ML Medicated Pad Alcohol Prep 70 % Alcohol Prep 70 % 09/28/2020 12:00:00 AM EDT active Alcohol Prep 70 % eCW1 ([facility]) Pen Raymond 32G X 6 MM Pen Raymond 32G X 6 MM 09/28/2020 12:00:00 AM E DT active Pen Raymond 32G X 6 MM eC W1 ([facility]) Pen Raymond 32G X 6 MM Pen Raymond 32G X 6 MM 09/28/2020 12:00:00 AM E DT active Pen Raymond 32G X 6 MM eC W1 ([facility]) Isopropyl Alcohol 0.7 ML/ML Medicated Pad Alcohol Prep 70 % Alcohol Prep 70 % 09/28/2020 12:00:00 AM EDT active Alcohol Prep 70 % eCW1 ([facility]) Pen Raymond 32G X 6 MM Pen Raymond 32G X 6 MM 09/28/2020 12:00:00 AM E DT active Pen Raymond 32G X 6 MM eC W1 ([facility]) Isopropyl Alcohol 0.7 ML/ML Medicated Pad Alcohol Prep 70 % Alcohol Prep 70 % 09/28/2020 12:00:00 AM EDT active Alcohol Prep 70 % eCW1 ([facility]) Pen Raymond 32G X 6 MM Pen Raymond 32G X 6 MM 09/28/2020 12:00:00 AM E DT active Pen Raymond 32G X 6 MM eC W1 ([facility]) Pen Raymond 32G X 6 MM Pen Raymond 32G X 6 MM 09/28/2020 12:00:00 AM E DT active Pen Raymond 32G X 6 MM eC W1 ([facility]) Pen Raymond 32G X 6 MM Pen Raymond 32G X 6 MM 09/28/2020 12:00:00 AM E DT active Pen Raymond 32G X 6 MM eC W1 ([facility]) montelukast 10 MG Oral Tablet Montelukast Sodium 10 MG Troy lukast Sodium 10 MG 09/16/2020 12:00:00 AM EDT 1.0 {tablet} active Montelukast Sodium 10 MG eCW1 ([facility]) montelukast 10 MG Oral Tablet Montelukast Sodium 10 MG [place] lukast Sodium 10 MG 09/16/2020 12:00:00 AM EDT 1.0 {tablet} active Montelukast Sodium 10 MG eCW1 ([facility]) montelukast 10 MG Oral Tablet Montelukast Sodium 10 MG [place] lukast Sodium 10 MG 09/16/2020 12:00:00 AM EDT 1.0 {tablet} active Montelukast Sodium 10 MG eCW1 ([facility]) montelukast 10 MG Oral Tablet Montelukast Sodium 10 MG [place] lukast Sodium 10 MG 09/16/2020 12:00:00 AM EDT 1.0 {tablet} active Montelukast Sodium 10 MG eCW1 ([facility]) montelukast 10 MG Oral Tablet Montelukast Sodium 10 MG [place] lukast Sodium 10 MG 09/16/2020 12:00:00 AM EDT 1.0 {tablet} active Montelukast Sodium 10 MG eCW1 ([facility]) montelukast 10 MG Oral Tablet Montelukast Sodium 10 MG [place] lukast Sodium 10 MG 09/16/2020 12:00:00 AM EDT 1.0 {tablet} active Montelukast Sodium 10 MG eCW1 ([facility]) montelukast 10 MG Oral Tablet Montelukast Sodium 10 MG [place] lukast Sodium 10 MG 09/16/2020 12:00:00 AM EDT 1.0 {tablet} active Montelukast Sodium 10 MG eCW1 ([facility]) montelukast 10 MG Oral Tablet Montelukast Sodium 10 MG [place] lukast Sodium 10 MG 09/16/2020 12:00:00 AM EDT 1.0 {tablet} active Montelukast Sodium 10 MG eCW1 ([facility]) montelukast 10 MG Oral Tablet Montelukast Sodium 10 MG [place] lukast Sodium 10 MG 09/16/2020 12:00:00 AM EDT 1.0 {tablet} active Montelukast Sodium 10 MG eCW1 ([facility]) montelukast 10 MG Oral Tablet Montelukast Sodium 10 MG [place] lukast Sodium 10 MG 09/16/2020 12:00:00 AM EDT 1.0 {tablet} active Montelukast Sodium 10 MG eCW1 ([facility]) montelukast 10 MG Oral Tablet MONTELUKAST SODIUM 09/16/2020 12:0 0:00 AM EDT tablet 90 TAKE ONE TABLET BY MOUTH EVERY E VENING TAKE ONE TABLET BY MOUTH EVERY EVENING SOLD: 09/16/2020 Tammie ba montelukast 10 MG Oral Tablet Montelukast Sodium 10 MG [place] lukast Sodium 10 MG 09/16/2020 12:00:00 AM EDT 1.0 {tablet} active Montelukast Sodium 10 MG eCW1 ([facility]) montelukast 10 MG Oral Tablet Montelukast Sodium 10 MG [place] lukast Sodium 10 MG 09/16/2020 12:00:00 AM EDT 1.0 {tablet} active Montelukast Sodium 10 MG eCW1 ([facility]) montelukast 10 MG Oral Tablet Montelukast Sodium 10 MG [place] lukast Sodium 10 MG 09/16/2020 12:00:00 AM EDT 1.0 {tablet} active Montelukast Sodium 10 MG eCW1 ([facility]) montelukast 10 MG Oral Tablet Montelukast Sodium 10 MG [place] lukast Sodium 10 MG 09/16/2020 12:00:00 AM EDT 1.0 {tablet} active Montelukast Sodium 10 MG eCW1 ([facility]) montelukast 10 MG Oral Tablet Montelukast Sodium 10 MG [place] lukast Sodium 10 MG 09/16/2020 12:00:00 AM EDT 1.0 {tablet} active Montelukast Sodium 10 MG eCW1 ([facility]) montelukast 10 MG Oral Tablet Montelukast Sodium 10 MG [place] lukast Sodium 10 MG 09/16/2020 12:00:00 AM EDT 1.0 {tablet} active Montelukast Sodium 10 MG eCW1 ([facility]) montelukast 10 MG Oral Tablet MONTELUKAST SODIUM 09/16/2020 12:0 0:00 AM EDT tablet 90 TAKE ONE TABLET BY MOUTH EVERY E VENING TAKE ONE TABLET BY MOUTH EVERY EVENING SOLD: 12/24/2020 Tammie Martino gs montelukast 10 MG Oral Tablet Montelukast Sodium 10 MG [place] lukast Sodium 10 MG 09/16/2020 12:00:00 AM EDT 1.0 {tablet} active Montelukast Sodium 10 MG eCW1 ([facility]) montelukast 10 MG Oral Tablet Montelukast Sodium 10 MG [place] lukast Sodium 10 MG 09/16/2020 12:00:00 AM EDT 1.0 {tablet} active Montelukast Sodium 10 MG eCW1 ([facility]) montelukast 10 MG Oral Tablet Montelukast Sodium 10 MG [place] lukast Sodium 10 MG 09/16/2020 12:00:00 AM EDT 1.0 {tablet} active Montelukast Sodium 10 MG eCW1 ([facility]) montelukast 10 MG Oral Tablet Montelukast Sodium 10 MG [place] lukast Sodium 10 MG 09/16/2020 12:00:00 AM EDT 1.0 {tablet} active Montelukast Sodium 10 MG eCW1 ([facility]) 30 ACTUAT fluticasone furoate 0.1 MG/ACT UAT Dry Powder Inhaler [Arnuity] Arnuity Ellipta 100 MCG/ACT Arnuity Ellipta 100 MCG/ACT 08/26/2020 12:00:00 AM EDT 1.0 {puff} active Arnuity Ellipta 100 M CG/ACT eCW1 ([facility]) 30 ACTUAT fluticasone furoate 0.1 MG/ACT UAT Dry Powder Inhaler [Arnuity] Arnuity Ellipta 100 MCG/ACT Arnuity Ellipta 100 MCG/ACT 08/26/2020 12:00:00 AM EDT 1.0 {puff} active Arnuity Ellipta 100 M CG/ACT eCW1 ([facility]) 100 mcg/actuation 08/26/2020 12:00:00 AM EDT blister with de vice 30 INHALE ONE PUFF BY MOUTH EVERY DAY INHALE ONE PUFF BY MOUTH EVERY DAY SOLD: 08/26/2020 [facility] Abilify Maintena 400 MG UNK 08/26/2020 12:00:00 AM EDT active Abilify Maintena 400 MG eCW1 ([facility]) Abilify Maintena 400 MG UNK 08/26/2020 12:00:00 AM EDT active Abilify Maintena 400 MG eCW1 ([facility]) Abilify Maintena 400 MG UNK 08/26/2020 12:00:00 AM EDT active Abilify Maintena 400 MG eCW1 ([facility]) 30 ACTUAT fluticasone furoate 0.1 MG/ACT UAT Dry Powder Inhaler [Arnuity] Arnuity Ellipta 100 MCG/ACT Arnuity Ellipta 100 MCG/ACT 08/26/2020 12:00:00 AM EDT 1.0 {puff} active Arnuity Ellipta 100 M CG/ACT eCW1 ([facility]) 30 ACTUAT fluticasone furoate 0.1 MG/ACT UAT Dry Powder Inhaler [Arnuity] Arnuity Ellipta 100 MCG/ACT Arnuity Ellipta 100 MCG/ACT 08/26/2020 12:00:00 AM EDT 1.0 {puff} active Arnuity Ellipta 100 M CG/ACT eCW1 ([facility]) Abilify Maintena 400 MG UNK 08/26/2020 12:00:00 AM EDT active Abilify Maintena 400 MG eCW1 ([facility]) 30 ACTUAT fluticasone furoate 0.1 MG/ACT UAT Dry Powder Inhaler [Arnuity] Arnuity Ellipta 100 MCG/ACT Arnuity Ellipta 100 MCG/ACT 08/26/2020 12:00:00 AM EDT 1.0 {puff} active Arnuity Ellipta 100 M CG/ACT eCW1 ([facility]) 30 ACTUAT fluticasone furoate 0.1 MG/ACT UAT Dry Powder Inhaler [Arnuity] Arnuity Ellipta 100 MCG/ACT Arnuity Ellipta 100 MCG/ACT 08/26/2020 12:00:00 AM EDT 1.0 {puff} active Arnuity Ellipta 100 M CG/ACT eCW1 ([facility]) 30 ACTUAT fluticasone furoate 0.1 MG/ACT UAT Dry Powder Inhaler [Arnuity] Arnuity Ellipta 100 MCG/ACT Arnuity Ellipta 100 MCG/ACT 08/26/2020 12:00:00 AM EDT 1.0 {puff} active Arnuity Ellipta 100 M CG/ACT eCW1 ([facility]) Abilify Maintena 400 MG UNK 08/26/2020 12:00:00 AM EDT active Abilify Maintena 400 MG eCW1 ([facility]) Abilify Maintena 400 MG UNK 08/26/2020 12:00:00 AM EDT active Abilify Maintena 400 MG eCW1 ([facility]) 30 ACTUAT fluticasone furoate 0.1 MG/ACT UAT Dry Powder Inhaler [Arnuity] Arnuity Ellipta 100 MCG/ACT Arnuity Ellipta 100 MCG/ACT 08/26/2020 12:00:00 AM EDT 1.0 {puff} active Arnuity Ellipta 100 M CG/ACT eCW1 ([facility]) 30 ACTUAT fluticasone furoate 0.1 MG/ACT UAT Dry Powder Inhaler [Arnuity] Arnuity Ellipta 100 MCG/ACT Arnuity Ellipta 100 MCG/ACT 08/26/2020 12:00:00 AM EDT 1.0 {puff} active Arnuity Ellipta 100 M CG/ACT eCW1 ([facility]) 30 ACTUAT fluticasone furoate 0.1 MG/ACT UAT Dry Powder Inhaler [Arnuity] Arnuity Ellipta 100 MCG/ACT Arnuity Ellipta 100 MCG/ACT 08/26/2020 12:00:00 AM EDT 1.0 {puff} active Arnuity Ellipta 100 M CG/ACT eCW1 ([facility]) Abilify Maintena 400 MG UNK 08/26/2020 12:00:00 AM EDT active Abilify Maintena 400 MG eCW1 ([facility]) Abilify Maintena 400 MG UNK 08/26/2020 12:00:00 AM EDT active Abilify Maintena 400 MG eCW1 ([facility]) 30 ACTUAT fluticasone furoate 0.1 MG/ACT UAT Dry Powder Inhaler [Arnuity] Arnuity Ellipta 100 MCG/ACT Arnuity Ellipta 100 MCG/ACT 08/26/2020 12:00:00 AM EDT 1.0 {puff} active Arnuity Ellipta 100 M CG/ACT eCW1 ([facility]) 30 ACTUAT fluticasone furoate 0.1 MG/ACT UAT Dry Powder Inhaler [Arnuity] Arnuity Ellipta 100 MCG/ACT Arnuity Ellipta 100 MCG/ACT 08/26/2020 12:00:00 AM EDT 1.0 {puff} active Arnuity Ellipta 100 M CG/ACT eCW1 ([facility]) Abilify Maintena 400 MG UNK 08/26/2020 12:00:00 AM EDT active Abilify Maintena 400 MG eCW1 ([facility]) 30 ACTUAT fluticasone furoate 0.1 MG/ACT UAT Dry Powder Inhaler [Arnuity] Arnuity Ellipta 100 MCG/ACT Arnuity Ellipta 100 MCG/ACT 08/26/2020 12:00:00 AM EDT 1.0 {puff} active Arnuity Ellipta 100 M CG/ACT eCW1 ([facility]) Abilify Maintena 400 MG UNK 08/26/2020 12:00:00 AM EDT active Abilify Maintena 400 MG eCW1 ([facility]) 30 ACTUAT fluticasone furoate 0.1 MG/ACT UAT Dry Powder Inhaler [Arnuity] Arnuity Ellipta 100 MCG/ACT Arnuity Ellipta 100 MCG/ACT 08/26/2020 12:00:00 AM EDT 1.0 {puff} active Arnuity Ellipta 100 M CG/ACT eCW1 ([facility]) 30 ACTUAT fluticasone furoate 0.1 MG/ACT UAT Dry Powder Inhaler [Arnuity] Arnuity Ellipta 100 MCG/ACT Arnuity Ellipta 100 MCG/ACT 08/26/2020 12:00:00 AM EDT 1.0 {puff} active Arnuity Ellipta 100 M CG/ACT eCW1 ([facility]) Abilify Maintena 400 MG UNK 08/26/2020 12:00:00 AM EDT active Abilify Maintena 400 MG eCW1 ([facility]) Abilify Maintena 400 MG UNK 08/26/2020 12:00:00 AM EDT active Abilify Maintena 400 MG eCW1 ([facility]) 30 ACTUAT fluticasone furoate 0.1 MG/ACT UAT Dry Powder Inhaler [Arnuity] Arnuity Ellipta 100 MCG/ACT Arnuity Ellipta 100 MCG/ACT 08/26/2020 12:00:00 AM EDT 1.0 {puff} active Arnuity Ellipta 100 M CG/ACT eCW1 ([facility]) Abilify Maintena 400 MG UNK 08/26/2020 12:00:00 AM EDT active Abilify Maintena 400 MG eCW1 ([facility]) Abilify Maintena 400 MG UNK 08/26/2020 12:00:00 AM EDT active Abilify Maintena 400 MG eCW1 ([facility]) Abilify Maintena 400 MG UNK 08/26/2020 12:00:00 AM EDT active Abilify Maintena 400 MG eCW1 ([facility]) Abilify Maintena 400 MG UNK 08/26/2020 12:00:00 AM EDT active Abilify Maintena 400 MG eCW1 ([facility]) 30 ACTUAT fluticasone furoate 0.1 MG/ACT UAT Dry Powder Inhaler [Arnuity] Arnuity Ellipta 100 MCG/ACT Arnuity Ellipta 100 MCG/ACT 08/26/2020 12:00:00 AM EDT 1.0 {puff} active Arnuity Ellipta 100 M CG/ACT eCW1 ([facility]) Abilify Maintena 400 MG UNK 08/26/2020 12:00:00 AM EDT active Abilify Maintena 400 MG eCW1 ([facility]) 30 ACTUAT fluticasone furoate 0.1 MG/ACT UAT Dry Powder Inhaler [Arnuity] Arnuity Ellipta 100 MCG/ACT Arnuity Ellipta 100 MCG/ACT 08/26/2020 12:00:00 AM EDT 1.0 {puff} active Arnuity Ellipta 100 M CG/ACT eCW1 ([facility]) 30 ACTUAT fluticasone furoate 0.1 MG/ACT UAT Dry Powder Inhaler [Arnuity] Arnuity Ellipta 100 MCG/ACT Arnuity Ellipta 100 MCG/ACT 08/26/2020 12:00:00 AM EDT 1.0 {puff} active Arnuity Ellipta 100 M CG/ACT eCW1 ([facility]) Abilify Maintena 400 MG UNK 08/26/2020 12:00:00 AM EDT active Abilify Maintena 400 MG eCW1 ([facility]) 30 ACTUAT fluticasone furoate 0.1 MG/ACT UAT Dry Powder Inhaler [Arnuity] Arnuity Ellipta 100 MCG/ACT Arnuity Ellipta 100 MCG/ACT 08/26/2020 12:00:00 AM EDT 1.0 {puff} active Arnuity Ellipta 100 M CG/ACT eCW1 ([facility]) Abilify Maintena 400 MG UNK 08/26/2020 12:00:00 AM EDT active Abilify Maintena 400 MG eCW1 ([facility]) Abilify Maintena 400 MG UNK 08/26/2020 12:00:00 AM EDT active Abilify Maintena 400 MG eCW1 ([facility]) Abilify Maintena 400 MG UNK 08/26/2020 12:00:00 AM EDT active Abilify Maintena 400 MG eCW1 ([facility]) 30 ACTUAT fluticasone furoate 0.1 MG/ACT UAT Dry Powder Inhaler [Arnuity] Arnuity Ellipta 100 MCG/ACT Arnuity Ellipta 100 MCG/ACT 08/26/2020 12:00:00 AM EDT 1.0 {puff} active Arnuity Ellipta 100 M CG/ACT eCW1 ([facility]) Abilify Maintena 400 MG UNK 08/26/2020 12:00:00 AM EDT active Abilify Maintena 400 MG eCW1 ([facility]) 30 ACTUAT fluticasone furoate 0.1 MG/ACT UAT Dry Powder Inhaler [Arnuity] Arnuity Ellipta 100 MCG/ACT Arnuity Ellipta 100 MCG/ACT 08/26/2020 12:00:00 AM EDT 1.0 {puff} active Arnuity Ellipta 100 M CG/ACT eCW1 ([facility]) 30 ACTUAT fluticasone furoate 0.1 MG/ACT UAT Dry Powder Inhaler [Arnuity] Arnuity Ellipta 100 MCG/ACT Arnuity Ellipta 100 MCG/ACT 08/26/2020 12:00:00 AM EDT 1.0 {puff} active Arnuity Ellipta 100 M CG/ACT eCW1 ([facility]) Abilify Maintena 400 MG UNK 08/26/2020 12:00:00 AM EDT active Abilify Maintena 400 MG eCW1 ([facility]) Trazodone Hydrochloride 100 MG Oral Tablet TRAZODONE [...] Omeprazole 06/24/2020 12:00:00 AM EDT active MEDENT ([facility], ) Loperamide Hydrochloride 2 MG Oral Capsule Loperamide HCL 06/24/2020 12:00:00 AM EDT active MEDENT ([facility], ) 40 mg 06/24/2020 12:00:00 AM [...] 06/24/2020 12:00:00 AM EDT ORAL active MEDENT ([facility], ) Sucralfate 1000 MG Oral Tablet Sucralfate 1 GM Sucralfate 1 GM 06/18/2020 12:00:00 AM EDT 1.0 {tablet_on_an_empty_stomach} active Sucralfate 1 GM W1 ([facility]) Sucralfate 1000 MG Oral Tablet Sucralfate 1 GM Sucralfate 1 GM 06/18/2020 12:00:00 AM EDT 1.0 {tablet_on_an_empty_stomach} active Sucralfate 1 GM W1 ([facility]) Sucralfate 1000 MG Oral Tablet Sucralfate 1 GM Sucralfate 1 GM 06/18/2020 12:00:00 AM EDT 1.0 {tablet_on_an_empty_stomach} active Sucralfate 1 GM eCW1 ([facility]) Sucralfate 1000 MG Oral Tablet Sucralfate 1 GM Sucralfate 1 GM 06/18/2020 12:00:00 AM EDT 1.0 {tablet_on_an_empty_stomach} active Sucralfate 1 GM eCW1 ([facility]) Sucralfate 1000 MG Oral Tablet Sucralfate 1 GM Sucralfate 1 GM 06/18/2020 12:00:00 AM EDT 1.0 {tablet_on_an_empty_stomach} active Sucralfate 1 GM eCW1 ([facility]) Sucralfate 1000 MG Oral Tablet Sucralfate 1 GM Sucralfate 1 GM 06/18/2020 12:00:00 AM EDT 1.0 {tablet_on_an_empty_stomach} active Sucralfate 1 GM eCW1 ([facility]) Sucralfate 1000 MG Oral Tablet Sucralfate 1 GM Sucralfate 1 GM 06/18/2020 12:00:00 AM EDT 1.0 {tablet_on_an_empty_stomach} active Sucralfate 1 GM W1 ([facility]) Sucralfate 1000 MG Oral Tablet Sucralfate 1 GM Sucralfate 1 06/18/2020 12:00:00 AM EDT 1.0 {tablet_on_an_empty_stomach} active Sucralfate 1 GM W1 ([facility]) Sucralfate 1000 MG Oral Tablet Sucralfate 1 GM Sucralfate 1 06/18/2020 12:00:00 AM EDT 1.0 {tablet_on_an_empty_stomach} active Sucralfate 1 GM W1 ([facility]) Sucralfate 1000 MG Oral Tablet Sucralfate 1 GM Sucralfate 1 GM 06/18/2020 12:00:00 AM EDT 1.0 {tablet_on_an_empty_stomach} active Sucralfate 1 GM eCW1 ([facility]) Sucralfate 1000 MG Oral Tablet Sucralfate 1 GM Sucralfate 1 GM 06/18/2020 12:00:00 AM EDT 1.0 {tablet_on_an_empty_stomach} active Sucralfate 1 GM eCW1 ([facility]) Sucralfate 1000 MG Oral Tablet Sucralfate 1 GM Sucralfate 1 GM 06/18/2020 12:00:00 AM EDT 1.0 {tablet_on_an_empty_stomach} active Sucralfate 1 GM eCW1 ([facility]) Sucralfate 1000 MG Oral Tablet Sucralfate 1 GM Sucralfate 1 GM 06/18/2020 12:00:00 AM EDT 1.0 {tablet_on_an_empty_stomach} active Sucralfate 1 GM W1 ([facility]) Sucralfate 1000 MG Oral Tablet Sucralfate 1 GM Sucralfate 1 GM 06/18/2020 12:00:00 AM EDT 1.0 {tablet_on_an_empty_stomach} active Sucralfate 1 GM W1 ([facility]) Sucralfate 1000 MG Oral Tablet Sucralfate 1 GM Sucralfate 1 06/18/2020 12:00:00 AM EDT 1.0 {tablet_on_an_empty_stomach} active Sucralfate 1 GM [facility]1 ([facility]) Sucralfate 1000 MG Oral Tablet Sucralfate 1 GM Sucralfate 1 06/18/2020 12:00:00 AM EDT 1.0 {tablet_on_an_empty_stomach} active Sucralfate 1 GM W1 ([facility]) Sucralfate 1000 MG Oral Tablet Sucralfate 1 GM Sucralfate 1 06/18/2020 12:00:00 AM EDT 1.0 {tablet_on_an_empty_stomach} active Sucralfate 1 GM W1 ([facility]) Sucralfate 1000 MG Oral Tablet Sucralfate 1 GM Sucralfate 1 06/18/2020 12:00:00 AM EDT 1.0 {tablet_on_an_empty_stomach} active Sucralfate 1 GM eCW1 ([facility]) Sucralfate 1000 MG Oral Tablet Sucralfate 1 GM Sucralfate 1 GM 06/18/2020 12:00:00 AM EDT 1.0 {tablet_on_an_empty_stomach} active Sucralfate 1 GM W1 ([facility]) Sucralfate 1000 MG Oral Tablet Sucralfate 1 GM Sucralfate 1 GM 06/18/2020 12:00:00 AM EDT 1.0 {tablet_on_an_empty_stomach} active Sucralfate 1 GM eCW1 ([facility]) Sucralfate 1000 MG Oral Tablet Sucralfate 1 GM Sucralfate 1 GM 06/18/2020 12:00:00 AM EDT 1.0 {tablet_on_an_empty_stomach} active Sucralfate 1 GM eCW1 ([facility]) Sucralfate 1000 MG Oral Tablet Sucralfate 1 GM Sucralfate 1 GM 06/18/2020 12:00:00 AM EDT 1.0 {tablet_on_an_empty_stomach} active Sucralfate 1 GM eCW1 ([facility]) Sucralfate 1000 MG Oral Tablet Sucralfate 1 GM Sucralfate 1 GM 06/18/2020 12:00:00 AM EDT 1.0 {tablet_on_an_empty_stomach} active Sucralfate 1 GM eCW1 ([facility]) Sucralfate 1000 MG Oral Tablet Sucralfate 1 GM Sucralfate 1 GM 06/18/2020 12:00:00 AM EDT 1.0 {tablet_on_an_empty_stomach} active Sucralfate 1 GM eCW1 ([facility]) Sucralfate 1000 MG Oral Tablet Sucralfate 1 GM Sucralfate 1 GM 06/18/2020 12:00:00 AM EDT 1.0 {tablet_on_an_empty_stomach} active Sucralfate 1 GM eCW1 ([facility]) Sucralfate 1000 MG Oral Tablet Sucralfate 1 GM Sucralfate 1 GM 06/18/2020 12:00:00 AM EDT 1.0 {tablet_on_an_empty_stomach} active Sucralfate 1 GM eCW1 ([facility]) Sucralfate 1000 MG Oral Tablet Sucralfate 1 GM Sucralfate 1 GM 06/18/2020 12:00:00 AM EDT 1.0 {tablet_on_an_empty_stomach} active Sucralfate 1 GM eCW1 ([facility]) 1 gram 06/18/2020 12:00:00 AM EDT tablet 20 TAKE ONE TABLET BY MOUTH TWICE A DAY ON AN EMPTY STOMACH TAKE ONE TABLET BY MOUTH TWICE A DAY ON AN EMPTY STOMACH SOLD: 06/18/2020 [facility] Sucralfate 1000 MG Oral Tablet Sucralfate 1 GM Sucralfate 1 GM 06/18/2020 12:00:00 AM EDT 1.0 {tablet_on_an_empty_stomach} active Sucralfate 1 GM eCW1 ([facility]) Sucralfate 1000 MG Oral Tablet Sucralfate 1 GM Sucralfate 1 GM 06/18/2020 12:00:00 AM EDT 1.0 {tablet_on_an_empty_stomach} active Sucralfate 1 GM eCW1 ([facility]) Sucralfate 1000 MG Oral Tablet Sucralfate 1 GM Sucralfate 1 GM 06/18/2020 12:00:00 AM EDT 1.0 {tablet_on_an_empty_stomach} active Sucralfate 1 GM eCW1 ([facility]) Sucralfate 1000 MG Oral Tablet Sucralfate 1 GM Sucralfate 1 GM 06/18/2020 12:00:00 AM EDT 1.0 {tablet_on_an_empty_stomach} active Sucralfate 1 GM eCW1 ([facility]) 20 mg 06/18/2020 12:00:00 AM EDT capsule,delayed [...] 10.0 {ml_on_an_empty_stomach} suspended Carafate 1 GM/10ML eCW1 ([facility]) Omeprazole 20 MG Delayed Release Oral Capsule Omeprazole 20 MG 06/17/2020 12:00:00 AM EDT active Omeprazo le 20 MG eCW1 ([facility]) Sucralfate 100 MG/ML Oral Suspension [Carafate] Carafa te 1 GM/10ML Carafate 1 GM/10ML 06/17/2020 12:00:00 AM EDT 10.0 {ml_on_an_empty_stomach} active Carafate 1 GM/10ML eCW1 ([facility]) Omeprazole 20 MG Delayed Release Oral Capsule Omeprazole 20 MG 06/17/2020 12:00:00 AM EDT active Omeprazo le 20 MG eCW1 ([facility]) Omeprazole 20 MG Delayed Release Oral Capsule Omeprazole 20 MG 06/17/2020 12:00:00 AM EDT active Omeprazo le 20 MG eCW1 ([facility]) Sucralfate 100 MG/ML Oral Suspension [Carafate] Carafa te 1 GM/10ML Carafate 1 GM/10ML 06/17/2020 12:00:00 AM EDT 10.0 {ml_on_an_empty_stomach} suspended Carafate 1 GM/10ML eCW1 ([facility]) Omeprazole 20 MG Delayed Release Oral Capsule Omeprazole 20 MG 06/17/2020 12:00:00 AM EDT active Omeprazo le 20 MG eCW1 ([facility]) Sucralfate 100 MG/ML Oral Suspension [Carafate] Carafa te 1 GM/10ML Carafate 1 GM/10ML 06/17/2020 12:00:00 AM EDT 10.0 {ml_on_an_empty_stomach} suspended Carafate 1 GM/10ML eCW1 ([facility]) Sucralfate 100 MG/ML Oral Suspension [Carafate] Carafa te 1 GM/10ML Carafate 1 GM/10ML 06/17/2020 12:00:00 AM EDT 10.0 {ml_on_an_empty_stomach} suspended Carafate 1 GM/10ML eCW1 ([facility]) Sucralfate 100 MG/ML Oral Suspension [Carafate] Carafa te 1 GM/10ML Carafate 1 GM/10ML 06/17/2020 12:00:00 AM EDT 10.0 {ml_on_an_empty_stomach} suspended Carafate 1 GM/10ML eCW1 ([facility]) Omeprazole 20 MG Delayed Release Oral Capsule Omeprazole 20 MG 06/17/2020 12:00:00 AM EDT active Omeprazo le 20 MG eCW1 ([facility]) Sucralfate 100 MG/ML Oral Suspension [Carafate] Carafa te 1 GM/10ML Carafate 1 GM/10ML 06/17/2020 12:00:00 AM EDT 10.0 {ml_on_an_empty_stomach} suspended Carafate 1 GM/10ML eCW1 ([facility]) Sucralfate 100 MG/ML Oral Suspension [Carafate] Carafa te 1 GM/10ML Carafate 1 GM/10ML 06/17/2020 12:00:00 AM EDT 10.0 {ml_on_an_empty_stomach} suspended Carafate 1 GM/10ML eCW1 ([facility]) Omeprazole 20 MG Delayed Release Oral Capsule Omeprazole 20 MG 06/17/2020 12:00:00 AM EDT active Omeprazo le 20 MG eCW1 ([facility]) Omeprazole 20 MG Delayed Release Oral Capsule Omeprazole 20 MG 06/17/2020 12:00:00 AM EDT active Omeprazo le 20 MG eCW1 ([facility]) Omeprazole 20 MG Delayed Release Oral Capsule Omeprazole 20 MG 06/17/2020 12:00:00 AM EDT active Omeprazo le 20 MG eCW1 ([facility]) Omeprazole 20 MG Delayed Release Oral Capsule Omeprazole 20 MG 06/17/2020 12:00:00 AM EDT active Omeprazo le 20 MG eCW1 ([facility]) Omeprazole 20 MG Delayed Release Oral Capsule Omeprazole 20 MG 06/17/2020 12:00:00 AM EDT active Omeprazo le 20 MG eCW1 ([facility]) Omeprazole 20 MG Delayed Release Oral Capsule Omeprazole 20 MG 06/17/2020 12:00:00 AM EDT active Omeprazo le 20 MG eCW1 ([facility]) Omeprazole 20 MG Delayed Release Oral Capsule Omeprazole 20 MG 06/17/2020 12:00:00 AM EDT active Omeprazo le 20 MG eCW1 ([facility]) Sucralfate 100 MG/ML Oral Suspension [Carafate] Carafa te 1 GM/10ML Carafate 1 GM/10ML 06/17/2020 12:00:00 AM EDT 10.0 {ml_on_an_empty_stomach} suspended Carafate 1 GM/10ML eCW1 ([facility]) Sucralfate 100 MG/ML Oral Suspension [Carafate] Carafa te 1 GM/10ML Carafate 1 GM/10ML 06/17/2020 12:00:00 AM EDT 10.0 {ml_on_an_empty_stomach} suspended Carafate 1 GM/10ML eCW1 ([facility]) Sucralfate 100 MG/ML Oral Suspension [Carafate] Carafa te 1 GM/10ML Carafate 1 GM/10ML 06/17/2020 12:00:00 AM EDT 10.0 {ml_on_an_empty_stomach} suspended Carafate 1 GM/10ML eCW1 ([facility]) Omeprazole 20 MG Delayed Release Oral Capsule Omeprazole 20 MG 06/17/2020 12:00:00 AM EDT active Omeprazo le 20 MG eCW1 ([facility]) Sucralfate 100 MG/ML Oral Suspension [Carafate] Carafa te 1 GM/10ML Carafate 1 GM/10ML 06/17/2020 12:00:00 AM EDT 10.0 {ml_on_an_empty_stomach} suspended Carafate 1 GM/10ML eCW1 ([facility]) Sucralfate 100 MG/ML Oral Suspension [Carafate] Carafa te 1 GM/10ML Carafate 1 GM/10ML 06/17/2020 12:00:00 AM EDT 10.0 {ml_on_an_empty_stomach} active Carafate 1 GM/10ML eCW1 ([facility]) Omeprazole 20 MG Delayed Release Oral Capsule Omeprazole 20 MG 06/17/2020 12:00:00 AM EDT active Omeprazo le 20 MG eCW1 ([facility]) Sucralfate 100 MG/ML Oral Suspension [Carafate] Carafa te 1 GM/10ML Carafate 1 GM/10ML 06/17/2020 12:00:00 AM EDT 10.0 {ml_on_an_empty_stomach} suspended Carafate 1 GM/10ML eCW1 ([facility]) Omeprazole 20 MG Delayed Release Oral Capsule Omeprazole 20 MG 06/17/2020 12:00:00 AM EDT active Omeprazo le 20 MG eCW1 ([facility]) Sucralfate 100 MG/ML Oral Suspension [Carafate] Carafa te 1 GM/10ML Carafate 1 GM/10ML 06/17/2020 12:00:00 AM EDT 10.0 {ml_on_an_empty_stomach} suspended Carafate 1 GM/10ML eCW1 ([facility]) Sucralfate 100 MG/ML Oral Suspension [Carafate] Carafa te 1 GM/10ML Carafate 1 GM/10ML 06/17/2020 12:00:00 AM EDT 10.0 {ml_on_an_empty_stomach} suspended Carafate 1 GM/10ML eCW1 ([facility]) Omeprazole 20 MG Delayed Release Oral Capsule Omeprazole 20 MG 06/17/2020 12:00:00 AM EDT active Omeprazo le 20 MG eCW1 ([facility]) Sucralfate 100 MG/ML Oral Suspension [Carafate] Carafa te 1 GM/10ML Carafate 1 GM/10ML 06/17/2020 12:00:00 AM EDT 10.0 {ml_on_an_empty_stomach} suspended Carafate 1 GM/10ML eCW1 ([facility]) Omeprazole 20 MG Delayed Release Oral Capsule Omeprazole 20 MG 06/17/2020 12:00:00 AM EDT active Omeprazo le 20 MG eCW1 ([facility]) Omeprazole 20 MG Delayed Release Oral Capsule Omeprazole 20 MG 06/17/2020 12:00:00 AM EDT active Omeprazo le 20 MG eCW1 ([facility]) Omeprazole 20 MG Delayed Release Oral Capsule Omeprazole 20 MG 06/17/2020 12:00:00 AM EDT active Omeprazo le 20 MG eCW1 ([facility]) Sucralfate 100 MG/ML Oral Suspension [Carafate] Carafa te 1 GM/10ML Carafate 1 GM/10ML 06/17/2020 12:00:00 AM EDT 10.0 {ml_on_an_empty_stomach} suspended Carafate 1 GM/10ML eCW1 ([facility]) Omeprazole 20 MG Delayed Release Oral Capsule Omeprazole 20 MG 06/17/2020 12:00:00 AM EDT active Omeprazo le 20 MG eCW1 ([facility]) Sucralfate 100 MG/ML Oral Suspension [Carafate] Carafa te 1 GM/10ML Carafate 1 GM/10ML 06/17/2020 12:00:00 AM EDT 10.0 {ml_on_an_empty_stomach} suspended Carafate 1 GM/10ML eCW1 ([facility]) Omeprazole 20 MG Delayed Release Oral Capsule Omeprazole 20 MG 06/17/2020 12:00:00 AM EDT active Omeprazo le 20 MG eCW1 ([facility]) Sucralfate 100 MG/ML Oral Suspension [Carafate] Carafa te 1 GM/10ML Carafate 1 GM/10ML 06/17/2020 12:00:00 AM EDT 10.0 {ml_on_an_empty_stomach} suspended Carafate 1 GM/10ML eCW1 ([facility]) Sucralfate 100 MG/ML Oral Suspension [Carafate] Carafa te 1 GM/10ML Carafate 1 GM/10ML 06/17/2020 12:00:00 AM EDT 10.0 {ml_on_an_empty_stomach} suspended Carafate 1 GM/10ML eCW1 ([facility]) Sucralfate 100 MG/ML Oral Suspension [Carafate] Carafa te 1 GM/10ML Carafate 1 GM/10ML 06/17/2020 12:00:00 AM EDT 10.0 {ml_on_an_empty_stomach} suspended Carafate 1 GM/10ML eCW1 ([facility]) Omeprazole 20 MG Delayed Release Oral Capsule Omeprazole 20 MG 06/17/2020 12:00:00 AM EDT active Omeprazo le 20 MG eCW1 ([facility]) Sucralfate 100 MG/ML Oral Suspension [Carafate] Carafa te 1 GM/10ML Carafate 1 GM/10ML 06/17/2020 12:00:00 AM EDT 10.0 {ml_on_an_empty_stomach} active Carafate 1 GM/10ML eCW1 ([facility]) Sucralfate 100 MG/ML Oral Suspension [Carafate] Carafa te 1 GM/10ML Carafate 1 GM/10ML 06/17/2020 12:00:00 AM EDT 10.0 {ml_on_an_empty_stomach} active Carafate 1 GM/10ML eCW1 ([facility]) Omeprazole 20 MG Delayed Release Oral Capsule Omeprazole 20 MG 06/17/2020 12:00:00 AM EDT active Omeprazo le 20 MG eCW1 ([facility]) Sucralfate 100 MG/ML Oral Suspension [Carafate] Carafa te 1 GM/10ML Carafate 1 GM/10ML 06/17/2020 12:00:00 AM EDT 10.0 {ml_on_an_empty_stomach} active Carafate 1 GM/10ML eCW1 ([facility]) Sucralfate 100 MG/ML Oral Suspension [Carafate] Carafa te 1 GM/10ML Carafate 1 GM/10ML 06/17/2020 12:00:00 AM EDT 10.0 {ml_on_an_empty_stomach} active Carafate 1 GM/10ML eCW1 ([facility]) Omeprazole 20 MG Delayed Release Oral Capsule Omeprazole 20 MG 06/17/2020 12:00:00 AM EDT active Omeprazo le 20 MG eCW1 ([facility]) Sucralfate 100 MG/ML Oral Suspension [Carafate] Carafa te 1 GM/10ML Carafate 1 GM/10ML 06/17/2020 12:00:00 AM EDT 10.0 {ml_on_an_empty_stomach} active Carafate 1 GM/10ML eCW1 ([facility]) Sucralfate 100 MG/ML Oral Suspension [Carafate] Carafa te 1 GM/10ML Carafate 1 GM/10ML 06/17/2020 12:00:00 AM EDT 10.0 {ml_on_an_empty_stomach} suspended Carafate 1 GM/10ML eCW1 ([facility]) Sucralfate 100 MG/ML Oral Suspension [Carafate] Carafa te 1 GM/10ML Carafate 1 GM/10ML 06/17/2020 12:00:00 AM EDT 10.0 {ml_on_an_empty_stomach} suspended Carafate 1 GM/10ML eCW1 ([facility]) Omeprazole 20 MG Delayed Release Oral Capsule Omeprazole 20 MG 06/17/2020 12:00:00 AM EDT active Omeprazo le 20 MG eCW1 ([facility]) Sucralfate 100 MG/ML Oral Suspension [Carafate] Carafa te 1 GM/10ML Carafate 1 GM/10ML 06/17/2020 12:00:00 AM EDT 10.0 {ml_on_an_empty_stomach} active Carafate 1 GM/10ML eCW1 ([facility]) Omeprazole 20 MG Delayed Release Oral Capsule Omeprazole 20 MG 06/17/2020 12:00:00 AM EDT active Omeprazo le 20 MG eCW1 ([facility]) Sucralfate 100 MG/ML Oral Suspension [Carafate] Carafa te 1 GM/10ML Carafate 1 GM/10ML 06/17/2020 12:00:00 AM EDT 10.0 {ml_on_an_empty_stomach} active Carafate 1 GM/10ML eCW1 ([facility]) Sucralfate 100 MG/ML Oral Suspension [Carafate] Carafa te 1 GM/10ML Carafate 1 GM/10ML 06/17/2020 12:00:00 AM EDT 10.0 {ml_on_an_empty_stomach} suspended Carafate 1 GM/10ML eCW1 ([facility]) Omeprazole 20 MG Delayed Release Oral Capsule Omeprazole 20 MG 06/17/2020 12:00:00 AM EDT active Omeprazo le 20 MG eCW1 ([facility]) Omeprazole 20 MG Delayed Release Oral Capsule Omeprazole 20 MG 06/17/2020 12:00:00 AM EDT active Omeprazo le 20 MG eCW1 ([facility]) Omeprazole 20 MG Delayed Release Oral Capsule Omeprazole 20 MG 06/17/2020 12:00:00 AM EDT active Omeprazo le 20 MG eCW1 ([facility]) Omeprazole 20 MG Delayed Release Oral Capsule Omeprazole 20 MG 06/17/2020 12:00:00 AM EDT active Omeprazo le 20 MG eCW1 ([facility]) Omeprazole 20 MG Delayed Release Oral Capsule Omeprazole 20 MG 06/17/2020 12:00:00 AM EDT active Omeprazo le 20 MG eCW1 ([facility]) Omeprazole 20 MG Delayed Release Oral Capsule Omeprazole 20 MG 06/17/2020 12:00:00 AM EDT active Omeprazo le 20 MG eCW1 ([facility]) 90 mcg/actuation 04/21/2020 12:00:00 AM EST HFA aerosol inha ler 18 INHALE 1 TO 2 PUFFS BY MOUTH EVERY 4 HOURS NEEDED FOR WHEEZING INHALE 1 TO 2 PUFFS BY MOUTH EVERY 4 HOURS NEEDED FOR WHEEZING SOLD: 04/21/2020 [facility] 250 mg 04/21/2020 12:00:00 AM EST [...] EST suspended traMADol HCl 50 MG eCW1 ([facility]) tramadol hydrochloride 50 MG Oral Tablet traMADol HCl 50 MG traMADol HCl 50 MG 02/05/2020 12:00:00 AM EST suspended traMADol HCl 50 MG eCW1 ([facility]) tramadol hydrochloride 50 MG Oral Tablet Tramadol HCl 50 MG Tramadol HCl 50 MG 02/05/2020 12:00:00 AM EST active Tramadol HCl 50 MG eCW1 ([facility]) tramadol hydrochloride 50 MG Oral Tablet Tramadol HCl 50 MG Tramadol HCl 50 MG 02/05/2020 12:00:00 AM EST active Tramadol HCl 50 MG eCW1 ([facility]) tramadol hydrochloride 50 MG Oral Tablet traMADol HCl 50 MG traMADol HCl 50 MG 02/05/2020 12:00:00 AM EST suspended traMADol HCl 50 MG eCW1 ([facility]) tramadol hydrochloride 50 MG Oral Tablet traMADol HCl 50 MG traMADol HCl 50 MG 02/05/2020 12:00:00 AM EST suspended traMADol HCl 50 MG eCW1 ([facility]) tramadol hydrochloride 50 MG Oral Tablet traMADol HCl 50 MG traMADol HCl 50 MG 02/05/2020 12:00:00 AM EST suspended traMADol HCl 50 MG eCW1 ([facility]) tramadol hydrochloride 50 MG Oral Tablet traMADol HCl 50 MG traMADol HCl 50 MG 02/05/2020 12:00:00 AM EST suspended traMADol HCl 50 MG eCW1 ([facility]) tramadol hydrochloride 50 MG Oral Tablet traMADol HCl 50 MG traMADol HCl 50 MG 02/05/2020 12:00:00 AM EST suspended traMADol HCl 50 MG eCW1 ([facility]) tramadol hydrochloride 50 MG Oral Tablet Tramadol HCl 50 MG Tramadol HCl 50 MG 02/05/2020 12:00:00 AM EST active Tramadol HCl 50 MG eCW1 ([facility]) tramadol hydrochloride 50 MG Oral Tablet traMADol HCl 50 MG traMADol HCl 50 MG 02/05/2020 12:00:00 AM EST suspended traMADol HCl 50 MG eCW1 ([facility]) tramadol hydrochloride 50 MG Oral Tablet Tramadol HCl 50 MG Tramadol HCl 50 MG 02/05/2020 12:00:00 AM EST suspended Tramadol HCl 50 MG eCW1 ([facility]) tramadol hydrochloride 50 MG Oral Tablet Tramadol HCl 50 MG Tramadol HCl 50 MG 02/05/2020 12:00:00 AM EST active Tramadol HCl 50 MG eCW1 ([facility]) tramadol hydrochloride 50 MG Oral Tablet Tramadol HCl 50 MG Tramadol HCl 50 MG 02/05/2020 12:00:00 AM EST suspended Tramadol HCl 50 MG eCW1 ([facility]) tramadol hydrochloride 50 MG Oral Tablet Tramadol HCl 50 MG Tramadol HCl 50 MG 02/05/2020 12:00:00 AM EST suspended Tramadol HCl 50 MG eCW1 ([facility]) tramadol hydrochloride 50 MG Oral Tablet traMADol HCl 50 MG traMADol HCl 50 MG 02/05/2020 12:00:00 AM EST suspended traMADol HCl 50 MG eCW1 ([facility]) tramadol hydrochloride 50 MG Oral Tablet traMADol HCl 50 MG traMADol HCl 50 MG 02/05/2020 12:00:00 AM EST suspended traMADol HCl 50 MG eCW1 ([facility]) tramadol hydrochloride 50 MG Oral Tablet traMADol HCl 50 MG traMADol HCl 50 MG 02/05/2020 12:00:00 AM EST suspended traMADol HCl 50 MG eCW1 ([facility]) tramadol hydrochloride 50 MG Oral Tablet Tramadol HCl 50 MG Tramadol HCl 50 MG 02/05/2020 12:00:00 AM EST suspended Tramadol HCl 50 MG eCW1 ([facility]) tramadol hydrochloride 50 MG Oral Tablet Tramadol HCl 50 MG Tramadol HCl 50 MG 02/05/2020 12:00:00 AM EST suspended Tramadol HCl 50 MG eCW1 ([facility]) tramadol hydrochloride 50 MG Oral Tablet traMADol HCl 50 MG traMADol HCl 50 MG 02/05/2020 12:00:00 AM EST suspended traMADol HCl 50 MG eCW1 ([facility]) tramadol hydrochloride 50 MG Oral Tablet Tramadol HCl 50 MG Tramadol HCl 50 MG 02/05/2020 12:00:00 AM EST active Tramadol HCl 50 MG eCW1 ([facility]) tramadol hydrochloride 50 MG Oral Tablet Tramadol HCl 50 MG Tramadol HCl 50 MG 02/05/2020 12:00:00 AM EST active Tramadol HCl 50 MG eCW1 ([facility]) tramadol hydrochloride 50 MG Oral Tablet traMADol HCl 50 MG traMADol HCl 50 MG 02/05/2020 12:00:00 AM EST suspended traMADol HCl 50 MG eCW1 ([facility]) tramadol hydrochloride 50 MG Oral Tablet Tramadol HCl 50 MG Tramadol HCl 50 MG 02/05/2020 12:00:00 AM EST suspended Tramadol HCl 50 MG eCW1 ([facility]) tramadol hydrochloride 50 MG Oral Tablet Tramadol HCl 50 MG Tramadol HCl 50 MG 02/05/2020 12:00:00 AM EST suspended Tramadol HCl 50 MG eCW1 ([facility]) tramadol hydrochloride 50 MG Oral Tablet traMADol HCl 50 MG traMADol HCl 50 MG 02/05/2020 12:00:00 AM EST suspended traMADol HCl 50 MG eCW1 ([facility]) tramadol hydrochloride 50 MG Oral Tablet Tramadol HCl 50 MG Tramadol HCl 50 MG 02/05/2020 12:00:00 AM EST suspended Tramadol HCl 50 MG eCW1 ([facility]) tramadol hydrochloride 50 MG Oral Tablet traMADol HCl 50 MG traMADol HCl 50 MG 02/05/2020 12:00:00 AM EST suspended traMADol HCl 50 MG eCW1 ([facility]) tramadol hydrochloride 50 MG Oral Tablet traMADol HCl 50 MG traMADol HCl 50 MG 02/05/2020 12:00:00 AM EST suspended traMADol HCl 50 MG eCW1 ([facility]) tramadol hydrochloride 50 MG Oral Tablet Tramadol HCl 50 MG Tramadol HCl 50 MG 02/05/2020 12:00:00 AM EST active Tramadol HCl 50 MG eCW1 ([facility]) tramadol hydrochloride 50 MG Oral Tablet traMADol HCl 50 MG traMADol HCl 50 MG 02/05/2020 12:00:00 AM EST suspended traMADol HCl 50 MG eCW1 ([facility]) tramadol hydrochloride 50 MG Oral Tablet traMADol HCl 50 MG traMADol HCl 50 MG 02/05/2020 12:00:00 AM EST suspended traMADol HCl 50 MG eCW1 ([facility]) tramadol hydrochloride 50 MG Oral Tablet traMADol HCl 50 MG traMADol HCl 50 MG 02/05/2020 12:00:00 AM EST suspended traMADol HCl 50 MG eCW1 ([facility]) tramadol hydrochloride 50 MG Oral Tablet traMADol HCl 50 MG traMADol HCl 50 MG 02/05/2020 12:00:00 AM EST suspended traMADol HCl 50 MG eCW1 ([facility]) tramadol hydrochloride 50 MG Oral Tablet traMADol HCl 50 MG traMADol HCl 50 MG 02/05/2020 12:00:00 AM EST suspended traMADol HCl 50 MG eCW1 ([facility]) tramadol hydrochloride 50 MG Oral Tablet traMADol HCl 50 MG traMADol HCl 50 MG 02/05/2020 12:00:00 AM EST suspended traMADol HCl 50 MG eCW1 ([facility]) tramadol hydrochloride 50 MG Oral Tablet Tramadol HCl 50 MG Tramadol HCl 50 MG 02/05/2020 12:00:00 AM EST suspended Tramadol HCl 50 MG eCW1 ([facility]) tramadol hydrochloride 50 MG Oral Tablet traMADol HCl 50 MG traMADol HCl 50 MG 02/05/2020 12:00:00 AM EST suspended traMADol HCl 50 MG eCW1 ([facility]) duloxetine 30 MG Delayed Release Oral Capsule [Cymbalta] Cym jose 01/28/2020 12:00:00 AM EST 30 mg by mouth completed <td ID="MedicationRxNorm_2">[id number]</td><td ID="MedicationMedication_2">Cymbalta</td><td ID="MedicationRoute_2">by mouth</td><td ID="MedicationRouteConcept_2">X85080</td><td ID="MedicationStartDate_2">01/28/2020</td><td ID="MedicationStopDate_2">02/27/2020</td><td ID="MedicationDosageFrequency_2">every morning</td><td ID="MedicationDuration_2">30</td><td ID="MedicationFormulaStrength_2">30 mg</td><td ID="MedicationDosageForm_2">capsule,delayed release(DR/EC)</td><td ID="MedicationDosageFormCode_2"></td><td ID="MedicationDosageDescription_2"></td><td ID="MedicationMedicationId_2">[id number]</td><td ID="MedicationAccount_2">[id number]</td><td ID="MedicationNpid_2">[id number]</td><td ID="MedicationAuthorFirstName_2">Mary Kate</td><td ID="MedicationAuthorLastName_2">Calvin</td><td ID="MedicationTaxonomyCode_2">[id number]</td><td ID="MedicationTaxonomyDesc_2"> Nurse Practitioner</td><td ID="MedicationPhoneNumber_2">[phone]</td> [facility] Lurasidone Hydrochloride 20 MG Oral Tablet [Latuda] Latuda 01/28/2020 12:00:00 AM EST 20 mg by mouth completed <td ID="MedicationRxNorm_1">[id number]</td><td ID="MedicationMedication_1">Latuda</td><td ID="MedicationRoute_1">by mouth</td><td ID="MedicationRouteConcept_1">J15797</td><td ID="MedicationStartDate_1">01/28/2020</td><td ID="MedicationStopDate_1"></td><td ID="MedicationDosageFrequency_1">every evening</td><td ID="MedicationDuration_1">30</td><td ID="MedicationFormulaStrength_1">20 mg</td><td ID="MedicationDosageForm_1">tablet</td><td ID="MedicationDosageFormCode_1"></td><td ID="MedicationDosageDescription_1">with meals</td><td ID="MedicationMedicationId_1">[id number]</td><td ID="MedicationAccount_1">[id number]</td><td ID="MedicationNpid_1">[id number]</td><td ID="MedicationAuthorFirstName_1">Mary Kate</td><td ID="MedicationAuthorLastName_1">Calvin</td><td ID="MedicationTaxonomyCode_1">[id number]</td><td ID="MedicationTaxonomyDesc_1">Nurse Practitioner</td><td ID="MedicationPhoneNumber_1">[phone]</td> [facility] ([facility]) duloxetine 30 MG Delayed Release Oral Capsule [Cymbalta] Cym jose 01/28/2020 12:00:00 AM EST 30 mg by mouth completed <td ID="MedicationRxNorm_3">[id number]</td><td ID="MedicationMedication_3">Cymbalta</td><td ID="MedicationRoute_3">by mouth</td><td ID="MedicationRouteConcept_3">G84549</td><td ID="MedicationStartDate_3">01/28/2020</td><td ID="MedicationStopDate_3">02/27/2020</td><td ID="MedicationDosageFrequency_3">every morning</td><td ID="MedicationDuration_3">30</td><td ID="MedicationFormulaStrength_3">30 mg</td><td ID="MedicationDosageForm_3">capsule,delayed release(DR/EC)</td><td ID="MedicationDosageFormCode_3"></td><td ID="MedicationDosageDescription_3"></td><td ID="MedicationMedicationId_3">[id number]</td><td ID="MedicationAccount_3">[id number]</td><td ID="MedicationNpid_3">[id number]</td><td ID="MedicationAuthorFirstName_3">Mary Kate</td><td ID="MedicationAuthorLastName_3">Calvin</td><td ID="MedicationTaxonomyCode_3">[id number]</td><td ID="MedicationTaxonomyDesc_3"> Nurse Practitioner</td><td ID="MedicationPhoneNumber_3">[phone]</td> [facility]) duloxetine 20 MG Delayed Release Oral Capsule [Cymbalta] Cym jose 12/31/2019 12:00:00 AM EDT 20 mg by mouth completed <td ID="MedicationRxNorm_1">[id number]</td><td ID="MedicationMedication_1">Cymbalta</td><td ID="MedicationRoute_1">by mouth</td><td ID="MedicationRouteConcept_1">I96525</td><td ID="MedicationStartDate_1">12/31/2019</td><td ID="MedicationStopDate_1"></td><td ID="MedicationDosageFrequency_1">every morning</td><td ID="MedicationDuration_1">30</td><td ID="MedicationFormulaStrength_1">20 mg</td><td ID="MedicationDosageForm_1">capsule,delayed release(DR/EC)</td><td ID="MedicationDosageFormCode_1"></td><td ID="MedicationDosageDescription_1"></td><td ID="MedicationMedicationId_1">[id number]</td><td ID="MedicationAccount_1">[id number]</td><td ID="MedicationNpid_1">[id number]</td><td ID="MedicationAuthorFirstName_1">Mary Kate</td><td ID="MedicationAuthorLastName_1">Calvin</td><td ID="MedicationTaxonomyCode_1">[id number]</td><td ID="MedicationTaxonomyDesc_1"> Nurse Practitioner</td><td ID="MedicationPhoneNumber_1">[phone]</td> [facility] ([facility]) Fluoxetine 20 MG Oral Capsule [Prozac] Prozac 09/18/2019 12:0 0:00 AM EDT 20 mg by mouth completed <td ID="Me dicationRxNorm_7">851589</td><td ID="MedicationMedication_7">Prozac</td><td ID="MedicationRoute_7">by mouth</td><td ID="MedicationRouteConcept_7">Z57909</td><td ID="MedicationStartDate_7">09/18/2019</td><td ID="MedicationStopDate_7">12/17/2019</td><td ID="MedicationDosageFrequency_7">every morning</td><td ID="MedicationDuration_7">90</td><td ID="MedicationFormulaStrength_7">20 mg</td><td ID="MedicationDosageForm_7">capsule</td><td ID="MedicationDosageFormCode_7"></td><td ID="MedicationDosageDescription_7"> </td><td ID="MedicationMedicationId_7">[id number]</td><td ID="MedicationAccount_7">[id number]</td><td ID="MedicationNpid_7">[id number]</td><td ID="MedicationAuthorFirstName_7">Mary Kate</td><td ID="MedicationAuthorLastName_7">Calvin</td><td ID="MedicationTaxonomyCode_7">[id number]</td><td ID="MedicationTaxonomyDesc_7">Nurse Practitioner</td><td ID="MedicationPhoneNumber_7">[phone]</td> [facility]) Fluoxetine 20 MG Oral Capsule [Prozac] Prozac 09/18/2019 12:0 0:00 AM EDT 20 mg by mouth completed <td ID="Me dicationRxNorm_1">[id number]</td><td ID="MedicationMedication_1">Prozac</td><td ID="MedicationRoute_1">by mouth</td><td ID="MedicationRouteConcept_1">V04174</td><td ID="MedicationStartDate_1">09/18/2019</td><td ID="MedicationStopDate_1">01/20/2020</td><td ID="MedicationDosageFrequency_1">every morning</td><td ID="MedicationDuration_1">90</td><td ID="MedicationFormulaStrength_1">20 mg</td><td ID="MedicationDosageForm_1">capsule</td><td ID="MedicationDosageFormCode_1"></td><td ID="MedicationDosageDescription_1"> </td><td ID="MedicationMedicationId_1">[id number]</td><td ID="MedicationAccount_1">[id number]</td><td ID="MedicationNpid_1">[id number]</td><td ID="MedicationAuthorFirstName_1">Mary Kate</td><td ID="MedicationAuthorLastName_1">Calvin</td><td ID="MedicationTaxonomyCode_1">[id number]</td><td ID="MedicationTaxonomyDesc_1">Nurse Practitioner</td><td ID="MedicationPhoneNumber_1">[phone]</td> [facility] ([facility]) Insurance Providers Payer name Policy type / Coverage type Policy ID Covered constitution party ID Covered constitution party's relationship to ruth Policy Ruth Plan Information [facility] [id number] SP [id number] [place] Medicaid/CHP/FHP Commercial [id number] Self [facility] [id number] SELF [id number] MEDICAID [id number] Self [id number] RODY [id number] SP [id number] RODY [id number] SP [id number] [place] 305/805 [id number] SP [id number] [place] PPO 302/307 [id number] SP [id number] [employer] Blue [employer] - [place] Blue Cross/B lue Shield [id number] Self [id number] MEDICAID [id number] Tanja [id number] [employer] [id number] Self [id number] [facility] [id number] SP [id number] ANSI-Commercial [id number] [facility] Health Maintenance Organization (HMO) [id number] 22 [id number] Self [id number] [facility] Maintenance Organization (HMO) [id number] 22 [id number] Self [id number] ANSI-Not a Secondary Insurance [id number] ANSI-Commercial [id number] ANSI-Commercial [id number] ANSI-Not a Secondary Insurance [id number] ANSI-Not a Secondary Insurance [id number] ANSI-Commercial [id number] ANSI-Not a Secondary Insurance [id number] ANSI-Commercial [id number] [facility] Health Maintenance [facility] ([facility] [id number] 22 [id number] Self [id number] [facility] Maintenance [facility] ([facility] [id number] Self [id number] [place] 306/806 [id number] SP [id number] ANSI-Not a Secondary Insurance [id number] ANSI-Commercial [id number] ANSI-Not a Secondary Insurance [id number] ANSI-Commercial [id number] ANSI-Commercial [id number] [employer] BC[employer] B [id number] S [id number] ANSI-Commercial [id number] BCBS OF [place] [facility] 306/806 [id number] SP [id number] ANSI-Commercial [id number] ANSI-Commercial [id number] ANSI-Commercial [id number] [facility] [id number] [facility] Commercial [id number] Self Y [id number] [facility] Commercial [id number] Self Y [id number] [facility] B [id number] S [id number] RODY [id number] SP [id number] 100 [place] [id number] S [id number] [facility] [id number] SP [id number] [facility] [id number] SP [id number] [facility] [id number] SP [id number] SELF PAY UNAVAILABLE SP UNAVAILA BLE [facility] UNAVAILABLE SP UNAVAILABLE [facility] O [id number] S [id number] [facility](M[facility]) O [id number] S [id number] RODY [id number] SP [id number] [place] [id number] SP [id number] [place] [id number] S [id number] SELF PAY ONLY [id number] SP [id number] MEDICAID [id number] SP [id number] [facility] [id number] SP [id number] [place] 306/806 [id number] SP [id number] BCBS [place] PPO 302/307 [id number] SP [id number] BCBS [place] PPO 302/307 [id number] SP [id number] [facility] BC[facility] B [id number] S [id number] ANSI-Not a Secondary Insurance [id number] Problems, Conditions, and Diagnoses Code Display Name Description Problem Type Effective Dates Data Source(s) R94.31 Abnormal electrocardiogram [ECG] [EKG] A bnormal electrocardiogram (ECG) (EKG) Diagnosis 12/18/2019 01:20:32 PM EDT [facility] I45.6 Pre-excitation syndrome Pre-excitation syndrome Diagno sis 12/18/2019 01:20:32 PM EDT [facility] R07.2 Precordial pain Precordial pain Diagnosis 12/18/2019 01:2 0:32 PM EDT [facility] J45.998 [id number] Uncontrolled persistent asthma Problem 08/26/2020 12:00:00 AM EDT eCW1 ([facility]) F43.10 [id number] Post-traumatic stress disorder, unspecifi ed Problem 07/12/2020 12:00:00 AM EDT eCW1 ([facility]) F12.90 [id number] Marijuana use Problem 06/17/2020 12:00:00 AM EDT eCW1 ([facility]) F60.3 Borderline personality disorder Borderline Personality Disorder Condition 03/08/2020 12:00:00 AM EST [facility] ([facility]) F12.20 Cannabis dependence, uncomplicated Cannabis Use Disorder, Moderate Condition 03/08/2020 12:00:00 AM EST [facility] ([facility]) F43.12 Post-traumatic stress disorder, chronic Post-traumatic stress disorder, chronic Condition 03/08/2020 12:00:00 AM EST [facility] ([facility]) F33.1 Major depressive disorder, recurrent, mo derate Major Depressive Disorder, Recurrent episode, Moderate Condition 03/08/2020 12:00:00 AM EST [facility] ([facility]) M54.41 [id number] Acute bilateral low back pain wi th right-sided sciatica Problem 02/05/2020 12:00:00 AM EST eCW1 ([facility]) M19.041 [id number] Primary osteoarthritis, right hand Pro blem 12/30/2019 12:00:00 AM EDT eCW1 ([facility]) M19.042 [id number] Primary osteoarthritis, left hand Prob robel 12/30/2019 12:00:00 AM EDT eCW1 ([facility]) M19.90 [id number] Arthritis Problem 12/30/2019 12:00:00 AM ED T eCW1 ([facility]) Surgeries/Procedures Procedure Description Date Indications Data Source(s) OFFICE OUTPATIENT VISIT 15 MINUTES 03/08 12:00:00 AM EST - 03/08/2020 12:00:00 AM EST [facility] ([facility]) OFFICE OUTPATIENT VISIT 15 MINUTES 03/08/2020 12:00:00 AM EST [facility] ([facility]) Extended Individual Psychotherapy - 45 min 02/20/2020 12:00:00 AM EST - 02/20/2020 12:00:00 AM EST [facility] ([facility]) Extended Individual Psychotherapy - 45 min 0 12:00:00 AM EST [facility] ([facility]) INJECTION 1 TENDON SHEATH/LIGAMENT APONEUROSIS 020 12:00:00 AM EST [facility] ([facility]) RADEX HAND MINIMUM 3 VIEWS 01/30/2020 12:00:00 AM EST [facility] ([facility]) RADEX HAND MINIMUM 3 VIEWS 01/30/2020 12:00:00 AM EST [facility] ([facility]) OFFICE OUTPATIENT VISIT 15 MINUTES 01/27 12:00:00 AM EST - 01/28/2020 12:00:00 AM EST [facility] ([facility]) OFFICE OUTPATIENT VISIT 15 MINUTES 01/28/2020 12:00:00 AM EST [facility] ([facility]) Extended Individual Psychotherapy - 45 min 2020 12:00:00 AM EST - 2020 12:00:00 AM EST [facility] ([facility]) Extended Individual Psychotherapy - 45 min 0 12:00:00 AM EST [facility] ([facility]) OFFICE OUTPATIENT VISIT 15 MINUTES 12/30 12:00:00 AM EDT - 12/31/2019 12:00:00 AM EDT [facility] ([facility]) OFFICE OUTPATIENT VISIT 15 MINUTES 12/31/2019 12:00:00 AM EDT [facility] ([facility]) Results ID Date Data Source [id number] 08/31/2020 12:00:00 AM EDT [place] Name Value Range Interpretation Code Description Data Yaquelin rce(s) Supporting Document(s) SARS-CoV2 Rapid Antigen Negative [place] This lab was ordered by [facility] and reported by [facility]. ID Date Data Source PLATELET ESTIMATE 06/18/2020 12:00:00 AM EDT eCW1 ([facility]) Name Value Range Interpretation Code Description Data Yaquelin rce(s) Supporting Document(s) NORMAL NORMAL PLATELET ESTIMATE eCW1 ([facility]) ID Date Data Source DIFFERENTIAL 06/18/2020 12:00:00 AM EDT eCW1 ([facility]) Name Value Range Interpretation Code Description Data Yaquelin rce(s) Supporting Document(s) 59 28-66 NEUTROPHILS eCW1 ([facility]) 20 16-44 LYMPHOCYTES eCW1 ([facility]) 16 0-5 ATYPICAL LYMPH eCW1 ([facility]) 5 0-5 MONOCYTES eCW1 ([facility]) ID Date Data Source LIPASE 06/18/2020 12:00:00 AM EDT eCW1 ([facility]) Name Value Range Interpretation Code Description Data Yaquelin rce(s) Supporting Document(s) 217 73-393 LIPASE eCW1 ([facility]) ID Date Data Source Comprehensive Metabolic Profile (CMP) 06/18/2020 12:00:00 AM EDT eCW1 ([facility]) Name Value Range Interpretation Code Description Data Yaquelin rce(s) Supporting Document(s) 120 70-100 GLUCOSE, FASTING eCW1 ([facility]) 0.75 0.70-1.30 CREATININE FOR GFR eCW1 ([facility]) 10 7-18 BLOOD UREA NITROGEN eCW1 ([facility]) 138 136-145 SODIUM LEVEL eCW1 ([facility]) 3.9 3.5-5.1 POTASSIUM SERUM eCW1 ([facility]) > 60.0 >60 GLOMERULAR FILTRATION RATE eCW 1 ([facility]) 9.1 8.5-10.1 CALCIUM LEVEL eCW1 ([facility]) 24 21-32 CARBON DIOXIDE LEVEL eCW1 ([facility]) 108 98-107 CHLORIDE LEVEL eCW1 ([facility]) 31 12-78 ALT/SGPT eCW1 ([facility]) 13 7-37 AST/SGOT eCW1 ([facility]) 110 45-117 ALKALINE PHOSPHATASE eCW1 ([facility]) 6.9 6.4-8.2 TOTAL PROTEIN eCW1 ([facility]) 0.4 0.2-1.0 BILIRUBIN,TOTAL eCW1 ([facility]) 1.2 ALBUMIN/GLOBULIN RATIO eCW1 ([facility]) 3.7 3.2-5.2 ALBUMIN eCW1 ([facility]) ID Date Data Source CBC with Differential 06/18/2020 12:00:00 AM EDT eCW1 ([facility]) Name Value Range Interpretation Code Description Data Yaquelin rce(s) Supporting Document(s) 56.5 36.0-66.0 NEUTROPHILS % eCW1 ([facility]) 6.0 0.0-5.0 MONO % eCW1 ([facility]) 34.6 24.0-44.0 LYMPH % eCW1 ([facility]) 1.8 0.0-3.0 EOS % eCW1 ([facility]) 4.9 1.5-8.5 NEUTROPHILS # eCW1 ([facility]) 0.8 0.0-1.0 BASO % eCW1 ([facility]) 3.0 1.5-5.0 LYMPH # eCW1 ([facility]) 0.2 0.0-0.5 EOS # eCW1 ([facility]) 0.1 0.0-0.2 BASO # eCW1 ([facility]) 0.5 0.0-0.8 MONO # eCW1 ([facility]) 11.3 4.0-10.0 WHITE BLOOD COUNT eCW1 ([facility]) 5.27 4.30-6.10 RED BLOOD COUNT eCW1 ([facility]) 16.4 13.5-17.5 HEMOGLOBIN eCW1 ([facility]) 49.3 42.0-52.0 HEMATOCRIT eCW1 ([facility]) 33.3 32.0-36.5 MEAN CORPUSCULAR HGB CONC eCW1 ([facility]) 31.1 27.0-33.0 MEAN CORPUSCULAR HEMOGLOB IN eCW1 ([facility]) 93.5 80.0-96.0 MEAN CORPUSCULAR VOLUME e CW1 ([facility]) 315 150-450 PLATELET COUNT, AUTOMATED eCW1 ([facility]) 13.9 11.5-14.5 RED CELL DISTRIBUTION WID TH eCW1 ([facility]) ID Date Data Source AMYLASE 06/18/2020 12:00:00 AM EDT eCW1 ([facility]) Name Value Range Interpretation Code Description Data Yaquelin rce(s) Supporting Document(s) 53 25-115 AMYLASE eCW1 ([facility]) ID Date Data Source [id number] 04/21/2020 12:00:00 AM EST [facility] Name Value Range Interpretation Code Description Data Yaquelin rce(s) Supporting Document(s) SARS coronavirus 2 RNA [Presence] in Res piratory specimen by JONAH with probe detection NEGATIVE [facility] This lab was ordered by Sheila Pryor and reported by [employer]. ID Date Data Source [id number] 04/21/2020 12:00:00 AM EST [facility] Name Value Range Interpretation Code Description Data Yaquelin rce(s) Supporting Document(s) Carestart Rapid COVID Antigen Test Negative [place] This lab was reported by Sheila epstein. Procedure Social History Code Duration Value Status Description Data Source(s ) Smoking 09/16/2020 12:00:00 AM EDT Current Smoker completed Curre nt Smoker eCW1 ([facility]) Smoking 09/16/2020 12:00:00 AM EDT Current Smoker completed Curre nt Smoker eCW1 ([facility]) Smoking 09/16/2020 12:00:00 AM EDT Current Smoker completed Curre nt Smoker eCW1 ([facility]) Smoking 09/16/2020 12:00:00 AM EDT Current Smoker completed Curre nt Smoker eCW1 ([facility]) Smoking 09/16/2020 12:00:00 AM EDT Current Smoker completed Curre nt Smoker eCW1 ([facility]) Smoking 09/16/2020 12:00:00 AM EDT Current Smoker completed Curre nt Smoker eCW1 ([facility]) Smoking 09/16/2020 12:00:00 AM EDT Current Smoker completed Curre nt Smoker eCW1 ([facility]) Smoking 09/16/2020 12:00:00 AM EDT Current Smoker completed Curre nt Smoker eCW1 ([facility]) Smoking 09/16/2020 12:00:00 AM EDT Current Smoker completed Curre nt Smoker eCW1 ([facility]) Smoking 09/16/2020 12:00:00 AM EDT Current Smoker completed Curre nt Smoker eCW1 ([facility]) Smoking 09/16/2020 12:00:00 AM EDT Current Smoker completed Curre nt Smoker eCW1 ([facility]) Smoking 09/16/2020 12:00:00 AM EDT Current Smoker completed Curre nt Smoker eCW1 ([facility]) Smoking 09/16/2020 12:00:00 AM EDT Current Smoker completed Curre nt Smoker eCW1 ([facility]) Smoking 09/16/2020 12:00:00 AM EDT Current Smoker completed Curre nt Smoker eCW1 ([facility]) Smoking 09/16/2020 12:00:00 AM EDT Current Smoker completed Curre nt Smoker eCW1 ([facility]) Smoking 09/16/2020 12:00:00 AM EDT Current Smoker completed Curre nt Smoker eCW1 ([facility]) Smoking 09/16/2020 12:00:00 AM EDT Current Smoker completed Curre nt Smoker eCW1 ([facility]) Smoking 09/16/2020 12:00:00 AM EDT Current Smoker completed Curre nt Smoker eCW1 ([facility]) Smoking 09/16/2020 12:00:00 AM EDT Current Smoker completed Curre nt Smoker eCW1 ([facility]) Smoking 09/16/2020 12:00:00 AM EDT Current Smoker completed Curre nt Smoker eCW1 ([facility]) Smoking 08/26/2020 12:00:00 AM EDT Current Smoker completed Curre nt Smoker eCW1 ([facility]) Smoking 08/26/2020 12:00:00 AM EDT Current Smoker completed Curre nt Smoker eCW1 ([facility]) Smoking 08/26/2020 12:00:00 AM EDT Current Smoker completed Curre nt Smoker eCW1 ([facility]) Smoking 06/17/2020 12:00:00 AM EDT Current Smoker completed Curre nt Smoker eCW1 ([facility]) Smoking 06/17/2020 12:00:00 AM EDT Current Smoker completed Curre nt Smoker eCW1 ([facility]) Smoking 06/17/2020 12:00:00 AM EDT Current Smoker completed Curre nt Smoker eCW1 ([facility]) Smoking 06/17/2020 12:00:00 AM EDT Current Smoker completed Curre nt Smoker eCW1 ([facility]) Smoking 06/17/2020 12:00:00 AM EDT Current Smoker completed Curre nt Smoker eCW1 ([facility]) Smoking 06/17/2020 12:00:00 AM EDT Current Smoker completed Curre nt Smoker eCW1 ([facility]) Smoking 06/17/2020 12:00:00 AM EDT Current Smoker completed Curre nt Smoker eCW1 ([facility]) Smoking 06/17/2020 12:00:00 AM EDT Current Smoker completed Curre nt Smoker eCW1 ([facility]) Smoking 06/17/2020 12:00:00 AM EDT Current Smoker completed Curre nt Smoker eCW1 ([facility]) Smoking 03/08/2020 12:00:00 AM EST Unknown if ever smoked comp leted Unknown if ever smoked [facility] ([facility]) Smoking 02/20/2020 12:00:00 AM EST Unknown if ever smoked comp leted Unknown if ever smoked [facility] ([facility]) Smoking 02/05/2020 12:00:00 AM EST Current Smoker completed Curre nt Smoker eCW1 ([facility]) Smoking 02/05/2020 12:00:00 AM EST Current Smoker completed Curre nt Smoker eCW1 ([facility]) Smoking 02/05/2020 12:00:00 AM EST Current Smoker completed Curre nt Smoker eCW1 ([facility]) Smoking 02/05/2020 12:00:00 AM EST Current Smoker completed Curre nt Smoker eCW1 ([facility]) Smoking 02/05/2020 12:00:00 AM EST Current Smoker completed Curre nt Smoker eCW1 ([facility]) Smoking 02/05/2020 12:00:00 AM EST Current Smoker completed Curre nt Smoker eCW1 ([facility]) Smoking 02/05/2020 12:00:00 AM EST Current Smoker completed Curre nt Smoker eCW1 ([facility]) Smoking 01/28/2020 12:00:00 AM EST Unknown if ever smoked comp leted Unknown if ever smoked [facility] ([facility]) Smoking 2020 12:00:00 AM EST Unknown if ever smoked comp leted Unknown if ever smoked [facility] ([facility]) Smoking 12/31/2019 12:00:00 AM EDT Unknown if ever smoked comp leted Unknown if ever smoked [facility] ([facility]) Smoking 12/30/2019 12:00:00 AM EDT Current Smoker completed Curre nt Smoker eCW1 ([facility]) Smoking 12/30/2019 12:00:00 AM EDT Current Smoker completed Curre nt Smoker eCW1 ([facility]) Smoking 12/30/2019 12:00:00 AM EDT Current Smoker completed Curre nt Smoker eCW1 ([facility]) Vital Signs ID Date Data Source UNK Name Value Range Interpretation Code Description Data Source(s) Body weight 259.4 [lb_av] 259.4 [lb_av] eCW1 ([facility]) Body height 73 [in_i] 73 [in_i] eCW1 ([facility]) Body mass index (BMI) [Ratio] 34.22 kg/m2 34.22 kg/m2 eCW1 ([facility]) Heart rate 95 /min 95 /min eCW1 ([facility]) Respiratory rate 18 /min 18 /min eCW1 ([facility]) Body temperature 98.1 [degF] 98.1 [degF] eCW1 ( [facility]) Systolic blood pressure 112 mm[Hg] 112 mm[Hg] e CW1 ([facility]) Diastolic blood pressure 77 mm[Hg] 77 mm[Hg] eCW1 ([facility]) Systolic blood pressure 146 mm[Hg] 146 mm[Hg] M EDENT ([facility]) Diastolic blood pressure 88 mm[Hg] 88 mm[Hg] [facility] Body height 75 [in_i] 75 [in_i] [facility] ([facility]) 6'3" Body weight 263.00 [lb_av] 263.00 [lb_av] MEDEN T ([facility]) Body mass index (BMI) [Ratio] 32.9 kg/m2 32.9 k g/m2 [facility] ([facility]) [place] body weight 196 [lb_av] 196 [lb_av] MEDEN T ([facility]) Body weight 119.297 kg 119.297 kg [facility] ([facility]) Body surface area Derived from formula 2.47 m2 2.47 m2 [facility] ([facility]) Body weight 265.2 [lb_av] 265.2 [lb_av] eCW1 ([facility]) Body height 73 [in_i] 73 [in_i] eCW1 ([facility]) Body mass index (BMI) [Ratio] 34.99 kg/m2 34.99 kg/m2 eCW1 ([facility]) Heart rate 105 /min 105 /min eCW1 ([facility]) Respiratory rate 17 /min 17 /min eCW1 ([facility]) Body temperature 98.2 [degF] 98.2 [degF] eCW1 ( [facility]) Systolic blood pressure 110 mm[Hg] 110 mm[Hg] e CW1 ([facility]) Diastolic blood pressure 80 mm[Hg] 80 mm[Hg] eCW1 ([facility]) Body weight 279.4 [lb_av] 279.4 [lb_av] eCW1 ([facility]) Body height 73 [in_i] 73 [in_i] eCW1 ([facility]) Body mass index (BMI) [Ratio] 36.86 kg/m2 36.86 kg/m2 eCW1 ([facility]) Heart rate 107 /min 107 /min eCW1 ([facility]) Respiratory rate 17 /min 17 /min eCW1 ([facility]) Body temperature 98.4 [degF] 98.4 [degF] eCW1 ( [facility]) Systolic blood pressure 133 mm[Hg] 133 mm[Hg] e CW1 ([facility]) Diastolic blood pressure 89 mm[Hg] 89 mm[Hg] eCW1 ([facility]) Body temperature 97.0 [degF] 97.0 [degF] MEDENT ([facility] ) Body height 75 [in_i] 75 [in_i] [facility] ([facility] ) 6'3" Body weight 280.00 [lb_av] 280.00 [lb_av] MEDEN T ([facility] ) Body mass index (BMI) [Ratio] 35.0 kg/m2 35.0 k g/m2 [facility] ([facility]) Body height 0.00 in Normal (applies to non-numeric resu lts) 0.00 in [facility] ([facility]) Body weight Measured 0.00 lbs Normal (applies to n on-numeric results) 0.00 lbs [facility] ([facility]) Body mass index (BMI) [Ratio] 0.00 kg/m2 No rmal (applies to non-numeric results) 0.00 kg/m2 [facility] ([facility]) Systolic blood pressure 0 mm[Hg] Normal (applies t o non-numeric results) 0 mm[Hg] [facility] ([facility]) Diastolic blood pressure 0 mm[Hg] Normal (applies to non-numeric results) 0 mm[Hg] [facility] Body height 0.00 in Normal (applies to non-numeric resu lts) 0.00 in [facility] ([facility]) Body weight Measured 0.00 lbs Normal (applies to n on-numeric results) 0.00 lbs [facility] ([facility]) Body mass index (BMI) [Ratio] 0.00 kg/m2 No rmal (applies to non-numeric results) 0.00 kg/m2 [facility] ([facility]) Systolic blood pressure 0 mm[Hg] Normal (applies t o non-numeric results) 0 mm[Hg] [facility] ([facility]) Diastolic blood pressure 0 mm[Hg] Normal (applies to non-numeric results) 0 mm[Hg] [facility]) Body weight 284 [lb_av] 284 [lb_av] eCW1 ([facility]) Body height 73 [in_i] 73 [in_i] eCW1 ([facility]) Body mass index (BMI) [Ratio] 37.47 kg/m2 37.47 kg/m2 eCW1 ([facility]) Heart rate 110 /min 110 /min eCW1 ([facility]) Respiratory rate 17 /min 17 /min eCW1 ([facility]) Body temperature 98.4 [degF] 98.4 [degF] eCW1 ( [facility]) Systolic blood pressure 124 mm[Hg] 124 mm[Hg] e CW1 ([facility]) Diastolic blood pressure 84 mm[Hg] 84 mm[Hg] eCW1 ([facility]) Patient Treatment Plan of Care Planned Activity Planned Date Details Description Data Source (s) 24 HR Metformin hydrochloride 750 MG Extended Release Oral Tablet 10/12/2020 12:00:00 AM EDT eCW1 ([facility]) 24 HR Metformin hydrochloride 750 MG Extended Release Oral Tablet 10/12/2020 12:00:00 AM EDT eCW1 ([facility]) 24 HR Metformin hydrochloride 750 MG Extended Release Oral Tablet 10/12/2020 12:00:00 AM EDT eCW1 ([facility]) 24 HR Metformin hydrochloride 750 MG Extended Release Oral Tablet 10/12/2020 12:00:00 AM EDT eCW1 ([facility]) 24 HR Metformin hydrochloride 750 MG Extended Release Oral Tablet 10/12/2020 12:00:00 AM EDT eCW1 ([facility]) 24 HR Metformin hydrochloride 750 MG Extended Release Oral Tablet 10/12/2020 12:00:00 AM EDT eCW1 ([facility]) 24 HR Metformin hydrochloride 750 MG Extended Release Oral Tablet 10/12/2020 12:00:00 AM EDT eCW1 ([facility]) 24 HR Metformin hydrochloride 750 MG Extended Release Oral Tablet 10/12/2020 12:00:00 AM EDT eCW1 ([facility]) 24 HR Metformin hydrochloride 750 MG Extended Release Oral Tablet 10/12/2020 12:00:00 AM EDT eCW1 ([facility]) 24 HR Metformin hydrochloride 750 MG Extended Release Oral Tablet 10/12/2020 12:00:00 AM EDT eCW1 ([facility]) 24 HR Metformin hydrochloride 750 MG Extended Release Oral Tablet 10/12/2020 12:00:00 AM EDT eCW1 ([facility]) 24 HR Metformin hydrochloride 750 MG Extended Release Oral Tablet 10/12/2020 12:00:00 AM EDT eCW1 ([facility]) Bydureon BCise 2 MG/0.85ML 10/11/2020 12:00:00 AM EDT eCW1 ([facility]) Bydureon BCise 2 MG/0.85ML 10/11/2020 12:00:00 AM EDT eCW1 ([facility]) Ozempic (0.25 or 0.5 MG/DOSE) 2 MG/1.5ML 10/04/2020 12:00:00 AM EDT eCW1 ([facility]) Ozempic (0.25 or 0.5 MG/DOSE) 2 MG/1.5ML 10/04/2020 12:00:00 AM EDT eCW1 ([facility]) Ozempic (0.25 or 0.5 MG/DOSE) 2 MG/1.5ML 10/04/2020 12:00:00 AM EDT eCW1 ([facility]) Pen Raymond 32G X 6 MM 09/28/2020 12:00:00 AM EDT eCW1 ([facility]) Isopropyl Alcohol 0.7 ML/ML Medicated Pad 09/28/2020 12:00:00 AM ED T eCW1 ([facility]) Pen [place] 32G X 6 MM 09/28/2020 12:00:00 AM EDT eCW1 ([facility]) Isopropyl Alcohol 0.7 ML/ML Medicated Pad 09/28/2020 12:00:00 AM ED T eCW1 ([facility]) Pen [place] 32G X 6 MM 09/28/2020 12:00:00 AM EDT eCW1 ([facility]) Isopropyl Alcohol 0.7 ML/ML Medicated Pad 09/28/2020 12:00:00 AM ED T eCW1 ([facility]) Pen [place] 32G X 6 MM 09/28/2020 12:00:00 AM EDT eCW1 ([facility]) Isopropyl Alcohol 0.7 ML/ML Medicated Pad 09/28/2020 12:00:00 AM ED T eCW1 ([facility]) Pen Raymond 32G X 6 MM 09/28/2020 12:00:00 AM EDT eCW1 ([facility]) Isopropyl Alcohol 0.7 ML/ML Medicated Pad 09/28/2020 12:00:00 AM ED T eCW1 ([facility]) Pen [place] 32G X 6 MM 09/28/2020 12:00:00 AM EDT eCW1 ([facility]) Isopropyl Alcohol 0.7 ML/ML Medicated Pad 09/28/2020 12:00:00 AM ED T eCW1 ([facility]) Pen [place] 32G X 6 MM 09/28/2020 12:00:00 AM EDT eCW1 ([facility]) Isopropyl Alcohol 0.7 ML/ML Medicated Pad 09/28/2020 12:00:00 AM ED T eCW1 ([facility]) Pen [place] 32G X 6 MM 09/28/2020 12:00:00 AM EDT eCW1 ([facility]) Isopropyl Alcohol 0.7 ML/ML Medicated Pad 09/28/2020 12:00:00 AM ED T eCW1 ([facility]) Pen [place] 32G X 6 MM 09/28/2020 12:00:00 AM EDT eCW1 ([facility]) Isopropyl Alcohol 0.7 ML/ML Medicated Pad 09/28/2020 12:00:00 AM ED T eCW1 ([facility]) Pen Raymond 32G X 6 MM 09/28/2020 12:00:00 AM EDT eCW1 ([facility]) Pen [place] 32G X 6 MM 09/28/2020 12:00:00 AM EDT eCW1 ([facility]) Isopropyl Alcohol 0.7 ML/ML Medicated Pad 09/28/2020 12:00:00 AM ED T eCW1 ([facility]) Isopropyl Alcohol 0.7 ML/ML Medicated Pad 09/28/2020 12:00:00 AM ED T eCW1 ([facility]) Pen [place] 32G X 6 MM 09/28/2020 12:00:00 AM EDT eCW1 ([facility]) Isopropyl Alcohol 0.7 ML/ML Medicated Pad 09/28/2020 12:00:00 AM ED T eCW1 ([facility]) Pen [place] 32G X 6 MM 09/28/2020 12:00:00 AM EDT eCW1 ([facility]) Isopropyl Alcohol 0.7 ML/ML Medicated Pad 09/28/2020 12:00:00 AM ED T eCW1 ([facility]) Pen [place] 32G X 6 MM 09/28/2020 12:00:00 AM EDT eCW1 ([facility]) Isopropyl Alcohol 0.7 ML/ML Medicated Pad 09/28/2020 12:00:00 AM ED T eCW1 ([facility]) Isopropyl Alcohol 0.7 ML/ML Medicated Pad 09/28/2020 12:00:00 AM ED T eCW1 ([facility]) Pen [place] 32G X 6 MM 09/28/2020 12:00:00 AM EDT eCW1 ([facility]) Isopropyl Alcohol 0.7 ML/ML Medicated Pad 09/28/2020 12:00:00 AM ED T eCW1 ([facility]) Pen Raymond 32G X 6 MM 09/28/2020 12:00:00 AM EDT eCW1 ([facility]) Isopropyl Alcohol 0.7 ML/ML Medicated Pad 09/28/2020 12:00:00 AM ED T eCW1 ([facility]) Pen Raymond 32G X 6 MM 09/28/2020 12:00:00 AM EDT eCW1 ([facility]) Pen Raymond 32G X 6 MM 09/28/2020 12:00:00 AM EDT eCW1 ([facility]) 3 ML liraglutide 6 MG/ML Pen Injector [Victoza] 09/28/2020 12:00:00 AM EDT eCW1 ([facility]) Isopropyl Alcohol 0.7 ML/ML Medicated Pad 09/28/2020 12:00:00 AM ED T eCW1 ([facility]) montelukast 10 MG Oral Tablet 09/16/2020 12:00:00 AM EDT eCW1 ([facility]) montelukast 10 MG Oral Tablet 09/16/2020 12:00:00 AM EDT eCW1 ([facility]) montelukast 10 MG Oral Tablet 09/16/2020 12:00:00 AM EDT eCW1 ([facility]) montelukast 10 MG Oral Tablet 09/16/2020 12:00:00 AM EDT eCW1 ([facility]) montelukast 10 MG Oral Tablet 09/16/2020 12:00:00 AM EDT eCW1 ([facility]) montelukast 10 MG Oral Tablet 09/16/2020 12:00:00 AM EDT eCW1 ([facility]) montelukast 10 MG Oral Tablet 09/16/2020 12:00:00 AM EDT eCW1 ([facility]) montelukast 10 MG Oral Tablet 09/16/2020 12:00:00 AM EDT eCW1 ([facility]) montelukast 10 MG Oral Tablet 09/16/2020 12:00:00 AM EDT eCW1 ([facility]) montelukast 10 MG Oral Tablet 09/16/2020 12:00:00 AM EDT eCW1 ([facility]) montelukast 10 MG Oral Tablet 09/16/2020 12:00:00 AM EDT eCW1 ([facility]) montelukast 10 MG Oral Tablet 09/16/2020 12:00:00 AM EDT eCW1 ([facility]) montelukast 10 MG Oral Tablet 09/16/2020 12:00:00 AM EDT eCW1 ([facility]) montelukast 10 MG Oral Tablet 09/16/2020 12:00:00 AM EDT eCW1 ([facility]) montelukast 10 MG Oral Tablet 09/16/2020 12:00:00 AM EDT eCW1 ([facility]) montelukast 10 MG Oral Tablet 09/16/2020 12:00:00 AM EDT eCW1 ([facility]) montelukast 10 MG Oral Tablet 09/16/2020 12:00:00 AM EDT eCW1 ([facility]) montelukast 10 MG Oral Tablet 09/16/2020 12:00:00 AM EDT eCW1 ([facility]) montelukast 10 MG Oral Tablet 09/16/2020 12:00:00 AM EDT eCW1 ([facility]) montelukast 10 MG Oral Tablet 09/16/2020 12:00:00 AM EDT eCW1 ([facility]) 30 ACTUAT fluticasone furoate 0.1 MG/ACTUAT Dry Powder Inhaler [Arnuity] 08/26/2020 12:00:00 AM EDT eCW1 ([facility]) 30 ACTUAT fluticasone furoate 0.1 MG/ACTUAT Dry Powder Inhaler [Arnuity] 08/26/2020 12:00:00 AM EDT eCW1 ([facility]) 30 ACTUAT fluticasone furoate 0.1 MG/ACTUAT Dry Powder Inhaler [Arnuity] 08/26/2020 12:00:00 AM EDT eCW1 ([facility]) 30 ACTUAT fluticasone furoate 0.1 MG/ACTUAT Dry Powder Inhaler [Arnuity] 08/26/2020 12:00:00 AM EDT eCW1 ([facility]) 30 ACTUAT fluticasone furoate 0.1 MG/ACTUAT Dry Powder Inhaler [Arnuity] 08/26/2020 12:00:00 AM EDT eCW1 ([facility]) 30 ACTUAT fluticasone furoate 0.1 MG/ACTUAT Dry Powder Inhaler [Arnuity] 08/26/2020 12:00:00 AM EDT eCW1 ([facility]) 30 ACTUAT fluticasone furoate 0.1 MG/ACTUAT Dry Powder Inhaler [Arnuity] 08/26/2020 12:00:00 AM EDT eCW1 ([facility]) 30 ACTUAT fluticasone furoate 0.1 MG/ACTUAT Dry Powder Inhaler [Arnuity] 08/26/2020 12:00:00 AM EDT eCW1 ([facility]) 30 ACTUAT fluticasone furoate 0.1 MG/ACTUAT Dry Powder Inhaler [Arnuity] 08/26/2020 12:00:00 AM EDT eCW1 ([facility]) 30 ACTUAT fluticasone furoate 0.1 MG/ACTUAT Dry Powder Inhaler [Arnuity] 08/26/2020 12:00:00 AM EDT eCW1 ([facility]) 30 ACTUAT fluticasone furoate 0.1 MG/ACTUAT Dry Powder Inhaler [Arnuity] 08/26/2020 12:00:00 AM EDT eCW1 ([facility]) 30 ACTUAT fluticasone furoate 0.1 MG/ACTUAT Dry Powder Inhaler [Arnuity] 08/26/2020 12:00:00 AM EDT eCW1 ([facility]) 30 ACTUAT fluticasone furoate 0.1 MG/ACTUAT Dry Powder Inhaler [Arnuity] 08/26/2020 12:00:00 AM EDT eCW1 ([facility]) 30 ACTUAT fluticasone furoate 0.1 MG/ACTUAT Dry Powder Inhaler [Arnuity] 08/26/2020 12:00:00 AM EDT eCW1 ([facility]) 30 ACTUAT fluticasone furoate 0.1 MG/ACTUAT Dry Powder Inhaler [Arnuity] 08/26/2020 12:00:00 AM EDT eCW1 ([facility]) 30 ACTUAT fluticasone furoate 0.1 MG/ACTUAT Dry Powder Inhaler [Arnuity] 08/26/2020 12:00:00 AM EDT eCW1 ([facility]) 30 ACTUAT fluticasone furoate 0.1 MG/ACTUAT Dry Powder Inhaler [Arnuity] 08/26/2020 12:00:00 AM EDT eCW1 ([facility]) 30 ACTUAT fluticasone furoate 0.1 MG/ACTUAT Dry Powder Inhaler [Arnuity] 08/26/2020 12:00:00 AM EDT eCW1 ([facility]) 30 ACTUAT fluticasone furoate 0.1 MG/ACTUAT Dry Powder Inhaler [Arnuity] 08/26/2020 12:00:00 AM EDT eCW1 ([facility]) 30 ACTUAT fluticasone furoate 0.1 MG/ACTUAT Dry Powder Inhaler [Arnuity] 08/26/2020 12:00:00 AM EDT eCW1 ([facility]) Sucralfate 1000 MG Oral Tablet 06/18/2020 12:00:00 AM EDT eCW1 ([facility]) Sucralfate 1000 MG Oral Tablet 06/18/2020 12:00:00 AM EDT eCW1 ([facility]) Sucralfate 1000 MG Oral Tablet 06/18/2020 12:00:00 AM EDT eCW1 ([facility]) Sucralfate 1000 MG Oral Tablet 06/18/2020 12:00:00 AM EDT eCW1 ([facility]) Sucralfate 1000 MG Oral Tablet 06/18/2020 12:00:00 AM EDT eCW1 ([facility]) Sucralfate 1000 MG Oral Tablet 06/18/2020 12:00:00 AM EDT eCW1 ([facility]) Sucralfate 1000 MG Oral Tablet 06/18/2020 12:00:00 AM EDT eCW1 ([facility]) Sucralfate 1000 MG Oral Tablet 06/18/2020 12:00:00 AM EDT eCW1 ([facility]) Omeprazole 20 MG Delayed Release Oral Capsule 06/17/2020 12:00:00 A M EDT eCW1 ([facility]) Omeprazole 20 MG Delayed Release Oral Capsule 06/17/2020 12:00:00 A M EDT eCW1 ([facility]) Omeprazole 20 MG Delayed Release Oral Capsule 06/17/2020 12:00:00 A M EDT eCW1 ([facility]) Omeprazole 20 MG Delayed Release Oral Capsule 06/17/2020 12:00:00 A M EDT eCW1 ([facility]) Omeprazole 20 MG Delayed Release Oral Capsule 06/17/2020 12:00:00 A M EDT eCW1 ([facility]) Omeprazole 20 MG Delayed Release Oral Capsule 06/17/2020 12:00:00 A M EDT eCW1 ([facility]) Omeprazole 20 MG Delayed Release Oral Capsule 06/17/2020 12:00:00 A M EDT eCW1 ([facility]) Sucralfate 100 MG/ML Oral Suspension [Carafate] 06/17/2020 12:00:00 AM EDT eCW1 ([facility]) Omeprazole 20 MG Delayed Release Oral Capsule 06/17/2020 12:00:00 A M EDT eCW1 ([facility]) Omeprazole 20 MG Delayed Release Oral Capsule 06/17/2020 12:00:00 A M EDT eCW1 ([facility]) Omeprazole 20 MG Delayed Release Oral Capsule 06/17/2020 12:00:00 A M EDT eCW1 ([facility]) Sucralfate 100 MG/ML Oral Suspension [Carafate] 06/17/2020 12:00:00 AM EDT eCW1 ([facility]) Sucralfate 100 MG/ML Oral Suspension [Carafate] 06/17/2020 12:00:00 AM EDT eCW1 ([facility]) Omeprazole 20 MG Delayed Release Oral Capsule 06/17/2020 12:00:00 A M EDT eCW1 ([facility]) Sucralfate 100 MG/ML Oral Suspension [Carafate] 06/17/2020 12:00:00 AM EDT eCW1 ([facility]) Omeprazole 20 MG Delayed Release Oral Capsule 06/17/2020 12:00:00 A M EDT eCW1 ([facility]) Sucralfate 100 MG/ML Oral Suspension [Carafate] 06/17/2020 12:00:00 AM EDT eCW1 ([facility]) Omeprazole 20 MG Delayed Release Oral Capsule 06/17/2020 12:00:00 A M EDT eCW1 ([facility]) Sucralfate 100 MG/ML Oral Suspension [Carafate] 06/17/2020 12:00:00 AM EDT eCW1 ([facility]) Omeprazole 20 MG Delayed Release Oral Capsule 06/17/2020 12:00:00 A M EDT eCW1 ([facility]) Sucralfate 100 MG/ML Oral Suspension [Carafate] 06/17/2020 12:00:00 AM EDT eCW1 ([facility]) Omeprazole 20 MG Delayed Release Oral Capsule 06/17/2020 12:00:00 A M EDT eCW1 ([facility]) Sucralfate 100 MG/ML Oral Suspension [Carafate] 06/17/2020 12:00:00 AM EDT eCW1 ([facility]) Omeprazole 20 MG Delayed Release Oral Capsule 06/17/2020 12:00:00 A M EDT eCW1 ([facility]) Sucralfate 100 MG/ML Oral Suspension [Carafate] 06/17/2020 12:00:00 AM EDT eCW1 ([facility]) Omeprazole 20 MG Delayed Release Oral Capsule 06/17/2020 12:00:00 A M EDT eCW1 ([facility]) tramadol hydrochloride 50 MG Oral Tablet 02/05/2020 12:00:00 AM EST eCW1 ([facility]) tramadol hydrochloride 50 MG Oral Tablet 02/05/2020 12:00:00 AM EST eCW1 ([facility]) tramadol hydrochloride 50 MG Oral Tablet 02/05/2020 12:00:00 AM EST eCW1 ([facility]) tramadol hydrochloride 50 MG Oral Tablet 02/05/2020 12:00:00 AM EST eCW1 ([facility]) tramadol hydrochloride 50 MG Oral Tablet 02/05/2020 12:00:00 AM EST eCW1 ([facility]) tramadol hydrochloride 50 MG Oral Tablet 02/05/2020 12:00:00 AM EST eCW1 ([facility]) tramadol hydrochloride 50 MG Oral Tablet 02/05/2020 12:00:00 AM EST eCW1 ([facility])
[2021-02-02] MEDS ORDERED: ACETAMINOPHEN 500 MG TAB PO ONE (12:45)
--- NOTE | 2021-02-02 13:04 | REP ---
INDICATION: head injury. COMPARISON: None. TECHNIQUE: 5 mm contiguous transaxial sections were obtained from the skull base to the cerebral convexities. FINDINGS: The ventricles and sulci are consistent with the patient's age. There are no extra-axial fluid collections. There is no mass effect. The deep cerebral white matter is consistent with the patient's age. The orbital and petrous structures, cerebellopontine angles, and posterior fossa are unremarkable. The sella turcica, cavernous, and paracavernous structures are essentially unremarkable. There is under pneumatization of the right mastoid air cells. Left mastoid air cells are clear. Soft tissue densities are seen in the ethmoid bulla. There no paranasal sinus air-fluid levels. IMPRESSION: 1. No acute intracranial pathology. 2. Ethmoid bulla mucosal thickening. 3. Chronic right mastoid changes. <Electronically signed by Adam Buchanan > 02/02/21 1300
[2021-02-02 14:03] VITALS: BP 112/74
== END 2021-02-02 14:04 | disposition home or self-care (01) ==
LOC: M ED 09:21
DX: S06.0X0A Concussion without loss of consciousness, initial encounter (principal); W22.8XXA Striking against or struck by other objects, initial encounter; Y92.89 Other specified places as the place of occurrence of the external cause; Y99.0 Civilian activity done for income or pay; E11.9 Type 2 diabetes mellitus without complications; J45.909 Unspecified asthma, uncomplicated; I48.91 Unspecified atrial fibrillation; Z88.8 Allergy status to other drugs, medicaments and biological substances; Z79.899 Other long term (current) drug therapy; F17.210 Nicotine dependence, cigarettes, uncomplicated; F12.20 Cannabis dependence, uncomplicated

== ENCOUNTER → 2021-05-26 | Outpatient (CLI) | payer OTHER ==
[~2021-05-26] MED LIST changes: +ABIL1INJ2; +ARNU1INH; +FLUO-96 PO; -FLUO20CA20 PO; +MIRTAZAPINE; +OMEP-173; +TRAZ-189
== END ==
LOC: M RAD 16:14
PROVIDERS: ATTEND Physician Assistant Medical
DX: M25.561 Pain in right knee (principal); M25.562 Pain in left knee

== ENCOUNTER → 2021-06-10 | Outpatient (CLI) | payer OTHER | LOC: M PLARAD 14:36 | PROVIDERS: ATTEND Internal Medicine | DX: M51.27 Other intervertebral disc displacement, lumbosacral region (principal) ==

== ENCOUNTER → 2021-06-24 | Outpatient (CLI) | payer OTHER | LOC: M PAIN 08:30 | PROVIDERS: ATTEND Nurse Practitioner Family | DX: M51.16 Intervertebral disc disorders with radiculopathy, lumbar region (principal); J45.909 Unspecified asthma, uncomplicated; K21.9 Gastro-esophageal reflux disease without esophagitis; K44.9 Diaphragmatic hernia without obstruction or gangrene; F31.9 Bipolar disorder, unspecified; F41.9 Anxiety disorder, unspecified; E55.9 Vitamin D deficiency, unspecified; E66.9 Obesity, unspecified; R73.01 Impaired fasting glucose; Z68.32 Body mass index [BMI] 32.0-32.9, adult; F17.210 Nicotine dependence, cigarettes, uncomplicated; I48.0 Paroxysmal atrial fibrillation; Z79.899 Other long term (current) drug therapy; Z88.2 Allergy status to sulfonamides ==

== ENCOUNTER 2021-06-28 14:03 | Emergency (ER) | payer OTHER ==
[~2021-06-28] VITALS: Ht 190.5 cm; Wt 109.1 kg
[2021-06-28] MEDS ORDERED: hydrOXYzine 50 MG TAB PO ONE (14:40)
[2021-06-28 16:37] VITALS: BP 117/71
== END 2021-06-28 16:39 | disposition home or self-care (01) ==
LOC: M ED 14:03
DX: F41.9 Anxiety disorder, unspecified (principal); J45.909 Unspecified asthma, uncomplicated; F31.9 Bipolar disorder, unspecified; F33.9 Major depressive disorder, recurrent, unspecified; K21.9 Gastro-esophageal reflux disease without esophagitis; K44.9 Diaphragmatic hernia without obstruction or gangrene; I47.1 Supraventricular tachycardia; Z88.8 Allergy status to other drugs, medicaments and biological substances; Z79.899 Other long term (current) drug therapy; F17.210 Nicotine dependence, cigarettes, uncomplicated

== ENCOUNTER → 2021-08-03 | Outpatient (CLI) | payer OTHER ==
[~2021-08-03] MED LIST changes: +DOXY-443 PO; +TETR1CAP2 PO
== END ==
LOC: M EKG 12:45
PROVIDERS: ATTEND Internal Medicine
DX: R00.2 Palpitations (principal)

== ENCOUNTER → 2021-08-25 | Outpatient (CLI) | payer OTHER ==
[~2021-08-25] MED LIST changes: +ALBU2.5V10 INH; -ALBU83IN INH
== END ==
LOC: M PAIN 14:45
PROVIDERS: ATTEND Nurse Practitioner Family
DX: M51.16 Intervertebral disc disorders with radiculopathy, lumbar region (principal); G89.29 Other chronic pain; R73.03 Prediabetes; J45.909 Unspecified asthma, uncomplicated; K21.9 Gastro-esophageal reflux disease without esophagitis; F17.210 Nicotine dependence, cigarettes, uncomplicated; Z86.59 Personal history of other mental and behavioral disorders; Z88.6 Allergy status to analgesic agent; Z79.899 Other long term (current) drug therapy

== ENCOUNTER → 2021-10-04 | Outpatient (CLI) | payer OTHER | LOC: M RAD 17:01 | PROVIDERS: ATTEND Internal Medicine | DX: R05.9 Cough, unspecified (principal); R06.2 Wheezing ==

== ENCOUNTER → 2021-10-13 | Outpatient (REF) | payer OTHER ==
[2021-10-13 12:36] LABS: PERCENT SATURATION 16.7 % (19.7-50.0)
== END ==
LOC: M LAB REF 12:06
PROVIDERS: ATTEND Internal Medicine
DX: G25.81 Restless legs syndrome (principal)

== ENCOUNTER → 2021-10-17 | Outpatient (CLI) | payer OTHER | LOC: M PAIN 11:45 | PROVIDERS: ATTEND Nurse Practitioner Family | DX: M51.16 Intervertebral disc disorders with radiculopathy, lumbar region (principal); J45.909 Unspecified asthma, uncomplicated; K21.9 Gastro-esophageal reflux disease without esophagitis; M25.561 Pain in right knee; M25.562 Pain in left knee; M65.9 Synovitis and tenosynovitis, unspecified; F34.1 Dysthymic disorder; F12.10 Cannabis abuse, uncomplicated; F31.9 Bipolar disorder, unspecified; I48.0 Paroxysmal atrial fibrillation; E55.9 Vitamin D deficiency, unspecified; E66.9 Obesity, unspecified; R73.01 Impaired fasting glucose; L73.2 Hidradenitis suppurativa; Z86.16 Personal history of COVID-19; F17.210 Nicotine dependence, cigarettes, uncomplicated; Z79.899 Other long term (current) drug therapy; Z88.6 Allergy status to analgesic agent; K44.9 Diaphragmatic hernia without obstruction or gangrene; Z68.30 Body mass index [BMI] 30.0-30.9, adult ==

== ENCOUNTER → 2021-11-16 | Outpatient (CLI) | payer OTHER ==
[2021-11-16 12:01] LABS: HEMOGLOBIN 17.1 g/dl (13.5-17.5); MEAN CORPUSCULAR HEMOGLOBIN 32.3 pg (27.0-33.0); MEAN CORPUSCULAR HGB CONC 34.2 g/dl (32.0-36.5); MEAN CORPUSCULAR VOLUME 94.5 fl (80.0-96.0); PLATELET COUNT, AUTOMATED 266 10^3/uL (150-450); RED BLOOD COUNT 5.29 10^6/uL (4.30-6.10); WHITE BLOOD COUNT 16.3 10^3/uL (4.0-10.0)
[2021-11-16 12:28] LABS: ALBUMIN 3.7 GM/DL (3.2-5.2); ALT/SGPT 32 U/L (12-78); BILIRUBIN,TOTAL 0.9 MG/DL (0.2-1.0); BLOOD UREA NITROGEN 7 MG/DL (7-18); CARBON DIOXIDE LEVEL 26 MEQ/L (21-32); CHLORIDE LEVEL 105 MEQ/L (98-107); CREATININE FOR GFR 0.76 MG/DL (0.70-1.30); GLOMERULAR FILTRATION RATE > 60.0 (>60); GLUCOSE, FASTING 85 MG/DL (70-100); POTASSIUM SERUM 4.4 MEQ/L (3.5-5.1); SODIUM LEVEL 137 MEQ/L (136-145)
== END ==
LOC: M WUC 09:54
PROVIDERS: ATTEND Physician Assistant Medical
DX: J06.9 Acute upper respiratory infection, unspecified (principal); R19.7 Diarrhea, unspecified; R11.10 Vomiting, unspecified

== ENCOUNTER → 2021-11-23 | Outpatient (CLI) | payer OTHER ==
[~2021-11-23] MED LIST changes: +GASTROGRAFIN SOLUTION 30ML (Q9963) As Ordered ONE; +ISOVUE-370 76% 100ML VIAL As Ordered ONE
== END ==
LOC: M RAD 08:34
PROVIDERS: ATTEND Physician Assistant Medical
DX: R10.84 Generalized abdominal pain (principal); R11.10 Vomiting, unspecified; R19.7 Diarrhea, unspecified
CPT/HCPCS: 74178; 87449; Q9963; Q9967

== ENCOUNTER → 2022-01-21 | Outpatient (CLI) | payer OTHER ==
[~2022-01-21] MED LIST changes: -DOXY-350 PO; +DOXY-444 PO; -GASTROGRAFIN SOLUTION 30ML (Q9963) As Ordered ONE; -ISOVUE-370 76% 100ML VIAL As Ordered ONE
== END ==
LOC: M RAD 13:02
PROVIDERS: ATTEND Nurse Practitioner Family
DX: M54.16 Radiculopathy, lumbar region (principal); M51.26 Other intervertebral disc displacement, lumbar region; M51.27 Other intervertebral disc displacement, lumbosacral region

== ENCOUNTER → 2022-03-09 | Outpatient (CLI) | payer OTHER | LOC: M SOG 07:50 | PROVIDERS: ATTEND Orthopaedic Surgery | DX: M54.50 Low back pain, unspecified (principal) ==

== ENCOUNTER → 2022-03-16 | Outpatient (CLI) | payer OTHER | LOC: M WUC 14:47 | PROVIDERS: ATTEND Student in an Organized Health Care Education/Training Program | DX: M79.644 Pain in right finger(s) (principal) ==

== ENCOUNTER → 2022-05-10 | Outpatient (CLI) | payer OTHER ==
[~2022-05-10] MED LIST changes: +ALBU8.5H; +BUPR150T12 PO; +BUPR300T92 PO; +FERR325T19 PO; +GABA600T4 PO; +META1TAB22; +METO1TAB7 PO; +OLAN20TA14 PO; -OMEP-173; +OMEP-173 PO; +REME45TA2 PO; +SYMB80INH; +TIZA10TA
== END ==
LOC: M LABSMTC 10:33
PROVIDERS: ATTEND Anesthesiology
DX: Z01.812 Encounter for preprocedural laboratory examination (principal); Z11.52 Encounter for screening for COVID-19

== ENCOUNTER 2022-05-15 06:09 | Day surgery (SDC) | payer OTHER ==
[~2022-05-15] VITALS: Ht 190.5 cm; Wt 107.0 kg
[~2022-05-15 06:09] MED LIST changes: +MONT-5 PO; -SING10TA32 PO; +ceFAZolin SOD 2 GM in IV 1 EA IV ONE; +oxyCODONE 5MG TAB PO ONE
[2022-05-15] MEDS ORDERED: LR 1,000 ML IV SCH ×2 (06:30→10:20)
[2022-05-15] MEDS ORDERED: BUPIVACAINE/EPIN 0.5% 30ML VIAL As Ordered ONE (07:16)
[2022-05-15] MEDS ORDERED: BUPIVACAINE LIPOSOME/PF 1.3% 20ML VIAL (13.3MG/ML)(EXPAREL) As Ordered ONE (07:16)
[2022-05-15] MEDS ORDERED: TRANEXAMIC ACID 100 MG/ML 10ML VIAL As Ordered ONE ×2 (07:16→09:47)
[2022-05-15] MEDS ORDERED: VANCOMYCIN 500MG/10ML VIAL As Ordered ONE (07:16)
[2022-05-15] MEDS ORDERED: BUPIVACAINE HCL 0.5% 30ML VIAL As Ordered ONE (07:16)
[2022-05-15] MEDS ORDERED: THROMBIN 20,000 UNITS KIT As Ordered ONE (07:17)
[2022-05-15] MEDS ORDERED: HYDROmorphone HCL 2MG/ML 1ML VIAL As Ordered ONE (08:07)
[2022-05-15] MEDS ORDERED: propofoL 200 MG/20 ML VIAL As Ordered ONE (08:07)
[2022-05-15] MEDS ORDERED: LACRILUBE (AKWA TEARS) OPHTH OINT 3.5GM As Ordered ONE ×2 (08:07→08:49)
[2022-05-15] MEDS ORDERED: SUGAMMADEX SODIUM 500 MG/5 ML VIAL (BRIDION) As Ordered ONE (08:07)
[2022-05-15] MEDS ORDERED: METOCLOPRAMIDE INJ 10MG/2ML VIAL As Ordered ONE (08:07)
[2022-05-15] MEDS ORDERED: ONDANSETRON 4MG 2ML VIAL As Ordered ONE (08:07)
[2022-05-15] MEDS ORDERED: LIDOCAINE 2% 100MG/5ML SDV (FOR ANES.) As Ordered ONE (08:07)
[2022-05-15] MEDS ORDERED: MIDAZOLAM INJ 2MG/2ML VIAL As Ordered ONE (08:07)
[2022-05-15] MEDS ORDERED: ROCURONIUM BROMIDE 50MG/5ML VIAL As Ordered ONE ×3 (08:07→09:05)
[2022-05-15] MEDS ORDERED: SEVOFLURANE INHAL SOLN 250 ML BTL As Ordered ONE (08:07)
[2022-05-15] MEDS ORDERED: fentaNYL 250 MCG/5 ML INJECTION As Ordered ONE (08:07)
[2022-05-15] MEDS ORDERED: ACETAMINOPHEN 1000MG 100ML IV BAG As Ordered ONE (08:10)
[2022-05-15] MEDS ORDERED: PHENYLephrine 500MCG 5ML (100MCG/ML) SYRINGE As Ordered ONE (08:23)
[2022-05-15] MEDS ORDERED: ePHEDrine SULFATE 25 MG/5 ML(5MG/ML) SYRINGE As Ordered ONE (08:24)
[2022-05-15] MEDS ORDERED: oxyCODONE 5MG TAB PO PRN ×2 (10:20→10:30)
[2022-05-15] MEDS ORDERED: HYDROMORPHONE HCL 0.5 MG/ 0.5 ML SYRINGE IV PRN (10:20)
[2022-05-15] MEDS ORDERED: fentaNYL 100 MCG/2 ML INJECTION IV PRN (10:20)
[2022-05-15] MEDS ORDERED: ONDANSETRON 4MG 2ML VIAL IV PRN ×2 (10:20→10:30)
[2022-05-15] MEDS ORDERED: ACETAMINOPHEN TAB 650MG DOSE (2X325MG) PO PRN (10:30)
[2022-05-15] MEDS ORDERED: MORPHINE 4 MG/ML 1ML VIAL IV PRN (10:30)
[2022-05-15] MEDS ORDERED: OXYC1TAB23 PO (10:34)
[2022-05-15 12:23] VITALS: BP 122/74
== END 2022-05-15 12:24 | disposition home or self-care (01) ==
LOC: M SDC 06:09
PROVIDERS: ATTEND Orthopaedic Surgery
DX: M51.17 Intervertebral disc disorders with radiculopathy, lumbosacral region (principal); R73.03 Prediabetes; K44.9 Diaphragmatic hernia without obstruction or gangrene; K21.9 Gastro-esophageal reflux disease without esophagitis; I45.6 Pre-excitation syndrome; M19.90 Unspecified osteoarthritis, unspecified site; F41.9 Anxiety disorder, unspecified; F32.A Depression, unspecified; J45.909 Unspecified asthma, uncomplicated; Z88.8 Allergy status to other drugs, medicaments and biological substances; Z88.6 Allergy status to analgesic agent; F17.210 Nicotine dependence, cigarettes, uncomplicated; Z79.899 Other long term (current) drug therapy
CPT/HCPCS: 63030; 76000; 88304; C9290; J0131; J0690; J1100; J1170; J2250; J2370; J2405; J2765; J3010; J3370; S0020

== ENCOUNTER → 2022-08-15 | Outpatient (CLI) | payer OTHER ==
[~2022-08-15] MED LIST changes: +OXYC1TAB23 PO; -ceFAZolin SOD 2 GM in IV 1 EA IV ONE; -oxyCODONE 5MG TAB PO ONE
== END ==
LOC: M WUC 11:42
PROVIDERS: ATTEND Internal Medicine
DX: M25.562 Pain in left knee (principal)

== ENCOUNTER 2022-08-26 09:18 | Emergency (ER) | payer OTHER ==
[~2022-08-26] VITALS: Ht 190.5 cm; Wt 117.7 kg
[2022-08-26] MEDS ORDERED: CYCL-707 (09:27)
[2022-08-26] MEDS ORDERED: ATOM40CA9 (09:27)
[2022-08-26] MEDS ORDERED: ACETAMINOPH W/CODEINE #3 TAB UD PO ONE (09:50)
[2022-08-26 10:54] VITALS: BP 124/81; TEMP 97.6; O2SAT 98
== END 2022-08-26 10:56 | disposition home or self-care (01) ==
LOC: M ED 09:18
DX: M25.562 Pain in left knee (principal); E11.9 Type 2 diabetes mellitus without complications; I10 Essential (primary) hypertension; I45.6 Pre-excitation syndrome; Z88.6 Allergy status to analgesic agent; Z79.899 Other long term (current) drug therapy; F17.200 Nicotine dependence, unspecified, uncomplicated; Z79.51 Long term (current) use of inhaled steroids

== ENCOUNTER → 2022-10-25 | Outpatient (REF) | payer OTHER ==
[~2022-10-25] MED LIST changes: +ATOM40CA9; +CYCL-707; +MIRT1TAB17 PO; +OMEP1CAP73 PO; +PROA1AER2 INH
[2022-10-25 15:15] LABS: RHEUMATOID FACTOR QUANT < 3.5 IU/ML (<14)
== END ==
LOC: M LAB REF 14:14
PROVIDERS: ATTEND Physician Assistant Medical
DX: M54.16 Radiculopathy, lumbar region (principal); M25.562 Pain in left knee

== ENCOUNTER → 2022-12-05 | Outpatient (REF) | payer OTHER | LOC: M LAB REF 16:53 | PROVIDERS: ATTEND Internal Medicine | DX: R19.7 Diarrhea, unspecified (principal) ==

== ENCOUNTER → 2023-01-17 | Outpatient (REF) | payer OTHER ==
[2023-01-17 14:03] LABS: FERRITIN 84.2 NG/ML (10.5-307.3); PERCENT SATURATION 26.2 % (19.7-50.0)
== END ==
LOC: M LAB REF 12:15
PROVIDERS: ATTEND Internal Medicine
DX: D50.9 Iron deficiency anemia, unspecified (principal)

== ENCOUNTER → 2023-04-11 | Outpatient (REF) | payer MEDICAID, OTHER ==
[2023-04-11 12:58] LABS: BASO # 0.1 10^3/uL (0.0-0.2); BASO % 0.6 % (0.0-1.0); EOS # 0.2 10^3/uL (0.0-0.5); EOS % 1.8 % (0.0-3.0); HEMOGLOBIN 14.8 g/dl (13.5-17.5); LYMPH # 3.4 10^3/uL (1.5-5.0); LYMPH % 37.2 % (24.0-44.0); MEAN CORPUSCULAR HEMOGLOBIN 32.3 pg (27.0-33.0); MEAN CORPUSCULAR HGB CONC 33.6 g/dl (32.0-36.5); MEAN CORPUSCULAR VOLUME 96.1 fl (80.0-96.0); MONO # 0.7 10^3/uL (0.0-0.8); MONO % 7.2 % (2.0-8.0); NEUTROPHILS # 4.9 10^3/uL (1.5-8.5); NEUTROPHILS % 52.9 % (36.0-66.0); PLATELET COUNT, AUTOMATED 243 10^3/uL (150-450); RED BLOOD COUNT 4.58 10^6/uL (4.30-6.10); WHITE BLOOD COUNT 9.3 10^3/uL (4.0-10.0)
[2023-04-11 13:47] LABS: ALBUMIN 3.4 G/DL (3.2-5.2); ALKALINE PHOSPHATASE 83 U/L (46-116); ALT/SGPT 12 U/L (7.0-40); AST/SGOT 10 U/L (<34); BILIRUBIN,TOTAL 0.2 MG/DL (0.3-1.2); BLOOD UREA NITROGEN 11 MG/DL (9-23); CALCIUM LEVEL 9.2 MG/DL (8.5-10.1); CARBON DIOXIDE LEVEL 26 MMOL/L (20-31); CHLORIDE LEVEL 107 MMOL/L (98-107); CREATININE FOR GFR 0.74 MG/DL (0.70-1.30); GLOMERULAR FILTRATION RATE > 60.0 (>60); GLUCOSE, FASTING 106 MG/DL (60-100); POTASSIUM SERUM 4.2 MMOL/L (3.5-5.1); SODIUM LEVEL 136 MMOL/L (136-145); TOTAL 25(OH) VITAMIN D 18.2 NG/ML (20.0-100.0); TOTAL PROTEIN 6.3 G/DL (5.7-8.2)
[2023-04-11 14:01] LABS: HEMOGLOBIN A1c 5.6 % (4.0-6.0)
[2023-04-12 12:09] LABS: TESTOSTERONE FREE (DIRECT) 6.8 pg/mL (6.8-21.5)
== END ==
LOC: M LAB REF 12:24
PROVIDERS: ATTEND Internal Medicine
DX: R53.83 Other fatigue (principal); R68.82 Decreased libido

== ENCOUNTER → 2023-04-27 | Outpatient (REF) | payer MEDICAID ==
[2023-04-28 15:07] LABS: TESTOSTERONE FREE (DIRECT) 5.8 pg/mL (6.8-21.5)
== END ==
LOC: M LAB REF 11:54
PROVIDERS: ATTEND Internal Medicine
DX: R68.82 Decreased libido (principal)

== ENCOUNTER 2023-07-12 06:45 | Day surgery (SDC) | payer MEDICAID, OTHER ==
[~2023-07-12] VITALS: Ht 190.5 cm; Wt 109.2 kg
[~2023-07-12 06:45] MED LIST changes: +ALPR0.5T3; +MIRT45TA68 PO; -REME45TA2 PO; +SUCR1ORA PO; +TRAZ300T2 PO; +VRAY1.5C
[2023-07-12] MEDS: NS 1,000 ML IV ONE (07:10)
[2023-07-12] MEDS ORDERED: fentaNYL 100 MCG/2 ML INJECTION As Ordered ONE (07:17)
[2023-07-12] MEDS ORDERED: propofoL 200 MG/20 ML VIAL As Ordered ONE (07:20)
[2023-07-12] MEDS ORDERED: LIDOCAINE 2% INJ 100 MG/5 ML SYRINGE As Ordered ONE (07:20)
[2023-07-12 07:57] VITALS: TEMP 98.3
[2023-07-12 08:13] VITALS: BP 133/76; O2SAT 99
== END 2023-07-12 08:21 | disposition home or self-care (01) ==
LOC: M OPP 06:45
PROVIDERS: ATTEND Internal Medicine Gastroenterology
DX: K44.9 Diaphragmatic hernia without obstruction or gangrene (principal); K29.70 Gastritis, unspecified, without bleeding; K31.89 Other diseases of stomach and duodenum; R10.13 Epigastric pain; F17.200 Nicotine dependence, unspecified, uncomplicated; Z79.51 Long term (current) use of inhaled steroids; Z79.899 Other long term (current) drug therapy; Z88.6 Allergy status to analgesic agent
CPT/HCPCS: 43239; 88305; J3010

== ENCOUNTER → 2023-07-18 | Outpatient (REF) | payer OTHER ==
[~2023-07-18] MED LIST changes: +BUPR-597 PO; -BUPR300T92 PO; +DOXY-323 PO; +DOXY-440 PO; -DOXY-443 PO; -DOXY-444 PO
[2023-07-18 14:57] LABS: BASO # 0.1 10^3/uL (0.0-0.2); BASO % 0.4 % (0.0-1.0); EOS # 0.2 10^3/uL (0.0-0.5); EOS % 0.9 % (0.0-3.0); HEMATOCRIT 48.5 % (42.0-52.0); HEMOGLOBIN 16.1 g/dl (13.5-17.5); LYMPH # 4.4 10^3/uL (1.5-5.0); LYMPH % 25.9 % (24.0-44.0); MEAN CORPUSCULAR HEMOGLOBIN 31.3 pg (27.0-33.0); MEAN CORPUSCULAR HGB CONC 33.2 g/dl (32.0-36.5); MEAN CORPUSCULAR VOLUME 94.2 fl (80.0-96.0); MONO % 5.7 % (2.0-8.0); NEUTROPHILS # 11.4 10^3/uL (1.5-8.5); NEUTROPHILS % 66.6 % (36.0-66.0); PLATELET COUNT, AUTOMATED 271 10^3/uL (150-450); RED BLOOD COUNT 5.15 10^6/uL (4.30-6.10); WHITE BLOOD COUNT 17.1 10^3/uL (4.0-10.0)
[2023-07-18 15:20] LABS: HEMOGLOBIN A1c 5.5 % (4.0-6.0)
[2023-07-18 15:26] LABS: ALBUMIN 3.6 G/DL (3.2-5.2); ALKALINE PHOSPHATASE 100 U/L (46-116); ALT/SGPT 16 U/L (7.0-40); AST/SGOT 14 U/L (<34); BILIRUBIN,TOTAL 0.3 MG/DL (0.3-1.2); BLOOD UREA NITROGEN 6 MG/DL (9-23); CALCIUM LEVEL 8.9 MG/DL (8.5-10.1); CARBON DIOXIDE LEVEL 29 MMOL/L (20-31); CHLORIDE LEVEL 101 MMOL/L (98-107); CHOLESTEROL LEVEL 204 MG/DL (<200); CHOLESTEROL RISK RATIO 7.44 (<5); CREATININE FOR GFR 0.73 MG/DL (0.70-1.30); GLOMERULAR FILTRATION RATE > 60.0 (>60); GLUCOSE, FASTING 109 MG/DL (60-100); HDL CHOLESTEROL 27.4 MG/DL (>40); LDL CHOLESTEROL 109.8 MG/DL (<100); NON-HDL-C 176.6 MG/DL; POTASSIUM SERUM 3.8 MMOL/L (3.5-5.1); SODIUM LEVEL 136 MMOL/L (136-145); THYROID STIMULATING HORMONE 0.805 uIU/ML (0.55-4.78); TOTAL PROTEIN 6.5 G/DL (5.7-8.2); TRIGLYCERIDES LEVEL 334 MG/DL (<150)
== END ==
LOC: M LAB REF 12:32
PROVIDERS: ATTEND Internal Medicine
DX: R53.83 Other fatigue (principal); R10.13 Epigastric pain; R73.03 Prediabetes

== ENCOUNTER 2023-08-31 17:37 | Emergency (ER) | payer OTHER ==
[~2023-08-31] VITALS: Ht 190.5 cm; Wt 113.7 kg
[~2023-08-31 17:37] MED LIST changes: +FLUO-365 PO; -FLUO20CA22 PO
[2023-08-31 20:44] VITALS: BP 96/54; TEMP 98.2; O2SAT 95
[2023-08-31 20:53] LABS: BASO # 0.1 10^3/uL (0.0-0.2); BASO % 0.4 % (0.0-1.0); EOS # 0.2 10^3/uL (0.0-0.5); EOS % 1.3 % (0.0-3.0); HEMATOCRIT 42.3 % (42.0-52.0); HEMOGLOBIN 14.2 g/dl (13.5-17.5); LYMPH # 4.4 10^3/uL (1.5-5.0); LYMPH % 33.7 % (24.0-44.0); MEAN CORPUSCULAR HEMOGLOBIN 31.8 pg (27.0-33.0); MEAN CORPUSCULAR HGB CONC 33.6 g/dl (32.0-36.5); MEAN CORPUSCULAR VOLUME 94.6 fl (80.0-96.0); MONO # 1.1 10^3/uL (0.0-0.8); MONO % 8.2 % (2.0-8.0); NEUTROPHILS # 7.3 10^3/uL (1.5-8.5); NEUTROPHILS % 55.9 % (36.0-66.0); PLATELET COUNT, AUTOMATED 214 10^3/uL (150-450); RED BLOOD COUNT 4.47 10^6/uL (4.30-6.10); WHITE BLOOD COUNT 13.1 10^3/uL (4.0-10.0)
[2023-08-31 20:54] LABS: ALBUMIN 3.3 G/DL (3.2-5.2); ALKALINE PHOSPHATASE 83 U/L (46-116); ALT/SGPT 18 U/L (7.0-40); AST/SGOT 10 U/L (<34); BILIRUBIN,TOTAL 0.5 MG/DL (0.3-1.2); BLOOD UREA NITROGEN 9 MG/DL (9-23); CALCIUM LEVEL 8.6 MG/DL (8.5-10.1); CARBON DIOXIDE LEVEL 29 MMOL/L (20-31); CHLORIDE LEVEL 103 MMOL/L (98-107); CREATININE FOR GFR 0.71 MG/DL (0.70-1.30); GLOMERULAR FILTRATION RATE > 60.0 (>60); GLUCOSE, FASTING 96 MG/DL (60-100); SODIUM LEVEL 137 MMOL/L (136-145)
[2023-08-31 21:21] LABS: ERYTHROCYTE SEDIMENTATION RATE 20 mm/hr (0-15)
[2023-08-31] MEDS: LIDOCAINE 1% MDV 20ML VIAL SC ONE (21:32)
[2023-08-31] MEDS: DOXYCYCLINE HYCLATE 100MG TABLET PO ONE (21:34)
[2023-08-31] MEDS ORDERED: DOXY-323 PO (21:50)
== END 2023-08-31 22:03 | disposition home or self-care (01) ==
LOC: M ED 17:37
DX: L02.31 Cutaneous abscess of buttock (principal); J45.909 Unspecified asthma, uncomplicated; F41.9 Anxiety disorder, unspecified; F32.A Depression, unspecified; I95.1 Orthostatic hypotension; F17.210 Nicotine dependence, cigarettes, uncomplicated; F12.10 Cannabis abuse, uncomplicated; F10.10 Alcohol abuse, uncomplicated; Z88.8 Allergy status to other drugs, medicaments and biological substances; Z79.51 Long term (current) use of inhaled steroids; Z79.899 Other long term (current) drug therapy; Z79.2 Long term (current) use of antibiotics

== ENCOUNTER 2023-09-05 18:41 | Inpatient (IN) | payer OTHER ==
[~2023-09-05] VITALS: Ht 190.5 cm; Wt 111.0 kg
[2023-09-05] MEDS: LORazepam 2 MG TAB PO STA (10:25)
[2023-09-05] MEDS ORDERED: ALPR1TAB6 (18:55)
[2023-09-05] MEDS ORDERED: NICO1DIS12 TOP (18:55)
[2023-09-05] MEDS ORDERED: NOXI1TAB PO (18:55)
[2023-09-05] MEDS ORDERED: HYDR-643 (18:55)
[2023-09-05] MEDS ORDERED: CETI10CH PO (18:55)
[2023-09-05] MEDS ORDERED: SYMB80INH INH (18:55)
[2023-09-05 20:01] LABS: HEMATOCRIT 42.1 % (42.0-52.0); HEMOGLOBIN 14.4 g/dl (13.5-17.5); MEAN CORPUSCULAR HEMOGLOBIN 31.6 pg (27.0-33.0); MEAN CORPUSCULAR HGB CONC 34.2 g/dl (32.0-36.5); MEAN CORPUSCULAR VOLUME 92.5 fl (80.0-96.0); PLATELET COUNT, AUTOMATED 240 10^3/uL (150-450); RED BLOOD COUNT 4.55 10^6/uL (4.30-6.10); WHITE BLOOD COUNT 10.5 10^3/uL (4.0-10.0)
[2023-09-05 20:13] LABS: BARBITURATES URINE NEGATIVE (NEGATIVE); COCAINE METABOLITE URINE NEGATIVE (NEGATIVE); METHADONE URINE NEGATIVE (NEGATIVE); PHENCYCLIDINE URINE NEGATIVE (NEGATIVE)
[2023-09-05 20:15] LABS: AMPHETAMINES LEVEL URINE POSITIVE (NEGATIVE); BENZODIAZEPINES URINE POSITIVE (NEGATIVE); CANNABINOIDS URINE POSITIVE (NEGATIVE); OPIATES URINE POSITIVE (NEGATIVE)
[2023-09-05 20:15] LABS: ETHYL ALCOHOL (ETHANOL) < 0.003 % (0.000-0.010)
[2023-09-05 20:17] LABS: ALBUMIN 3.3 G/DL (3.2-5.2); ALKALINE PHOSPHATASE 81 U/L (46-116); ALT/SGPT 14 U/L (7.0-40); AST/SGOT < 8 U/L (<34); BILIRUBIN,DIRECT 0.1 MG/DL (<0.4); BILIRUBIN,TOTAL 0.4 MG/DL (0.3-1.2); BLOOD UREA NITROGEN 7 MG/DL (9-23); CALCIUM LEVEL 9.1 MG/DL (8.5-10.1); CARBON DIOXIDE LEVEL 25 MMOL/L (20-31); CHLORIDE LEVEL 108 MMOL/L (98-107); CREATININE FOR GFR 0.78 MG/DL (0.70-1.30); GLOMERULAR FILTRATION RATE > 60.0 (>60); GLUCOSE, FASTING 91 MG/DL (60-100); POTASSIUM SERUM 3.8 MMOL/L (3.5-5.1); SALICYLATE LEVEL < 3.0 MG/DL (<30); SODIUM LEVEL 138 MMOL/L (136-145); TOTAL PROTEIN 6.1 G/DL (5.7-8.2)
[2023-09-05 20:19] LABS: THYROID STIMULATING HORMONE 2.498 uIU/ML (0.55-4.78)
[2023-09-06] MEDS ORDERED: DOXY100C3 PO (00:37)
[2023-09-06] MEDS ORDERED: ALBU8.5H INH (00:37)
[2023-09-06] MEDS ORDERED: NICO1DIS12 TD (00:37)
[2023-09-06] MEDS ORDERED: ACET-716 PO (00:37)
[2023-09-06] MEDS ORDERED: HYDR-643 PO (00:37)
[2023-09-06] MEDS ORDERED: TRAZ150T90 PO (00:37)
[2023-09-06] MEDS ORDERED: MAGN400T33 PO (00:37)
[2023-09-06] MEDS ORDERED: CETI-24 PO (00:37)
[2023-09-06] MEDS ORDERED: ONDA-83 PO (00:37)
[2023-09-06] MEDS ORDERED: VRAY1.5C PO (00:37)
[2023-09-06] MEDS ORDERED: VITA100093 PO (00:37)
[2023-09-06] MEDS ORDERED: CARA1TAB6 PO (00:37)
[2023-09-06] MEDS ORDERED: OMEP40CA5 PO (00:37)
[2023-09-06] MEDS ORDERED: ALPR1TAB6 PO (00:37)
[2023-09-06] MEDS ORDERED: HOME MED LIST COMPLETE! XX SCH (00:40)
[2023-09-06] MEDS ORDERED: SUCRALFATE 1 GM TAB PO PRN (11:05)
[2023-09-06] MEDS ORDERED: ALBUTEROL 90 MCG/ACT 8GM HFA INHALER INH PRN (11:05)
[2023-09-06] MEDS ORDERED: ACETAMINOPHEN TAB 650MG DOSE (2X325MG) PO PRN (11:05)
[2023-09-06] MEDS ORDERED: ONDANSETRON 4MG TAB PO PRN (11:05)
[2023-09-06] MEDS ORDERED: IBUPROFEN 400MG TAB PO PRN (11:05)
[2023-09-06] MEDS ORDERED: OLANZapine ORAL DISINTEGRATING TAB 5MG PO PRN (11:05)
[2023-09-06] MEDS ORDERED: MOM 30ML SUSPENSION UDC PO PRN (11:05)
[2023-09-06] MEDS ORDERED: PILL CUTTER 1 EACH XX PRN (11:25)
[2023-09-06 16:29] VITALS: BP 124/81; TEMP 97.6; O2SAT 97
[2023-09-06] MEDS: METOPROLOL SUCC (TopROL XL) 50MG **XL** TAB PO SCH (18:36)
[2023-09-06] MEDS: OMEPRAZOLE 20MG CAP PO ONE (18:36)
[2023-09-06] MEDS: VITAMIN D 1,000 INTERNATIONAL UNITS TABLET PO SCH (18:36)
[2023-09-06] MEDS: NICOTINE 21MG/24HR 1 EA TRANSDERMAL TD SCH (18:37)
[2023-09-06] MEDS: CETIRIZINE (ZyrTEC) 10 MG TAB PO SCH (20:45)
[2023-09-06] MEDS: SYMBICORT 80/4.5MCG INHALER 6GM INH SCH (20:45)
[2023-09-06] MEDS: traZODone 50 MG TAB PO SCH (20:45)
[2023-09-06] MEDS: CARIPRAZINE 1.5MG CAPSULE (VRAYLAR) PO SCH (20:45)
[2023-09-06] MEDS: MAGNESIUM OXIDE 400MG TAB (MAG-OX) PO SCH (20:45)
[2023-09-07 06:13] VITALS: BP 114/69; TEMP 97.3; O2SAT 98
[2023-09-07] MEDS: diazePAM 5MG TABLET PO ONE (08:45)
[2023-09-07] MEDS: OMEPRAZOLE 20MG CAP PO SCH (09:00)
[2023-09-07 09:40] LABS: CHOLESTEROL LEVEL 231 MG/DL (<200); CHOLESTEROL RISK RATIO 8.46 (<5); HDL CHOLESTEROL 27.3 MG/DL (>40); LDL CHOLESTEROL 157.5 MG/DL (<100); NON-HDL-C 203.7 MG/DL; TRIGLYCERIDES LEVEL 231 MG/DL (<150)
[2023-09-07 13:01] LABS: C REACTIVE PROTEIN QUANTITATIV < 0.40 MG/DL (<1.0)
[2023-09-07 13:14] LABS: PROCALCITONIN <0.04 ng/ml
[2023-09-07] MEDS: ATORVASTATIN 20 MG TAB PO SCH (13:14)
[2023-09-07] MEDS: AUGMENTIN 875 MG TAB PO SCH (13:14)
[2023-09-07 15:59] VITALS: BP 107/68; TEMP 97.7; O2SAT 98
[2023-09-07] MEDS: CARIPRAZINE 3MG CAPSULE (VRAYLAR) PO SCH (20:27)
[2023-09-08 06:02] VITALS: BP 136/62; TEMP 97.9; O2SAT 96
[2023-09-08 07:30] LABS: BASO # 0.1 10^3/uL (0.0-0.2); BASO % 0.7 % (0.0-1.0); EOS # 0.2 10^3/uL (0.0-0.5); EOS % 1.4 % (0.0-3.0); HEMATOCRIT 43.4 % (42.0-52.0); HEMOGLOBIN 14.8 g/dl (13.5-17.5); LYMPH # 3.4 10^3/uL (1.5-5.0); LYMPH % 30.9 % (24.0-44.0); MEAN CORPUSCULAR HEMOGLOBIN 31.8 pg (27.0-33.0); MEAN CORPUSCULAR HGB CONC 34.1 g/dl (32.0-36.5); MEAN CORPUSCULAR VOLUME 93.1 fl (80.0-96.0); MONO # 0.7 10^3/uL (0.0-0.8); NEUTROPHILS # 6.6 10^3/uL (1.5-8.5); NEUTROPHILS % 60.5 % (36.0-66.0); PLATELET COUNT, AUTOMATED 247 10^3/uL (150-450); RED BLOOD COUNT 4.66 10^6/uL (4.30-6.10); WHITE BLOOD COUNT 10.9 10^3/uL (4.0-10.0)
[2023-09-08] MEDS: MAALOX 30 ML SUSP *UDC PO PRN (13:30)
[2023-09-08 15:57] VITALS: BP 111/55; TEMP 98.1; O2SAT 100
[2023-09-08] MEDS ORDERED: LOPERAMIDE 2 MG CAPLET PO PRN (19:00)
[2023-09-08 20:04] LABS: ALBUMIN 3.6 G/DL (3.2-5.2); ALKALINE PHOSPHATASE 92 U/L (46-116); ALT/SGPT 18 U/L (7.0-40); AST/SGOT 14 U/L (<34); BILIRUBIN,TOTAL 0.3 MG/DL (0.3-1.2); BLOOD UREA NITROGEN 11 MG/DL (9-23); CALCIUM LEVEL 9.4 MG/DL (8.5-10.1); CARBON DIOXIDE LEVEL 25 MMOL/L (20-31); CHLORIDE LEVEL 107 MMOL/L (98-107); CREATININE FOR GFR 0.73 MG/DL (0.70-1.30); GLOMERULAR FILTRATION RATE > 60.0 (>60); GLUCOSE, FASTING 95 MG/DL (60-100); POTASSIUM SERUM 4.4 MMOL/L (3.5-5.1); SODIUM LEVEL 136 MMOL/L (136-145); TOTAL PROTEIN 6.5 G/DL (5.7-8.2)
[2023-09-08] MEDS: LACTOBACILLUS ACIDOPHILUS CAP (BACID) PO SCH (21:15)
[2023-09-09 08:32] LABS: CLOSTRIDIUM DIFFICILE PCR NEGATIVE (NEGATIVE)
[2023-09-09 15:04] VITALS: BP 137/64; TEMP 97.8; O2SAT 96
[2023-09-10 06:26] VITALS: BP 121/77; TEMP 97.8; O2SAT 98
[2023-09-10] MEDS ORDERED: ATOR1TAB21 PO (08:45)
[2023-09-10] MEDS ORDERED: AMOX875T2 PO (08:45)
[2023-09-10] MEDS ORDERED: LOPE2CA PO (08:45)
[2023-09-10] MEDS ORDERED: RISATAB3 PO (08:45)
[2023-09-10] MEDS ORDERED: VRAY3CAP PO (08:45)
[2023-09-10] MEDS ORDERED: TRAZ150T90 PO (08:45)
[2023-09-10] MEDS ORDERED: NICO21PAT TD (08:45)
[2023-09-10 09:25] VITALS: BP 121/77
== END 2023-09-10 12:46 | disposition home or self-care (01) | DRG 753 ==
LOC: M ED 18:41 → M ED INP 09-06 11:01 → M PSY 09-06 15:26
PROVIDERS: ADMIT Student in an Organized Health Care Education/Training Program; ATTEND Student in an Organized Health Care Education/Training Program
DX: F31.9 Bipolar disorder, unspecified (principal); L76.32 Postprocedural hematoma of skin and subcutaneous tissue following other procedure; I10 Essential (primary) hypertension; F12.10 Cannabis abuse, uncomplicated; M51.26 Other intervertebral disc displacement, lumbar region; M47.816 Spondylosis without myelopathy or radiculopathy, lumbar region; K21.9 Gastro-esophageal reflux disease without esophagitis; J45.909 Unspecified asthma, uncomplicated; F11.10 Opioid abuse, uncomplicated; F17.200 Nicotine dependence, unspecified, uncomplicated; F15.10 Other stimulant abuse, uncomplicated; J44.9 Chronic obstructive pulmonary disease, unspecified; E78.5 Hyperlipidemia, unspecified; L73.2 Hidradenitis suppurativa; E55.9 Vitamin D deficiency, unspecified; Z63.0 Problems in relationship with spouse or partner; Z91.51 Personal history of suicidal behavior; Z90.49 Acquired absence of other specified parts of digestive tract; Z79.899 Other long term (current) drug therapy; Z88.6 Allergy status to analgesic agent; Z62.810 Personal history of physical and sexual abuse in childhood

== ENCOUNTER 2023-10-14 18:18 | Emergency (ER) | payer MEDICAID, OTHER ==
[~2023-10-14] VITALS: Ht 190.5 cm; Wt 111.8 kg
[~2023-10-14 18:18] MED LIST changes: +ACET-716 PO; +ALBU8.5H INH; +ALPR1TAB6; +ALPR1TAB6 PO; +AMOX875T2 PO; +ATOR1TAB21 PO; +CARA1TAB6 PO; +CETI10CH PO; +DOXY100C3 PO; +HYDR-643; +HYDR-643 PO; +LOPE2CA PO; +MAGN400T33 PO; +NICO1DIS12 TD; +NICO1DIS12 TOP; +NICO21PAT TD; +NOXI1TAB PO; -OLAN20TA14 PO; +OLAN20TA53 PO; +OMEP40CA5 PO; +RISATAB3 PO; +SYMB80INH INH; +TRAZ150T90 PO; +VITA100093 PO; +VRAY1.5C PO; +VRAY3CAP PO
[2023-10-14] MEDS ORDERED: PRED20TA (18:32)
[2023-10-14] MEDS ORDERED: QUET100T2 (18:32)
[2023-10-14] MEDS ORDERED: DIAZ10TA2 (18:32)
[2023-10-14] MEDS ORDERED: AMPHET/DEXTR (18:32)
[2023-10-14] MEDS: methocarbamoL 500 MG TAB PO ONE (19:40)
[2023-10-14] MEDS: ONDANSETRON 4MG 2ML VIAL IV ONE (19:44)
[2023-10-14] MEDS: MORPHINE 4 MG/ML 1ML VIAL IV ONE (19:46)
[2023-10-14] MEDS: MORPHINE 2 MG/ML 1ML VIAL IV ONE (23:00)
[2023-10-15 00:08] VITALS: BP 91/62; TEMP 96.9; O2SAT 95
[2023-10-15] MEDS: NORCO 5/325MG TABLET (HOME DOSE PACK) PO ONE (00:16)
== END 2023-10-15 00:22 | disposition home or self-care (01) ==
LOC: M ED 18:18
DX: M51.26 Other intervertebral disc displacement, lumbar region (principal); E11.9 Type 2 diabetes mellitus without complications; J45.909 Unspecified asthma, uncomplicated; K21.9 Gastro-esophageal reflux disease without esophagitis; F17.200 Nicotine dependence, unspecified, uncomplicated; F12.90 Cannabis use, unspecified, uncomplicated; Z88.6 Allergy status to analgesic agent; Z79.899 Other long term (current) drug therapy; Z79.51 Long term (current) use of inhaled steroids; Z79.52 Long term (current) use of systemic steroids
CPT/HCPCS: 72148; 96374; 96375; 96376; 99284; J2405

== ENCOUNTER → 2023-10-17 | Outpatient (CLI) | payer OTHER ==
[~2023-10-17] MED LIST changes: +AMPHET/DEXTR; +DIAZ10TA2; +PRED20TA; +QUET100T2
== END ==
LOC: M SOG 07:52
PROVIDERS: ATTEND Orthopaedic Surgery
DX: M54.50 Low back pain, unspecified (principal)

== ENCOUNTER → 2023-11-13 | Outpatient (REF) | payer OTHER ==
[~2023-11-13] MED LIST changes: +CIPR-249 PO; +GABA-1490 PO; -GABA600T4 PO; +TRAM50TA2 PO
== END ==
LOC: M LAB REF 12:43
PROVIDERS: ATTEND Internal Medicine
DX: N39.0 Urinary tract infection, site not specified (principal)

== ENCOUNTER 2023-11-14 21:37 | Emergency (ER) | payer OTHER ==
[~2023-11-14] VITALS: Ht 190.5 cm; Wt 119.7 kg
[2023-11-14 21:37] VITALS: TEMP 98.2
[~2023-11-14 21:37] MED LIST changes: -CIPR-249 PO; -TRAM50TA2 PO
[2023-11-14 22:38] LABS: BASO # 0.1 10^3/uL (0.0-0.2); BASO % 0.3 % (0.0-1.0); EOS # 0.1 10^3/uL (0.0-0.5); EOS % 0.3 % (0.0-3.0); HEMATOCRIT 42.9 % (42.0-52.0); HEMOGLOBIN 15.3 g/dl (13.5-17.5); LYMPH # 2.6 10^3/uL (1.5-5.0); LYMPH % 13.5 % (24.0-44.0); MEAN CORPUSCULAR HEMOGLOBIN 32.8 pg (27.0-33.0); MEAN CORPUSCULAR HGB CONC 35.7 g/dl (32.0-36.5); MEAN CORPUSCULAR VOLUME 92.1 fl (80.0-96.0); MONO # 1.4 10^3/uL (0.0-0.8); MONO % 7.1 % (2.0-8.0); NEUTROPHILS # 15.2 10^3/uL (1.5-8.5); NEUTROPHILS % 78.2 % (36.0-66.0); PLATELET COUNT, AUTOMATED 223 10^3/uL (150-450); RED BLOOD COUNT 4.66 10^6/uL (4.30-6.10); WHITE BLOOD COUNT 19.5 10^3/uL (4.0-10.0)
[2023-11-14 23:11] LABS: ALBUMIN 3.5 G/DL (3.2-5.2); BILIRUBIN,DIRECT 0.4 MG/DL (<0.4); BILIRUBIN,TOTAL 1.2 MG/DL (0.3-1.2); TOTAL PROTEIN 6.9 G/DL (5.7-8.2)
[2023-11-14] MEDS: MORPHINE 2 MG/ML 1ML VIAL IV ONE (23:23)
[2023-11-14] MEDS: NS 1,000 ML IV ONE (23:24)
[2023-11-14] MEDS ORDERED: ISOVUE-370 76% 100ML VIAL As Ordered ONE (23:40)
[2023-11-15 00:45] LABS: Trichomonas vaginalis (AMP) NOT DETECTED (NEGATIVE)
[2023-11-15 01:09] LABS: GC DNA AMPLIFICATION NEGATIVE (NEGATIVE)
[2023-11-15 01:30] VITALS: BP 120/78; O2SAT 92
[2023-11-15] MEDS ORDERED: CIPR-249 PO (01:40)
[2023-11-15] MEDS ORDERED: TRAM50TA2 PO (01:40)
[2023-11-15] MEDS: traMADol 50 MG TAB (HOME DOSE PACK) PO ONE (02:09)
== END 2023-11-15 02:21 | disposition home or self-care (01) ==
LOC: M ED 21:37
DX: R31.9 Hematuria, unspecified (principal); K59.00 Constipation, unspecified; J98.11 Atelectasis; J45.909 Unspecified asthma, uncomplicated; K21.9 Gastro-esophageal reflux disease without esophagitis; F31.9 Bipolar disorder, unspecified; F43.10 Post-traumatic stress disorder, unspecified; F60.3 Borderline personality disorder; F17.200 Nicotine dependence, unspecified, uncomplicated; Z88.6 Allergy status to analgesic agent; Z79.52 Long term (current) use of systemic steroids; Z79.02 Long term (current) use of antithrombotics/antiplatelets; Z79.83 Long term (current) use of bisphosphonates; Z79.899 Other long term (current) drug therapy
CPT/HCPCS: 74178; 80047; 80076; 81001; 83690; 85025; 87088; 87186; 87661; 87810; 87850; 96374; 99284; Q9967

== ENCOUNTER → 2023-11-15 | Outpatient (CLI) | payer OTHER ==
[~2023-11-15] MED LIST changes: +CIPR-249 PO; +TRAM50TA2 PO
== END ==
LOC: M PAIN 08:00
PROVIDERS: ATTEND Nurse Practitioner Family
DX: M79.18 Myalgia, other site (principal); G89.29 Other chronic pain; J45.909 Unspecified asthma, uncomplicated; K21.9 Gastro-esophageal reflux disease without esophagitis; K44.9 Diaphragmatic hernia without obstruction or gangrene; M25.561 Pain in right knee; M25.562 Pain in left knee; F41.9 Anxiety disorder, unspecified; F31.9 Bipolar disorder, unspecified; E55.9 Vitamin D deficiency, unspecified; E66.9 Obesity, unspecified; R73.01 Impaired fasting glucose; L73.2 Hidradenitis suppurativa; F17.210 Nicotine dependence, cigarettes, uncomplicated; Z79.891 Long term (current) use of opiate analgesic; Z79.899 Other long term (current) drug therapy; Z88.6 Allergy status to analgesic agent; Z68.32 Body mass index [BMI] 32.0-32.9, adult

== ENCOUNTER 2023-12-19 20:53 | Emergency (ER) | payer OTHER ==
[~2023-12-19] VITALS: Ht 190.5 cm; Wt 119.1 kg
[~2023-12-19 20:53] MED LIST changes: -AMOX875T2
[2023-12-19 21:02] VITALS: TEMP 97.1
[2023-12-19] MEDS ORDERED: AMOX875T2 (21:05)
[2023-12-19 21:16] LABS: BASO # 0.1 10^3/uL (0.0-0.2); BASO % 0.6 % (0.0-1.0); EOS # 0.2 10^3/uL (0.0-0.5); EOS % 1.7 % (0.0-3.0); HEMATOCRIT 42.1 % (42.0-52.0); HEMOGLOBIN 14.6 g/dl (13.5-17.5); MEAN CORPUSCULAR HEMOGLOBIN 33.1 pg (27.0-33.0); MEAN CORPUSCULAR HGB CONC 34.7 g/dl (32.0-36.5); MEAN CORPUSCULAR VOLUME 95.5 fl (80.0-96.0); MONO # 0.6 10^3/uL (0.0-0.8); MONO % 6.3 % (2.0-8.0); NEUTROPHILS # 4.9 10^3/uL (1.5-8.5); PLATELET COUNT, AUTOMATED 224 10^3/uL (150-450); RED BLOOD COUNT 4.41 10^6/uL (4.30-6.10); WHITE BLOOD COUNT 9.8 10^3/uL (4.0-10.0)
[2023-12-19 21:44] LABS: CK-MB VALUE MASS 1.1 NG/ML (<3.6)
[2023-12-19 21:45] LABS: ALBUMIN 3.5 G/DL (3.2-5.2); ALKALINE PHOSPHATASE 103 U/L (46-116); ALT/SGPT 16 U/L (7.0-40); AST/SGOT 12 U/L (<34); BILIRUBIN,DIRECT 0.2 MG/DL (<0.4); BILIRUBIN,TOTAL 0.6 MG/DL (0.3-1.2); BLOOD UREA NITROGEN 8 MG/DL (9-23); CALCIUM LEVEL 9.4 MG/DL (8.5-10.1); CARBON DIOXIDE LEVEL 28 MMOL/L (20-31); CHLORIDE LEVEL 107 MMOL/L (98-107); CPK CREATINE PHOSPHOKINASE 175 U/L (46-171); CREATININE FOR GFR 0.74 MG/DL (0.70-1.30); GLOMERULAR FILTRATION RATE > 60.0 (>60); GLUCOSE, FASTING 102 MG/DL (60-100); MB/CK RELATIVE INDEX 0.62 (< OR =4); POTASSIUM SERUM 4.1 MMOL/L (3.5-5.1); SODIUM LEVEL 136 MMOL/L (136-145); TOTAL PROTEIN 6.6 G/DL (5.7-8.2)
[2023-12-19] MEDS: ACETAMINOPHEN *IV* 1,000 MG in IV 1 EA IV ONE (21:54)
[2023-12-20] VITALS: BP 133/83
[2023-12-20 00:31] VITALS: O2SAT 97
== END 2023-12-20 00:42 | disposition home or self-care (01) ==
LOC: M ED 20:53
DX: R07.89 Other chest pain (principal); R94.31 Abnormal electrocardiogram [ECG] [EKG]; J45.909 Unspecified asthma, uncomplicated; F17.210 Nicotine dependence, cigarettes, uncomplicated; F12.10 Cannabis abuse, uncomplicated; Z88.8 Allergy status to other drugs, medicaments and biological substances; Z79.51 Long term (current) use of inhaled steroids; Z79.2 Long term (current) use of antibiotics; Z79.899 Other long term (current) drug therapy
CPT/HCPCS: 71045; 80048; 80076; 82550; 82553; 84484; 85025; 93005; 93041; 94760; 96365; 96366; 99285; J0131

== ENCOUNTER → 2023-12-19 | Outpatient (REF) | payer OTHER ==
[~2023-12-19] MED LIST changes: +AMOX875T2; -DOXY-323 PO; +DOXY-441 PO; +GABA-1172 PO; -GABA-282 PO
[2023-12-19 17:36] LABS: CK-MB VALUE MASS 1.5 NG/ML (<3.6)
[2023-12-19 17:37] LABS: CPK CREATINE PHOSPHOKINASE 151 U/L (46-171); MB/CK RELATIVE INDEX 0.99 (< OR =4)
== END ==
LOC: M LAB REF 16:08
PROVIDERS: ATTEND Internal Medicine
DX: R07.89 Other chest pain (principal)

== ENCOUNTER → 2024-01-15 | Outpatient (CLI) | payer OTHER ==
[~2024-01-15] MED LIST changes: +AMOX875T2; +TRIAMCINOLONE ACETONIDE SUSP 40MG/ML 1ML VIAL As Ordered ONE; +oxyCODONE 5MG TAB As Ordered ONE
== END ==
LOC: M PAIN 16:30
PROVIDERS: ATTEND Anesthesiology
DX: M79.18 Myalgia, other site (principal); J45.909 Unspecified asthma, uncomplicated; K21.9 Gastro-esophageal reflux disease without esophagitis; M25.561 Pain in right knee; M25.562 Pain in left knee; F31.9 Bipolar disorder, unspecified; F41.9 Anxiety disorder, unspecified; E55.9 Vitamin D deficiency, unspecified; E66.9 Obesity, unspecified; M54.50 Low back pain, unspecified; G89.29 Other chronic pain; F17.210 Nicotine dependence, cigarettes, uncomplicated; Z88.6 Allergy status to analgesic agent; Z68.32 Body mass index [BMI] 32.0-32.9, adult
CPT/HCPCS: 20552; J0665; J3301

== ENCOUNTER → 2024-01-30 | Outpatient (CLI) | payer OTHER ==
[~2024-01-30] MED LIST changes: +META-10; -META1TAB22; -TRIAMCINOLONE ACETONIDE SUSP 40MG/ML 1ML VIAL As Ordered ONE; -oxyCODONE 5MG TAB As Ordered ONE
== END ==
LOC: M PLAIMG 13:44
PROVIDERS: ATTEND Internal Medicine
DX: M50.30 Other cervical disc degeneration, unspecified cervical region (principal)

== ENCOUNTER → 2024-03-05 | Outpatient (CLI) | payer OTHER | LOC: M PAIN 08:30 | PROVIDERS: ATTEND Anesthesiology | DX: M79.18 Myalgia, other site (principal); M79.10 Myalgia, unspecified site; M54.50 Low back pain, unspecified; G89.29 Other chronic pain; J45.909 Unspecified asthma, uncomplicated; K21.9 Gastro-esophageal reflux disease without esophagitis; M25.561 Pain in right knee; M25.562 Pain in left knee; F31.9 Bipolar disorder, unspecified; F41.9 Anxiety disorder, unspecified; E55.9 Vitamin D deficiency, unspecified; E66.9 Obesity, unspecified; F17.210 Nicotine dependence, cigarettes, uncomplicated; Z88.6 Allergy status to analgesic agent; Z68.32 Body mass index [BMI] 32.0-32.9, adult; Z79.891 Long term (current) use of opiate analgesic; Z79.899 Other long term (current) drug therapy ==

== ENCOUNTER → 2024-03-20 | Outpatient (CLI) | payer OTHER ==
[~2024-03-20] MED LIST changes: +HYDR-3719; +PROP20TA72; +QUET200T2 PO; +SEMA0.252; +VRAY4.5C
== END ==
LOC: M PAIN 16:30
PROVIDERS: ATTEND Nurse Practitioner Family
DX: M50.10 Cervical disc disorder with radiculopathy, unspecified cervical region (principal); G89.29 Other chronic pain; M79.18 Myalgia, other site; M54.50 Low back pain, unspecified; F17.210 Nicotine dependence, cigarettes, uncomplicated; J45.909 Unspecified asthma, uncomplicated; K21.9 Gastro-esophageal reflux disease without esophagitis; I48.0 Paroxysmal atrial fibrillation; E55.9 Vitamin D deficiency, unspecified; E66.9 Obesity, unspecified; R73.01 Impaired fasting glucose; Z79.891 Long term (current) use of opiate analgesic; Z79.899 Other long term (current) drug therapy; Z88.6 Allergy status to analgesic agent

== ENCOUNTER 2024-03-30 08:39 | Emergency (ER) | payer OTHER ==
[~2024-03-30] VITALS: Ht 190.5 cm; Wt 119.5 kg
[~2024-03-30 08:39] MED LIST changes: -HYDR-3719; -PROP20TA72; -QUET200T2 PO; -SEMA0.252; -VRAY4.5C
[2024-03-30] MEDS ORDERED: SEMA0.252 (08:52)
[2024-03-30] MEDS ORDERED: VRAY4.5C (08:52)
[2024-03-30] MEDS ORDERED: PROP20TA72 (08:52)
[2024-03-30] MEDS ORDERED: HYDR-3719 (08:52)
[2024-03-30] MEDS ORDERED: QUET200T2 PO (08:52)
[2024-03-30 10:19] VITALS: BP 132/72; TEMP 97.7; O2SAT 94
== END 2024-03-30 10:21 | disposition home or self-care (01) ==
LOC: M ED 08:39
DX: S50.12XA Contusion of left forearm, initial encounter (principal); Y92.019 Unspecified place in single-family (private) house as the place of occurrence of the external cause; Y93.9 Activity, unspecified; Y99.9 Unspecified external cause status; F17.210 Nicotine dependence, cigarettes, uncomplicated; Z88.8 Allergy status to other drugs, medicaments and biological substances; Z79.1 Long term (current) use of non-steroidal anti-inflammatories (NSAID); Z79.51 Long term (current) use of inhaled steroids; Z79.899 Other long term (current) drug therapy

== ENCOUNTER → 2024-04-12 | Outpatient (CLI) | payer OTHER ==
[~2024-04-12] MED LIST changes: +HYDR-3719; +KETO10TAB PO; +METH-1164 PO; +PROP20TA72; +QUET200T2 PO; +SEMA0.252; +VRAY4.5C
== END ==
LOC: M RAD 12:58
PROVIDERS: ATTEND Nurse Practitioner Family
DX: M47.814 Spondylosis without myelopathy or radiculopathy, thoracic region (principal); M50.123 Cervical disc disorder at C6-C7 level with radiculopathy

== ENCOUNTER 2024-04-15 12:54 | Emergency (ER) | payer OTHER ==
[~2024-04-15] VITALS: Ht 190.5 cm; Wt 113.3 kg
[~2024-04-15 12:54] MED LIST changes: -KETO10TAB PO; -METH-1164 PO
[2024-04-15 18:12] VITALS: BP 128/85; TEMP 98.2; O2SAT 96
[2024-04-15] MEDS: methocarbamoL 500 MG TAB PO ONE (19:00)
[2024-04-15] MEDS: KETOROLAC 60MG 2ML VIAL IM ONE (19:01)
[2024-04-15] MEDS ORDERED: KETO10TAB PO (20:56)
[2024-04-15] MEDS ORDERED: METH-1164 PO (20:56)
== END 2024-04-15 21:11 | disposition home or self-care (01) ==
LOC: M ED 12:54
DX: M54.50 Low back pain, unspecified (principal); E11.9 Type 2 diabetes mellitus without complications; K21.9 Gastro-esophageal reflux disease without esophagitis; J45.909 Unspecified asthma, uncomplicated; F43.10 Post-traumatic stress disorder, unspecified; F17.210 Nicotine dependence, cigarettes, uncomplicated; Z88.8 Allergy status to other drugs, medicaments and biological substances; Z79.1 Long term (current) use of non-steroidal anti-inflammatories (NSAID); Z79.51 Long term (current) use of inhaled steroids; Z79.899 Other long term (current) drug therapy; Z79.4 Long term (current) use of insulin
CPT/HCPCS: 70450; 72110; 72125; 96372; 99283; J1885

== ENCOUNTER → 2024-05-14 | Outpatient (REF) | payer OTHER ==
[~2024-05-14] MED LIST changes: +KETO10TAB PO; +METH-1164 PO
== END ==
LOC: M LAB REF 12:43
PROVIDERS: ATTEND Internal Medicine
DX: R68.82 Decreased libido (principal)

== ENCOUNTER 2024-06-29 10:36 | Emergency (ER) | payer OTHER ==
[~2024-06-29] VITALS: Ht 190.5 cm; Wt 110.0 kg
[2024-06-29] MEDS: ONDANSETRON 4MG 2ML VIAL IV ONE (11:42)
[2024-06-29] MEDS: NS (Normal Saline) 0.9% 1,000 ML IV ONE (11:42)
[2024-06-29 12:05] LABS: BASO # 0.1 10^3/uL (0.0-0.2); BASO % 0.6 % (0.0-1.0); EOS # 0.2 10^3/uL (0.0-0.5); EOS % 1.5 % (0.0-3.0); HEMATOCRIT 46.4 % (42.0-52.0); HEMOGLOBIN 15.9 g/dl (13.5-17.5); LYMPH # 4.1 10^3/uL (1.5-5.0); LYMPH % 35.8 % (24.0-44.0); MEAN CORPUSCULAR HEMOGLOBIN 32.4 pg (27.0-33.0); MEAN CORPUSCULAR HGB CONC 34.3 g/dl (32.0-36.5); MEAN CORPUSCULAR VOLUME 94.7 fl (80.0-96.0); MONO # 0.9 10^3/uL (0.0-0.8); MONO % 7.9 % (2.0-8.0); NEUTROPHILS # 6.2 10^3/uL (1.5-8.5); NEUTROPHILS % 53.9 % (36.0-66.0); PLATELET COUNT, AUTOMATED 247 10^3/uL (150-450); WHITE BLOOD COUNT 11.5 10^3/uL (4.0-10.0)
[2024-06-29 12:33] LABS: LIPASE 18 U/L (12-53)
[2024-06-29 12:34] LABS: ALBUMIN 3.7 G/DL (3.2-5.2); ALKALINE PHOSPHATASE 110 U/L (40-129); ALT/SGPT 27 U/L (7.0-40); AST/SGOT 22 U/L (<34); BILIRUBIN,DIRECT 0.2 MG/DL (<0.4); BILIRUBIN,TOTAL 0.7 MG/DL (0.3-1.2); BLOOD UREA NITROGEN 8 MG/DL (9-23); CALCIUM LEVEL 8.9 MG/DL (8.5-10.1); CARBON DIOXIDE LEVEL 27 MMOL/L (20-31); CHLORIDE LEVEL 100 MMOL/L (98-107); CREATININE FOR GFR 0.81 MG/DL (0.70-1.30); GLOMERULAR FILTRATION RATE > 90.0 (>60); GLUCOSE, FASTING 94 MG/DL (60-100); POTASSIUM SERUM 3.8 MMOL/L (3.5-5.1); SODIUM LEVEL 137 MMOL/L (136-145); TOTAL PROTEIN 6.8 G/DL (5.7-8.2)
[2024-06-29] MEDS: PANTOPRAZOLE 40MG VIAL IV ONE (12:53)
[2024-06-29] MEDS ORDERED: ISOVUE-370 76% 100ML VIAL As Ordered ONE (13:58)
[2024-06-29 15:47] VITALS: BP 128/86; TEMP 98.2; O2SAT 99
== END 2024-06-29 15:58 | disposition home or self-care (01) ==
LOC: M ED 10:36
DX: R11.10 Vomiting, unspecified (principal); K21.9 Gastro-esophageal reflux disease without esophagitis; F17.210 Nicotine dependence, cigarettes, uncomplicated; F12.10 Cannabis abuse, uncomplicated; Z88.6 Allergy status to analgesic agent; Z79.1 Long term (current) use of non-steroidal anti-inflammatories (NSAID); Z79.4 Long term (current) use of insulin; Z79.51 Long term (current) use of inhaled steroids; Z79.899 Other long term (current) drug therapy
CPT/HCPCS: 74177; 80048; 80076; 83690; 85025; 87486; 87581; 87633; 87798; 93041; 96374; 96375; 99284; J2405; J2470; Q9967

== ENCOUNTER → 2024-09-18 | Outpatient (CLI) | payer OTHER ==
[~2024-09-18] MED LIST changes: -AMBI10TA PO; -BUPR-597 PO; +BUPR-766 PO; +PEPC1TAB5 PO; +PRED10TA2 PO; +ZOLP-533 PO
== END ==
LOC: M RAD 13:48
PROVIDERS: ATTEND Physician Assistant Medical
DX: N50.82 Scrotal pain (principal); N50.89 Other specified disorders of the male genital organs